=== PATIENT | female | born 2000 | race Caucasian/White ===

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

== ENCOUNTER → 2020-03-27 12:10 | Outpatient (CLI) | payer OTHER, SELFPAY ==
[2020-03-27 08:52] VITALS: BMI 23.3
[2020-03-29 03:06] LABS: Chlamydia By Nucleic Acid AMP Negative (Negative)
[2020-03-29 10:32] LABS: Gonococcus By Nucleic Acid AMP Negative (Negative)
== END ==
PROVIDERS: PCP Student in an Organized Health Care Education/Training Program; Visit Provider Nurse Practitioner Women's Health
DX: Z11.3 Encounter for screening for infections with a predominantly sexual mode of transmission (principal)
CPT/HCPCS: 87491; 87591

== ENCOUNTER → 2020-08-05 16:06 | Outpatient (CLI) | payer OTHER, SELFPAY ==
[2020-08-05 14:16] VITALS: BMI 22.1
[2020-08-08 20:08] LABS: Chlamydia By Nucleic Acid AMP Negative (Negative)
[2020-08-08 20:32] LABS: Gonococcus By Nucleic Acid AMP Negative (Negative)
== END ==
PROVIDERS: PCP Student in an Organized Health Care Education/Training Program; Referring Provider Nurse Practitioner Women's Health; Visit Provider Nurse Practitioner Women's Health
DX: Z11.3 Encounter for screening for infections with a predominantly sexual mode of transmission (principal); N94.9 Unspecified condition associated with female genital organs and menstrual cycle
CPT/HCPCS: 87070; 87205; 87491; 87591

== ENCOUNTER → 2020-11-07 08:15 | Outpatient (CLI) | payer OTHER, SELFPAY ==
[2020-08-05 14:16] VITALS: BMI 22.1
--- NOTE | 2020-11-07 08:20 | CT_ITS ---
STUDY: CT ABDOMEN AND PELVIS WITH AND WITHOUT CONTRAST REASON FOR EXAM: Female, 20 years old. Recurrent UTIs. RADIATION DOSAGE (If Supplied By Facility): CTDIvol = ( 15.94 ) mGy, DLP = ( 1537.60 ) mGycm TECHNIQUE: Transaxial images were obtained from the dome of the diaphragm to the symphysis pubis without oral contrast. IV 100mL Isovue-370 was administered. Sagittal and coronal images were reconstructed. Individualized dose optimization techniques were used for this CT. COMPARISON: None. FINDINGS: The visualized lung bases are unremarkable. The visualized portions of the heart are within normal limits. Normal liver. Normal gallbladder and extrahepatic biliary system. Normal spleen. Normal pancreas. Normal bilateral adrenal glands. Normal right kidney. Normal left kidney. Normal visualized stomach. Normal small intestine. Moderate amount of fecal material is seen in the colon. The appendix is visualized and appears normal. Normal abdominal aorta. Normal inferior vena cava. Normal retroperitoneum. Normal urinary bladder. Normal abdominal wall. Normal osseous structures. CT/CT Abd/Pelvis W/WO Contrast IMPRESSION: Normal unenhanced and enhanced CT of the abdomen and pelvis. Electronically Signed: Juanpablo Grissom MD at 9:41 EDT , Service support ,
== END ==
LOC: CT 08:18
PROVIDERS: PCP Student in an Organized Health Care Education/Training Program; Referring Provider Urology; Visit Provider Urology
DX: R31.0 Gross hematuria (principal); N39.0 Urinary tract infection, site not specified; R10.30 Lower abdominal pain, unspecified
CPT/HCPCS: 74178; Q9967

== ENCOUNTER → 2021-06-04 | Outpatient (CLI) | payer OTHER, MEDICAID, SELFPAY ==
[2021-06-08 18:08] LABS: Chlamydia By Nucleic Acid AMP Negative (Negative)
[2021-06-09 12:44] LABS: Gonococcus By Nucleic Acid AMP Negative (Negative)
[2021-06-10 17:23] LABS: HPV Reflexed? NOT INDICATED
== END | disposition home or self-care (01) ==
LOC: LABSPEC 08-04 14:00
PROVIDERS: PCP Student in an Organized Health Care Education/Training Program; Visit Provider Nurse Practitioner Women's Health
DX: N89.8 Other specified noninflammatory disorders of vagina (principal); Z12.4 Encounter for screening for malignant neoplasm of cervix; Z11.3 Encounter for screening for infections with a predominantly sexual mode of transmission
CPT/HCPCS: 87070; 87205; 87491; 87591; 88175; G0145

== ENCOUNTER → 2022-09-21 | Outpatient (CLI) | payer MEDICAID, SELFPAY ==
[2022-09-21 10:49] LABS: Absolute Lymphocyte Count 1.49 X10^3/uL (0.83-4.51); Absolute Neutrophil Count 3.9 X10^3/uL (2.0-7.7); Basophil# 0.03 X10^3/uL; Basophil% 0.5 % (0-1); Eosinophil# 0.25 X10^3/uL; Hematocrit 40.6 % (37-47); Hemoglobin 13.9 g/dL (12.0-15.0); Lymphocyte # 1.49 X10^3/ul (0.83-4.51); Lymphocyte % 24.1 % (19-41); Mean Corp Hgb Conc 34.2 g/dL (32-36); Mean Corpuscular Hgb 30.5 pg (27.0-32.0); Mean Platelet Vol. 8.6 fl (6.2-12.0); Monocyte# 0.48 X10^3/uL; Monocyte% 7.8 % (0-10); NRBC Flagged by Analyzer 0 % (0-5); Neutrophil # 3.91 X10^3/uL (2.7-7.7); Neutrophil % 63.3 % (47-70); Platelet Count 281 K/mm3 (150-450); RBC Distribution Width CV 12.1 % (11.6-14.6); RBC Distribution Width SD 39.4 fl (35.1-43.9); Red Blood Count 4.56 M/mm3 (4.2-5.4); White Blood Count 6.2 K/mm3 (4.4-11.0)
[2022-09-21 11:33] LABS: NATERA MAILED SPECIMEN
[2022-09-21 11:56] LABS: HIV - WCH Non-Reactive (Nonreactive); Hepatitis B Surface Antigen Non-Reactive (Nonreactive); Hepatitis C Antibody Non-Reactive (Nonreactive); Rubella IgG Reactive (Nonreactive); Syphilis Antibodies Non-reactive
[2022-09-21 17:34] LABS: Amphetamine Urine VISTA NEGATIVE (<1000 ng/mL); Barbiturate Urine VISTA NEGATIVE (< 200 ng/mL); Benzodiazepine Urine VISTA NEGATIVE (< 200 ng/mL); Cocaine Urine VISTA NEGATIVE (< 300 ng/mL); Ecstacy Urine VISTA NEGATIVE (< 500 ng/mL); Methadone Urine VISTA NEGATIVE (< 300 ng/mL); PCP Urine VISTA NEGATIVE (< 25 ng/mL); THC Urine VISTA NEGATIVE (< 50 ng/mL); Vista UDS pH Range 6
[2022-09-24 10:09] LABS: Chlamydia By Nucleic Acid AMP Negative (Negative); Gonococcus By Nucleic Acid AMP Negative (Negative)
[2022-09-28 21:39] LABS: HPV Reflexed? NOT INDICATED
== END | disposition home or self-care (01) ==
PROVIDERS: Obstetrics & Gynecology; PCP Student in an Organized Health Care Education/Training Program; Referring Provider Obstetrics & Gynecology; Visit Provider Obstetrics & Gynecology
DX: Z34.90 Encounter for supervision of normal pregnancy, unspecified, unspecified trimester (principal); F12.91 Cannabis use, unspecified, in remission
CPT/HCPCS: 36415; 80307; 85025; 86703; 86762; 86780; 86803; 86850; 86900; 86901; 87086; 87340; 87491; 87591; 88175; G0145

== ENCOUNTER → 2022-11-16 | Outpatient (CLI) | payer MEDICAID, SELFPAY | END | disposition home or self-care (01) | PROVIDERS: PCP Student in an Organized Health Care Education/Training Program; Referring Provider Registered Nurse; Visit Provider Registered Nurse | DX: N89.8 Other specified noninflammatory disorders of vagina (principal) | CPT/HCPCS: 36415; 87070; 87077; 87205 ==

== ENCOUNTER → 2023-01-11 | Outpatient (CLI) | payer MEDICAID, SELFPAY ==
[2023-01-11 15:13] LABS: Absolute Lymphocyte Count 1.34 X10^3/uL (0.83-4.51); Absolute Neutrophil Count 5.5 X10^3/uL (2.0-7.7); Basophil# 0.03 X10^3/uL; Basophil% 0.4 % (0-1); Eosinophil# 0.29 X10^3/uL; Eosinophils% 3.7 % (0-5); Hematocrit 35.1 % (37-47); Lymphocyte # 1.34 X10^3/ul (0.83-4.51); Mean Corp Hgb Conc 34.2 g/dL (32-36); Mean Corpuscular Hgb 30.8 pg (27.0-32.0); Mean Platelet Vol. 9.3 fl (6.2-12.0); Monocyte# 0.63 X10^3/uL; NRBC Flagged by Analyzer 0 % (0-5); Neutrophil # 5.53 X10^3/uL (2.7-7.7); Neutrophil % 70.4 % (47-70); Platelet Count 245 K/mm3 (150-450); RBC Distribution Width CV 12.1 % (11.6-14.6); RBC Distribution Width SD 39.5 fl (35.1-43.9); White Blood Count 7.9 K/mm3 (4.4-11.0)
[2023-01-11 15:32] LABS: Glucose Challenge Gest 1H 50g 108 mg/dL (70-140)
[2023-01-11 16:10] LABS: HIV - WCH Non-Reactive (Nonreactive); Syphilis Antibodies Non-reactive
== END | disposition home or self-care (01) ==
LOC: PAVLAB 13:00 → LAB 13:35
PROVIDERS: PCP Student in an Organized Health Care Education/Training Program; Referring Provider Nurse Practitioner Women's Health; Visit Provider Nurse Practitioner Women's Health
DX: Z34.90 Encounter for supervision of normal pregnancy, unspecified, unspecified trimester (principal)
CPT/HCPCS: 36415; 82950; 85025; 86703; 86780

== ENCOUNTER → 2023-03-15 | Outpatient (CLI) | payer MEDICAID, SELFPAY | END | disposition home or self-care (01) | LOC: LABSPEC 16:22 | PROVIDERS: PCP Student in an Organized Health Care Education/Training Program; Visit Provider Obstetrics & Gynecology | DX: Z34.90 Encounter for supervision of normal pregnancy, unspecified, unspecified trimester (principal) | CPT/HCPCS: 87081 ==

== ENCOUNTER 2023-04-19 07:00 | Inpatient (IN) | payer MEDICAID, SELFPAY ==
[2023-04-19] VITALS (39 sets, daily range): BP systolic 109–147; BP diastolic 57–99; PULSE 71–103; TEMP 36.4–37; O2SAT 98–100; BMI 32.2
--- NOTE | 2023-04-19 07:30 | HP.PCM.OB_ITS ---
HPI - General General Date of Admission: 04/19/23 Date of Service: 04/19/23 HPI Narrative JOE ARRIOLA, is a 23 F at 41.0 weeks who presents for IOL for postdates Maternal Data Information CHARLIE Calculator Estimated Delivery Date Method Current WG Current Estimate 04/12/23 Ultrasound #1 41w 0d Other Estimates 04/27/23 LMP (Certain) 38w 6d Final CHARLIE: 04/12/23 Final CHARLIE Source: US >20 weeks Gestational age: 41.0 PFSH PFSH Medical History (Updated 04/19/23 @ 08:53 by Deneen Addison) Anxiety Depression Hx of recurrent urinary tract infection Home Medications multivit-min no.71-iron fum 28 mg-folate no.1 1 mg-dha 300 mg capsule (PNV- [place]) cap PO DAILY 09/14/22 [History Last Taken Unknown] Allergy/AdvReac Type Severity Reaction Status Date / Time No Known Allergies Allergy Verified 04/19/23 07:44 Family History Grandmother Heart disease Social History adopted: No household members: significant other current occupational status: employed 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 current occupational exposures/hazards: No pets and animals: Yes pets and animals: dog(s) history of recent travel: No sexually active: Yes Smoking Status: Former smoker Electronic Cigarette Use: with nicotine counseling given: counseling >3 minutes alcohol intake: current alcohol intake frequency: holidays/special occasions only details: Not while substance use type: former substance user Date of last use: Daily for anxiety- Quit when found out and marijuana well-balanced diet: daily or most days caffeine: Yes Type: carbonated beverages Number of servings: 1 eating out: 1-3 times/week during the past year weight has: decreased > 10 lbs what type of physical activity do you participate in: additional details: Barn chores frequency: 5-6 times per week fernanda/adventism: Mormon seatbelt use: always do you feel safe at home: Yes additional social history: BF- Joaquim 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 Operator History 1 Elective abortions Hx Para 0 Spontaneous abortions Hx # Term Pregnancies Ectopic pregnancies Hx # Pregnancies Multiple births # of living children Visit Details Expected Delivery Route/Plan Labor Preferences- CB/BF classes: encouraged labor support person: Joaquim labor intervention preferences: [] pain management options preferred: epidural cut cord/dad catch: maybe : yes PP control planned: discussed discussed possible routes of delivery and associated risks: [] special requests: [] Plans Covid status: declines Flu vaccine: declines Tdap vaccine: declines Rhogam:NA LARC form signed: yes movement and labor precautions reviewed. Problem list reviewed and updated with the most current plan of care details and appropriate orders placed. Relevant counseling for the gestational age provided. Continue routine care and follow up unless otherwise noted in visit notes/problem list details OB Flowsheet Initial Weight: Not Recorded Date -?-?-?-?-?-?-?-?-?-?-?-?- EGA Weight BP Urine Prot -?-?-?-?-?-?-?-?-?-?-?-?- Glucose FHR FuHt Pres Dilation -?-?-?-?-?-?-?-?-?-?-?-?- Effaced St Visit Note 09/21/22 -?-?-?-?-?-?-?-?-?-?-?-?- 11w 0d 126 lb 2 oz 131/83 -?-?-?-?-?-?-?-?-?-?-?-?- 170 -?-?-?-?-?-?-?-?-?-?-?-?- JV- CRL consiste nt with 11 weeks 0 days, not consistent with LMP. Desires NIPT and [place] screening. 10/18/22 -?-?-?-?-?-?-?-?-?-?-?-?- 14w 6d 138 lb 2 oz 118/74 Nega tive -?-?-?-?-?-?-?-?-?-?-?-?- Negative 155 -?-?-?-?-?-?-?-?-?-?-?-?- LC- no vb/crampi ng. new ob labs normal. afp discussed and accepted. anatomy scan ordered. 11/16/22 -?-?-?-?-?-?-?-?-?-?-?-?- 19w 0d 151 lb 108/62 Negative -?-?-?-?-?-?-?-?-?-?-?-?- Negative 147 0 -?-?-?-?-?-?-?-?-?-?-?-?- MH-NO FM yet. US next week. Heavier discharge, brown, odor. See exam. Cultures pending. 12/14/22 -?-?-?-?-?-?-?-?-?-?-?-?- 23w 0d 165 lb 4 oz 118/78 Nega tive -?-?-?-?-?-?-?-?-?-?-?-?- Negative 151 -?-?-?-?-?-?-?-?-?-?-?-?- MH-Feeling movem ent. No VB, LOF. Denies concerns 01/11/23 -?-?-?-?-?-?-?-?-?-?-?-?- 27w 0d 173 lb 4 oz 134/82 Nega tive -?-?-?-?-?-?-?-?-?-?-?-?- Negative 138 27 -?-?-?-?-?-?-?-?-?-?-?-?- MH-No VB, LOF. G ood FM. 28 wk labs today. Declines flu vaccine. [facility] 01/25/23 -?-?-?-?-?-?-?-?-?-?-?-?- 29w 0d 181 lb 2 oz 128/74 Nega tive -?-?-?-?-?-?-?-?-?-?-?-?- Negative 154 29 -?-?-?-?-?-?-?-?-?-?-?-?- MH-No VB, LOF. G ood FM. 02/10/23 -?-?-?-?-?-?-?-?-?-?-?-?- 31w 2d 186 lb 6 oz 107/70 Nega tive -?-?-?-?-?-?-?-?-?-?-?-?- Negative 130 32 -?-?-?-?-?-?-?-?-?-?-?-?- KW- No vb/lof/ct x. good fm. no concerns today 02/22/23 -?-?-?-?-?-?-?-?-?-?-?-?- 33w 0d 190 lb 6 oz 116/64 Nega tive -?--?-?-?-?-?-?-?-?-?-?-?- Negative 135 33 -?-?-?-?-?-?-?-?-?-?-?-?- kw-no vb/lof/ctx . good fm. no concerns today 03/10/23 -?-?-?-?-?-?-?-?-?-?-?-?- 35w 2d 195 lb 6 oz 127/87 Nega tive -?-?-?-?-?-?-?-?-?-?-?-?- Negative 135 35 -?-?-?-?-?-?-?-?-?-?-?-?- SM- no vb lof go od fm n oreguar ctx 03/15/23 -?-?-?-?-?-?-?-?-?-?-?-?- 36w 0d 198 lb 4 oz 112/75 Nega tive -?-?-?-?-?-?-?-?-?-?-?-?- Negative 150 36 [place] 0 -?-?-?-?-?-?-?-?-?-?-?-?- JV- no lof, vagi nal bleeding, or dec fm. gbs collected JV- no lof, vaginal bleeding , or dec fm. gbs collected. vtx on ultrasound. 03/22/23 -?-?-?-?-?-?-?-?-?-?-?-?- 37w 0d 202 lb 2 oz 123/81 Nega tive -?-?-?-?-?-?-?-?-?-?-?-?- Negative 145 37 Cephalic 1 .5 -?-?-?-?-?-?-?-?-?-?-?-?- 50 -2 SM- no vb lof good fm no regular ctx 03/29/23 -?-?-?-?-?-?-?-?-?-?-?-?- 38w 0d 204 lb 4 oz 120/83 Nega tive -?-?-?-?-?-?-?-?-?-?-?-?- Negative 140 38 Cephalic 1 .5 -?-?-?-?-?-?-?-?-?-?-?-?- 70 -2 JV- no lof , vaginal bleeding, or dec fm. no complaints. labor precautions discussed. 04/05/23 -?-?-?-?-?-?-?-?-?-?-?-?- 39w 0d 205 lb 4 oz 129/84 -?-?-?-?-?-?-?-?-?-?-?-?- 150 39 Cephalic 1.5 -?-?-?-?-?-?-?-?-?-?-?-?- 70 SM- no v b lof good fm no reuglar ctx 04/14/23 -?-?-?-?-?-?-?-?-?-?-?-?- 40w 2d -?-?-?-?-?-?-?-?-?-?-?-?- 140 40 Cephalic 3 -?-?-?-?-?-?-?-?-?-?-?-?- 80 -2 KW-no vb/l of/ctx. good fm. IOL for 41 weeks. labor precautions NST FHR Rate Baby A Baseline: 135 Variability:: Moderate Accelerations:: 15 x 15 Decelerations:: None NST Reactive:: Yes FHR Category:: Category I Uterine Activity:: irregular ROS Constitutional Constitutional: Denies change in weight, fatigue, fever(s), headache(s), poor appetite or weakness Eyes Eyes: Denies blurry vision, change in vision, floaters, seeing flashes or spots in vision ENT HEENT: Denies dizziness, headache(s), loss taste/smell or sore throat Cardiovascular Cardiovascular: Denies chest pain, dizziness, dyspnea, irregular heart rhythm, lightheadedness, palpitations or rapid heart rate Respiratory/Chest Respiratory/Chest: Denies change in mental status, chest tightness, cough, dyspnea or breast pain Gastrointestinal Gastrointestinal: Denies anorexia, chewing difficulty, constipation, diarrhea or weight changes Genitourinary Genitourinary: Denies difficulty urinating, dysuria, flank pain, genital pain, urinary frequency or urinary urgency Musculoskeletal Musculoskeletal: Denies back pain, difficulty walking, extremity pain, joint pain, muscle cramps or muscle weakness Integumentary Integumentary: Denies lesions or unusual bruising Neurologic Neurologic: Denies abnormal movements, abnormal speech, dizziness, numbness, seizure-like activity, syncope or weakness Psychiatric Psychiatric: Denies behavioral changes, change in appetite, confusion, depression, homicidal ideation, suicidal ideation or suicidal thoughts Endocrine Endocrinology: Denies excessive sweating, polydipsia or polyuria Hematologic/Lymphatic Hematologic/Lymphatic: Denies anemia Allergic/Immunologic Allergic/Immunologic: Denies itchy eyes, lip swelling, throat swelling, tongue swelling or wheezing Vital Signs Vital Signs Vital Signs: 04/19/23 07:52 04/19/23 07:52 04/19/23 07:51 Temperature Temperature Source Temporal Pulse Rate 85 Blood Pressure 133/76 H BP Systolic 133 BP Diastolic 76 Pulse Ox 04/19/23 07:51 04/19/23 08:18 04/19/23 08:18 Temperature 98.6 F Temperature Source Pulse Rate 80 Blood Pressure BP Systolic BP Diastolic Pulse Ox 99 04/19/23 08:23 04/19/23 08:23 04/19/23 11:01 Temperature Temperature Source Temporal Pulse Rate 92 Blood Pressure BP Systolic BP Diastolic Pulse Ox 98 04/19/23 11:05 04/19/23 11:05 04/19/23 11:01 Temperature 98.3 F Temperature Source Pulse Rate 75 Blood Pressure 123/80 H BP Systolic 123 BP Diastolic 80 Pulse Ox Weight Weight: 212 lb Body Mass Index (BMI) 32.2 Physical Exam Const alert, oriented x3 and no apparent distress General Appearance: cooperative Orientation / Consciousness: awake HEENT normocephalic Neck full ROM Lymph Lymphatic: no lymphadenopathy noted Chest inspection of chest normal Resp normal respiratory effort and normal air movement Effort and Inspection: able to speak in complete sentences and symmetric chest movement GI soft to palpation and non-tender Inspection: gravid Palpation: soft; Negative for tender external exam normal Manual OB Exam: presentation cephalic, dilated, effaced 80 and station -2 Back/Spine normal to inspection Extremity normal to inspection and full ROM Skin no rashes or lesions noted Psych mental status grossly normal Appearance: grossly normal Speech: normal speech Labs Labs Labs: Blood Type B POSITIVE Antibody Screen NEGATIVE Hct 34.4 % (37-47) L Hgb 11.4 g/dL (12.0-15.0) L Syphilis Total Ab Non-reactive Rubella IgG Antibody Reactive (Nonreactive) Hep Bs Antigen Non-Reactive (Nonreactive) Hepatitis C Antibody Non-Reactive (Nonreactive) Chlamydia DNA ([place]) Negative (Negative) N.gonorrhoeae DNA ([place]) Negative (Negative) HIV 1&2 Antibody Non-Reactive (Nonreactive) Glucose 1 Hr 50 gm 108 mg/dL (70-140) Miscellaneous Test Charges/Coding Multi Select Codes Urinary/Genital Urinary/Genital CPT Codes: No Charge
[2023-04-19] MEDS: Lactated Ringers 1,000 ML 50 ML IV (08:00)
[2023-04-19 08:34] LABS: Absolute Lymphocyte Count 2.01 X10^3/uL (0.83-4.51); Absolute Neutrophil Count 6.4 X10^3/uL (2.0-7.7); Basophil# 0.04 X10^3/uL; Basophil% 0.4 % (0-1); Eosinophil# 0.28 X10^3/uL; Eosinophils% 2.9 % (0-5); Hematocrit 34.4 % (37-47); Hemoglobin 11.4 g/dL (12.0-15.0); Lymphocyte # 2.01 X10^3/ul (0.83-4.51); Lymphocyte % 20.9 % (19-41); Mean Corp Hgb Conc 33.1 g/dL (32-36); Mean Corpuscular Hgb 27.8 pg (27.0-32.0); Mean Corpuscular Volume 83.9 fL (81-99); Mean Platelet Vol. 10.3 fl (6.2-12.0); Monocyte% 8.3 % (0-10); NRBC Flagged by Analyzer 0 % (0-5); Neutrophil # 6.44 X10^3/uL (2.7-7.7); Neutrophil % 67.1 % (47-70); Platelet Count 250 K/mm3 (150-450); RBC Distribution Width CV 13.2 % (11.6-14.6); RBC Distribution Width SD 40.3 fl (35.1-43.9); White Blood Count 9.6 K/mm3 (4.4-11.0)
[2023-04-19 08:51] LABS: Amphetamine Urine VISTA NEGATIVE (<1000 ng/mL); Barbiturate Urine VISTA NEGATIVE (< 200 ng/mL); Benzodiazepine Urine VISTA NEGATIVE (< 200 ng/mL); Cocaine Urine VISTA NEGATIVE (< 300 ng/mL); Ecstacy Urine VISTA NEGATIVE (< 500 ng/mL); Methadone Urine VISTA NEGATIVE (< 300 ng/mL); PCP Urine VISTA NEGATIVE (< 25 ng/mL); THC Urine VISTA NEGATIVE (< 50 ng/mL); Vista UDS pH Range 6
[2023-04-19 09:01] LABS: Syphilis Antibodies Non-reactive
[2023-04-19] MEDS: Oxytocin 15 Units/NS 250ml 15 UNITS/250 ML IV.SOLN 2 UNITS IV (09:11)
--- NOTE | 2023-04-19 12:03 | PN_ITS ---
Progress Note Coping well with contractions current tracing: FHT: 135 Moderate variability reactive no decelerations category I tracing [place]: 3-4 minute-moderate Contractions Membranes:intact SVE:3/80/-2 on admission A/P: Continue with position changes Titrate pitocin per protocol Epidural per anesthesia when desired Anticipate Dr Mcnulty aware of above assessment and agrees with plan of care Assessment & Plan Assessment/Plan (1) Anxiety and depression: (2) Supervision of high risk , antepartum: (3) : QUALIFIERS: Weeks of gestation: 39 weeks Qualified Code(s): Z3A.39 - 39 weeks gestation of (4) History of marijuana use: (5) Seasonal allergies:
[2023-04-19] MEDS: LACTATED RINGERS 500 ML 999 ML IV (13:51)
[2023-04-19] MEDS: fentaNYL-bupivacaine (epidural) 100 ML BAG EPIDURAL ×2 (14:34→18:48)
[2023-04-19] MEDS: Lactated Ringers 1,000 ML 200 ML IV ×2 (15:44→21:12)
--- NOTE | 2023-04-19 16:29 | PCM.PN.BLA ---
Progress Note comfortable with epidural current tracing: FHT: 125 Moderate variability reactive no decelerations category I tracing [place]: 3-4 Contractions Membranes: SROM at 1430 SVE:4/80/-2 A/P: Continue with position changes Titrate pitocin per protocol Epidural per anesthesia Anticipate Dr Mcnulty aware of above assessment and agrees with plan of care Assessment & Plan Assessment/Plan (1) Encounter for induction of labor: (2) Anxiety and depression: (3) History of marijuana use: (4) Supervision of high risk , antepartum: (5) : QUALIFIERS: Weeks of gestation: 39 weeks Qualified Code(s): Z3A.39 - 39 weeks gestation of Multi Select Codes Urinary/Genital Urinary/Genital CPT Codes: No Charge
--- NOTE | 2023-04-19 17:11 | PCM.PN.BLA ---
Progress Note comfortable with epidural current tracing: FHT: 135 Moderate variability reactive no decelerations category I tracing [place]: 3-4 minute Contractions Membranes:SROM 1430 SVE: 6/90/-1 A/P: Continue with position changes Titrate pitocin per protocol Epidural per anesthesia Anticipate Dr Mcnulty aware of above assessment and agrees with plan of care Assessment & Plan Assessment/Plan (1) Encounter for induction of labor: (2) History of marijuana use: (3) Supervision of high risk , antepartum: (4) : QUALIFIERS: Weeks of gestation: 39 weeks Qualified Code(s): Z3A.39 - 39 weeks gestation of Multi Select Codes Urinary/Genital Urinary/Genital CPT Codes: No Charge
[2023-04-19] MEDS: Methylergonovine 0.2 MG/ML Ampul IM (22:02)
[2023-04-19] MEDS: Oxytocin 15 Units/NS 250ml 15 UNITS/250 ML IV.SOLN 83 UNITS IV (22:09)
--- NOTE | 2023-04-19 22:09 | EX.PCM.OBRPT ---
Assessment & Plan (1) Vaginal delivery: COMMENT: kw, IOL, 41.0 boy Lee (2) Anxiety and depression: (3) History of marijuana use: COMMENT: tox screen random(neg 09/2022), quit with +UPT, Used daily for anxiety/sleep, counseling provided (4) Supervision of high risk , antepartum: COMMENT: PRR , CHARLIE 04/12/23 zak March (5) : QUALIFIERS: Weeks of gestation: 39 weeks Qualified Code(s): Z3A.39 - 39 weeks gestation of COMMENT: Neg GBS NL anatomy, NIPT low risk, carrier testing neg. . afp negative Maternal Data Information CHARLIE Calculator Estimated Delivery Date Method Current WG Current Estimate 04/12/23 Ultrasound #1 41w 0d Other Estimates 04/27/23 LMP (Certain) 38w 6d Final CHARLIE: 04/19/23 Final CHARLIE Source: US >20 weeks Gestational age: 41.0 Vaginal Delivery Maternal Presentation Maternal Presentation: Medically Indicated Induction Maternal Presentation: Progressed well to 10cm dilated and made steady progress with effective maternal pushing. Delivered the head in ANNAMARIA presentation. The head was delivered atraumatically and no nuchal cord was identified. The anterior and posterior shoulders delivered without complication followed by the rest of the and the infant was placed on the maternal abdomen. Delayed cord clamping was employed for approximately 5 minutes. Cord was clamped and cut and gentle traction was applied to the cord and the placenta delivered spontaneously. Immediately following, it was noted to be intact with a 3 vessel cord. The perineum and vagina were inspected and noted to have a first degree vaginal laceration which was repaired with 3-0 Vicryl in the usual fashion. EBL was 200cc. Patient and infant tolerated delivery well. Apgars 8/9. Dr Mcnulty notified of vaginal delivery and orders reviewed. Physician agrees with current plan of care. Type of Induction: Pitocin Operative Information Date of Procedure: 04/19/23 Pre-Operative Diagnosis: See AP comments Post-Operative Diagnosis: Same Surgery / Procedure Performed: Spontaneous Vaginal Delivery bow maker machine tender #1: Preeti Crawford Type of Anesthesia: Epidural Estimated Blood Loss: 200 Time of Delivery: 21:35 Findings Presentation: ANNAMARIA Amniotic Membrane Rupture Type: Spontaneous Time of Membrane Rupture: 1430 Amniotic Fluid Description: Clear Placental Delivery Description: Spontaneous Placenta Disposition: [facility] Cord Vessel Description: 3 Vessels Cord Entanglement: None A Gender: Female (1 minute): 8 (5 minute): 9 Delayed Cord Clamping: Yes Post Vaginal Delivery Medications Given After Delivery: IV Pitocin Episiotomy Description: None Laceration: 1st degree Complication Complications: None Multi Select Codes Urinary/Genital Urinary/Genital CPT Codes: 78241 Vaginal Delivery [facility]
[2023-04-20] VITALS (12 sets, daily range): BP systolic 112–136; BP diastolic 65–78; PULSE 75–94; RESP 16; TEMP 36.2–37.1; O2SAT 97–99
[2023-04-20] MEDS: Benzocaine/Lanolin/Aloe Vera 1 SPRAY EACH TOPICAL (06:55)
--- NOTE | 2023-04-20 07:55 | PN.OBGYN_ITS ---
Subjective Subjective Patient doing well without complaints. Tolerating PO. Ambulating and voiding without difficulty. Feeding well. Denies chest pain, shortness of breath, calf pain/swelling, fevers, chills, lightheadedness. Objective Data Objective Data Vital Signs: Vital Signs Temp Pulse Resp BP Pulse Ox 98.4 F 86 16 132/78 H 100 04/20/23 04:17 04/20/23 04:17 04/20/23 04:17 04/20/23 04:17 04/19/23 16:47 Weight: 212 lb Body Mass Index (BMI) 32.2 Intake & Output: Intake and Output for Last 24 Hours 04/18/23 04/19/23 04/20/23 23:59 23:59 23:59 Intake Total 3063.33 / 3063.33 250 / 250 Output Total 950 / 950 900 / 900 Balance 2113.33 / 2113.33 -650 / -650 Lab / Micro Data 04/19/23 07:50 Labs: Laboratory Results - last 24 hr 04/19/23 07:50: WBC 9.6, RBC 4.10 L, Hgb 11.4 L, Hct 34.4 L, MCV 83.9, MCH 27.8, MCHC 33.1, RDW Std Deviation 40.3, RDW Coeff of Lyly 13.2, Plt Count 250, MPV 10.3, Immature Gran % (Auto) 0.400, Neut % (Auto) 67.1, Lymph % (Auto) 20.9, [place] % (Auto) 8.3, Eos % (Auto) 2.9, Baso % (Auto) 0.4, Absolute Neuts (auto) 6.4, Absolute Lymphs (auto) 2.01, Nucleated RBC % 0, Syphilis Total Ab Non- reactive, Blood Type B POSITIVE, Antibody Screen NEGATIVE 04/19/23 08:00: Urine Opiates Screen NEGATIVE, Urine Methadone Screen NEGATIVE, Ur Barbiturates Screen NEGATIVE, Ur Phencyclidine Scrn NEGATIVE, Ur Amphetamines Screen NEGATIVE, MDMA (Ecstasy) Screen NEGATIVE, U Benzodiazepines Scrn NEG ATIVE, Urine Cocaine Screen NEGATIVE, U Cannabinoids Screen NEGATIVE, Ur Drug Screen Comment Physical Exam Const alert and oriented x3 HEENT normocephalic Eyes PERRL Neck full ROM Resp normal respiratory effort GI soft to palpation GI Narrative: FF below U Assessment & Plan (1) Vaginal delivery: COMMENT: kw, IOL, 41.0 boy Lee (2) Seasonal allergies: (3) Anxiety and depression: (4) History of marijuana use: COMMENT: tox screen random(neg 09/2022), quit with +UPT, Used daily for anxiety/sleep, counseling provided PLAN: Plan s/p PPD # 1 1. routine post delivery care 2. breast feeding- support given 3. rh positive 4. rubella immune
[2023-04-20] MEDS: Ibuprofen 600 MG Tablet PO ×2 (08:10→19:30)
[2023-04-20] MEDS: Acetaminophen 500 MG Tablet 1000 MG PO ×2 (12:16→23:48)
[2023-04-21 05:06] VITALS: BP 122/70; PULSE 79; RESP 16; TEMP 36.7; O2SAT 99
[2023-04-21 05:07] VITALS: BP 122/70; PULSE 75
[2023-04-21] MEDS: Ibuprofen 600 MG Tablet PO (06:41)
--- NOTE | 2023-04-21 07:59 | PCM.PN.OB ---
Subjective Subjective Patient doing well without complaints. Tolerating PO. Ambulating and voiding without difficulty. Feeding well. Denies chest pain, shortness of breath, calf pain/swelling, fevers, chills, lightheadedness. Objective Data Objective Data Vital Signs: Vital Signs Temp Pulse Resp BP Pulse Ox O2 Del Method 98.1 F 75 16 122/70 H 99 Room Air 04/21/23 05:06 04/21/23 05:07 04/21/23 05:06 04/21/23 05:07 04/21/23 05:06 04/21/23 05:06 Oxygen Delivery Method Room Air Weight: 212 lb Body Mass Index (BMI) 32.2 Intake & Output: Intake and Output for Last 24 Hours 04/19/23 04/20/23 04/21/23 23:59 23:59 23:59 Intake Total 3063.33 / 3063.33 250 / 250 Output Total 950 / 950 900 / 900 Balance 2113.33 / 2113.33 -650 / -650 Lab / Micro Data 04/19/23 07:50 Physical Exam Const alert and oriented x3 HEENT normocephalic Eyes PERRL Neck full ROM Resp normal respiratory effort GI soft to palpation GI Narrative: FF below U Assessment & Plan (1) Vaginal delivery: COMMENT: kw, IOL, 41.0 boy Lee (2) Seasonal allergies: (3) Anxiety and depression: (4) History of marijuana use: COMMENT: tox screen random(neg 09/2022), quit with +UPT, Used daily for anxiety/sleep, counseling provided PLAN: Plan s/p PPD # 2 1. routine post delivery care 2. breast feeding- support given 3. rh positive 4. rubella immune 5. home today
[2023-04-21 10:18] VITALS: BP 126/63; PULSE 94; RESP 16; TEMP 37; O2SAT 98
[2023-04-21 10:19] VITALS: BP 126/63; PULSE 87
[2023-04-21 10:20] VITALS: PULSE 90; O2SAT 98
--- NOTE | 2023-04-21 11:52 | CASEMGMT ---
Social Work Assessment Labor and Delivery Unit Patient Address: [address] [place] [address] Phone number: [phone] Date of Referral: 04/20/23 Time of Referral:?34 Referred By: Preeti Crawford Date of Intervention: ??04/21/23 Time of Intervention:? 1044 Reason for Referral:? anxiety and depression Sw completed chart review and acknowledges social work consult due to maternal mental health history positive for anxiety and depression. Sw presented to bedside and introduced self to mother of baby (MOB- February) and father of baby (FOB- Joaquim) and explained sw role. Sw completed psychosocial assessment and asked FOB to step out of room momentarily so that MOB could complete an Fowler Depression Scale. FOB did so respectfully and without issue. History obtained from: medical records, MOB and FOB Household composition: Currently residing in the family home is MOB and FOJess, along with new baby now. Parents report that housing is safe, no concerns at this time. Patient's parent/guardian status:? ?Parents report they have been together for 3 years, they met while working together in a [employer]. While meeting with MOB privately she denies any issues with domestic violence or intimate partner violence. Medical History: ?REGULO is 23 year old female who is 1, para 0-now 1 following labor and delivery. REGULO received routine care during with [facility]. REGULO delivered baby at 41 weeks gestation via vaginal delivery after being induced. Baby boy, named Lee, was born weighing 8lb 13oz and his apgars were 8 nad 9 at one and five minutes of life respectfully. REGULO states that she is breast feeding and this is going well. MOB states that baby will be followed by Dr. Parra for pediatrics. Educational Status:? Both parents graduated from high school. REGULO reports that she obtained some college credits but did not graduate. Parents deny any issues or concerns with reading, learning or comprehension. Financial Status: Both parents are gainfully employed outside of the home. HOLLY works for a [employer] and is able to take some time off of work now that baby has been born. HOLLY states that his employer is really supportive. REGULO states that she works for the [employer] in [place] and is able to take off as much time as she needs for maternity leave. Infant Supplies:?? Parents state that they have obtained all necessary baby supplies, including: car seat, safe sleep space, clothes, diapers, wipes and a breast pump. Childcare/Caregiver(s):? Parents deny the need for a childcare provider, as they are able to arrange their work schedules so that one of them is always able to watch baby. Transportation:?? Both parents have their drivers license and reliable means of transportation. No transportation barriers at this time. Programs/Agencies Involved: ?REGULO states that she is connected to [employer] [facility] for insurance. REGULO denies linkage to any other community resources at this time. ?? Children Services/Legal Issues:??No history of children services involvement, no issues or concerns warranting a referral to be made at this time. ? Behavioral Health Issues: ??Mental Health History: HOLLY denies mental health history. REGULO states that she has been diagnosed with anxiety and depression. REGULO states that when she was 17 years old her mother left her and her family and chose not to be a part of her life. REGULO states that this is something that she needed to work through and she has now accepted this. REGULO states that she is thankful for HOLLY's family as they have taken her in and have accepted her as one of their own. REGULO states that she used to be prescribed psychiatric medications to help her manage her mental health symptoms, but she no longer needs them. REGULO completed an Fowler depression scale and her score was a 3. Sw educated MOB and provided support. ??? Substance Use History:?REGULO has history of marijuana use, none during . ? Family History:??REGULO denies any family history of addiction or significant mental health diagnoses. REGULO stated that her mom probably has some mental health issues, but she has not been diagnosed. ??? Drug Screens: ??Urine screens during and at delivery all negative for all substances. Family/Social Stressors: Parents deny at this time. ? Support Systems: [facility] Depression/Shaken Baby/Safe Sleeping:? Charity provided education on signs and symptoms of baby blues and depression. Sw provided parents with literature for them to review that provided information on resources that are available for REGULO during her journey. Sw educated parents on shaken baby prevention and ABCs of safe sleep. Parents expressed understanding. ASSESSMENT:? MOB and baby admitted following labor and delivery. MOB with strong supports found in FOB family. Parents have obtained all necessary baby supplies and are knowledgeable about signs and symptoms of baby blues and depression to be on the look out for. MOB feels that FOB would be able to recognize when she is struggling and would know how to best support her. Both parents made good eye contact during assessment and were receptive to sw involvement and support. Parents observed to provide caring and attentive hands on care to baby. PLAN:? MOB and baby to be discharged when medically ready. ?No other services requested or indicated. Becca Petty, UPHOLST[employer] COVERS INSPECTOR, KNEE BOLTER
== END 2023-04-21 13:00 | disposition home or self-care (01) | DRG 560 ==
PROVIDERS: Admitting Provider Advanced Practice Midwife; PCP Student in an Organized Health Care Education/Training Program; Referring Provider Registered Nurse; Visit Provider Advanced Practice Midwife
DX: O48.0 Post-term pregnancy (principal); Z37.0 Single live birth; O42.02 Full-term premature rupture of membranes, onset of labor within 24 hours of rupture; O70.0 First degree perineal laceration during delivery; Z3A.41 41 weeks gestation of pregnancy; Z87.891 Personal history of nicotine dependence
CPT/HCPCS: 59025; 59050; 80307; 85025; 86780; 86850; 86900; 86901; 99221; J7120; G0378

== ENCOUNTER → 2023-04-29 | Outpatient (CLI) | payer MEDICAID, SELFPAY | END | disposition home or self-care (01) | LOC: LABSPEC 16:01 | PROVIDERS: PCP Student in an Organized Health Care Education/Training Program; Referring Provider Advanced Practice Midwife; Visit Provider Advanced Practice Midwife | DX: N90.9 Noninflammatory disorder of vulva and perineum, unspecified (principal) | CPT/HCPCS: 87070; 87205 ==

== ENCOUNTER → 2023-08-26 | Outpatient (CLI) | payer MEDICAID, SELFPAY | END | disposition home or self-care (01) | LOC: LABSPEC 17:02 | PROVIDERS: PCP Student in an Organized Health Care Education/Training Program; Referring Provider Obstetrics & Gynecology; Visit Provider Obstetrics & Gynecology | DX: N89.8 Other specified noninflammatory disorders of vagina (principal) | CPT/HCPCS: 87070; 87205 ==

== ENCOUNTER → 2023-12-28 | Outpatient (CLI) | payer MEDICAID, SELFPAY ==
[2023-12-28 15:12] LABS: hCG Titer Quant., Serum 2311 mIU/mL (1-3)
== END | disposition home or self-care (01) ==
LOC: LAB 13:42
PROVIDERS: PCP Student in an Organized Health Care Education/Training Program; Referring Provider Obstetrics & Gynecology; Visit Provider Obstetrics & Gynecology
DX: Z34.90 Encounter for supervision of normal pregnancy, unspecified, unspecified trimester (principal)
CPT/HCPCS: 36415; 84702

== ENCOUNTER → 2023-12-30 | Outpatient (CLI) | payer MEDICAID, SELFPAY ==
[2023-12-30 13:41] LABS: hCG Titer Quant., Serum 1977 mIU/mL (1-3)
== END | disposition home or self-care (01) ==
LOC: LAB 11:48
PROVIDERS: PCP Student in an Organized Health Care Education/Training Program; Referring Provider Obstetrics & Gynecology; Visit Provider Obstetrics & Gynecology
DX: Z34.90 Encounter for supervision of normal pregnancy, unspecified, unspecified trimester (principal)
CPT/HCPCS: 36415; 84702

== ENCOUNTER → 2024-01-03 | Outpatient (CLI) | payer MEDICAID, SELFPAY ==
--- NOTE | 2024-01-03 16:28 | US_ITS ---
INDICATION: possible miscarriage EXAMINATION: Ultrasound US OB Less Than 14 Weeks TECHNIQUE: Endovaginal pelvic ultrasound was performed. Grayscale, spectral waveform, and color flow Doppler evaluation of the adnexa. COMPARISON: LMP: [Unknown Beta-hCG: Unknown FINDINGS: UTERUS: 8.3 x 5.4 x 4.5 cm. RIGHT OVARY: 3.9 x 1.9 x 2.1 cm. Normal. LEFT OVARY: 2.7 x 1.5 x 1.2 cm. Normal. FREE FLUID: None. INTRAUTERINE GESTATIONAL SAC(s) (size/shape): Single. 9 mm, 5 weeks 5 days YOLK SAC: 4 mm POLE: Identified CRL 3 mm. ESTIMATED GESTATION AGE: 6 weeks 1 day. HEART MOTION: 105 bpm. PLACENTA: Not visualized due to age. SUBCHORIONIC HEMORRHAGE: Mild, 0.9 x 0.5 x 0.3 cm AMNIOTIC FLUID: Qualitatively normal. US/Transvaginal w/Preg US IMPRESSION: Single live intrauterine . Estimated gestational age is 6 weeks 0 days.. Trace subchorionic blood. Electronically Signed: Sammy Rueda DO at 17:35 EDT Reading Location ID and State: [facility] / [place] Tel [phone], Service support ,
== END | disposition home or self-care (01) ==
PROVIDERS: PCP Student in an Organized Health Care Education/Training Program; Referring Provider Obstetrics & Gynecology; Visit Provider Obstetrics & Gynecology
DX: R10.2 Pelvic and perineal pain (principal)
CPT/HCPCS: 76817

== ENCOUNTER 2024-01-20 11:48 | Day surgery (SDC) | payer MEDICAID, SELFPAY ==
[2024-01-20] VITALS (8 sets, daily range): BP systolic 105–119; BP diastolic 61–79; PULSE 62–73; RESP 16–20; TEMP 36.3–36.9; O2SAT 100; BMI 25.0
[2024-01-20] MEDS: Lactated Ringers 1,000 ML 15 ML IV (12:39)
[2024-01-20] MEDS: Doxycycline 100 MG CAPSULE PO (12:47)
--- NOTE | 2024-01-20 13:03 | PRE.ANES_ITS ---
ASA Classification* ASA Classification ASA Classification: 2 Assessment & Plan Anesthesia* Anesthesia Assessment Anesthesia Assessment: Discussed sedation and/or anesthesia options, risks, benefits, and alternatives with patient/parents/legal guardian/POA. Questions invited. The patient/parents/legal guardian/POA seems to understand and agrees to proceed with anesthesia plan. Reviewed the physical assessment, medical history, allergy history and patient home medications list prior to surgery/procedure/anesthetic and documented any changes. Performed airway and anesthesia risk assessments. Anesthesia Type Anesthesia Type: MAC Anesthesia Focused Assessment* Temperature: 98.4 F Pulse Rate: 62 Blood Pressure: 105/61 Respiratory Rate: 16 Pulse Ox: 100 Airway Assessment Mouth opens: >3 cm Mallampati Score: II Focused Labs Anesthesia Preop lab: CBC WBC 9.6 K/mm3 (4.4-11.0) 04/19/23 07:50 RBC 4.10 M/mm3 (4.2-5.4) L 04/19/23 07:50 Hgb 11.4 g/dL (12.0-15.0) L 04/19/23 07:50 Hct 34.4 % (37-47) L 04/19/23 07:50 Plt Count 250 K/mm3 (150-450) 04/19/23 07:50 CHEMISTRY COAG HCG, Quant 1977 mIU/mL (1-3) H 12/30/23 11:56 Tst Clinic Negative 06/04/21 14:24 Pre-Assessment Diagnosis/Proposed Procedure Planned Operative Procedure(s): SUCTION D&C, ANORA TESTING Anesthesia History Anesthesia History - mechanism assembler: Anesthesia History - mechanism assembler Hx Hospitalization No 01/19/24 15:19 Any Problems With Anesthesia No 01/19/24 15:19 Cholinesterase deficiency No 01/19/24 15:19 You/Your Family Experience No 01/19/24 15:19 fever (hyperthermia) with Relationship Recent Exposure to Contagious No 01/20/24 12:31 Disease Does patient have nerve No 01/19/24 15:19 stimulator Patient instructed to have device shut off --Does patient have Pacemaker No 01/20/24 12:31 or ICD? When Was Last Pacemaker Check QUESTION #4 FULL TEXT: You/Your Family Experience fever (hyperthermia) with Anesthesia Last Oral Intake Last Oral intake: Last Oral Intake NPO since 08:00 01/20/24 12:31 Meds taken in AM with sips of No 01/20/24 12:31 water? Meds patient instructed to take am of surgery PONV PONV - mechanism assembler: PONV - mechanism assembler Female Yes 01/19/24 15:19 HX of Motion Sickness No 01/19/24 15:19 HX of N/V After Surgery No 01/19/24 15:19 Non-Smoker Yes 01/19/24 15:19 Duration of Surgery greater No 01/19/24 15:19 than 60 minutes Number of Risk Factors 2 01/19/24 15:19 PONV Score Moderate Risk 01/19/24 15:19 Height & Weight Height & Weight: Anesthesia: Height & Weight Height 5 ft 8 in 01/20/24 12:31 Weight: 74.8 kg 01/20/24 12:31 Body Mass Index (BMI) 25.0 01/20/24 12:31 Respiratory Assessment Respiratory Assessment - mechanism assembler: Respiratory Tract Infection Hx - mechanism assembler Hx Respiratory Tract Infection No 01/19/24 15:19 STOP Sleep Apnea STOP Sleep Apnea - mechanism assembler: STOP Sleep Apnea - mechanism assembler Hx Hypertension No 01/19/24 15:19 Hx Sleep Apnea No 01/19/24 15:19 CPAP BIPAP Do you snore loudly (louder No 01/19/24 15:19 than talking or can be heard Do you often feel tired/ No 01/19/24 15:19 fatigued/ sleepy during daytime? Has anyone observed you stop No 01/19/24 15:19 breathing during sleep? STOP Results Negative 01/19/24 15:19 QUESTION #5 FULL TEXT : Do you snore loudly (louder than talking or can be heard through closed doors)? Tobacco Use History Tobacco Use History - mechanism assembler: Tobacco Use History - mechanism assembler Tobacco Use Smoking Status Former smoker 01/19/24 15:19 Hx Tobacco Use No 01/19/24 15:19 Years Smoking Packs Smoked per Day Smoking Cessation Date was Yes - quit smoking within 15 01/19/24 15:19 within the last 15 years years Hx Smoking Cessation Date 05/09/22 01/19/24 15:19 Hx Smoking Cessation Counseling Hematologic Medial History Hematologic Hx - mechanism assembler: Hematologic Medical Hx - insole tape stitcher uco Hx of Blood Transfusion No 01/19/24 15:19 Hx of Transfusion in last 3 No 01/19/24 15:19 Months Date of Last Transfusion (if within last 3 months) Ever experience any problems No 01/19/24 15:19 with transfusion(s)? Specify any problems Hx of Preganancy in last 3 N/A 01/19/24 15:19 Months Nurse Filling Out Transfusion NBUCHER 01/19/24 15:19 & Questions: Date: 01/19/24 01/19/24 15:19 Time: 15:20 01/19/24 15:19 Patient unable to answer at this time (ie. confused, unrespo /Reproduction History /Reproductive History - mechanism assembler: /Reproductive Hx- mechanism assembler Hx Now Yes 01/19/24 15:19 Gestational Age (in weeks): EDC: Hx Hx Para Hx Section SAB No 01/19/24 15:19 Active Medications Active Medications: Current Medications Generic Name Dose Route Start Last Admin Trade Name Freq PRN Reason Stop Dose Admin Lactated Ringer's 1,000 mls @ 15 mls/hr 01/20/24 12:45 01/20/24 12:39 IV 15 mls/hr .Q48H SILVIANO Administration PFSH Medical History Former smoker Vaginal delivery Depression Anxiety Hx of recurrent urinary tract infection Home Medications ?Medication ?Instructions ?Recorded ?Last Taken ?Type multivit-min no.71-iron fum 28 1 cap PO DAILY 09/14/22 Unknown History mg-folate no.1 1 mg-dha 300 mg capsule (PNV-[place]) Allergy/AdvReac Type Severity Reaction Status Date / Time No Known Allergies Allergy Verified 01/20/24 12:14 Family History Grandmother Heart disease Social History adopted: No household members: significant other current occupational status: employed 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 current occupational exposures/hazards: No pets and animals: Yes pets and animals: dog(s) history of recent travel: No sexually active: Yes Smoking Status: Former smoker Electronic Cigarette Use: with nicotine alcohol intake: current alcohol intake frequency: holidays/special occasions only details: Not while substance use type: former substance user Date of last use: Daily for anxiety- Quit when found out and marijuana well-balanced diet: daily or most days caffeine: Yes Type: carbonated beverages Number of servings: 1 eating out: 1-3 times/week during the past year weight has: decreased > 10 lbs what type of physical activity do you participate in: additional details: Barn chores frequency: 5-6 times per week fernanda/taoism: Caodaism seatbelt use: always do you feel safe at home: Yes additional social history: YEMI- Joaquim Bhatt Review of Systems (Anesthesia) ROS Narrative System reviewed and no additional complaints, except as documented.
--- NOTE | 2024-01-20 13:30 | POC_PTH ---
PATIENT: JOE ARRIOLA LOC: [facility] U#:[id number] AGE/SX: 23/F ROOM: RE01/20/[address]: Dr. Carol Mcnulty MD : [id number] BED: DIS: 01/20/2024 SPEC #: [id number] RECD: 01/20/24 15:26 STATUS: KARELY ALVARO #: [id number] RAFFY: 01/20/24 13:[address]: Carol Mcnulty DEPT: SURGICAL PATHOLOGY RECD BY: Gustavo Goncalves ENTERED: 01/23/24 06:58 SP TYPE: PROD CONC OTHR DR: Dr. Kameron Craig DO Tissues: Product of conception, NOS Procedures: Surgery Specimen Level IV HEADER OPERATION: D&C, suction, Anora testing PRE-OP DIAGNOSIS: Incomplete TISSUE SUBMITTED: Products of conceptions- ANORA MICROSCOPIC DIAGNOSIS Endometrium, curettage: Chorionic villi, decidualized stroma and trophoblastic cells (products of conception). AM: 01/24/2024 MICROSCOPIC DESCRIPTION Slides are reviewed. GROSS DESCRIPTION Received fresh without fixative is one container labeled with the patient's name and designated Products of conception for Anora testing. The specimen consists of multiple pieces of pink soft tissue measuring in aggregate 3.5 x 3.0 x 0.5cm. A portion of tissue is submitted for Anora studies. The rest of the specimen is submitted in three cassettes. 01/23/2024 TC:5 CPT:64565 ADDENDUM ADDENDUM ADDENDUM ADDENDUM ADDENDUM ADDENDUM ADDENDUM ADDENDUM ADDENDUM ADDENDUM ADDENDUM ADDENDUM ADDENDUM ADDENDUM 02/06/2024 15:20 ADDENDUM 02/06/2024 15:20 ADDENDUM 02/06/2024 15:20 ADDENDUM 02/06/2024 15:20 ADDENDUM 02/06/2024 15:20 This addendum is added to incorporate an outside pathology consultation report. The case was examined at [facility] (#[id number]) and the following diagnosis was rendered. RESULT: Maternal cell contamination CLINICAL INTERPRETATION: Maternal cell contamination was detected. Insufficient DNA detected for analysis. LAB NOTE: Second run of sample. Repeat examination of submitted sample was unable to detect DNA for analysis. Please see complete above mentioned consultation report in EMR
--- NOTE | 2024-01-20 14:42 | HP.PCM_ITS ---
History and Physical Intake Vital Signs 01/12/2411:16 01/18/2413:36 01/18/2413:38 Height 5 ft 8 in 5 ft 8 in 5 ft 8 in Weight: 168 lb 8 oz BMI 25.6 BP 122/58 H Intake Visit Reasons: 1 week f/u Nuclear Equipment Design Engineer Required: No Is patient in pain?: No Allergies No Known Allergies Allergy (Verified 01/19/24 15:18) Medications ?Medication ?Instructions ?Recorded ?Confirmed ?Type multivit-min no.71-iron fum 28 1 cap PO DAILY 09/14/22 01/19/24 History mg-folate no.1 1 mg-dha 300 mg capsule (PNV-[place]) Is last menstrual period known: No Post menopausal: No Patient : Yes : No PFSH Medical History Vaginal delivery Depression Anxiety Hx of recurrent urinary tract infection Family History Grandmother Heart disease Social History adopted: No household members: significant other current occupational status: employed 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 current occupational exposures/hazards: No pets and animals: Yes pets and animals: dog(s) history of recent travel: No sexually active: Yes Smoking Status: Former smoker Electronic Cigarette Use: with nicotine alcohol intake: current alcohol intake frequency: holidays/special occasions only details: Not while substance use type: former substance user Date of last use: Daily for anxiety- Quit when found out and marijuana well-balanced diet: daily or most days caffeine: Yes Type: carbonated beverages Number of servings: 1 eating out: 1-3 times/week during the past year weight has: decreased > 10 lbs what type of physical activity do you participate in: additional details: Barn chores frequency: 5-6 times per week fernanda/scientologist: Adventism seatbelt use: always do you feel safe at home: Yes additional social history: BF- Joaquim 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 She has some mild cramping and low back pain. Last week a CRL measuring 6 weeks with heart tones of 120 was visualized but the gestational sac was only measuring 4 week size. History 2 Elective abortions Hx Para 1 Spontaneous abortions Hx # Term Pregnancies Ectopic pregnancies Hx # Pregnancies Multiple births 0 # of living children 1 Past Pregnancies Del. Date Name GA/Weeks Outcome Route Bth Weight Gen Labor Lgth Anesthesia Del Locatn Provider FOB 04/19/23 Lee 41 live - full term 8lbs 13oz Male epidural WC Preeti Crawford, MARCELO Joaquim ROS Const ROS Unobtainable: All systems reviewed & are unremarkable except as noted in H Resp Resp: Reports system reviewed and no additional complaints, except as documented; Denies cough GI GI: Reports as per HPI Psych Psych: Reports system reviewed and no additional complaints, except as documented Exam Const General: cooperative, healthy appearing, comfortable and no acute distress Resp Effort & Inspection: normal respiratory effort General: bimanual renal exam normal bilaterally External Female Exam: normal appearance of the urethra Urethra: normal appearance of the urethra Speculum Exam - Vagina: normal appearance of the vagina and vaginal bleeding Speculum Exam - Cervix: normal appearance of the cervix and cervical os open Bimanual Exam- Adnexa, other: normal adnexae and normal Pelvic Support: normal OB/External & Speculum: cervical os open and vaginal bleeding Speculum Exam: cervical os open and vaginal bleeding Other: ultrasound shows CRL7 weeks 3 days without heart tones. again noted was a small gestational sac. Skin General: no rashes or lesions noted Psych Appearance: grossly normal Speech and Movement: speech and movement normal Coding Level of Care Code Off vis,est,level 4 Diagnoses Incomplete O03.4 Assessment and Plan Assessment and Plan (1) Incomplete : Status: Acute Plan: patient was given option of observation, cytotec, and D&C and chooses D&C After discussing the patient's diagnosis and treatment plan options, patient wishes to proceed with surgical management. I have discussed with the patient the risks, benefits, and alternatives of the procedure which include but are not limited to risks of anesthesia, bleeding, infection, possible damage to bowel, bladder, or surrounding vasculature which could lead to additional surgery to evaluate any complications. Patient agrees to procedure and wishes to proceed. ACOG/uptodate references given for additional information regarding procedure. UPDATE- I have seen the patient and performed any clinically relevant updates to the history and physical exam. Carol Mcnulty MD
--- NOTE | 2024-01-20 14:43 | OP.PCM_ITS ---
Problems Associated Problem List Diagnoses (1) Incomplete : Report of Operation Date of Procedure: 01/20/24 Pre-Operative Diagnosis: see problem list Post-Operative Diagnosis: same Surgery/Procedure Performed:: Suction dilation and curettage Description of Surgical Findings:: no FHT present, Nonviable 6 weeks Surgeon: Carol Mcnulty poultry farm worker: None Type of Anesthesia: Local MAC Special Medications: none Specimen's removed: POC Drains: none Estimated Blood Loss (mL): 50 Fluids Replaced: crystalloid Description of Procedure: Patient was taken to the operating room and placed under MAC local anesthesia. She was prepped and draped in the normal sterile fashion the dorsal lithotomy position. Bladder was drained of clear urine and anterior lip of the cervix was grasped and the uterus sounded to 8 cm. Cervix was progressively dilated to allow passage of a 8 mm suction curette. Progressive passes were made removing the retained products of conception without complication. Sharp curettage confirmed complete removal of the retained products. All instruments were removed from the vagina and excellent hemostasis was noted and the patient was taken to recovery in stable condition. Grafts/Implants Used: none Procedure Start Time: 15:02 Procedure Stop Time: 15:09 Complications none Admit VTE Documentation VTE Present on Admission: No VTE Mechan Device Prophylaxis: SCD's Procedures Urinary/Genital 52xxx-59xxx: 47075 Trmt of incomplete Ab, any TM
--- NOTE | 2024-01-20 14:44 | DCINST_ITS ---
Discharge Instructions Diet Discharge Diet: No restrictions Activity Discharge Activity: Return to Normal Activity, May Shower and May Take a Tub Bath (after 1 week) May resume sexual activity in: 1-2 weeks Weight Bearing Status: Weight bearing as tolerated Lifting Restrictions: none Dressing / Incision Call your doctor if you observe: Fever of 101 or Higher, Using more than 1 pad per hour, Shortness of breath and Uncontrolled pain Follow Up Care Please Follow Up With: Carol Mcnulty MD When: Call [phone] to schedule appointment. Test Results: Test results from this visit will be discussed in further detail at your follow- up appointment, if applicable. Discharge Plan Admission Attending Provider: Carol Mcnulty Primary Care Provider: Kameron Craig Instructions Print Language: Citizen Of [place] Discharge Orders/Prescriptions Prescriptions: No Action PNV-[place] 28-1-300 mg capsule 1 cap PO DAILY Referrals / Follow Up: Kameron Craig DO [Primary Care Provider] - Disposition Disposition (needs filled in before D/C Order can be placed): Home, Self Care
[2024-01-20] MEDS: Lidocaine 1% (20 ml mdv) 20 ML Vial (15:01)
--- NOTE | 2024-01-20 15:23 | PCM.POST.ANE ---
Anesthesia: Postop Eval I Current Vital Signs Temperature: 98.5 F Pulse Rate: 73 Blood Pressure: 116/66 Respiratory Rate: 20 Pulse Ox: 100 Oxygen Delivery Method: Room Air Assessment Airway patent: Yes Spontaneous unlabored respirations: Yes Mental status: Awake nausea: No Vomiting: No Anesthesia Complication: No Fluid Hydration Crystalloid volume administer (ml): 800 Total IV fluid infused: 800 Progress Note Anesthesia document: Postop Eval 1 completed: Yes
--- NOTE | 2024-01-20 15:38 | POSTOPAN2_ITS ---
Anesthesia Postop Eval I Sum Postop Eval Completion status Anesthesia document: Postop Eval 1 completed: Yes Anesthesia Postop Eval I Summary Anesthesia Postop Eval I Summary: Anesthesia Postop Eval I: Assessment Summary Airway patent Yes 01/20/24 15:24 [email or web address] Spontaneous unlabored Yes 01/20/24 15:24 [email or web address] respirations Mental status Awake 01/20/24 15:24 [email or web address] nausea No 01/20/24 15:24 JUNIOR [email or web address] Vomiting No 01/20/24 15:24 [email or web address] Anesthesia Postop Eval I: Fluid Summary Crystalloid volume administer 800 01/20/24 15:24 JUNIOR [email or web address] (ml) Colloids volume administered ( ml) Blood Product volume administered (ml) Total IV fluid infused 800 01/20/24 15:24 [email or web address] Anesthesia Postop Eval I: Summary Notes Anesthesia Complication No 01/20/24 15:24 [email or web address] Anesthesia Complication Comment: Post-operative progress note Anesthesia: Postop Eval II Evaluation Mental status: Awake Pain Level: 0 nausea: No Vomiting: No
--- NOTE | 2024-01-20 15:38 | PCM.POSTANE2 ---
Anesthesia Postop Eval I Sum Postop Eval Completion status Anesthesia document: Postop Eval 1 completed: Yes Anesthesia Postop Eval I Summary Anesthesia Postop Eval I Summary: Anesthesia Postop Eval I: Assessment Summary Airway patent Yes 01/20/24 15:24 CHILDBIRTH AND INFANT CARE TEACHER.[email or web address] Spontaneous unlabored Yes 01/20/24 15:24 CHILDBIRTH AND INFANT CARE TEACHER.JDEF respirations Mental status Awake 01/20/24 15:24 CHILDBIRTH AND INFANT CARE TEACHER.JDEF nausea No 01/20/24 15:24 CHILDBIRTH AND INFANT CARE TEACHER.JDEF Vomiting No 01/20/24 15:24 CHILDBIRTH AND INFANT CARE TEACHER.JDEF Anesthesia Postop Eval I: Fluid Summary Crystalloid volume administer 800 01/20/24 15:24 CHILDBIRTH AND INFANT CARE TEACHER.JDEF (ml) Colloids volume administered ( ml) Blood Product volume administered (ml) Total IV fluid infused 800 01/20/24 15:24 CHILDBIRTH AND INFANT CARE TEACHER.JDEF Anesthesia Postop Eval I: Summary Notes Anesthesia Complication No 01/20/24 15:24 CHILDBIRTH AND INFANT CARE TEACHER.JDEF Anesthesia Complication Comment: Post-operative progress note Anesthesia: Postop Eval II Evaluation Mental status: Awake Pain Level: 0 nausea: No Vomiting: No
[2024-01-27 13:53] LABS: Pathology Specimen OB SEE PATHOLOGY REPORT
== END 2024-01-20 16:08 | disposition home or self-care (01) ==
LOC: SDC 11:50 → AC 11:51
PROVIDERS: PCP Student in an Organized Health Care Education/Training Program; Referring Provider Obstetrics & Gynecology; Visit Provider Obstetrics & Gynecology
PROC: (CPT 59812; principal; 2024-01-20 13:15)
DX: O03.4 Incomplete spontaneous abortion without complication (principal); Z87.891 Personal history of nicotine dependence
CPT/HCPCS: 59812; 88305; J7120

== ENCOUNTER → 2024-10-16 | Outpatient (CLI) | payer MEDICAID, SELFPAY ==
[2024-10-16 16:31] LABS: Amphetamine Urine NEGATIVE (<1000 ng/mL); Barbiturate Urine NEGATIVE (< 200 ng/mL); Benzodiazepine Urine NEGATIVE (< 200 ng/mL); Buprenorphine Urine NEGATIVE (< 200 ng/mL); Cocaine Urine NEGATIVE (< 300 ng/mL); Fentanyl, Urine NEGATIVE; Methadone Urine NEGATIVE (< 300 ng/mL); Opiates Urine NEGATIVE (< 300 ng/mL); Oxycodone, Urine NEGATIVE (< 100 ng/mL); PCP Urine NEGATIVE (< 25 ng/mL); THC Urine PRESUMPTIVE POSITIVE (< 50 ng/mL)
[2024-10-19 06:07] LABS: Chlamydia By Nucleic Acid AMP Negative (Negative); Gonococcus By Nucleic Acid AMP Negative (Negative)
== END | disposition home or self-care (01) ==
LOC: LABSPEC 15:50
PROVIDERS: PCP Student in an Organized Health Care Education/Training Program; Referring Provider Advanced Practice Midwife; Visit Provider Advanced Practice Midwife
DX: O99.320 Drug use complicating pregnancy, unspecified trimester (principal); O09.90 Supervision of high risk pregnancy, unspecified, unspecified trimester; F12.90 Cannabis use, unspecified, uncomplicated; Z3A.00 Weeks of gestation of pregnancy not specified
CPT/HCPCS: 80307; 87086; 87088; 87491; 87591

== ENCOUNTER → 2024-10-29 | Outpatient (CLI) | payer MEDICAID, SELFPAY ==
[2024-10-29 12:06] LABS: Absolute Lymphocyte Count 1.45 X10^3/uL (0.83-4.51); Absolute Neutrophil Count 4.5 X10^3/uL (2.0-7.7); Basophil# 0.04 X10^3/uL; Basophil% 0.6 % (0-1); Hematocrit 38.2 % (37-47); Hemoglobin 13.1 g/dL (12.0-15.0); Lymphocyte # 1.45 X10^3/ul (0.83-4.51); Mean Corp Hgb Conc 34.3 g/dL (32-36); Mean Corpuscular Hgb 30.3 pg (27.0-32.0); Mean Corpuscular Volume 88.2 fL (81-99); Mean Platelet Vol. 9.9 fl (6.2-12.0); Monocyte# 0.37 X10^3/uL; Monocyte% 5.6 % (0-10); NRBC Flagged by Analyzer 0 % (0-5); Neutrophil # 4.51 X10^3/uL (2.7-7.7); Neutrophil % 68.6 % (47-70); Platelet Count 282 K/mm3 (150-450); RBC Distribution Width CV 12.7 % (11.6-14.6); RBC Distribution Width SD 41.3 fl (35.1-43.9); Red Blood Count 4.33 M/mm3 (4.2-5.4); White Blood Count 6.6 K/mm3 (4.4-11.0)
[2024-10-29 13:18] LABS: HIV Nonreactive (Nonreactive); Hepatitis B Surface Antigen Nonreactive (Nonreactive); Hepatitis C Antibody Nonreactive (Nonreactive); Rubella IgG REAC (Nonreactive); Syphilis Antibodies Nonreactive (Nonreactive)
== END | disposition home or self-care (01) ==
PROVIDERS: PCP Student in an Organized Health Care Education/Training Program; Visit Provider Advanced Practice Midwife
DX: O09.90 Supervision of high risk pregnancy, unspecified, unspecified trimester (principal); Z3A.00 Weeks of gestation of pregnancy not specified
CPT/HCPCS: 36415; 85025; 86703; 86762; 86780; 86803; 86850; 86900; 86901; 87340

== ENCOUNTER → 2025-02-13 | Outpatient (CLI) | payer MEDICAID, SELFPAY ==
[2025-02-13 12:27] LABS: Hematocrit 37.2 % (37-47); Hemoglobin 12.8 g/dL (12.0-15.0); Immature Granulocytes Count 0.040 X10^3/uL (0.0-0.0); Mean Corp Hgb Conc 34.4 g/dL (32-36); Mean Corpuscular Volume 88.2 fL (81-99); Mean Platelet Vol. 9.7 fl (6.2-12.0); NRBC Flagged by Analyzer 0 % (0-5); Platelet Count 277 K/mm3 (150-450); RBC Distribution Width CV 12.2 % (11.6-14.6); RBC Distribution Width SD 39.3 fl (35.1-43.9); Red Blood Count 4.22 M/mm3 (4.2-5.4); White Blood Count 10.7 K/mm3 (4.4-11.0)
[2025-02-13 13:16] LABS: Glucose Challenge Gest 1H 50g 67 mg/dL (70-140); HIV Nonreactive (Nonreactive); Syphilis Antibodies Nonreactive (Nonreactive)
== END | disposition home or self-care (01) ==
PROVIDERS: PCP Student in an Organized Health Care Education/Training Program; Referring Provider Obstetrics & Gynecology; Visit Provider Obstetrics & Gynecology
DX: O09.92 Supervision of high risk pregnancy, unspecified, second trimester (principal); Z3A.00 Weeks of gestation of pregnancy not specified; Z13.1 Encounter for screening for diabetes mellitus
CPT/HCPCS: 36415; 82950; 85025; 86703; 86780

== ENCOUNTER 2025-03-15 11:28 | Outpatient (CLI) | payer MEDICAID, SELFPAY ==
[2025-03-15 11:34] VITALS: BMI 27.9
[2025-03-15 11:43] VITALS: PULSE 81; RESP 16; TEMP 36.8; O2SAT 97
[2025-03-15 11:45] VITALS: BP 123/64; PULSE 83
--- NOTE | 2025-03-15 16:48 | HP.PCM.OB_ITS ---
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 She denies loss of fluid, vaginal bleeding, or dec fm. Maternal Data Information CHARLIE Calculator Estimated Delivery Date Method Current WG Current Estimate 05/21/25 LMP (Certain) 30w 4d Other Estimates 05/19/25 Ultrasound #1 30w 6d PFSH PFSH Medical History Seasonal allergies Incomplete Former smoker Vaginal delivery Depression Anxiety Hx of recurrent urinary tract infection Home Medications ?Medication ?Instructions ?Recorded ?Last Taken ?Type multivit-min no.71-iron fum 28 1 cap PO DAILY pregnanc y 09/14/22 03/14/25 22:00 History mg-folate no.1 1 mg-dha 300 mg 1 cap capsule (PNV-[place]) Allergy/AdvReac Type Severity Reaction Status Date / Time No Known Allergies Allergy Verified 03/15/25 11:57 Family History Grandmother Heart disease Paternal Uncle Heart disease Paternal Surgical History S/P D&C (status post dilation and curettage) Social History adopted: No household members: significant other and children number of children: 1 current occupational status: employed 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 current occupational exposures/hazards: No pets and animals: Yes pets and animals: dog(s) history of recent travel: No sexually active: Yes Smoking Status: Former smoker Electronic Cigarette Use: with nicotine how long ago did patient quit smokin weeks ago alcohol intake: current alcohol intake frequency: holidays/special occasions only details: Not while substance use type: former substance user Date of last use: Daily for anxiety- Quit when found out and marijuana well-balanced diet: daily or most days caffeine: No eating out: rarely or never during the past year weight has: decreased > 10 lbs what type of physical activity do you participate in: additional details: Barn chores frequency: 5-6 times per week duration: > 90 minutes/day fernanda/oriental orthodox: Adventism seatbelt use: always do you feel safe at home: Yes additional social history: BF- Joaquim Senior Regulatory Affairs Specialist History 3 Elective abortions Hx Para 1 Spontaneous abortions 1 Hx # Term Pregnancies Ectopic pregnancies Hx # Pregnancies Multiple births 0 # of living children 1 Past Pregnancies Del. Date Name GA/Weeks Outcome Route Bth Weight Gen Labor Lgth Anesthesia Del Locatn Provider FOB 04/19/23 Rui 41 live - full term 8lbs 13oz Male ep idural [facility] MARCELO Batista Visit Details Expected Delivery Route/Plan Labor Preferences- CB/BF classes: no labor support person: Joaquim labor intervention preferences: [] pain management options preferred: epidural cut cord/dad catch: no : yes PP control planned: discussed discussed possible routes of delivery and associated risks: [] special requests: [] Plans Covid status: [] Flu vaccine: declines Tdap vaccine: [] Rhogam: na LARC form signed: yes Problem list reviewed and updated with the most current plan of care details and appropriate orders placed. Relevant counseling for the gestational age provided. Continue routine care and follow up unless otherwise noted in visit notes/problem list details OB Flowsheet Initial Weight: 146 lb Date -?-?-?-?-?-?-?-?-?-?-?-?- EGA Weight BP Urine Prot -?-?-?-?-?-?-?-?-?-?-?-?- Glucose FHR FuHt Pres Dilation -?-?-?-?-?-?-?-?-?-?-?-?- Effaced St Visit Note 10/16/24 -?-?-?-?-?-?-?-?-?-?-?-?- 9w 0d 146 lb 4 oz (+4 oz) 121/73 -?-?-?-?-?-?-?-?-?-?-?-?- 176 -?-?-?-?-?-?-?-?-?-?-?-?- KW- CRL 2.53cm c ons with dates. Accepts NIPT 11/20/24 -?-?-?-?-?-?-?-?-?-?-?-?- 14w 0d 150 lb 8 oz (+4 lb 8 oz) 124/85 Negative -?-?-?-?-?-?-?-?-?-?-?-?- Negative 150 -?-?-?-?-?-?-?-?-?-?-?-?- JV- no complaint s today. low risk NIPT girl! has boy rui at home 12/19/24 -?-?-?-?-?-?-?-?-?-?-?-?- 18w 1d 152 lb 4 oz (+6 lb 4 oz) 131/76 -?-?-?-?-?-?-?-?-?-?-?-?- 154 -?-?-?-?-?-?-?-?-?-?-?-?- MH-No VB. Luisa humphries. Denies concerns 01/18/25 -?-?-?-?-?-?-?-?-?-?-?-?- 22w 3d 167 lb 5 oz (+21 lb 5 oz) 113/68 -?-?-?-?-?-?-?-?-?-?-?-?- 145 -?-?-?-?-?-?-?-?-?-?-?-?- SM- no vb lof go od fm 02/13/25 -?-?-?-?-?-?-?-?-?-?-?-?- 26w 1d 176 lb 6 oz (+30 lb 6 oz) 112/75 Negative -?-?-?-?-?-?-?-?-?-?-?-?- Negative 140 26 -?-?-?-?-?-?-?-?-?-?-?-?- MH-No VB, LOF. G ood FM. Declines flu. 28 wk labs pending. Larc 03/14/25 -?-?-?-?-?-?-?-?-?-?-?-?- 30w 2d 185 lb (+39 lb) 117/77 Negative -?-?-?-?-?-?-?-?-?-?-?-?- Negative 135 31 -?-?-?-?-?-?-?-?-?-?-?-?- JV- no lof, vagi nal bleeding, or dec fm. no complaints. NST FHR Rate Baby A Baseline: 140 Variability:: Moderate Accelerations:: 15 x 15 Decelerations:: None NST Reactive:: Yes FHR Category:: Category I ROS Constitutional Constitutional: Reports systems reviewed and no addt'l complaints, except as documented Gastrointestinal Gastrointestinal: Denies bloating, constipation, cramping, diarrhea, nausea or v omiting Genitourinary Genitourinary: Reports other Details: Denies vaginal odor, vaginal bleeding, or vaginal discharge ; Denies difficulty urinating or flank pain Vital Signs Vital Signs Vital Signs: 03/15/25 11:43 03/15/25 11:43 03/15/25 11:43 Temperature Temperature Source Temporal Pulse Rate 81 Respiratory Rate Blood Pressure BP Systolic BP Diastolic Pulse Ox 97 03/15/25 11:43 03/15/25 11:43 03/15/25 11:45 Temperature 98.2 F Temperature Source Pulse Rate Respiratory Rate 16 Blood Pressure 123/64 H BP Systolic 123 BP Diastolic 64 Pulse Ox 03/15/25 11:45 Temperature Temperature Source Pulse Rate 83 Respiratory Rate Blood Pressure BP Systolic BP Diastolic Pulse Ox Weight Weight: 184 lb Body Mass Index (BMI) 27.9 Physical Exam HEENT normocephalic Resp normal respiratory effort and normal air movement no CVA tenderness Narrative: cx is thick and fingertip dilated. No vaginal bleeding present. Station is -4 Extremity normal to inspection General Extremity: edema bilateral (trace ) Labs Labs Labs: Blood Type B POSITIVE Antibody Screen NEGATIVE Hct, (37-47) 37.2 % Hgb, (12.0-15.0) 12.8 g/dL Obstetrics Ultrasound Syphilis Total Ab, (Nonreactive) Nonreactive Rubella IgG Antibody, (Nonreactive) REAC Hep Bs Antigen, (Nonreactive) Nonreactive Hepatitis C Antibody, (Nonreactive) Nonreactive Chlamydia DNA ([place]), (Negative) Negative N.gonorrhoeae DNA ([place]), (Negative) Negative HIV 1&2 Antibody, (Nonreactive) Nonreactive Glucose 1 Hr 50 gm, (70-140) 67 mg/dL L Miscellaneous Test Assessment & Plan (1) Back pain affecting : (2) Supervision of high-risk : QUALIFIERS: Trimester: second trimester Qualified Code(s): O09.92 - Supervision of high risk , unspecified, second trimester COMMENT: [id number], CHARLIE 05/21/25,girl PC Rui, BF Joaquim (3) : QUALIFIERS: Weeks of gestation: 30 weeks Qualified Code(s): Z3A.30 - 30 weeks gestation of COMMENT: NIPT low risk, female, declined carrier (4) History of miscarriage, currently : COMMENT: 01/20/24 (5) Anxiety: PLAN: Plan reactive nst without contractions. tried flexeril PO and she felt better cx fingertip dilated and thick. PTL precautiosn discussed- ok to dc o home. but recommend no further working in barn for remainder of Charges/Coding Multi Select Codes Visit Charges Office Visit/Consults: 28926 OV L3 Est 20min Urinary/Genital Urinary/Genital CPT Codes: 93077-77 non-stress test Interp
== END 2025-03-15 13:54 | disposition home or self-care (01) ==
LOC: WPOUT 11:32 → WP 11:33
PROVIDERS: PCP Student in an Organized Health Care Education/Training Program; Referring Provider Obstetrics & Gynecology; Visit Provider Obstetrics & Gynecology
DX: O99.891 Other specified diseases and conditions complicating pregnancy (principal); M54.9 Dorsalgia, unspecified; O99.343 Other mental disorders complicating pregnancy, third trimester; F41.9 Anxiety disorder, unspecified; Z3A.30 30 weeks gestation of pregnancy
CPT/HCPCS: 59025; 59050; 99221; G0378

== ENCOUNTER → 2025-04-23 | Outpatient (CLI) | payer MEDICAID, SELFPAY ==
--- OUTSIDE RECORDS SUMMARY | 2025-04-23 18:37 | XMS RPT_ITS | CCD ---
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 Kathya Salter Primary Care Provider [phone] Dr. Kathya Salter Referring Provider [phone] Dr. Marce Coon Attending Provider [phone] ) MARCELO Bishop Attending Provider [phone]) Vikash MEJIA NP-Alisha Guardado Attending Provider [phone] Dr. Kathya Salter Primary Care Provider [phone] Dr. Kathya Salter Referring Provider [phone] CLAUDY Suh NP Attending Provider [phone] MARCELO Crawford Attending Provider 1(330) Dr. Carol Mcnulty Attending Provider [phone] [phone] Dr. Marce Coon Attending Provider 1(3 ) Dr. Kathya Salter Primary Care Provider [phone] Dr. Kathya Salter Referring Provider [phone] Vikash DRAWBRIDGE OPERATORJACKIE-C Debby Attending Provider [phone] MARCELO Bishop Admit Provider [phone] MARCELO Bishop Referring Provider MARCELO Bishop Other Provider [phone] MARCELO Crawford Admit Provider [phone] MARCELO Crawford Other Provider [phone] Dr. Kathya Salter Primary Care Provider Dr. Kathya Salter Referring Provider [phone] MARCELO Crawford Attending Provider [phone] Dr. Marce Coon Attending Provider [phone] KATHYA SALTER DO Primary Care Physician [phone] [place] DO Attending Unavailable HALROSAS CHRISTIE, KATHYA Primary Care Unavailable Unavailable Primary Care Provider Unavailkalyn lima PROVIDER, UNKNOWN Admitting Unavailable MEIR CASTILLO Attending Unavailable Dr. Kathya Salter DO Primary Care Provider [phone] Dr. Kathya Salter DO Referring Provider [phone] Preeti Crawford CNM Attending Provider [phone] Preeti Crawford CNM Referring Provider [phone]) Dr. Marce Coon DO Attending Provider Vikash MEJIA-CDebby Attending Provider [phone] Dr. Carol Mcnulty MD Attending Provider RADHA CABAN Attending Unavailable MARCE EMANUEL Referring Unavailab le GAETANO, ESPINOZA Primary Care Unavailable HALROSAS, ESPINOZA Primary Care Unavailable RADHA CABAN Attending Unavailable MARCE EMANUEL Referring Unavailab le Dr. Kathya Salter DO Primary Care Physician [phone] Preeti Crawford CNM Attending Physician [phone] Dr. Marce Coon DO Attending Physician Vikash MEJIA-CDebby Attending Physician [phone] Dr. Carol Mcnulty MD Attending Physician Dr. Carol Mcnulty MD Referring Provider Halrosas, Kathya Primary Care Unavailable Vikash DRAWBRIDGE OPERATORDebby Attending Unavailable Halko, Kathya Referring Unavailable Halko, Kathya Primary Care Unavailable Carol Mcnulty Attending Unavailable Halko, Kathya Referring Unavailable Halko, Kathya Primary Care Unavailable Vikash DRAWBRIDGE OPERATORDebby Attending Unavailable Halko, Kathya Referring Unavailable Marce Coon Attending Unavailabl e Halko, Kathya Referring Unavailable Halko, Kathya Primary Care Unavailable Preeti Crawford Attending Unavailable Gaetano, Kathya Primary Care Unavailable Halko, Kathya Referring Unavailable Marce Coon Attending Unavailabl e Rege Marce Almanzar Referring Unavailabl e Halrosas, Kathya Primary Care Unavailable Preeti Crawford Attending Unavailable Preeti Crawford Referring Unavailable Gaetano, Kathya Primary Care Unavailable Preeti Crawford Attending Unavailable Gaetano, Kathya Primary Care Unavailable Carol Mcnulty Referring Unavailable Carol Mcnulty Attending Unavailable Gaetano, Kathya Primary Care Unavailable Gaetano, Kathya Primary Care Unavailable Marce Coon Attending Unavailabl e Halko, Kathya Referring Unavailable Marce Coon Consulting Unavailabl e Vande Marce Almanzar Attending Unavailkalyn e Rege Marce Almanzar Referring Unavailabl e Halko, Kathya Primary Care Unavailable Medications Current Medications Medication Drug Class(es) Dates Sig (Normalized) Sig (Original) Mv-Mins 44-Imhr-Jvmzj No.1-Dha (Pnv-Campton) 28-1-300 mg capsule (13 sources) Start: 09-14-2022 Start: 09-14-2022 Mv-Mins 71-Iro n-Folic No.1-Dha (Pnv-Campton) 28-1-300 mg capsule Active 1 NMA PO DAILY September 14, 2022 12:00am Start: 09-14-2022 Mv-Mins 71-Iro n-Folic No.1-Dha (Pnv-Campton) 28-1-300 mg capsule Active 1 NMA PO DAILY September 14, 2022 12:00am Start: 09-14-2022 take 1 capsule by [facility] once daily Mv-Mins 85-Lrhy-Glzjp No.1-Dha (Pnv-Campton) 28-1-300 mg capsule Active CAP PO DAILY September 14, 2022 12:00am Start: 09-14-2022 take 1 capsule by [facility] once daily Mv-Mins 48-Ehwo-Hfhay No.1-Dha (Pnv-Campton) 28-1-300 mg capsule Active CAP PO DAILY September 13, 2022 11:00pm Start: 09-14-2022 take 1 capsule by mouth once M v-Mins 25-Mkge-Fwswb No.1-Dha (Pnv-Campton) 28-1-300 mg capsule Active CAP PO September 13, 2022 11:00pm Start: 09-14-2022 take 1 capsule by mouth once M v-Mins 99-Vecx-Kigyl No.1-Dha (Pnv-Campton) 28-1-300 mg capsule Active CAP PO September 14, 2022 12:00am Completed/Discontinued Medications Medication Drug Class(es) Dates Sig (Normalized) Sig (Original) cephalexin 500 mg oral capsule (8 sources) Cephalosporin Antibacterial Start: 08-26-2023 End: 09-05-2023 take 1 capsule by mouth three times daily Cephalexin 500 mg capsule Discontinued 500 mg PO THREE TIMES A DAY 30 10 0 August 26, 2023 12:00am September 04, 2023 12:00am September 05, 2023 12:06am ciprofloxacin 500 mg oral tablet (14 sources) Quinolone Antimicrobial Start: 04-18-2018 End: 04-21-2018 take 1 tablet by mouth twice daily Ciprofloxacin Hcl 500 mg tablet Discontinued 500 mg PO TWICE A DAY 6 3 0 April 18, 2018 1:00am April 20, 2018 1:00am April 21, 2018 1:13am escitalopram 20 mg oral tablet (14 sources) Serotonin Reuptake Inhibitor Start: 08-05-2020 End: 06-04-2021 take 1 tablet by mouth once daily Escitalopram Oxalate (Lexapro) 20 mg tablet Discontinued 20 mg PO DAILY August 05, 2020 12:00am June 04, 2021 3:14pm Norgestimate-Ethiny l Estradiol (20 sources) Progestin, Estrogen Start: 03-27-2020 End: 06-04-2021 Norgestimate-Ethin yl Estradiol (Sprintec (28)) 0.25-35 mg-mcg tablet Discontinued 1 {tbl} PO daily 84 March 27, 2020 9:57am June 04, 2021 3:15pm Start: 03-27-2020 End: 06-04-2021 Norgestimate-Ethinyl Estradi ol (Sprintec (28)) 0.25-35 mg-mcg tablet Discontinued 1 {tbl} PO daily March 27, 2020 9:57am June 04, 2021 3:15pm Start: 03-27-2020 End: 06-04-2021 take 1 tablet by mouth once daily Norgestimate-Ethinyl Estradiol (Sprintec (28)) 0.25-35 mg-mcg tablet Discontinued 1 TABLET PO daily 84 March 27, 2020 8:57am June 04, 2021 2:15pm Start: 03-27-2020 End: 06-04-2021 take 1 tablet by mouth once daily Norgestimate-Ethinyl Estradiol (Sprintec (28)) 0.25-35 mg-mcg tablet Discontinued 1 TABLET PO daily 84 March 27, 2020 9:57am June 04, 2021 3:15pm Start: 01-22-2019 End: 03-27-2020 Norgestimate-Ethinyl Estradi ol (Sprintec (28)) 0.25-35 mg-mcg tablet Discontinued 1 {tbl} PO daily 84 January 22, 2019 2:11pm March 27, 2020 9:57am Start: 01-22-2019 End: 03-27-2020 Norgestimate-Ethinyl Estradi ol (Sprintec (28)) 0.25-35 mg-mcg tablet Discontinued 1 {tbl} PO daily 84 January 22, 2019 2:11pm March 27, 2020 9:57am Start: 01-22-2019 End: 03-27-2020 take 1 tablet by mouth once daily Norgestimate-Ethinyl Estradiol (Sprintec (28)) 0.25-35 mg-mcg tablet Discontinued 1 TABLET PO daily January 22, 2019 1:11pm March 27, 2020 8:57am Start: 01-22-2019 End: 03-27-2020 take 1 tablet by mouth once daily Norgestimate-Ethinyl Estradiol (Sprintec (28)) 0.25-35 mg-mcg tablet Discontinued 1 TABLET PO daily 84 January 22, 2019 2:11pm March 27, 2020 9:57am Start: 11-13-2018 End: 01-22-2019 Norgestimate-Ethinyl Estradi ol (Sprintec (28)) 0.25-35 mg-mcg tablet Discontinued 1 {tbl} PO daily 84 0 November 13, 2018 4:12pm January 22, 2019 2:12pm Start: 11-13-2018 End: 01-22-2019 Norgestimate-Ethinyl Estradi ol (Sprintec (28)) 0.25-35 mg-mcg tablet Discontinued 1 {tbl} PO daily 84 November 13, 2018 4:12pm January 22, 2019 2:12pm Start: 11-13-2018 End: 01-22-2019 take 1 tablet by mouth once daily Norgestimate-Ethinyl Estradiol (Sprintec (28)) 0.25-35 mg-mcg tablet Discontinued 1 TABLET PO daily November 13, 2018 3:12pm January 22, 2019 1:12pm Start: 11-13-2018 End: 01-22-2019 take 1 tablet by mouth once daily Norgestimate-Ethinyl Estradiol (Sprintec (28)) 0.25-35 mg-mcg tablet Discontinued 1 TABLET PO daily November 13, 2018 4:12pm January 22, 2019 2:12pm Start: 11-24-2017 End: 11-13-2018 Norgestimate-Ethinyl Estradi ol (Sprintec (28)) 0.25-35 mg-mcg tablet Discontinued 1 {tbl} PO daily 84 November 24, 2017 3:11pm November 13, 2018 4:12pm Start: 11-24-2017 End: 11-13-2018 Norgestimate-Ethinyl Estradi ol (Sprintec (28)) 0.25-35 mg-mcg tablet Discontinued 1 {tbl} PO daily November 24, 2017 3:11pm November 13, 2018 4:12pm Start: 11-24-2017 End: 11-13-2018 take 1 tablet by mouth once daily Norgestimate-Ethinyl Estradiol (Sprintec (28)) 0.25-35 mg-mcg tablet Discontinued 1 TABLET PO daily November 24, 2017 2:11pm November 13, 2018 3:12pm Start: 11-24-2017 End: 11-13-2018 take 1 tablet by mouth once daily Norgestimate-Ethinyl Estradiol (Sprintec (28)) 0.25-35 mg-mcg tablet Discontinued 1 TABLET PO daily November 24, 2017 3:11pm November 13, 2018 4:12pm Start: 11-21-2017 End: 11-24-2017 Norgestimate-Ethinyl Estradi ol (Sprintec (28)) 0.25-35 mg-mcg tablet Discontinued 1 {tbl} PO daily November 21, 2017 12:00am November 24, 2017 3:11pm Start: 11-21-2017 End: 11-24-2017 Norgestimate-Ethinyl Estradi ol (Sprintec (28)) 0.25-35 mg-mcg tablet Discontinued 1 {tbl} PO daily November 21, 2017 12:00am November 24, 2017 3:11pm Start: 11-21-2017 End: 11-24-2017 take 1 tablet by mouth once daily Norgestimate-Ethinyl Estradiol (Sprintec (28)) 0.25-35 mg-mcg tablet Discontinued 1 TABLET PO daily November 20, 2017 11:00pm November 24, 2017 2:11pm Start: 11-21-2017 End: 11-24-2017 take 1 tablet by mouth once daily Norgestimate-Ethinyl Estradiol (Sprintec (28)) 0.25-35 mg-mcg tablet Discontinued 1 TABLET PO daily November 21, 2017 12:00am November 24, 2017 3:11pm fluconazole 150 mg oral tablet (20 sources) Azole Antifungal Start: 04-29-2023 End: 01-13-2024 Fluconazole 150 mg tablet Discontinued 150 mg PO Every 3 Days 2 0 0 August 29, 2023 12:43pm January 13, 2024 11:14am may repeat second dose 72 hrs after first dose if symptoms persist Start: 08-08-2020 End: 09-14-2022 Fluconazole 150 mg tablet Di scontinued 150 mg PO .COMPLEX 2 0 June 04, 2021 1:00am September 14, 2022 11:40am 150 mg PO take one po now and repeat in 3 days Start: 03-27-2020 End: 08-05-2020 Fluconazole 150 mg tablet Di scontinued 150 mg PO .COMPLEX 2 0 March 27, 2020 1:00am August 05, 2020 2:17pm 150 mg PO take one po now and repeat in 3 days hydrOXYzine hydrochloride 25 mg oral tablet (14 sources) Antihistamine Start: 08-05-2020 End: 06-04-2021 take 1 tablet by mouth three times daily as needed Hydroxyzine Hcl 25 mg tablet Discontinued 25 mg PO THREE TIMES A DAY as needed August 05, 2020 12:00am June 04, 2021 3:14pm metroNIDAZOLE 500 mg oral tablet (20 sources) Nitroimidazole Antimicrobial Start: 05-03-2023 End: 01-13-2024 take 1 tablet by mouth twice daily Metronidazole 500 mg tablet Discontinued 500 mg PO TWICE A DAY 14 0 May 03, 2023 1:00am January 13, 2024 11:14am Bacterial vaginosis Acute vaginitis Other specified bacterial agents as the cause of diseases classified elsewhere Start: 11-16-2022 End: 11-23-2022 take 1 tablet by mouth twice daily Metronidazole 500 mg tablet Discontinued 500 mg PO TWICE A DAY 14 7 0 November 16, 2022 2:23pm November 22, 2022 12:00am November 23, 2022 12:03am Start: 08-05-2020 End: 06-04-2021 take 1 tablet by mouth twice daily Metronidazole (Flagyl) 500 mg tablet Discontinued 500 mg PO TWICE A DAY 14 0 August 05, 2020 12:00am June 04, 2021 3:15pm nitrofurantoin, macrocrystals 100 mg oral capsule (14 sources) Nitrofuran Antibacterial Start: 01-11-2019 End: 01-19-2019 take 1 capsule by mouth twice daily at mealtime Nitrofurantoin Macrocrystal 100 mg capsule Discontinued 100 mg PO TWICE A DAY 14 7 0 January 11, 2019 12:00am January 17, 2019 12:00am January 19, 2019 12:09am administer with food (meal or snack) Problems Active Problems Problem Classification Problem Date Documented Date Episodic/Chronic Abdominal pain (7 sources) Pain in pelvis; Translations: [Pelvic and perineal pain] 01-20-2024 Episodic Anxiety disorders (20 sources) Mixed anxiety and depressive disorder; Translations: [Anxiety disorder, unspecified] Onset: 03-18-2025 09-14-2022 Chronic Contraceptive and procreative management (2 sources) Counseling and instruction in natural family planning to avoid ; Translations: [Counseling and instruction in natural family planning to avoid ] Onset: 11-14-2023 Episodic Disorders of teeth and jaw (2 sources) Dental caries; Translations: [Dental caries, unspecified] Onset: 02-22-2024 02-23-2024 Episodic Hemorrhage during ; abruptio placenta; placenta previa (7 sources) Threatened miscarriage; Translations: [Threatened ] 01-20-2024 Episodic Inflammatory diseases of female pelvic organs (9 sources) Bacterial vaginosis; Translations: [Acute vaginitis] 05-03-2023 Episodic Joint disorders and dislocations; trauma-related (1 source) Other tear of medial meniscus, current injury, right knee, initial encounter; Translations: [Other tear of medial meniscus, current injury, right knee, initial encounter] Onset: 06-22-2018 06-22-2018 Episodic Menstrual disorders (1 source) Oligomenorrhea; Translations: [Oligomenorrhea, unspecified] Chronic Mood disorders (1 source) Major depressive disorder 02-15-2022 Chronic Mycoses (1 source) Mycosis 05-22-2019 Episodic Nonmalignant breast conditions (9 sources) Breast lump; Translations: [Unspecified lump in the right breast, overlapping quadrants] 08-26-2023 Episodic Open wounds of extremities (1 source) Cut of finger 06-11-2020 Episodic Other complications of (20 sources) High risk ; Translations: [Supervision of high risk , unspecified, unspecified trimester] 11-16-2022 Episodic Comment on above: , CHARLIE 05/21/25, P C Lee, BF Joaquim PRR , CHARLIE 3 boy Lee BF Joaquim [id number], CHARLIE 05/21/25 , PC Lee, BF Joaquim [id number], CHARLIE 05/21/25 ,girl PC Lee, BF Joaquim Other complications of (20 sources) H/O: miscarriage; Translations: [Supervision of with other poor reproductive or obstetric history, unspecified trimester] 10-05-2024 Episodic Comment on above: 01/20/24 Other complications of (2 sources) Supervision of high risk , unspecified, second trimester; Translations: [Supervision of high risk , unspecified, second trimester] Onset: 03-18-2025 Episodic Other complications of (2 sources) Supervision of with other poor reproductive or obstetric history, unspecified trimester; Translations: [Supervision of with other poor reproductive or obstetric history, unspecified trimester] Onset: 03-18-2025 Episodic Other female genital disorders (9 sources) Vaginal discharge; Translations: [Other specified noninflammatory disorders of vagina] 08-26-2023 Episodic Other female genital disorders (9 sources) Vulval irritation; Translations: [Noninflammatory disorder of vulva and perineum, unspecified] 04-29-2023 Episodic Other female genital disorders (1 source) Noninflammatory disorder of vulva and perineum, unspecified; Translations: [Unspecified noninflammatory disorder of vulva and perineum] 04-29-2023 Episodic Other female genital disorders (3 sources) Other specified noninflammatory disorders of vagina; Translations: [Leukorrhea, not specified as infective] Onset: 11-14-2023 08-26-2023 Episodic Other and delivery including normal (20 sources) ; Translations: [Encounter for supervision of normal , unspecified, unspecified trimester] 10-18-2022 Episodic Comment on above: kw, IOL, 41.0 boy Le o 41.0 postdates elects NIPT with gen suzy, declined carrier Neg GBS NL anatomy, NIPT low risk, carrier testing neg. . afp negative NIPT low risk, femal e, declined carrier Other upper respiratory disease (13 sources) Seasonal allergy; Translations: [Other seasonal allergic rhinitis] 09-14-2022 Chronic Other upper respiratory disease (20 sources) Other seasonal allergic rhinitis; Translations: [Allergic rhinitis, cause unspecified] 09-21-2022 Chronic Otitis media and related conditions (1 source) Otitis media of right ear 07-18-2023 Episodic Residual codes; unclassified (1 source) Immunization due 02-15-2022 Episodic Residual codes; unclassified (1 source) Insomnia 06-11-2020 Episodic Residual codes; unclassified (2 sources) 30 weeks gestation of ; Translations: [30 weeks gestation of ] Onset: 03-18-2025 Episodic Residual codes; unclassified (1 source) 26 weeks gestation of ; Translations: [26 weeks gestation of ] Onset: 02-13-2025 Episodic Screening and history of mental health and substance abuse codes (1 source) Tobacco use and exposure - finding 02-15-2022 Chronic Screening and history of mental health and substance abuse codes (20 sources) History of clinical finding in subject; Translations: [Personal history of nicotine dependence] Onset: 03-15-2025 09-14-2022 Episodic Comment on above: quit with +UPT, coun seling provided; states no vaping or smoking Quit with + test Spondylosis; intervertebral disc disorders; other back problems (2 sources) Dorsalgia, unspecified; Translations: [Dorsalgia, unspecified] Onset: 03-18-2025 Episodic Spontaneous (7 sources) with abortive outcome; Translations: [Incomplete spontaneous without complication] 02-07-2024 Episodic Substance-related disorders (20 sources) History of clinical finding in subject; Translations: [History of marijuana use] 11-16-2022 Chronic Comment on above: tox screen random(ne g 09/2022), quit with +UPT, Used daily for anxiety/sleep, counseling provided Substance-related disorders (20 sources) Marijuana user; Translations: [Cannabis use, unspecified, uncomplicated] Onset: 10-23-2024 10-05-2024 Episodic Comment on above: Quit with +preg test , Discussed tox screen initial & random, Pt in agreement Unclassified (1 source) Cancer cervix screening status 02-15-2022 Unclassified (1 source) Medication refused 02-15-2022 Unclassified (3 sources) Patient encounter status 02-15-2022 Unclassified (2 sources) Other specified diseases and conditions complicating ; Translations: [Other specified diseases and conditions complicating ] Onset: 03-18-2025 Urinary tract infections (1 source) Acute cystitis 05-22-2019 Episodic Past or Other Problems Problem Classification Problem Date Documented Da te Episodic/Chronic Other complications of (20 sources) Supervision of high risk , unspecified, unspecified trimester; Translations: [Supervision of unspecified high-risk ] Onset: 11-01-2024 09-21-2022 Episodic Residual codes; unclassified (1 source) 9 weeks gestation of ; Translations: [9 weeks gestation of ] Onset: 10-16-2024 Episodic Unclassified (1 source) Problem Results Test Name Value Interpretation Reference Range Facility H AND P Exam - OB/GYNon 11- H&P Exam - 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 She denies loss of fluid, vaginal bleeding, or dec fm. Maternal Data Information CHARLIE Calculator Estimated Delivery Date Method Current WG Current Estimate 05/21/25 LMP (Certain) 30w 4d Other Estimates 05/19/25 Ultrasound #1 30w 6d PFSH PFSH Medical History Seasonal allergies Incomplete Former smoker Vaginal delivery Depression Anxiety Hx of recurrent urinary tract infection Home Medications ???Medication ???Instructions ???Recorded ???Last Taken ???Type multivit-min no.71-iron fum 28 1 cap PO DAILY 09/14/22 03/14/25 22:00 History mg-folate no.1 1 mg-dha 300 mg 1 cap capsule (PNV-Campton) Allergy/AdvReac Type Severity Reaction Status Date / Time No Known Allergies Allergy Verified 03/15/25 11:57 Family History Grandmother Heart disease Paternal Uncle Heart disease Paternal Surgical History S/P D C (status post dilation and curettage) Social History adopted: No household members: significant other and children number of children: 1 current occupational status: employed 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 current occupational exposures/hazards: No pets and animals: Yes pets and animals: dog(s) history of recent travel: No sexually active: Yes Smoking Status: Former smoker Electronic Cigarette Use: with nicotine how long ago did patient quit smokin weeks ago alcohol intake: current alcohol intake frequency: holidays/special occasions only details: Not while substance use type: former substance user Date of last use: Daily for anxiety- Quit when found out and marijuana well-balanced diet: daily or most days caffeine: No eating out: rarely or never during the past year weight has: decreased > 10 lbs what type of physical activity do you participate in: additional details: Barn chores frequency: 5-6 times per week duration: > 90 minutes/day fernanda/caodaism: Islam seatbelt use: always do you feel safe at home: Yes additional social history: 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 Date Name GA/Weeks Outcome Route Bth Weight Gen Labor Lgth Anesthesia Del Locatn Provider FOB 04/19/23 Lee 41 live - full term 8lbs 13oz Male epidural [facility] Preeti Crawford, MARCELO March Visit Details Expected Delivery Route/Plan Labor Preferences- CB/BF classes: no labor support person: Joaquim labor intervention preferences: [] pain management options preferred: epidural cut cord/dad catch: no : yes PP control planned: discussed discussed possible routes of delivery and associated risks: [] special requests: [] Plans Covid status: [] Flu vaccine: declines Tdap vaccine: [] Rhogam: na LARC form signed: yes Problem list reviewed and updated with the most current plan of care details and appropriate orders placed. Relevant counseling for the gestational age provided. Continue routine care and follow up unless otherwise noted in visit notes/problem list details OB Flowsheet Initial Weight: 146 lb Date -???-???-???-???-???-??? -???-???-???-???-???-??? - EGA Weight BP Urine Prot -???-???-???-???-???-??? -???-???-???-???-???-??? - Glucose FHR FuHt Pres Dilation -???-???-???-???-???-??? -???-???-???-???-???-??? - Effaced St Visit Note 10/16/24 -???-???-???-???-???-??? -???-???-???-???-???-??? - 9w 0d 146 lb 4 oz (+4 oz) 121/73 -???-???-???-???-???-??? -???-???-???-???-???-??? - 176 -???-???-???-???-???-??? -???-???-???-???-???-??? - KW- CRL 2.53 cm cons with dates. Accepts NIPT 11/20/24 -???-???-???-???-???-??? -???-???-???-???-???-??? - 14w 0d 150 lb 8 oz (+4 lb 8 oz) 124/85 Negative -???-???-???-???-???-??? -???-???-???-???-???-??? - Negative 150 -???-???-???-???-???-??? -???-???-???-???-???-??? - JV- no compl aints today. low risk NIPT girl! has boy lee at home 12/19/24 -???-???-???-???-???-??? -???-???-???-???-???-??? (more content not included)... Normal [facility] Supervisor Pairing And Inspecting Office Visit Reporton 03-14-2025 Supervisor Pairing And Inspecting Office Visit Report [facility] [address] [place] [address], [address] [place] [address] OFFICE VISIT Date of Service: 03/14/25 MR#: [id number] Acct: [id number] Name: JOE ARRIOLA Rep #: [id number] : 2000 Provider: Dr. Marce Sorto DO Age/Sex: 24/F Location: [facility] [place] [facility] Status: Signed Intake Vital Signs 12/19/24 15:45 02/13/25 10:24 03/14/25 10:42 Height 5 ft 8 in 5 ft 8 in 5 ft 8 in Weight: 185 lb BMI 28.1 BP 117/77 Intake Visit Reasons: 30 WK 2D OB Chief Complaint: 30wk OB Sql Manager Required: No Is patient in pain?: No Allergies No Known Allergies Allergy (Verified 03/14/25 10:41) Medications ???Medication ???Instructions ???Recorded ???Confirmed ???Type multivit-min no.71-iron fum 28 1 cap PO DAILY 09/14/22 03/14/25 History mg-folate no.1 1 mg-dha 300 mg capsule (PNV-Campton) Last Menstrual Period: 08/14/24 Have you fallen in the past year?: No PFSH PFSH Medical History Seasonal allergies Incomplete Former smoker Vaginal delivery Depression Anxiety Hx of recurrent urinary tract infection Surgical History S/P D C (status post dilation and curettage) Family History Grandmother Heart disease Paternal Uncle Heart disease Paternal Social History adopted: No household members: significant other and children number of children: 1 current occupational status: employed 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 current occupational exposures/hazards: No pets and animals: Yes pets and animals: dog(s) history of recent travel: No sexually active: Yes Smoking Status: Former smoker Electronic Cigarette Use: with nicotine how long ago did patient quit smokin weeks ago alcohol intake: current alcohol intake frequency: holidays/special occasions only details: Not while substance use type: former substance user Date of last use: Daily for anxiety- Quit when found out and marijuana well-balanced diet: daily or most days caffeine: No eating out: rarely or never during the past year weight has: decreased > 10 lbs what type of physical activity do you participate in: additional details: Barn chores frequency: 5-6 times per week duration: > 90 minutes/day fernanda/caodaism: Islam seatbelt use: always do you feel safe at home: Yes 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 Date Name GA/Weeks Outcome Route Bth Weight Infant Gen Labor Lgth Anesthesia Del Locatn Provider FOB 04/19/23 Lee 41 live - full term 8lbs 13oz Male epidural [facility] MARCELO Batista HPI 30 WK 2D OB Details: JOE ARRIOLA is a 24 year old who presents for routine OB visit. OB Visit CHARLIE Calculator Estimated Delivery Date Method Current WG Current Estimate 05/21/25 LMP (Certain) 30w 2d Other Estimates 05/19/25 Ultrasound #1 30w 4d Expected Delivery Route/Plan Labor Preferences- CB/BF classes: no labor support person: Joaquim labor intervention preferences: [] pain management options preferred: epidural cut cord/dad catch: no : yes PP control planned: discussed discussed possible routes of delivery and associated risks: [] special requests: [] Specific Issue/Plans Covid status: [] Flu vaccine: declines Tdap vaccine: [] Rhogam: na LARC form signed: yes Problem list reviewed and updated with the most current plan of care details and appropriate orders placed. Relevant counseling for the gestational age provided. Continue routine care and follow up unless otherwise noted in visit notes/problem list details Initial Weight: 146 lb Date -???-???-???-???-???-??? -???-???-???-???-???-??? - EGA Weight BP Urine Prot -???-???-???-???-???-??? -???-???-???-???-???-??? - Glucose FHR FuHt Pres Dilation -???-???-???-???-???-??? -???-???-???-???-???-??? - Effaced St Visit Note 10/16/24 -???-???-???-???-???-??? -???-???-???-???-???-??? - 9w 0d 146 lb 4 oz (+4 oz) 121/73 -???-???-???-???-???-??? -???-???-???-???-???-??? - 176 -???-???-???-???-???-??? -???-???-???-???-???-??? - KW- CRL 2.53 cm cons with dates. Accepts NIPT 11/20/24 -???-???-???-???-???-??? -???-???-???-???-???-??? - 14w 0d 150 lb 8 oz (+4 lb 8 oz) 124/85 Negative -???-???-???-???-???-??? -???-???-???-???-???-??? - Negative 150 -???-???-???-???-???-??? -???-???-???-???-?? (more content not included)... Normal [facility] CBC W/Diff, Automatedon 10-0 -2024 Absolute Lymph 1.57 X10 3/uL Normal 0.83-4.51 [facility] Comment on above: Performed By: #### L 509.4707, L3890.6006, L100.0100, L501.0250 ####[facility] [address] [place], [place], [id number] Absolute Neut 8.2 X10 3/uL High 2.0-7.7 [facility] Comment on above: Performed By: #### L 509.8002, L3890.6006, L100.0100, L501.0250 ####[facility] [address] [place], [address] Basophils/100 WBC (Bld) 0.4 % Normal 0-1 [facility] Comment on above: Performed By: #### L 509.8002, L3890.6006, L100.0100, L501.0250 ####[facility] [address] [place], [address] Eosinophils/100 WBC (Bld) 2.1 % Normal 0-5 [facility] Comment on above: Performed By: #### L 509.8002, L3890.6006, L100.0100, L501.0250 ####[facility] [address] [place], [address] Erythrocyte distribution width (RBC) [Ratio] 12.2 % Normal 11.6-14.6 [facility] Comment on above: Performed By: #### L 509.8002, L3890.6006, L100.0100, L501.0250 ####[facility] [address] [place], [address] Hematocrit (Bld) [Volume fraction] 37.2 % Normal 37-47 [facility] Comment on above: Performed By: #### L 509.8002, L3890.6006, L100.0100, L501.0250 ####[facility] [address] [place], [address] Hemoglobin (Bld) [Mass/Vol] 12.8 g/dL Normal 12.0-15.0 [facility] Comment on above: Performed By: #### L 509.8002, L3890.6006, L100.0100, L501.0250 ####[facility] [address] [place], [address] IG% 0.400 Normal 0.0-0.9 [facility] Comment on above: Result Comment: IG% - Immature Granulocytes (promyelocytes, myelocytes and metamyelocytes) > 1% indicates that a LEFT SHIFT is Present. Performed By: #### L 509.8002, L3890.6006, L100.0100, L501.0250 ####[facility] [address] [place], [address] Lymphocytes/100 WBC (Bld) 14.6 % Low 19-41 [facility] Comment on above: Performed By: #### L 509.8002, L3890.6006, L100.0100, L501.0250 ####[facility] [address] [place], [address] MCH (RBC) [Entitic mass] 30.3 pg Normal 27.0-32.0 [facility] Comment on above: Performed By: #### L 509.8002, L3890.6006, L100.0100, L501.0250 ####[facility] [address] [place], [address] MCHC (RBC) [Mass/Vol] 34.4 g/dL Normal 32-36 [facility] Comment on above: Performed By: #### L 509.8002, L3890.6006, L100.0100, L501.0250 ####[facility] [address] [place], [address] MCV (RBC) [Entitic vol] 88.2 fL Normal 81-99 [facility] Comment on above: Performed By: #### L 509.8002, L3890.6006, L100.0100, L501.0250 ####[facility] [address] [place], [address] Monocytes/100 WBC (Bld) 5.8 % Normal 0-10 [facility] Comment on above: Performed By: #### L 509.8002, L3890.6006, L100.0100, L501.0250 ####[facility] [address] [place], [address] Neutrophils/100 WBC (Bld) 76.7 % High 47-70 [facility] Comment on above: Performed By: #### L 509.8002, L3890.6006, L100.0100, L501.0250 ####[facility] [address] [place], [address] Nucleated RBC (Bld) [#/Vol] 0 10*3/uL Normal 0-5 [facility] Comment on above: Performed By: #### L 509.8002, L3890.6006, L100.0100, L501.0250 ####[facility] [address] [place], [address] Platelet mean volume (Bld) [Entitic vol] 9.7 fL Normal 6.2-12.0 [facility] Comment on above: Performed By: #### L 509.8002, L3890.6006, L100.0100, L501.0250 ####[facility] [address] [place], [address] Platelets (Bld) [#/Vol] 277 10*3/uL Normal 150-450 [facility] Comment on above: Performed By: #### L 509.8002, L3890.6006, L100.0100, L501.0250 ####[facility] [address] [place], [address] RBC (Bld) [#/Vol] 4.22 10*6/uL Normal 4.2-5.4 [facility] Comment on above: Performed By: #### L 509.8002, L3890.6006, L100.0100, L501.0250 ####[facility] [address] [place], [address] RDW SD 39.3 fl Normal 35.1-43.9 [facility] Comment on above: Performed By: #### L 509.8002, L3890.6006, L100.0100, L501.0250 ####[facility] [address] [place], [place], [id number] WBC (Bld) [#/Vol] 10.7 10*3/uL Normal 4.4-11.0 [facility] Comment on above: Performed By: #### L 509.8002, L3890.6006, L100.0100, L501.0250 ####[facility] [address] [place], [address] Glucose Challenge Gest 1H 50 ethan 02-13-2025 GLU GEST 50g 1H 67 mg/dL Low 70-140 [facility] Comment on above: Performed By: #### L 509.8002, L3890.6006, L100.0100, L501.0250 ####[facility] [address] [place], [address] HIVon 02-13-2025 HIV Non-Reactive Normal Nonreactive [facility] Comment on above: Result Comment: Non- Reactive Reactive Repeatedly reactive samples must be confirmed according to CDC recommended confirmatory algorithms. The subresults for either HIVAG or AHIV can be used as an aid in the selection of the confirmation algorithm for reactive samples. Send out specimens with Reactive results to [facility] for confirmation. Order the HIV antibody detection and differentiation: [id number] Performed By: #### L 509.8002, L3890.6006, L100.0100, L501.0250 ####[facility] [address] [place], [address] Super[employer]ing And [employer]pecting Office Visit Reporton 02-13-2025 Supervisor Pairing And Inspecting Office Visit Report [facility]'[address], [address] [place] [address] OFFICE VISIT Date of Service: 02/13/25 MR#: [id number] Acct: [id number] Name: JOE ARRIOLA Rep #: [id number] : 2000 Provider: CLAUDY schofield Age/Sex: 24/F Location: [facility] [place] Status: Signed Intake Vital Signs 12/19/24 15:45 01/18/25 12:59 02/13/25 10:24 Height 5 ft 8 in 5 ft 8 in 5 ft 8 in Weight: 152 lb 4 oz 167 lb 5 oz 176 lb 6 oz BMI 23.1 25.4 26.8 BP 131/76 H 113/68 112/75 Intake Visit Reasons: 26WK 1D OB/GLUCOSE Sql Manager Required: No Is patient in pain?: No Allergies No Known Allergies Allergy (Verified 02/13/25 10:27) Medications ???Medication ???Instructions ???Recorded ???Confirmed ???Type multivit-min no.71-iron fum 28 1 cap PO DAILY 09/14/22 02/13/25 History mg-folate no.1 1 mg-dha 300 mg capsule (PNV-Campton) Last Menstrual Period: 08/14/24 Zika: Zika virus screening: Negative : Yes PFSH PFSH Medical History Seasonal allergies Incomplete Former smoker Vaginal delivery Depression Anxiety Hx of recurrent urinary tract infection Surgical History S/P D C (status post dilation and curettage) Family History Grandmother Heart disease Paternal Uncle Heart disease Paternal Social History adopted: No household members: significant other and children number of children: 1 current occupational status: employed 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 current occupational exposures/hazards: No pets and animals: Yes pets and animals: dog(s) history of recent travel: No sexually active: Yes Smoking Status: Former smoker Electronic Cigarette Use: with nicotine how long ago did patient quit smokin weeks ago alcohol intake: current alcohol intake frequency: holidays/special occasions only details: Not while substance use type: former substance user Date of last use: Daily for anxiety- Quit when found out and marijuana well-balanced diet: daily or most days caffeine: No eating out: rarely or never during the past year weight has: decreased > 10 lbs what type of physical activity do you participate in: additional details: Barn chores frequency: 5-6 times per week duration: > 90 minutes/day fernanda/caodaism: Islam seatbelt use: always do you feel safe at home: Yes 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 Date Name GA/Weeks Outcome Route Bth Weight Infant Gen Labor Lgth Anesthesia Del Locatn Provider FOB 04/19/23 Lee 41 live - full term 8lbs 13oz Male epidural [facility] Preeti Crawford, MARCELO March HPI 26WK 1D OB/GLUCOSE Details: JOE ARRIOLA is a 24 year old who presents for routine OB visit. OB Visit CHARLIE Calculator Estimated Delivery Date Method Current WG Current Estimate 05/21/25 LMP (Certain) 26w 1d Other Estimates 05/19/25 Ultrasound #1 26w 3d Expected Delivery Route/Plan Labor Preferences- CB/BF classes: no labor support person: Joaquim labor intervention preferences: [] pain management options preferred: epidural cut cord/dad catch: no : yes PP control planned: discussed discussed possible routes of delivery and associated risks: [] special requests: [] Specific Issue/Plans Covid status: [] Flu vaccine: declines Tdap vaccine: [] Rhogam: na LARC form signed: yes Problem list reviewed and updated with the most current plan of care details and appropriate orders placed. Relevant counseling for the gestational age provided. Continue routine care and follow up unless otherwise noted in visit notes/problem list details Initial Weight: 146 lb Date -???-???-???-???-???-??? -???-???-???-???-???-??? - EGA Weight BP Urine Prot -???-???-???-???-???-??? -???-???-???-???-???-??? - Glucose FHR FuHt Pres Dilation -???-???-???-???-???-??? -???-???-???-???-???-??? - Effaced St Visit Note 10/16/24 -???-???-???-???-???-??? -???-???-???-???-???-??? - 9w 0d 146 lb 4 oz (+4 oz) 121/73 -???-???-???-???-???-??? -???-???-???-???-???-??? - 176 -???-???-???-???-???-??? -???-???-???-???-???-??? - KW- CRL 2.53 cm cons with dates. Accepts NIPT 11/20/24 -???-???-???-???-???-??? -???-???-???-???-???-??? - 14w 0d 150 lb 8 oz (+4 lb 8 oz) 124/85 Negative -???-???-???-???-???-??? -???-???- (more content not included)... Normal [facility] Syphilis Antibodieson 2024 Syphilis Abs Non-Reactive Normal Nonreactive [facility] Comment on above: Performed By: #### L 509.8002, L3890.6006, L100.0100, L501.0250 ####[facility] [address] [place], [address] Supervisor Pairing And Inspecting Office Visit Reporton 01-18-2025 Supervisor Pairing And Inspecting Office Visit Report [facility]'s [address], [address] [place] [address] OFFICE VISIT Date of Service: 01/18/25 MR#: [id number] Acct: [id number] Name: JOE ARRIOLA Rep #: [id number] : 2000 Provider: Dr. Carol lora MD Age/Sex: 24/F Location: [facility] [place] Status: Signed Intake Vital Signs 10/16/24 14:51 11/20/24 15:16 12/19/24 15:45 01/18/25 12:59 Height 5 ft 8 in 5 ft 8 in 5 ft 8 in 5 ft 8 in Weight: 150 lb 8 oz 152 lb 4 oz 167 lb 5 oz BMI 22.8 23.1 25.4 BP 124/85 H 131/76 H 113/68 Intake Visit Reasons: 22wk ob Sql Manager Required: No Is patient in pain?: No Allergies No Known Allergies Allergy (Verified 01/18/25 12:56) Medications ???Medication ???Instructions ???Recorded ???Confirmed ???Type multivit-min no.71-iron fum 28 1 cap PO DAILY 09/14/22 01/18/25 History mg-folate no.1 1 mg-dha 300 mg capsule (PNV-Campton) Last Menstrual Period: 08/14/24 Zika: Zika virus screening: Negative : No PFSH PFSH Medical History Seasonal allergies Incomplete Former smoker Vaginal delivery Depression Anxiety Hx of recurrent urinary tract infection Surgical History S/P D C (status post dilation and curettage) Family History Grandmother Heart disease Paternal Uncle Heart disease Paternal Social History adopted: No household members: significant other and children number of children: 1 current occupational status: employed 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 current occupational exposures/hazards: No pets and animals: Yes pets and animals: dog(s) history of recent travel: No sexually active: Yes Smoking Status: Former smoker Electronic Cigarette Use: with nicotine how long ago did patient quit smokin weeks ago alcohol intake: current alcohol intake frequency: holidays/special occasions only details: Not while substance use type: former substance user Date of last use: Daily for anxiety- Quit when found out and marijuana well-balanced diet: daily or most days caffeine: No eating out: rarely or never during the past year weight has: decreased > 10 lbs what type of physical activity do you participate in: additional details: Barn chores frequency: 5-6 times per week duration: > 90 minutes/day fernanda/caodaism: Islam seatbelt use: always do you feel safe at home: Yes additional social history: YEMI- Joaquim Bhatt History 3 Elective abortions Hx Para 1 Spontaneous abortions 1 Hx # Term Pregnancies Ectopic pregnancies Hx # Pregnancies Multiple births 0 # of living children 1 Past Pregnancies Del. Date Name GA/Weeks Outcome Route Bth Weight Infant Gen Labor Lgth Anesthesia Del Locatn Provider FOB 04/19/23 Lee 41 live - full term 8lbs 13oz Male epidural [facility] MARCELO Batista HPI 22wk ob Details: JOE ARRIOLA is a 24 year old who presents for routine OB visit. OB Visit CHARLIE Calculator Estimated Delivery Date Method Current WG Current Estimate 05/21/25 LMP (Certain) 22w 3d Other Estimates 05/19/25 Ultrasound #1 22w 5d Expected Delivery Route/Plan Labor Preferences- CB/BF classes: [] labor support person: [] labor intervention preferences: [] pain management options preferred: [] cut cord/dad catch: [] : [] PP control planned: [] discussed possible routes of delivery and associated risks: [] special requests: [] Specific Issue/Plans Covid status: [] Flu vaccine: [] Tdap vaccine: [] Rhogam: [] LARC form signed: [] Problem list reviewed and updated with the most current plan of care details and appropriate orders placed. Relevant counseling for the gestational age provided. Continue routine care and follow up unless otherwise noted in visit notes/problem list details Initial Weight: 146 lb Date -???-???-???-???-???-??? -???-???-???-???-???-??? - EGA Weight BP Urine Prot -???-???-???-???-???-??? -???-???-???-???-???-??? - Glucose FHR FuHt Pres Dilation -???-???-???-???-???-??? -???-???-???-???-???-??? - Effaced St Visit Note 10/16/24 -???-???-???-???-???-??? -???-???-???-???-???-??? - 9w 0d 146 lb 4 oz (+4 oz) 121/73 -???-???-???-???-???-??? -???-???-???-???-???-??? - 176 -???-???-???-???-???-??? -???-???-???-???-???-??? - KW- CRL 2.53 cm cons with dates. Accepts NIPT 11/20/24 -???-???-???-???-???-??? -???-???-???-???-???-??? - 14w 0d 150 lb 8 oz (+4 lb 8 oz) 124/85 Negative -???-???-???-???-???-??? -???-???-???-???-???-??? - Gaurav (more content not included)... Normal [facility] Supervisor Pairing And Inspecting Office Visit Reporton 12-19-2024 Supervisor Pairing And Inspecting Office Visit Report [facility]'s [address], [address] [place] [address] OFFICE VISIT Date of Service: 12/19/24 MR#: [id number] Acct: [id number] Name: JOE ARRIOLA Rep #: [id number] : 2000 Provider: CLAUDY schofield Age/Sex: 24/F Location: [facility] [place] Status: Signed Intake Vital Signs 10/16/24 14:51 11/20/24 15:16 12/19/24 15:45 Height 5 ft 8 in 5 ft 8 in 5 ft 8 in Weight: 152 lb 4 oz BMI 23.1 BP 131/76 H Intake Visit Reasons: 18wk ob Sql Manager Required: No Is patient in pain?: No Allergies No Known Allergies Allergy (Verified 12/19/24 15:48) Medications ???Medication ???Instructions ???Recorded ???Confirmed ???Type multivit-min no.71-iron fum 28 1 cap PO DAILY 09/14/22 12/19/24 History mg-folate no.1 1 mg-dha 300 mg capsule (PNV-Campton) Last Menstrual Period: 08/14/24 Zika: Zika virus screening: Negative : Yes Have you fallen in the past year?: No PFSH PFSH Medical History Seasonal allergies Incomplete Former smoker Vaginal delivery Depression Anxiety Hx of recurrent urinary tract infection Surgical History S/P D C (status post dilation and curettage) Family History Grandmother Heart disease Paternal Uncle Heart disease Paternal Social History adopted: No household members: significant other and children number of children: 1 current occupational status: employed 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 current occupational exposures/hazards: No pets and animals: Yes pets and animals: dog(s) history of recent travel: No sexually active: Yes Smoking Status: Former smoker Electronic Cigarette Use: with nicotine how long ago did patient quit smokin weeks ago alcohol intake: current alcohol intake frequency: holidays/special occasions only details: Not while substance use type: former substance user Date of last use: Daily for anxiety- Quit when found out and marijuana well-balanced diet: daily or most days caffeine: No eating out: rarely or never during the past year weight has: decreased > 10 lbs what type of physical activity do you participate in: additional details: Barn chores frequency: 5-6 times per week duration: > 90 minutes/day fernanda/caodaism: Islam seatbelt use: always do you feel safe at home: Yes 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 Date Name GA/Weeks Outcome Route Bth Weight Gen Labor Lgth Anesthesia Del Locatn Provider FOB 04/19/23 Lee 41 live - full term 8lbs 13oz Male epidural [facility] Preeti Crawford, MARCELO March HPI 18wk ob Details: JOE ARRIOLA is a 24 year old who presents for routine OB visit. OB Visit CHARLIE Calculator Estimated Delivery Date Method Current WG Current Estimate 05/21/25 LMP (Certain) 18w 1d Other Estimates 05/19/25 Ultrasound #1 18w 3d Expected Delivery Route/Plan Labor Preferences- CB/BF classes: [] labor support person: [] labor intervention preferences: [] pain management options preferred: [] cut cord/dad catch: [] : [] PP control planned: [] discussed possible routes of delivery and associated risks: [] special requests: [] Specific Issue/Plans Covid status: [] Flu vaccine: [] Tdap vaccine: [] Rhogam: [] LARC form signed: [] Problem list reviewed and updated with the most current plan of care details and appropriate orders placed. Relevant counseling for the gestational age provided. Continue routine care and follow up unless otherwise noted in visit notes/problem list details Initial Weight: 146 lb Date -???-???-???-???-???-??? -???-???-???-???-???-??? - EGA Weight BP Urine Prot -???-???-???-???-???-??? -???-???-???-???-???-??? - Glucose FHR FuHt Pres Dilation -???-???-???-???-???-??? -???-???-???-???-???-??? - Effaced St Visit Note 10/16/24 -???-???-???-???-???-??? -???-???-???-???-???-??? - 9w 0d 146 lb 4 oz (+4 oz) 121/73 -???-???-???-???-???-??? -???-???-???-???-???-??? - 176 -???-???-???-???-???-??? -???-???-???-???-???-??? - KW- CRL 2.53 cm cons with dates. Accepts NIPT 11/20/24 -???-???-???-???-???-??? -???-???-???-???-???-??? - 14w 0d 150 lb 8 oz (+4 lb 8 oz) 124/85 Negative -???-???-???-???-???-??? -???-???-???-???-???-??? - Negative 150 -???-???-???-???-???-??? -???-???-???-???-???-? (more content not included)... Normal [facility] - Chemistry and C hemistry - challengeOrdered By: Marce Almanzar on 11-20-2024 Glucose Ql (U) Negative [facility] - UrinalysisOrder ed By: Marce Almanzar on 11-20-2024 Protein Ql (U) Negative [facility] Super[facility] [employer]ing [employer]pecting Office Visit Reporton 11-20-2024 Supervisor Pairing And Inspecting Office Visit Report [facility] [address], [address] [place] [address] OFFICE VISIT Date of Service: 11/20/24 MR#: [id number] Acct: [id number] Name: JOE ARRIOLA Rep #: [id number] : 2000 Provider: Dr. Marce Sorto DO Age/Sex: 24/F Location: [facility] [place] Status: Signed Intake Vital Signs 02/03/24 13:36 10/16/24 14:51 11/20/24 15:16 Height 5 ft 8 in 5 ft 8 in 5 ft 8 in Weight: 150 lb 8 oz BMI 22.8 BP 124/85 H Intake Visit Reasons: 14wk ob Chief Complaint: 14wk ob Sql Manager Required: No Is patient in pain?: No Allergies No Known Allergies Allergy (Verified 11/20/24 15:15) Medications ???Medication ???Instructions ???Recorded ???Confirmed ???Type multivit-min no.71-iron fum 28 1 cap PO DAILY 09/14/22 11/20/24 History mg-folate no.1 1 mg-dha 300 mg capsule (PNV-Campton) Last Menstrual Period: 08/14/24 PFSH PFSH Medical History Seasonal allergies Incomplete Former smoker Vaginal delivery Depression Anxiety Hx of recurrent urinary tract infection Surgical History S/P D C (status post dilation and curettage) Family History Grandmother Heart disease Paternal Uncle Heart disease Paternal Social History adopted: No household members: significant other and children number of children: 1 current occupational status: employed 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 current occupational exposures/hazards: No pets and animals: Yes pets and animals: dog(s) history of recent travel: No sexually active: Yes Smoking Status: Former smoker Electronic Cigarette Use: with nicotine how long ago did patient quit smokin weeks ago alcohol intake: current alcohol intake frequency: holidays/special occasions only details: Not while substance use type: former substance user Date of last use: Daily for anxiety- Quit when found out and marijuana well-balanced diet: daily or most days caffeine: No eating out: rarely or never during the past year weight has: decreased > 10 lbs what type of physical activity do you participate in: additional details: Barn chores frequency: 5-6 times per week duration: > 90 minutes/day fernanda/caodaism: Islam seatbelt use: always do you feel safe at home: Yes 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 Date Name GA/Weeks Outcome Route Bth Weight Infant Gen Labor Lgth Anesthesia Del Locatn Provider FOB 04/19/23 Lee 41 live - full term 8lbs 13oz Male epidural WC MARCELO Batista HPI 14wk ob Details: JOE ARRIOLA is a 24 year old who presents for routine OB visit. OB Visit CHARLIE Calculator Estimated Delivery Date Method Current WG Current Estimate 05/21/25 LMP (Certain) 14w 0d Other Estimates 05/19/25 Ultrasound #1 14w 2d Expected Delivery Route/Plan Labor Preferences- CB/BF classes: [] labor support person: [] labor intervention preferences: [] pain management options preferred: [] cut cord/dad catch: [] : [] PP control planned: [] discussed possible routes of delivery and associated risks: [] special requests: [] Specific Issue/Plans Covid status: [] Flu vaccine: [] Tdap vaccine: [] Rhogam: [] LARC form signed: [] Problem list reviewed and updated with the most current plan of care details and appropriate orders placed. Relevant counseling for the gestational age provided. Continue routine care and follow up unless otherwise noted in visit notes/problem list details Initial Weight: 146 lb Date -???-???-???-???-???-??? -???-???-???-???-???-??? - EGA Weight BP Urine Prot -???-???-???-???-???-??? -???-???-???-???-???-??? - Glucose FHR FuHt Pres Dilation -???-???-???-???-???-??? -???-???-???-???-???-??? - Effaced St Visit Note 10/16/24 -???-???-???-???-???-??? -???-???-???-???-???-??? - 9w 0d 146 lb 4 oz (+4 oz) 121/73 -???-???-???-???-???-??? -???-???-???-???-???-??? - 176 -???-???-???-???-???-??? -???-???-???-???-???-??? - KW- CRL 2.53 cm cons with dates. Accepts NIPT 11/20/24 -???-???-???-???-???-??? -???-???-???-???-???-??? - 14w 0d 150 lb 8 oz (+4 lb 8 oz) 124/85 Negative -???-???-???-???-???-??? -???-???-???-???-???-??? - Negative 150 -???-???-???-???-???-??? -???-???-???-???-???-??? - JV- no compl aints today. low risk NIPT girl! has boy lee at (more content not included)... Normal [facility] Absolute lymphocyte countOrd ered By: Preeti Crawford on 10-29-2024 Lymphocytes Auto (Unsp spec) [#/Vol] 1.45 10*3/uL 0.83-4.51 [facility] Absolute neutrophil countOrd ered By: Preeti Crawford on 10-29-2024 Neutrophils (Bld) [#/Vol] 4.5 10*3/uL 2.0-7.7 [facility] Automated lymphocyte count a s percentage of total leukocytesOrdered By: Preeti Crawford on 10-29-2024 Lymphocytes/100 WBC Auto (Unsp spec) 22.0 % 19-41 [facility] Basophil percentageOrdered B y: Preeti Crawford on 10-29-2024 Basophils/100 WBC (Bld) 0.6 % 0-1 [facility] CBC W/Diff, Automatedon 10-08 Absolute Lymph 1.45 X10 3/uL Normal 0.83-4.51 [facility] Comment on above: Performed By: #### L 100.0100, L509.4006, L3890.6301, L509.8002, L900.0098, L3890.6102, L3890.6006, BTS #### [facility] [address] [place], [address] Absolute Neut 4.5 X10 3/uL Normal 2.0-7.7 [facility] Comment on above: Performed By: #### L 100.0100, L509.4006, L3890.6301, L509.8002, L900.0098, L3890.6102, L3890.6006, BTS #### [facility] [address] [place], [address] Basophils/100 WBC (Bld) 0.6 % Normal 0-1 [facility] Comment on above: Performed By: #### L 100.0100, L509.4006, L3890.6301, L509.8002, L900.0098, L3890.6102, L3890.6006, BTS #### [facility] [address] [place], [address] Eosinophils/100 WBC (Bld) 3.0 % Normal 0-5 [facility] Comment on above: Performed By: #### L 100.0100, L509.4006, L3890.6301, L509.8002, L900.0098, L3890.6102, L3890.6006, BTS #### [facility] [address] [place], [address] Erythrocyte distribution width (RBC) [Ratio] 12.7 % Normal 11.6-14.6 [facility] Comment on above: Performed By: #### L 100.0100, L509.4006, L3890.6301, L509.8002, L900.0098, L3890.6102, L3890.6006, BTS #### [facility] [address] [place], [address] Hematocrit (Bld) [Volume fraction] 38.2 % Normal 37-47 [facility] Comment on above: Performed By: #### L 100.0100, L509.4006, L3890.6301, L509.8002, L900.0098, L3890.6102, L3890.6006, BTS #### [facility] [address] [place], [address] Hemoglobin (Bld) [Mass/Vol] 13.1 g/dL Normal 12.0-15.0 [facility] Comment on above: Performed By: #### L 100.0100, L509.4006, L3890.6301, L509.8002, L900.0098, L3890.6102, L3890.6006, BTS #### [facility] [address] [place], [address] IG% 0.200 Normal 0.0-0.9 [facility] Comment on above: Result Comment: IG% - Immature Granulocytes (promyelocytes, myelocytes and metamyelocytes) > 1% indicates that a LEFT SHIFT is Present. Performed By: #### L 100.0100, L509.4006, L3890.6301, L509.8002, L900.0098, L3890.6102, L3890.6006, BTS #### [facility] [address] [place], [address] Lymphocytes/100 WBC (Bld) 22.0 % Normal 19-41 [facility] Comment on above: Performed By: #### L 100.0100, L509.4006, L3890.6301, L509.8002, L900.0098, L3890.6102, L3890.6006, BTS #### [facility] [address] [place], [address] MCH (RBC) [Entitic mass] 30.3 pg Normal 27.0-32.0 [facility] Comment on above: Performed By: #### L 100.0100, L509.4006, L3890.6301, L509.8002, L900.0098, L3890.6102, L3890.6006, BTS #### [facility] [address] [place], [address] MCHC (RBC) [Mass/Vol] 34.3 g/dL Normal 32-36 [facility] Comment on above: Performed By: #### L 100.0100, L509.4006, L3890.6301, L509.8002, L900.0098, L3890.6102, L3890.6006, BTS #### [facility] [address] [place], [address] MCV (RBC) [Entitic vol] 88.2 fL Normal 81-99 [facility] Comment on above: Performed By: #### L 100.0100, L509.4006, L3890.6301, L509.8002, L900.0098, L3890.6102, L3890.6006, BTS #### [facility] [address] [place], [address] Monocytes/100 WBC (Bld) 5.6 % Normal 0-10 [facility] Comment on above: Performed By: #### L 100.0100, L509.4006, L3890.6301, L509.8002, L900.0098, L3890.6102, L3890.6006, BTS #### [facility] [address] [place], [address] Neutrophils/100 WBC (Bld) 68.6 % Normal 47-70 [facility] Comment on above: Performed By: #### L 100.0100, L509.4006, L3890.6301, L509.8002, L900.0098, L3890.6102, L3890.6006, BTS #### [facility] [address] [place], [address] Nucleated RBC (Bld) [#/Vol] 0 10*3/uL Normal 0-5 [facility] Comment on above: Performed By: #### L 100.0100, L509.4006, L3890.6301, L509.8002, L900.0098, L3890.6102, L3890.6006, BTS #### [facility] [address] [place], [address] Platelet mean volume (Bld) [Entitic vol] 9.9 fL Normal 6.2-12.0 [facility] Comment on above: Performed By: #### L 100.0100, L509.4006, L3890.6301, L509.8002, L900.0098, L3890.6102, L3890.6006, BTS #### [facility] [address] [place], [address] Platelets (Bld) [#/Vol] 282 10*3/uL Normal 150-450 [facility] Comment on above: Performed By: #### L 100.0100, L509.4006, L3890.6301, L509.8002, L900.0098, L3890.6102, L3890.6006, BTS #### [facility] [address] [place], [address] RBC (Bld) [#/Vol] 4.33 10*6/uL Normal 4.2-5.4 [facility] Comment on above: Performed By: #### L 100.0100, L509.4006, L3890.6301, L509.8002, L900.0098, L3890.6102, L3890.6006, BTS #### [facility] [address] [place], [address] RDW SD 41.3 fl Normal 35.1-43.9 [facility] Comment on above: Performed By: #### L 100.0100, L509.4006, L3890.6301, L509.8002, L900.0098, L3890.6102, L3890.6006, BTS #### [facility] [address] [place], [address] WBC (Bld) [#/Vol] 6.6 10*3/uL Normal 4.4-11.0 [facility] Comment on above: Performed By: #### L 100.0100, L509.4006, L3890.6301, L509.8002, L900.0098, L3890.6102, L3890.6006, BTS #### [facility] [address] [place], [address] Eosinophil percentageOrdered By: Preeti Crawford on 10-29-2024 Eosinophils/100 WBC (Bld) 3.0 % 0-5 [facility] Erythrocyte distribution wid th ratioOrdered By: Preeti Crawford on 10-29-2024 Erythrocyte distribution width (RBC) [Ratio] 12.7 % 11.6-14.6 [facility] Erythrocyte distribution wid th standard deviationOrdered By: Preeti Crawford on 10-29-2024 Erythrocyte distribution width (RBC) [Ratio] 41.3 fl 35.1-43.9 [facility] HIVon 10-29-2024 HIV Non-Reactive Normal Nonreactive [facility] Comment on above: Result Comment: Non- Reactive Reactive Repeatedly reactive samples must be confirmed according to CDC recommended confirmatory algorithms. The subresults for either HIVAG or AHIV can be used as an aid in the selection of the confirmation algorithm for reactive samples. Send out specimens with Reactive results to [facility] for confirmation. Order the HIV antibody detection and differentiation: lc#[id number] Performed By: #### L 100.0100, L509.4006, L3890.6301, L509.8002, L900.0098, L3890.6102, L3890.6006, BTS #### [facility] [address] [place], [address] Hematocrit Auto (Bld) [Volum e fraction]Ordered By: Preeti Crawford on 10-29-2024 Hematocrit (Bld) [Volume fraction] 38.2 % 37-47 [facility] Hemoglobin measurementOrdere d By: Preeti Crawford on 10-29-2024 Hemoglobin (Bld) [Mass/Vol] 13.1 g/dL 12.0-15.0 [facility] Hepatitis C Antibodyon 10-29 Hepatitis C Ab Non-Reactive Normal Nonreactive [facility] Comment on above: Result Comment: Reac tive: Presumptive evidence of antibodies to HCV. Follow CDC recommendations for supplemental testing. Non-Reactive: Antibodies to HCV were not detected; does not exclude the possibility of exposure to HCV Reactive Results are presumptive evidence of antibodies to HCV. Follow CDC recommendations for supplemental testing. Order confirmation testing: HCV Quant by PCR testing - HCVPCR #[id number] Non Reactive: < 0.8 Equivocal: >/= 0.8 to < 1.0 Reactive: >/= 1.0 The CDC requires that a reactive/equivocal HCV antibody result be sent out for confirmation. HCV Quant by PCR testing. Performed By: #### L 100.0100, L509.4006, L3890.6301, L509.8002, L900.0098, L3890.6102, L3890.6006, BTS ####[facility] [address] [place], [place], [id number] Immature granulocytes/100 WB C Auto (Bld)Ordered By: Preeti Crawford on 10-29-2024 Immature granulocytes/100 WBC (Bld) 0.200 % 0.0-0.9 [facility] Comment on above: IG% - Immature Granu locytes (promyelocytes, myelocytes and metamyelocytes) > 1% indicates that a LEFT SHIFT is Present. L3890.6102on 10-29-2024 HEP B Surf Ag Non-Reactive Normal Nonreactive [facility] Comment on above: Result Comment: Reac tive: Presumptive evidence of HBV. Repeatedly reactive samples must be confirmed using a neutralization test ([employer] HBsAg Confirmatory Test) Non-Reactive: HBsAg not detected; does not exclude the possibility of exposure to HBV Performed By: #### L 100.0100, L509.4006, L3890.6301, L509.8002, L900.0098, L3890.6102, L3890.6006, BTS #### [facility] [address] [place], [place], [id number] L509.4006on 10-29-2024 Rubella IgG REAC Normal Nonreactive [facility] Comment on above: Result Comment: Anti body Result: Interpretation Non-Reactive: Non-Immune Reactive: Immune The following results were obtained with the [employer] Rubella IgG assay. Results from assays of other manufacturers cannot be used interchangeably. Performed By: #### L 100.0100, L509.4006, L3890.6301, L509.8002, L900.0098, L3890.6102, L3890.6006, BTS #### [facility] [address] [place], [place], [id number] Laboratory - Microbiology an d Antimicrobial susceptibilityOrdered By: Preeti Crawford on 10-29-2024 HBV surface Ag Ql (S) Non-Reactive Nonreactive [facility] Comment on above: Reactive: Presumptiv e evidence of HBV. Repeatedly reactive samples must be confirmed using a neutralization test ([employer] HBsAg Confirmatory Test)Non-Reactive: HBsAg not detected; does not exclude the possibility of exposure to HBV MCV (mean corpuscular volume ) determinationOrdered By: Preeti Crawford on 10-29-2024 MCV (RBC) [Entitic vol] 88.2 fL 81-99 [facility] Mean corpuscular hemoglobin (MCH) determinationOrdered By: Preeti Crawford on 10-29-2024 MCH (RBC) [Entitic mass] 30.3 pg 27.0-32.0 [facility] Mean corpuscular hemoglobin concentration (MCHC) determinationOrdered By: Preeti Crawford on 10-29-2024 MCHC (RBC) [Mass/Vol] 34.3 g/dL 32-36 [facility] Mean platelet volume determi nationOrdered By: Preeti Crawford on 10-29-2024 Platelet mean volume (Bld) [Entitic vol] 9.9 fL 6.2-12.0 [facility] Monocyte percentageOrdered B y: Preeti Crawford on 10-29-2024 Monocytes/100 WBC (Bld) 5.6 % 0-10 [facility] NATERAon 10-29-2024 NATURA SEE SCANNED REPORT Normal [facility] Comment on above: Order Comment: Comme nts: NIPT with Gender Performed By: #### L 100.0100, L509.4006, L3890.6301, L509.8002, L900.0098, L3890.6102, L3890.6006, BTS #### [facility] [address] [place], [address] Neutrophil percentageOrdered By: Preeti Crawford on 10-29-2024 Neutrophils/100 WBC (Bld) 68.6 % 47-70 [facility] No Panel InformationOrdered By: Preeti Crawford on 10-29-2024 HIV (1&2) Antibody Non-Reactive Nonreactive [facility] Comment on above: Non-ReactiveReactive Repeatedly reactive samples must be confirmed according to CDC recommended confirmatory algorithms. The subresults for either HIVAG or AHIV can be used as an aid in the selection of the confirmation algorithm for reactive samples.Send out specimens with Reactive results to [facility] for confirmation.Order the HIV antibody detection and differentiation: #[id number] Nucleated red blood cell per centageOrdered By: Preeti Crawford on 10-29-2024 Nucleated RBC/100 WBC (Bld) [Ratio] 0 % 0-5 [facility] Platelet countOrdered By: Lonny ruizfroy Ty on 10-29-2024 Platelets (Bld) [#/Vol] 282 10*3/uL 150-450 [facility] RBC Auto (Bld) [#/Vol]Ordere d By: Preeti Crawford on 10-29-2024 RBC (Bld) [#/Vol] 4.33 10*6/uL 4.2-5.4 [facility] Syphilis Antibodieson 2024 Syphilis Abs Non-Reactive Normal Nonreactive [facility] Comment on above: Performed By: #### L 100.0100, L509.4006, L3890.6301, L509.8002, L900.0098, L3890.6102, L3890.6006, BTS #### [facility] [address] [place], [place], [id number] (140) Type AND Screenon 10-29-2024 Ab SCREEN GEL Negative Normal [facility] Comment on above: Order Comment: PN Performed By: #### L 100.0100, L509.4006, L3890.6301, L509.8002, L900.0098, L3890.6102, L3890.6006, BTS #### [facility] [address] [place], [address] White blood cell (WBC) count Ordered By: Preeti Crawford on 10-29-2024 WBC (Bld) [#/Vol] 6.6 10*3/uL 4.4-11.0 [facility] Chlamydia/GC BURTON aptimaon CHLAMY,NUC ACID Negative Normal Negative [facility] Comment on above: Performed By: #### L 505.5000, M100.2200, L7000.1800 ####[facility] [address] [place], [place], [address] GC BY NUC ACID Negative Normal Negative [facility] Comment on above: Result Comment: Perf ormed at: =G - [facility] [address] [place], [place] [id number] Car Park Attendant: Shelley Funk MD, Phone: [phone] Performed By: #### L 505.5000, M100.2200, L7000.1800 ####[facility] [address] [place], [address] Urine Cultureon 10-19-2024 URC Mixed Gram Positive Organisms [place] Count 50,000-80,000 MIXC Mixed contaminants. Submit a new specimen if indicated. Normal [facility] Comment on above: Performed By: #### L 505.5000, M100.2200, L7000.1800 ####[facility] [address] [place], [place], [address] Amphetamine detection with 1 000 ng/mL as cutoffOrdered By: Preeti Crawford on 10-16-2024 Amphetamines Screen method >1000 ng/mL Ql (U) Negative < 200 ng/mL [facility] Chlamydia trachomatis rRNA d etection by probe and target amplification methodOrdered By: Preeti Crawford on 10-16-2024 C. trachomatis rRNA BURTON+probe Ql (Unsp spec) Negative Negative [facility] Neisseria gonorrhoeae nuclei c acid detection by amplified probe techniqueOrdered By: Preeti Crawford on 10-16-2024 N. gonorrhoeae DNA BURTON+probe Ql (Unsp spec) Negative Negative [facility] Comment on above: Performed at: =G - [facility] [address] [place], [place] [id number] Director: Shelley Funk MD, Phone: [phone] No Panel InformationOrdered By: Preeti Crawford on 10-16-2024 Urine Buprenorphine Qualitative Negative < 200 ng/mL [facility] Urine Oxycodone Screen Negative < 100 ng/mL [facility] Supervisor Pairing And Inspecting Office Visit Reporton 10-16-2024 Supervisor Pairing And Inspecting Office Visit Report [address], [address] [place] [address] OFFICE VISIT Date of Service: 10/16/24 MR#: [id number] Acct: [id number] Name: JOE ARRIOLA Rep #: [id number] : 2000 Provider: MARCELO Jones ams Age/Sex: 24/F Location: [facility] [place] Status: Signed Intake Vital Signs 02/03/24 13:36 10/16/24 14:51 Height 5 ft 8 in 5 ft 8 in Weight: 146 lb 4 oz BMI 22.2 BP 121/73 H Intake Visit Reasons: *EST* NOB LMP 08/14, CHARLIE 05/21/25 Sql Manager Required: No Is patient in pain?: No Allergies No Known Allergies Allergy (Verified 10/16/24 14:52) Medications ???Medication ???Instructions ???Recorded ???Confirmed ???Type multivit-min no.71-iron fum 28 1 cap PO DAILY 09/14/22 02/03/24 History mg-folate no.1 1 mg-dha 300 mg capsule (PNV-Campton) Last Menstrual Period: 08/14/24 Zika: Zika virus screening: Negative : Yes PFSH PFSH Medical History Seasonal allergies Incomplete Former smoker Vaginal delivery Depression Anxiety Hx of recurrent urinary tract infection Surgical History S/P D C (status post dilation and curettage) Family History Grandmother Heart disease Paternal Uncle Heart disease Paternal Social History adopted: No household members: significant other and children number of children: 1 service: No current occupational status: employed 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 current occupational exposures/hazards: No pets and animals: Yes pets and animals: dog(s) history of recent travel: No sexually active: Yes Smoking Status: Former smoker Electronic Cigarette Use: with nicotine smoking status stop date: 09/19/24 how long ago did patient quit smokin weeks ago alcohol intake: current alcohol intake frequency: holidays/special occasions only details: Not while substance use type: former substance user Date of last use: Daily for anxiety- Quit when found out and marijuana well-balanced diet: daily or most days caffeine: No eating out: rarely or never during the past year weight has: decreased > 10 lbs what type of physical activity do you participate in: additional details: Barn chores frequency: 5-6 times per week duration: > 90 minutes/day fernanda/caodaism: Islam seatbelt use: always do you feel safe at home: Yes 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 Date Name GA/Weeks Outcome Route Bth Weight Gen Labor Lgth Anesthesia Del Locatn Provider FOB 04/19/23 Lee 41 live - full term 8lbs 13oz Male epidural WC MARCELO Batista HPI *EST* NOB LMP 08/14, CHARLIE 05/21/25 Details: JOE ARRIOLA is a 24 year old who presents for New OB visit. OB Visit CHARLIE Calculator Estimated Delivery Date Method Current WG Current Estimate 05/21/25 LMP (Certain) 9w 0d Other Estimates 05/19/25 Ultrasound #1 9w 2d Comments: HIV: Urine Culture: Sequential Screen: NIPT Screen: Estimated Due Date: 05/21/25 Expected Delivery Route/Plan Labor Preferences- CB/BF classes: [] labor support person: [] labor intervention preferences: [] pain management options preferred: [] cut cord/dad catch: [] : [] PP control planned: [] discussed possible routes of delivery and associated risks: [] special requests: [] Specific Issue/Plans Covid status: [] Flu vaccine: [] Tdap vaccine: [] Rhogam: [] LARC form signed: [] Problem list reviewed and updated with the most current plan of care details and appropriate orders placed. Relevant counseling for the gestational age provided. Continue routine care and follow up unless otherwise noted in visit notes/problem list details Initial Weight: 146 lb Date -???-???-???-???-???-??? -???-???-???-???-???-??? - EGA Weight BP Urine Prot -???-???-???-???-???-??? -???-???-???-???-???-??? - Glucose FHR FuHt Pres Dilation -???-???-???-???-???-??? -???-???-???-???-???-??? - Effaced St Visit Note 10/16/24 -???-???-???-???-???-??? -???-???-???-???-???-??? - 9w 0d 146 lb 4 oz (+4 oz) 121/73 -???-???-???-???-???-??? -???-???-???-???-???-??? - 176 -???-???-???-???-???-??? -???-???-???-???-???-??? - KW- CRL 2.53 cm cons with dates. Accepts NIPT Menstrual History Last Menstrual Period: 08/14/24 Reported LMP: definite No (more content not included)... Normal [facility] Quantitative urine opiates m easurementOrdered By: Preeti Crawford on 10-16-2024 Opiates Ql (U) Negative < 300 ng/mL [facility] Screening urine fentanyl sarah surementOrdered By: Preeti Crawford on 10-16-2024 fentaNYL Screen Ql (U) Negative [facility] Urine Drug Screen (VISTA)on 10-16-2024 AMPHETAMINES Negative Normal <1000 ng/mL [facility] Comment on above: Order Comment: UNK Performed By: #### L 505.5000, M100.2200, L7000.1800 ####[facility] [address] [place], [place], [id number] BARBITIURATES Negative Normal < 200 ng/mL [facility] Comment on above: Order Comment: UNK Performed By: #### L 505.5000, M100.2200, L7000.1800 ####[facility] [address] [place], [address] BENZODIAZIPINE Negative Normal < 200 ng/mL [facility] Comment on above: Order Comment: UNK Performed By: #### L 505.5000, M100.2200, L7000.1800 ####[facility] [address] [place], [address] BUP Ur Drug Scr Negative Normal < 200 ng/mL [facility] Comment on above: Order Comment: UNK Performed By: #### L 505.5000, M100.2200, L7000.1800 ####[facility] [address] [place], [place], [phone] COCAINE Negative Normal < 300 ng/mL [facility] Comment on above: Order Comment: UNK Performed By: #### L 505.5000, M100.2200, L7000.1800 ####[facility] [address] [place], [place], [phone] Fentanyl Negative Normal [facility] Comment on above: Order Comment: UNK Performed By: #### L 505.5000, M100.2200, L7000.1800 ####[facility] [address] [place], [place], [phone] METHADONE Negative Normal < 300 ng/mL [facility] Comment on above: Order Comment: UNK Performed By: #### L 505.5000, M100.2200, L7000.1800 ####[facility] [address] [place], [place], [phone] OPIATES Negative Normal < 300 ng/mL [facility] Comment on above: Order Comment: UNK Performed By: #### L 505.5000, M100.2200, L7000.1800 ####[facility] [address] [place], [address] OXYCODONE Negative Normal < 100 ng/mL [facility] Comment on above: Order Comment: UNK Performed By: #### L 505.5000, M100.2200, L7000.1800 ####[facility] [address] [place], [address] PCP Negative Normal < 25 ng/mL [facility] Comment on above: Order Comment: UNK Performed By: #### L 505.5000, M100.2200, L7000.1800 ####[facility] [address] [place], [address] THC Positive Normal < 50 ng/mL [facility] Comment on above: Order Comment: UNK Result Comment: If c onfirmation testing is needed, a separate order will be required to send out testing to the reference laboratory. Performed By: #### L 505.5000, M100.2200, L7000.1800 ####[facility] [address] [place], [address] Urine benzodiazepine levelOr dered By: Preeti Crawford on 10-16-2024 Benzodiazepines Ql (U) Negative < 200 ng/mL [facility] Urine cocaine levelOrdered B y: Preeti Crawford on 10-16-2024 Cocaine Ql (U) Negative < 300 ng/mL [facility] Urine cultureOrdered By: Francis Crawford on 10-16-2024 Bacteria identified Cx Nom (U) Positive Abnormal [facility] Urine opzzc-6-dsoowrsiwsepkr abinol (THC) measurementOrdered By: Preeti Crawford on 10-16-2024 Cannabinoids Screen Ql (U) Positive < 50 ng/mL [facility] Comment on above: If confirmation test ing is needed, a separate order will be required to send out testing to the reference laboratory. Urine phencyclidine (PCP) de tectionOrdered By: Preeti Crawford on 10-16-2024 Phencyclidine Ql (U) Negative < 25 ng/mL [facility] Progress Noteson 03-05-2024 [employer] Authentication Interface Message Text ----- Tuesday, March 05, 2024 at 6:55:21 PM ----- ----- Provider: Resident Shad -- Clinic: [place] ----- Attempted to send referral but email [email or web address] (per patient request) is incorrect. Also attempted to call patient but no answer. Will attempt to call patient again Normal [facility] Progress Noteson 02-22-2024 [employer] Authentication Interface Message Text ----- Thursday, February 22, 2024 at 4:54:58 PM ----- ----- Provider: [id number] Fartun -- Clinic: [place] [address] ----- INITIAL/COMPREHENSIVE EXAM Patient presents for an Initial Examination. Reviewed patient's medical history. Patient has a history of: No significant medical history. . No contraindications, patient is ready for treatment. Patient's chief complaint: Comp Exam Pain Scale: 0/10 Radiographs taken today were: Panorex and 4 BWs Clinical and radiographic exam reveal the following findings, diagnoses and treatment plans: 1. dental decay on teeth # 3, 18, 30 and31 to be restored with composite 2. Non restorable teeth #2 and 15 to be extracted 3. Lower teeth # 17 and 31 partially erupted for extraction 4. Teeth #1 and 16 causing food accumalation and traumatic ulcer adjacent to tooth #17 Soft tissue evaluation: TMJ evaluation: Normal TMJ Completed current status of dentition on the charting. Went over needs and treatment plan options with the patient. OHI were discussed with the patient. Written Instructions/AVS were also handed to the patient. Pt Concern: Full Exam was successfully done. Patient consented to the treatment plan. PRIOR: Not needed NOTE: Patient referred to oral surgery. teeth #2 and 15 are close to the floor of the sinus and lower wisdom are partially impacted Next Visit: Restorations ----- Signed on February at 5:46:22 PM ----- ----- Provider: [id number] Viki Gutiérrez DDS -- Clinic: [place] [address] ----- Normal [facility] No Panel InformationOrdered By: Edith Sterling on 07-08-2024 Affirm Pathogens DNA Direct Probe Rahel species DNA Probe Positive Gardnerella vaginalis DNA Probe Negative Trichomonas vaginalis DNA Probe Negative [facility] Gram stain for investigation of transfusion reactionOrdered By: Marce Almanzar on 08-26-2023 Microscopic observation Gram stain Nom (Unsp spec) [facility] No Panel InformationOrdered By: Marce Almanzar on 08-26-2023 Genital Culture Presumptive C albicans [facility] Gram stain for investigation of transfusion reactionOrdered By: Preeti Crawford on 04-29-2023 Microscopic observation Gram stain Nom (Unsp spec) [facility] Thin prep Papanicolaou smear with manual screeningOrdered By: Preeti Crawford on 04-29-2023 Genital Culture G. vaginalis (Presumptive) [facility] Absolute lymphocyte countOrd ered By: Preeti Crawford on 04-19-2023 Lymphocytes Auto (Unsp spec) [#/Vol] 2.01 10*3/uL 0.83-4.51 [facility] Basophil percentageOrdered B y: Preeti Crawford on 04-19-2023 Basophils/100 WBC (Bld) 0.4 % 0-1 [facility] Eosinophils/100 WBC (Bld) 2.9 % 0-5 [facility] Neutrophils (Bld) [#/Vol] 6.4 10*3/uL 2.0-7.7 [facility] Neutrophils/100 WBC (Bld) 67.1 % 47-70 [facility] WBC (Bld) [#/Vol] 9.6 10*3/uL 4.4-11.0 [facility] Blood erythrocytes count (nu mber/volume)Ordered By: Preeti Crawford on 04-19-2023 RBC (Bld) [#/Vol] 4.10 10*6/uL 4.2-5.4 [facility] Blood hemoglobin measurement (mass/volume)Ordered By: Preeti Crawford on 04-19-2023 Hemoglobin (Bld) [Mass/Vol] 11.4 g/dL 12.0-15.0 [facility] Blood lymphocytes/100 leukoc ytesOrdered By: Preeti Crawford on 04-19-2023 Lymphocytes/100 WBC (Bld) 20.9 % 19-41 [facility] Blood monocytes/100 leukocyt esOrdered By: Preeti Carwford on 04-19-2023 Monocytes/100 WBC (Bld) 8.3 % 0-10 [facility] Blood platelet mean volumeOr dered By: Preeti Crawford on 04-19-2023 Platelet mean volume (Bld) [Entitic vol] 10.3 fL 6.2-12.0 [facility] Determination of erythrocyte mean corpuscular volume (MCV)Ordered By: Preeti Crawford on 04-19-2023 MCV (RBC) [Entitic vol] 83.9 fL 81-99 [facility] Hematocrit Auto (Bld) [Volum e fraction]Ordered By: Preeti Crawford on 04-19-2023 Hematocrit (Bld) [Volume fraction] 34.4 % 37-47 [facility] Laboratory - Drug toxicology Ordered By: Preeti Crawford on 04-19-2023 Benzodiazepines Ql (U) Negative < 200 ng/mL [facility] Cannabinoids Screen Ql (U) Negative < 50 ng/mL [facility] Cocaine Ql (U) Negative < 300 ng/mL [facility] Opiates Ql (U) Negative < 300 ng/mL [facility] Laboratory - Hematology and Cell countsOrdered By: Preeti Crawford on 04-19-2023 Erythrocyte distribution width (RBC) [Entitic vol] 40.3 fL 35.1-43.9 [facility] Erythrocyte distribution width (RBC) [Ratio] 13.2 % 11.6-14.6 [facility] Immature granulocytes/100 WBC (Bld) 0.400 % 0.0-0.9 [facility] Comment on above: IG% - Immature Granu locytes (promyelocytes, myelocytes and metamyelocytes) > 1% indicates that a LEFT SHIFT is Present. MCH (RBC) [Entitic mass] 27.8 pg 27.0-32.0 [facility] Nucleated RBC/100 WBC (Bld) [Ratio] 0 % 0-5 [facility] MCHC Auto (RBC) [Mass/Vol]Or dered By: Preeti Crawford on 04-19-2023 MCHC (RBC) [Mass/Vol] 33.1 g/dL 32-36 [facility] No Panel InformationOrdered By: Preeti Crawford on 04-19-2023 MDMA (Ecstasy) Screen Negative < 500 ng/mL [facility] Urine Barbiturates Screen Negative < 200 ng/mL [facility] Urine Drug Screen Comment [facility] Comment on above: CONFIRMATORY TESTING FOR ALL POSITIVE URINE DRUG SCREENRESULTS WILL ONLY BE SENT OUT UPON PHYSICIAN ORDER. [facility]ISTA Urine Drug Screen methods provide only preliminaryanalytical test results. A more specific alternate chemicalmethod must be used in order to obtain a confirmedanalytical result. Gas chromatography/mass spectrometery(GC/MS) is the preferred confirmatory method. Clinicalconsideration and professional judgement should be appliedto any drug of abuse test result, particularly whenpreliminary positive results are used. URINE TCA TESTING MUST BE ORDERED SEPARATELY. USE TESTMNEMONIC: [facility] Urine Methadone Screen Negative < 300 ng/mL [facility] Platelets bldOrdered By: Francis Crawford on 04-19-2023 Platelets (Bld) [#/Vol] 250 10*3/uL 150-450 [facility] Serum Treponema species anti body detectionOrdered By: Preeti Crawford on 04-19-2023 Treponema sp Ab Ql (S) Non-Reactive [facility] Urine amphetamine measuremen t (moles/volume)Ordered By: Preeti Crawford on 04-19-2023 Amphetamine (U) [Moles/Vol] Negative <1000 ng/mL [facility] Urine phencyclidine (PCP) de tectionOrdered By: Preeti Crawford on 04-19-2023 Phencyclidine Ql (U) Negative < 25 ng/mL [facility] Laboratory - Chemistry and C hemistry - challengeon 03-29-2023 Glucose Ql (U) Negative [facility] Laboratory - Urinalysison Protein Ql (U) Negative [facility] Laboratory - Chemistry and C hemistry - challengeon 03-22-2023 Glucose Ql (U) Negative [facility] Laboratory - Urinalysison Protein Ql (U) Negative [facility] Laboratory - Chemistry and C hemistry - challengeon 03-15-2023 Glucose Ql (U) Negative [facility] Laboratory - Urinalysison Protein Ql (U) Negative [facility] No Panel InformationOrdered By: Marce Almanzar on 03-15-2023 Group B Streptococcus Culture Group B Beta Streptococcus is not isolated. [facility] Laboratory - Chemistry and C hemistry - challengeon 03-10-2023 Glucose Ql (U) Negative [facility] Laboratory - Urinalysison Protein Ql (U) Negative [facility] Laboratory - Chemistry and C hemistry - challengeon 02-22-2023 Glucose Ql (U) Negative [facility] Laboratory - Urinalysison Protein Ql (U) Negative [facility] Laboratory - Chemistry and C hemistry - challengeon 02-10-2023 Glucose Ql (U) Negative [facility] Laboratory - Urinalysison Protein Ql (U) Negative [facility] Laboratory - Chemistry and C hemistry - challengeon 01-25-2023 Glucose Ql (U) Negative [facility] Laboratory - Urinalysison Protein Ql (U) Negative [facility] Absolute lymphocyte countOrd ered By: Debby Suh on 01-11-2023 Lymphocytes Auto (Unsp spec) [#/Vol] 1.34 10*3/uL 0.83-4.51 [facility] Basophil percentageOrdered B y: Debby Suh on 01-11-2023 Basophils/100 WBC (Bld) 0.4 % 0-1 [facility] Eosinophils/100 WBC (Bld) 3.7 % 0-5 [facility] Neutrophils (Bld) [#/Vol] 5.5 10*3/uL 2.0-7.7 [facility] Neutrophils/100 WBC (Bld) 70.4 % 47-70 [facility] WBC (Bld) [#/Vol] 7.9 10*3/uL 4.4-11.0 [facility] Blood erythrocytes count (nu mber/volume)Ordered By: Debby Suh on 01-11-2023 RBC (Bld) [#/Vol] 3.90 10*6/uL 4.2-5.4 [facility] Blood hemoglobin measurement (mass/volume)Ordered By: Debby Suh on 01-11-2023 Hemoglobin (Bld) [Mass/Vol] 12.0 g/dL 12.0-15.0 [facility] Blood lymphocytes/100 leukoc ytesOrdered By: Debby Suh on 01-11-2023 Lymphocytes/100 WBC (Bld) 17.0 % 19-41 [facility] Blood monocytes/100 leukocyt esOrdered By: Debby Suh on 01-11-2023 Monocytes/100 WBC (Bld) 8.0 % 0-10 [facility] Blood platelet mean volumeOr dered By: Debby Suh on 01-11-2023 Platelet mean volume (Bld) [Entitic vol] 9.3 fL 6.2-12.0 [facility] Determination of erythrocyte mean corpuscular volume (MCV)Ordered By: Debby Suh on 01-11-2023 MCV (RBC) [Entitic vol] 90.0 fL 81-99 [facility] Gestational diabetes screen 1-hour screen with 50g oral glucose loadOrdered By: Debby Suh on 01-11-2023 Glucose 1 Hr post 50 g glucose PO [Mass/Vol] 108 mg/dL 70-140 [facility] HIV 1 and HIV-2 antibody ass ay with HIV-1 p24 antigen detectionOrdered By: Debby Suh on 01-11-2023 HIV 1+2 Ab+HIV1 p24 Ag IA Ql Non-Reactive Nonreactive [facility] Hematocrit Auto (Bld) [Volum e fraction]Ordered By: Debby Suh on 01-11-2023 Hematocrit (Bld) [Volume fraction] 35.1 % 37-47 [facility] Laboratory - Chemistry and C hemistry - challengeon 01-11-2023 Glucose Ql (U) Negative [facility] Laboratory - Hematology and Cell countsOrdered By: Debby Suh on 01-11-2023 Erythrocyte distribution width (RBC) [Entitic vol] 39.5 fL 35.1-43.9 [facility] Erythrocyte distribution width (RBC) [Ratio] 12.1 % 11.6-14.6 [facility] Immature granulocytes/100 WBC (Bld) 0.500 % 0.0-0.9 [facility] Comment on above: IG% - Immature Granu locytes (promyelocytes, myelocytes and metamyelocytes) > 1% indicates that a LEFT SHIFT is Present. MCH (RBC) [Entitic mass] 30.8 pg 27.0-32.0 [facility] Nucleated RBC/100 WBC (Bld) [Ratio] 0 % 0-5 [facility] Laboratory - Urinalysison Protein Ql (U) Negative [facility] MCHC Auto (RBC) [Mass/Vol]Or dered By: Debby Suh on 01-11-2023 MCHC (RBC) [Mass/Vol] 34.2 g/dL 32-36 [facility] Platelets bldOrdered By: Boaz miranda Vikash on 01-11-2023 Platelets (Bld) [#/Vol] 245 10*3/uL 150-450 [facility] Serum Treponema species anti body detectionOrdered By: Debby Suh on 01-11-2023 Treponema sp Ab Ql (S) Non-Reactive [facility] Laboratory - Chemistry and C hemistry - challengeon 12-14-2022 Glucose Ql (U) Negative [facility] Laboratory - Urinalysison Protein Ql (U) Negative [facility] Gram stain for investigation of transfusion reactionOrdered By: Debby Suh on 11-16-2022 Microscopic observation Gram stain Nom (Unsp spec) [facility] Laboratory - Chemistry and C hemistry - challengeon 11-16-2022 Glucose Ql (U) Negative [facility] Laboratory - Urinalysison Protein Ql (U) Negative [facility] No Panel InformationOrdered By: Carol Bishop on 11-16-2022 Miscellaneous Test See comment [facility] Comment on above: TEST RESULT LIMITSAF P, Serum, Open Spina Bifida Results Report Test Results: *Screen Negative* Gest. Age on Collection Date 19.0 weeks Gestat. Age Based On LMP Recalculations are not recommended when gestational dating by LMP and ultrasound are within 10 days. [age] CHARLIE [age] Race Weight 138 lbs Insulin Dep Diabetes Not provided. Multiple Gestation No AFP Value 46.0 ng/mL AFP MoM 0.85 OSBR Risk 1 [place] [address] Interpretation Interpretation: Screen NegativeThis result is screen negative for OSB. The AFP MoM calculated is based on the gestational age provided. MS-AFP can identify up to 80% of open neural tube defects. Closed neural tube defects and some open defects may not be detected by this test. This test does not screen for Down Syndrome or Trisomy 18. If screening for Down Syndrome or Trisomy 18 is desired, contact [employer] [facility] to discuss available options. The [employer] recommends amniocentesis be offered to women age 35 and older.Comment: Patrica Hoskins, Ph.D., DABCCDirectorReferences: Available Upon Request.Multiples Of Median Cutoff For AFP ElevationsSingleton 2.5 Black 2.8IDD 2.0 Twins 4.5 Abbreviation DefinitionsIDD - Insulin Dep DiabetesOSBR - Open Spina Bifida RiskFor further inquiries contact [employer] at [phone].This test was developed and its performance characteristicsdetermined by [employer]. It has not been cleared or approvedby the Food and Drug Administration. TESTING PERFORMED AT [employer]. ORIGINAL REPORT ON FILE IN LAB CONTAINS ADDITIONAL TEST SITE INFORMATION. No Panel Informationon 11-16 POC Bacterial Vaginitis (Rapid) Positive [facility] POC Trichomonas (Rapid) Negative [facility] Thin prep Papanicolaou smear with manual screeningOrdered By: Debby Suh on 11-16-2022 Genital Culture Gardnerella vaginalis [facility] Laboratory - Chemistry and C hemistry - challengeon 10-18-2022 Glucose Ql (U) Negative [facility] Laboratory - Urinalysison Protein Ql (U) Negative [facility] Absolute lymphocyte countOrd ered By: Carol Mcnulty on 09-21-2022 Lymphocytes Auto (Unsp spec) [#/Vol] 1.49 10*3/uL 0.83-4.51 [facility] Basophil percentageOrdered B y: Carol Mcnulty on 09-21-2022 Basophils/100 WBC (Bld) 0.5 % 0-1 [facility] Eosinophils/100 WBC (Bld) 4.0 % 0-5 [facility] Neutrophils (Bld) [#/Vol] 3.9 10*3/uL 2.0-7.7 [facility] Neutrophils/100 WBC (Bld) 63.3 % 47-70 [facility] WBC (Bld) [#/Vol] 6.2 10*3/uL 4.4-11.0 [facility] Blood erythrocytes count (nu mber/volume)Ordered By: Carol Mcnulty on 09-21-2022 RBC (Bld) [#/Vol] 4.56 10*6/uL 4.2-5.4 [facility] Blood hemoglobin measurement (mass/volume)Ordered By: Carol Mcnulty on 09-21-2022 Hemoglobin (Bld) [Mass/Vol] 13.9 g/dL 12.0-15.0 [facility] Blood lymphocytes/100 leukoc ytesOrdered By: Carol Mcnulty on 09-21-2022 Lymphocytes/100 WBC (Bld) 24.1 % 19-41 [facility] Blood monocytes/100 leukocyt esOrdered By: Carol Mcnulty on 09-21-2022 Monocytes/100 WBC (Bld) 7.8 % 0-10 [facility] Blood platelet mean volumeOr dered By: Carol Mcnulty on 09-21-2022 Platelet mean volume (Bld) [Entitic vol] 8.6 fL 6.2-12.0 [facility] Cervical or vagninal specime n microscopic examination by cytology stain (reported asOrdered By: Marce Almanzar on 09-21-2022 Cytology report Cyto stain Doc (Cvx/Vag) Comment . [facility] Comment on above: The Pap smear is a s creening test designed to aid in thedetection of premalignant and malignant conditions of theuterine cervix. It is not a diagnostic procedure andshould not be used as the sole means of detecting cervicalcancer. Both false-positive and false-negative reports dooccur. Chlamydia trachomatis rRNA d etection by probe and target amplification methodOrdered By: Carol Mcnulty on 09-21-2022 C. trachomatis rRNA BURTON+probe Ql (Unsp spec) Negative Negative [facility] Culture, urineOrdered By: Sandy Mcnulty on 09-21-2022 Bacteria identified Cx Nom (U) Culture exhibits no growth. [facility] Determination of erythrocyte mean corpuscular volume (MCV)Ordered By: Carol Mcnulty on 09-21-2022 MCV (RBC) [Entitic vol] 89.0 fL 81-99 [facility] HIV 1 and HIV-2 antibody ass ay with HIV-1 p24 antigen detectionOrdered By: Carol Mcnulty on 09-21-2022 HIV 1+2 Ab+HIV1 p24 Ag IA Ql Non-Reactive Nonreactive [facility] Hematocrit Auto (Bld) [Volum e fraction]Ordered By: Carol Mcnulty on 09-21-2022 Hematocrit (Bld) [Volume fraction] 40.6 % 37-47 [facility] Laboratory - CytologyOrdered By: Marce Almanzar on 09-21-2022 Patient Financial Representative Cyto stain Nom (Cvx/Vag) [ID] Comment . [facility] Comment on above: Belen Dillon, Cytot echnologist ([facility]) Laboratory - Drug toxicology Ordered By: Carol Mcnulty on 09-21-2022 Amphetamines Ql (U) Negative <1000 ng/mL [facility] Benzodiazepines Ql (U) Negative < 200 ng/mL [facility] Cannabinoids Screen Ql (U) Negative < 50 ng/mL [facility] Cocaine Ql (U) Negative < 300 ng/mL [facility] Opiates Ql (U) Negative < 300 ng/mL [facility] Laboratory - Hematology and Cell countsOrdered By: Carol Mcnulty on 09-21-2022 Erythrocyte distribution width (RBC) [Entitic vol] 39.4 fL 35.1-43.9 [facility] Erythrocyte distribution width (RBC) [Ratio] 12.1 % 11.6-14.6 [facility] Immature granulocytes/100 WBC (Bld) 0.300 % 0.0-0.9 [facility] Comment on above: IG% - Immature Granu locytes (promyelocytes, myelocytes and metamyelocytes) > 1% indicates that a LEFT SHIFT is Present. MCH (RBC) [Entitic mass] 30.5 pg 27.0-32.0 [facility] Nucleated RBC/100 WBC (Bld) [Ratio] 0 % 0-5 [facility] Laboratory - Microbiology an d Antimicrobial susceptibilityOrdered By: Carol Mcnulty on 09-21-2022 N. gonorrhoeae DNA BURTON+probe Ql (Unsp spec) Negative Negative [facility] Comment on above: Performed at: =G - L [facility] [address] [id number] Director: Shelley Funk MD, Phone: [phone] Laboratory - Miscellaneous t estsOrdered By: Marce Almanzar on 09-21-2022 Service comment (Unsp spec) [Interp] Comment . [facility] Comment on above: This liquid based Th inPrep(R) pap test was screened withthe use of an image guided system. Service comment (Unsp spec) [Interp] . . [facility] Auto (RBC) [Mass/Vol]Or dered By: Carol Mcnulty on 09-21-2022 MCHC (RBC) [Mass/Vol] 34.2 g/dL 32-36 [facility] No Panel InformationOrdered By: Marce Almanzar on 09-21-2022 Human Papillomavirus Screen Comment . [facility] Comment on above: The HPV DNA reflex c brianeria were not met with this specimenresult therefore, no HPV testing was performed.Performed at: - [facility] [address] [id number] Director: Shelley Funk MD, Phone: [phone] Pathology report final diagnosis Narrative Comment . [facility] Comment on above: NEGATIVE FOR INTRAEP ITHELIAL LESION OR MALIGNANCY. Miscellaneous Test Comment MAILED SPECIMEN [facility] No Panel InformationOrdered By: Carol Mcnulty on 09-21-2022 MDMA (Ecstasy) Screen Negative < 500 ng/mL [facility] Urine Barbiturates Screen Negative < 200 ng/mL [facility] Urine Drug Screen Comment [facility] Comment on above: CONFIRMATORY TESTING FOR ALL POSITIVE URINE DRUG SCREENRESULTS WILL ONLY BE SENT OUT UPON PHYSICIAN ORDER. VISTA Urine Drug Screen methods provide only preliminaryanalytical test results. A more specific alternate chemicalmethod must be used in order to obtain a confirmedanalytical result. Gas chromatography/mass spectrometery(GC/MS) is the preferred confirmatory method. Clinicalconsideration and professional judgement should be appliedto any drug of abuse test result, particularly whenpreliminary positive results are used. URINE TCA TESTING MUST BE ORDERED SEPARATELY. USE TESTMNEMONIC: [facility] Urine Methadone Screen Negative < 300 ng/mL [facility] Hepatitis B Surface Antigen Non-Reactive Nonreactive [facility] Hepatitis C Antibody Non-Reactive Nonreactive [facility] Comment on above: Non Reactive: < 0.8 Equivocal: >/= 0.8 to < 1.0 Reactive: >/= 1.0The [facility] recommends that a reactive/equivocal HCV antibody result be followed up by the HCV Nucleic Acid Amplificationtest (404339) Rubella IgG Antibody Reactive Nonreactive [facility] Comment on above: Antibody Results Int erpretation of Immune Status Non Reactive Presumed Non-Immune Equivocal Equivocal Reactive Presumed Immune Platelets bldOrdered By: Mauro Mcnulty on 09-21-2022 Platelets (Bld) [#/Vol] 281 10*3/uL 150-450 [facility] Serum Treponema species anti body detectionOrdered By: Carol Mcnulty on 09-21-2022 Treponema sp Ab Ql (S) Non-Reactive [facility] Urine phencyclidine (PCP) de tectionOrdered By: Carol Mcnulty on 09-21-2022 Phencyclidine Ql (U) Negative < 25 ng/mL [facility] Clinical Summary: HMSPatient IDon 06-22-2018 [facility] Work Phone: Clinical Summary: Scanned Marcos simon Summaryon 06-22-2018 Data entered by patient exercise frequency 3 days per week [facility] Work Phone: Data entered by patient exercise type walking [facility] Work Phone: data entered by patient, alcohol (ethanol or ETOH) use No [facility] Work Phone: data entered by patient, drug (of abuse) use No [facility] Work Phone: data entered by patient, Employer Name Employed [facility] Work Phone: data entered by patient, exercise history Yes [facility] Work Phone: data entered by patient, social history, current smoker never smoker [facility] Work Phone: data entered by patient, social history, marital status Single [facility] Work Phone: Denies Surgical History Patient Denies Past Surgical History [facility] Work Phone: father of patient is alive or Alive [facility] Work Phone: housing unit size (asthma environmental history, housing) (from single family to don't know) 3 Floors [facility] Work Phone: mother of patient is alive or Alive [facility] Work Phone: Number of dependent children No [facility] Work Phone: Protein mass conc Patient Denies Medic al Problems or Conditions [facility] Work Phone: Clinical Summary: Scanned RO S Summaryon 06-22-2018 endocrine ROS Denies [facility] Work Phone: genitourinary review of systems, E&M Denies [facility] Work Phone: Lymphocytes #/vol (Bld) Denies [facility] Work Phone: ROS cardiovascular E&M Denies Cr [facility] Work Phone: ROS ENT E&M Denies [facility] Work Phone: ROS gastrointestinal E&M Denies [facility] Work Phone: ROS general E&M Denies [facility] Work Phone: ROS musculoskeletal E&M Denies [facility] Work Phone: ROS neurological E&M Denies Karissa carmel [facility] Work Phone: ROS psychiatric E&M Denies Cryst al [facility] Work Phone: ROS pulmonary E&M Denies [facility] Work Phone: ROS skin E&M Denies [facility] Work Phone: endocrine ROS Denies [facility] Work Phone: genitourinary review of systems, E&M Denies [facility] Work Phone: Lymphocytes #/vol (Bld) Denies [facility] Work Phone: ROS cardiovascular E&M Denies Cr ystal [facility] Work Phone: ROS ENT E&M Denies [facility] Work Phone: ROS gastrointestinal E&M Denies [facility] Work Phone: ROS general E&M Denies [facility] Work Phone: ROS musculoskeletal E&M Denies [facility] Work Phone: ROS neurological E&M Denies Karissa carmel [facility] Work Phone: ROS psychiatric E&M Denies Cryst al [facility] Work Phone: ROS pulmonary E&M Denies [facility] Work Phone: ROS skin E&M Denies [facility] Work Phone: Office Visit: New - 1st visi t with practice, Rm: 1on 06-22-2018 NEGATED: Highlighted rowProtein mass conc T [facility] Work Phone: NEGATED: Highlighted rowProtein mass conc Done [facility] Work Phone: NEGATED: Highlighted rowTobacco smoking status NHIS Tobacco smoking status NHIS [facility] Work Phone: Vital Signs Date Time Vital Sign Value Performing Clinician Facility 02-13-2025 10:24-0400 Body height 172.[address] Kathya Salter DO Work Phone: [facility] 02-13-2025 10:24-0400 Body mass index (BMI) [Ratio] 26.8 kg/m2 Dr. Kathya Salter DO Work Phone: [facility] 02-13-2025 10:24-0400 Body weight [address] Kathya Salter DO Work Phone: [facility] 02-13-2025 10:24-0400 Diastolic blood pressure 75 mm[Hg] Dr. Kathya Salter DO Work Phone: [facility] 02-13-2025 10:24-0400 Systolic blood pressure 112 mm[Hg] Dr. Kathya Salter DO Work Phone: [facility] 01-18-2025 12:59-0400 Body height 172.[address] Kathya Salter DO Work Phone: [facility] 01-18-2025 12:59-0400 Body mass index (BMI) [Ratio] 25.4 kg/m2 Dr. Kathya Salter DO Work Phone: [facility] 01-18-2025 12:59-0400 Body weight 75.[address] Kathya Salter DO Work Phone: [facility] 01-18-2025 12:59-0400 Diastolic blood pressure 68 mm[Hg] Dr. Kathya Salter DO Work Phone: [facility] 01-18-2025 12:59-0400 Systolic blood pressure 113 mm[Hg] Dr. Kathya Salter DO Work Phone: [facility] 12-19-2024 15:45-0400 Body height 172.[address] Kathya Salter DO Work Phone: [facility] 12-19-2024 15:45-0400 Body mass index (BMI) [Ratio] 23.1 kg/m2 Dr. Kathya Salter DO Work Phone: [phone] [place] [address] 12-19-2024 15:45-0400 Body weight 69.[address] Kathya Salter DO Work Phone: [phone])[phone] [place] [address] 12-19-2024 15:45-0400 Diastolic blood pressure 76 mm[Hg] Dr. Kathya Salter DO Work Phone: 8(224)[phone] [place] [address] 12-19-2024 15:45-0400 Systolic blood pressure 131 mm[Hg] Dr. Kathya Salter DO Work Phone: [facility] 11-20-2024 15:16-0400 Body height 172.[address] Kathya Salter DO Work Phone: [facility] 11-20-2024 15:16-0400 Body mass index (BMI) [Ratio] 22.8 kg/m2 Dr. Kathya Salter DO Work Phone: [facility] 11-20-2024 15:16-0400 Body weight 68.[address] Kathya Salter DO Work Phone: [facility] 11-20-2024 15:16-0400 Diastolic blood pressure 85 mm[Hg] Dr. Kathya Salter DO Work Phone: [facility] 11-20-2024 15:16-0400 Systolic blood pressure 124 mm[Hg] Dr. Kathya Salter DO Work Phone: [facility] 10-16-2024 14:51-0400 Body height 172.[address] Kathya Salter DO Work Phone: [facility] 10-16-2024 14:51-0400 Body mass index (BMI) [Ratio] 22.2 kg/m2 Dr. Kathya Salter DO Work Phone: [facility] 10-16-2024 14:51-0400 Body weight 66.[address] Kathya Salter DO Work Phone: [facility] 10-16-2024 14:51-0400 Diastolic blood pressure 73 mm[Hg] Dr. Kathya Salter DO Work Phone: [facility] 10-16-2024 14:51-0400 Systolic blood pressure 121 mm[Hg] Dr. Kathya Salter DO Work Phone: [facility] 08-26-2023 15:37-0400 Body height 172.[address] Kathya Salter Work Phone: [facility] 08-26-2023 15:36-0400 Body mass index (BMI) [Ratio] 25.5 kg/m2 Dr. Kathya Salter Work Phone: 7(129)[phone] [place] [address] 08-26-2023 15:36-0400 Body weight 76.[address] Kathya Salter Work Phone: [facility] 08-26-2023 15:36-0400 Diastolic blood pressure 78 mm[Hg] Dr. Kathya Salter Work Phone: [facility] 08-26-2023 15:36-0400 Systolic blood pressure 118 mm[Hg] Dr. Kathya Salter Work Phone: [facility] 05-31-2023 11:11-0500 Body mass index (BMI) [Ratio] 28.1 kg/m2 Dr. Kathya Salter Work Phone: [facility] 05-31-2023 11:11-0500 Body weight 84.[address] Kathya Salter Work Phone: [facility] 05-31-2023 11:11-0500 Diastolic blood pressure 86 mm[Hg] Dr. Kathya Salter Work Phone: [facility] 05-31-2023 11:11-0500 Systolic blood pressure 132 mm[Hg] Dr. Kathya Salter Work Phone: [facility] 04-29-2023 13:50-0500 Body height 172.[address] Kathya Salter Work Phone: [facility] 04-29-2023 13:49-0500 Body mass index (BMI) [Ratio] 28.5 kg/m2 Dr. Kathya Salter Work Phone: [facility] 04-29-2023 13:49-0500 Body weight 85.[address] Kathya Salter Work Phone: [facility] 04-29-2023 13:49-0500 Diastolic blood pressure 71 mm[Hg] Dr. Kathya Salter Work Phone: [facility] 04-29-2023 13:49-0500 Systolic blood pressure 114 mm[Hg] Dr. Kathya Salter Work Phone: [facility] 04-21-2023 10:20-0500 Heart rate 90 /min Dr. Kathya Salter Work Phone: [facility] 04-21-2023 10:20-0500 SaO2% (BldA) [Mass fraction] 98 % Dr. Kathya Salter Work Phone: [facility] 04-21-2023 10:19-0500 Diastolic blood pressure 63 mm[Hg] Dr. Kathya Salter Work Phone: [facility] 04-21-2023 10:19-0500 Systolic blood pressure 126 mm[Hg] Dr. Kathya Salter Work Phone: [facility] 04-21-2023 10:18-0500 Body temperature 98.6 [degF] Dr. Kathya Salter Work Phone: [facility] 04-21-2023 10:18-0500 Respiratory rate 16 /min Dr. Kathya Salter Work Phone: [facility] 04-19-2023 07:44-0500 Body height 172.[address] Kathya Salter Work Phone: [facility] 04-19-2023 07:44-0500 Body mass index (BMI) [Ratio] 32.2 kg/m2 Dr. Kathya Salter Work Phone: [facility] 04-19-2023 07:44-0500 Body weight 96.[address] Kathya Salter Work Phone: [facility] 04-05-2023 13:06-0500 Body mass index (BMI) [Ratio] 31.1 kg/m2 Dr. Kathya Salter Work Phone: [facility] 04-05-2023 13:06-0500 Body weight 95.[address] Kathya Salter Work Phone: [facility] 04-05-2023 13:06-0500 Diastolic blood pressure 83 mm[Hg] Dr. Kathya Salter Work Phone: [facility] 04-05-2023 13:06-0500 Systolic blood pressure 128 mm[Hg] Dr. Kathya Salter Work Phone: [facility] 04-05-2023 13:03-0500 Body mass index (BMI) [Ratio] 30.3 kg/m2 Dr. Kathya Salter Work Phone: [facility] 04-05-2023 13:03-0500 Body weight 93.[address] Kathya Salter Work Phone: [facility] 04-05-2023 13:03-0500 Diastolic blood pressure 84 mm[Hg] Dr. Kathya Salter Work Phone: [facility] 04-05-2023 13:03-0500 Systolic blood pressure 129 mm[Hg] Dr. Kathya Salter Work Phone: [facility] 03-29-2023 13:06-0500 Body mass index (BMI) [Ratio] 30.2 kg/m2 Dr. Kathya Salter Work Phone: [facility] 03-29-2023 13:06-0500 Body weight 92.[address] Kathya Salter Work Phone: [facility] 03-29-2023 13:06-0500 Diastolic blood pressure 83 mm[Hg] Dr. Kathya Salter Work Phone: [facility] 03-29-2023 13:06-0500 Systolic blood pressure 120 mm[Hg] Dr. Kathya Salter Work Phone: [facility] 03-22-2023 13:04-0500 Body mass index (BMI) [Ratio] 29.8 kg/m2 Dr. Kathya Salter Work Phone: [facility] 03-22-2023 13:04-0500 Body weight 91.[address] Kathya Salter Work Phone: [facility] 03-22-2023 13:04-0500 Diastolic blood pressure 81 mm[Hg] Dr. Kathya Salter Work Phone: [facility] 03-22-2023 13:04-0500 Systolic blood pressure 123 mm[Hg] Dr. Kathya Salter Work Phone: [facility] 03-15-2023 13:03-0500 Body height 175.[address] Kathya Salter Work Phone: [facility] 03-15-2023 13:02-0500 Body mass index (BMI) [Ratio] 29.2 kg/m2 Dr. Kathya Salter Work Phone: [facility] 03-15-2023 13:02-0500 Body weight 89.[address] Kathya Salter Work Phone: [facility] 03-15-2023 13:02-0500 Diastolic blood pressure 75 mm[Hg] Dr. Kathya Salter Work Phone: [facility] 03-15-2023 13:02-0500 Systolic blood pressure 112 mm[Hg] Dr. Kathya Salter Work Phone: [facility] 03-10-2023 13:48-0400 Body mass index (BMI) [Ratio] 28.8 kg/m2 Dr. Kathya Salter Work Phone: [facility] 03-10-2023 13:48-0400 Body weight 88.[address] Kathya Salter Work Phone: [facility] 03-10-2023 13:48-0400 Diastolic blood pressure 87 mm[Hg] Dr. Kathya Salter Work Phone: [facility] 03-10-2023 13:48-0400 Systolic blood pressure 127 mm[Hg] Dr. Kathya Salter Work Phone: [facility] 02-22-2023 13:17-0400 Body mass index (BMI) [Ratio] 28 kg/m2 Dr. Kathya Salter Work Phone: [facility] 02-22-2023 13:17-0400 Body weight 86.[address] Kathya Salter Work Phone: [facility] 02-22-2023 13:17-0400 Diastolic blood pressure 64 mm[Hg] Dr. Kathya Salter Work Phone: [facility] 02-22-2023 13:17-0400 Systolic blood pressure 116 mm[Hg] Dr. Kathya Salter Work Phone: [facility] 02-10-2023 08:45-0400 Body mass index (BMI) [Ratio] 27.5 kg/m2 Dr. Kathya Salter Work Phone: [facility] 02-10-2023 08:45-0400 Body weight 84.[address] Kathya Salter Work Phone: [facility] 02-10-2023 08:45-0400 Diastolic blood pressure 70 mm[Hg] Dr. Kathya Salter Work Phone: [facility] 02-10-2023 08:45-0400 Systolic blood pressure 107 mm[Hg] Dr. Kathya Salter Work Phone: [facility] 01-25-2023 13:03-0400 Body mass index (BMI) [Ratio] 26.7 kg/m2 Dr. Kathya Salter Work Phone: [facility] 01-25-2023 13:03-0400 Body weight 82.[address] Kathya Salter Work Phone: [facility] 01-25-2023 13:03-0400 Diastolic blood pressure 74 mm[Hg] Dr. Kathya Salter Work Phone: [facility] 01-25-2023 13:03-0400 Systolic blood pressure 128 mm[Hg] Dr. Kathya Salter Work Phone: [facility] 01-11-2023 13:10-0400 Body mass index (BMI) [Ratio] 25.5 kg/m2 Dr. Kathya Salter Work Phone: [facility] 01-11-2023 13:10-0400 Body weight 78.[address] Kathya Salter Work Phone: [facility] 01-11-2023 13:10-0400 Diastolic blood pressure 82 mm[Hg] Dr. Kathya Salter Work Phone: [facility] 01-11-2023 13:10-0400 Systolic blood pressure 134 mm[Hg] Dr. Kathya Salter Work Phone: [facility] 12-14-2022 09:21-0400 Body mass index (BMI) [Ratio] 24.4 kg/m2 Dr. Kathya Salter Work Phone: [facility] 12-14-2022 09:21-0400 Body weight 74.[address] Kathya Salter Work Phone: [facility] 12-14-2022 09:21-0400 Diastolic blood pressure 78 mm[Hg] Dr. Kathya Salter Work Phone: [facility] 12-14-2022 09:21-0400 Systolic blood pressure 118 mm[Hg] Dr. Kathya Salter Work Phone: [facility] 11-16-2022 10:17-0400 Body height 175.[address] Kathya Salter Work Phone: [facility] 11-16-2022 10:17-0400 Body mass index (BMI) [Ratio] 22.3 kg/m2 Dr. Kathya Salter Work Phone: [facility] 11-16-2022 10:17-0400 Body weight 68.[address] Kathya Salter Work Phone: [facility] 11-16-2022 10:17-0400 Diastolic blood pressure 62 mm[Hg] Dr. Kathya Salter Work Phone: [facility] 11-16-2022 10:17-0400 Systolic blood pressure 108 mm[Hg] Dr. Kathya Salter Work Phone: [facility] 10-18-2022 14:26-0400 Body mass index (BMI) [Ratio] 20.4 kg/m2 Dr. Kathya Salter Work Phone: [facility] 10-18-2022 14:26-0400 Body weight 62.[address] Kathya Salter Work Phone: [facility] 10-18-2022 14:26-0400 Diastolic blood pressure 74 mm[Hg] Dr. Kathya Salter Work Phone: [facility] 10-18-2022 14:26-0400 Systolic blood pressure 118 mm[Hg] Dr. Kathya Salter Work Phone: [facility] 09-21-2022 10:17-0400 Diastolic blood pressure 83 mm[Hg] Dr. Kathya Salter Work Phone: [facility] 09-21-2022 10:17-0400 Systolic blood pressure 131 mm[Hg] Dr. Kathya Salter Work Phone: [facility] 09-21-2022 09:48-0400 Body mass index (BMI) [Ratio] 19.1 kg/m2 Dr. Kathya Salter Work Phone: [facility] 09-21-2022 09:48-0400 Body weight 57.[address] Kathya Salter Work Phone: [facility] NEGATED: Highlighted [id number] 14:26-0500 BMI (Body Mass Index) 23.58 kg/m2 Nanci Gómez LPN [facility] Work Phone: NEGATED: Highlighted [id number] 14:26-0500 BP Diastolic 75 mm[Hg] Nanci Gómez LPN [facility] Work Phone: NEGATED: Highlighted [id number] 14:26-0500 BP Systolic 116 mm[Hg] Nanci Gómez APPLICATION COORDINATOR [facility] Work Phone: NEGATED: Highlighted [id number] 14:26-0500 Height 170.18 cm Nanci Gómez LPN [facility] Work Phone: NEGATED: Highlighted [id number] 14:26-0500 Height 170 cm Nanci Gómez APPLICATION COORDINATOR [facility] Work Phone: NEGATED: Highlighted [id number] 14:26-0500 Pulse (Heart Rate) 74 /min Nanci Gómez LPN [facility] Work Phone: NEGATED: Highlighted [id number] 14:26-0500 Weight 68.04 kg Nanci Gómez APPLICATION COORDINATOR [facility] Work Phone: NEGATED: Highlighted [id number] 14:26-0500 Weight 68 kg Nanci Gómez APPLICATION COORDINATOR [facility] Work Phone: Encounters Encounter Date Encounter Type Care Provider Facility Start: 03-15-2025 ambulatory Marce Coon Fa cility:[facility] Start: 03-15-2025 End: 03-15-2025 ambulatory Marce Coon Facility:[facility] Start: 03-14-2025 End: 03-14-2025 ambulatory Marce Coon Facility:[facility] Start: 02-13-2025 End: 02-13-2025 Patient encounter procedure Debby [place] DRAWBRIDGE OPERATOR-C -[facility] Work Phone: Start: 02-13-2025 End: 02-13-[address] Kathya Salter DO Work Phone: -[facility] Start: 02-13-2025 End: 02-13-2025 ambulatory Carol Mcnulty Facility:[facility] Start: 01-29-2025 End: 01-29-2025 ambulatory KATHYA SALTER [facility] Start: 01-18-2025 End: 01-18-[address] Carol Mcnulty MD -[facility] Work Phone: Start: 01-18-2025 End: 01-18-[address] Kathya Salter DO Work Phone: [facility] Start: 01-01-2025 End: 01-01-2025 ambulatory HANSCOM AFBCECILIO [facility] Start: 12-19-2024 End: 12-19-2024 Patient encounter procedure Debby LOCO -[facility] Work Phone: Start: 12-19-2024 End: 12-19-[address] Kathya Salter DO Work Phone: [facility] Start: 11-20-2024 End: 11-20-[address] Marce Coon DO -[facility] Work Phone: Start: 11-20-2024 End: 11-20-[address] Kathya Salter DO Work Phone: [facility] Start: 10-29-2024 End: 10-29-[address] Kathya Salter DO Work Phone: [facility] Work Phone: Start: 10-29-2024 End: 10-29-2024 Patient encounter procedure Preeti Crawford CNM -[facility] Start: 10-29-2024 End: 10-29-2024 ambulatory Preeti Crawford Facility:[facility] Start: 10-16-2024 End: 10-16-[address] Kathya Salter DO Work Phone: [facility] Work Phone: Start: 10-16-2024 End: 10-16-2024 Patient encounter procedure Preeti Crawford CNM -[facility] Work Phone: Start: 10-16-2024 End: 10-16-2024 Patient encounter procedure Preeti Crawford CNM -[facility] Work Phone: Start: 10-16-2024 End: 10-16-[address] Kathya Salter DO Work Phone: [facility] Work Phone: Start: 10-16-2024 End: 10-16-2024 ambulatory Preeti Ty Facility:[facility] Start: 02-29-2024 End: 03-08-2024 Refill Meir Catjennifer DDS Work Phone: [facility] Comment on above: Referral to Speciali st (Patient requested referral ) Start: 02-28-2024 End: 02-28-2024 Telephone encounter Meir Castillo DDS Work Phone: [facility] Comment on above: Send Referral Start: 02-22-2024 End: 02-23-2024 Patient encounter procedure Meir Catjennifer DDS Work Phone: [facility] Comment on above: Dental decay (Primar y Dx) Start: 02-22-2024 End: 02-23-2024 ambulatory UNKNOWN PROVIDER Facility:[facility] Start: 11-14-2023 End: 11-18-2023 ambulatory LOS MORALES DO Facility:[facility] Start: 11-14-2023 End: 11-18-2023 Outreach Lab LOS MORALES DO [facility] Start: 08-26-2023 End: 08-26-[address] Kathya Salter Work Phone: [facility] Work Phone: Start: 08-26-2023 End: 08-26-[address] [facility] Work Phone: Start: 08-26-2023 End: 08-26-[address] Kathya Salter Work Phone: [facility] Work Phone: Start: 05-31-2023 End: 05-31-[address] Kathya Salter Work Phone: [facility] Work Phone: Start: 04-29-2023 End: 04-29-[address] Kathya Salter Work Phone: [facility] Work Phone: Start: 04-29-2023 End: 04-29-[address] Kathya Salter [facility] Work Phone: Start: 04-29-2023 End: 04-29-[address] Kathya Salter Work Phone: [facility] Work Phone: Start: 04-21-2023 Non-patient / Non-visit Dr. Kathya Salter Work Phone: [facility] Start: 04-20-2023 Non-patient / Non-visit Dr. Kathya Salter Work Phone: [facility] Start: 04-19-2023 Non-patient / Non-visit Dr. Kathya Salter Work Phone: [facility] Start: 04-19-2023 End: 04-21-2023 Evaluation and management of inpatient Dr. Kathya Salter [facility] Work Phone: Start: 04-14-2023 End: 04-14-[address] Kathya Salter Work Phone: [facility] Work Phone: Start: 04-05-2023 End: 04-05-[address] Kathya Salter Work Phone: [facility] Work Phone: Start: 03-29-2023 End: 03-29-[address] Kathya Salter Work Phone: [facility] Work Phone: Start: 03-22-2023 End: 03-22-[address] Kathya Salter Work Phone: [facility] Work Phone: Start: 03-15-2023 End: 03-15-[address] Kathya Salter Work Phone: [facility] Work Phone: Start: 03-15-2023 End: 03-15-[address] Kathya Salter Work Phone: [facility], Spec[facility] Work Phone: Start: 03-15-2023 End: 03-15-[address] Kathya Salter Work Phone: [facility] Work Phone: Start: 03-10-2023 End: 03-10-[address] Kathya Saltre Work Phone: [facility] Work Phone: Start: 02-22-2023 End: 02-22-[address] Kathya Salter Work Phone: [facility] Work Phone: Start: 02-10-2023 End: 02-10-[address] Kathya Salter Work Phone: [facility] Work Phone: Start: 01-25-2023 End: 01-25-[address] Kathya Salter Work Phone: [facility] Work Phone: Start: 01-11-2023 End: 01-11-[address] Kathya Salter Work Phone: [facility] Work Phone: Start: 01-11-2023 End: 01-11-[address] Kathya Salter Work Phone: [facility] Work Phone: Start: 12-14-2022 End: 12-14-[address] Kathya Salter Work Phone: [facility] Work Phone: Start: 11-16-2022 End: 11-16-[address] Kathya Salter Work Phone: [facility] Work Phone: Start: 11-16-2022 End: 11-16-[address] Kathya Salter Work Phone: [facility] Work Phone: Start: 10-18-2022 End: 10-18-[address] Kathya Salter Work Phone: [facility] Work Phone: Start: 09-21-2022 End: 09-21-[address] Kathya Salter Work Phone: [facility] Work Phone: Start: 06-22-2018 End: 06-22-2018 Patient encounter procedure Raul Holden MD Work Phone: [facility] Work Phone: Start: 06-22-2018 End: 06-22-2018 Pt evaluation Raul Holden MD Work Phone: [facility] Work Phone: Procedures Date Procedure Procedure Detail Performing Clinician Start: 10-29-2024 Hepatitis C antibody measurement Dr. Kathya Salter DO Work Phone: Comment on above: Reactive: Presumptiv e evidence of antibodies to HCV. Follow CDC recommendations for supplemental testing.Non-Reactive: Antibodies to HCV were not detected; does not exclude the possibility of exposure to HCVReactive Results are presumptive evidence of antibodies to HCV. Follow CDC recommendations for supplemental testing.Order confirmation testing: HCV Quant by PCR testing - HCVPCR [id number] Non Reactive: < 0.8 Equivocal: >/= 0.8 to < 1.0 Reactive: >/= 1.0The CDC requires that a reactive/equivocal HCV antibody result be sent out for confirmation. HCV Quant by PCR testing. Start: 10-29-[address] Janes Salter DO Work Phone: Start: 10-29-[address] Kathya Salter DO Work Phone: Comment on above: Antibody Result: Int erpretationNon-Reactive: Non- ImmuneReactive: ImmuneThe following results were obtained with the [employer] Rubella IgG assay. Results from assays of other manufacturers cannot be used interchangeably. Start: 10-29-2024 Serologic test for syphilis Dr. Kathya Salter DO Work Phone: Start: 10-16-2024 Methadone measurement, urine Dr. Kathya Salter DO Work Phone: Start: 10-16-[address] Asif Salter DO Work Phone: Start: 08-26-[address] Ministerio Salter Work Phone: Start: 08-26-2023 Investigation of tra nsfusion reaction Dr. Katyha Salter Work Phone: Start: 04-29-2023 Cytopathology proced ure, preparation of smear, genital source Dr. Kathya Salter Work Phone: Start: 04-29-2023 Investigation of tra nsfusion reaction Dr. Kathya Salter Work Phone: Start: 03-15-2023 Group B Streptococcu s Culture Dr. Kathya Salter Work Phone: Start: 11-16-2022 Cytopathology proced ure, preparation of smear, genital source Dr. Kathya Salter Work Phone: Start: 11-16-2022 Investigation of tra nsfusion reaction Dr. Kathya Salter Work Phone: Start: 09-21-[address] Asif Salter Work Phone: Start: 06-22-2018 End: 06-22-2018 Adolescent tobacco screening was negative - non user Raul Holden MD Work Phone: Start: 06-22-2018 End: 06-22-2018 Blood pressure within normal parameters - no follow-up required Raul Holden MD Work Phone: Start: 06-22-2018 End: 06-22-2018 BMI documented within normal parameters - no follow-up plan is required Raul Holden MD Work Phone: Start: 06-22-2018 End: 06-22-2018 Documentation of current medications Raul Holden MD Work Phone: Start: 06-22-2018 End: 06-22-2018 Pain assessment documented as positive - follow-up documented Raul Holden MD Work Phone: Start: 06-22-2018 End: 06-22-2018 Radiologic examination knee 3 views Raul Holden MD Work Phone: Start: 06-22-2018 End: 06-22-2018 Tobacco non-user Raul Holden MD Work Phone: None (qualifier value) LOS OMRALES Plan of Treatment Date Care Activity Detail Author Start: 2050 Shingles (RZV) Vaccine (1 of 2) Shingles (RZV) Vaccine (1 of 2) [facility] Start: 02-13-2025 CBC W Auto Differential panel - Blood [facility] Start: 02-13-2025 Measurement of glucose 2 hours after glucose challenge for glucose tolerance test [facility] Start: 02-13-2025 Serologic test for syphilis [facility] Start: 02-13-2025 [facility] Start: 01-18-2025 [facility] Start: 12-19-2024 [facility] Start: 04-23-2024 End: 04-23-2024 Patient encounter procedure [facility] Start: 04-16-2024 End: 04-16-2024 Patient encounter procedure 04/16/2024 3:00 PM EST Procedure Visit [facility] [address] [place] [address] Janice Pereira DDS [address] [place] [address] [facility] Start: 01-08-2024 COVID-19 Vaccine ( season) COVID-19 Vaccine ( [facility] Start: 01-08-2024 COVID-19 Vaccine ( season) [facility] Start: 01-08-2024 Influenza vaccination Influenza Vaccine (#1) [facility] Start: 04-21-2023 Patient discharge [facility] Start: 04-20-2023 Consultation [facility] Start: 04-19-2023 Administration of medication [facility] Start: 04-19-2023 Application of ice collar, cap or bag [facility] Start: 04-19-2023 Catheterization of vein [facility] Start: 04-19-2023 Introduction of urinary catheter [facility] Start: 04-19-2023 Measuring intake and output [facility] Start: 04-19-2023 Notification of physician [facility] Start: 04-19-2023 Procedure discontinued [facility] Start: 04-19-2023 Provision of activity privileges [facility] Start: 04-19-2023 Vital signs measurements [facility] Start: 04-19-2023 [facility] Start: 04-19-2023 Admission procedure [facility] Start: 2021 Screening for malignant neoplasm of cervix Pap Smear [facility] Start: 2019 Hepatitis A (HAV) Vaccine (optional start 19+ years) Hepatitis A (HAV) Vaccine (optional start 19+ years) [facility] Start: 2019 Hepatitis B vaccination Hepatitis B (HBV) Vaccine (1 of 3 - 19+ 3-dose series) [facility] Start: 06-22-2018 End: 06-22-2018 Appointment Appointment [facility] Work Phone: Start: 2018 Hepatitis C screening Hepatitis C Antibody [facility] Start: 2018 Screening for Chlamydia trachomatis STI Screening (Age 18-24) [facility] Start: 2018 Tdap Booster Tdap Booster [facility] Start: 2016 Meningococcal B (Bexsero,OMV) Vaccine (Optional,16-23 years) Meningococcal B (Bexsero,OMV) Vaccine (Optional,16-23 years) [facility] Start: 2015 HIV screening HIV Test [facility] Start: 2015 Vaccination for human papillomavirus HPV Vaccine (1 - 3-dose series) [facility] CBC W Auto Different ial panel - Blood [facility] CBC W Auto Different ial panel - Blood [facility] Chlamydia deoxyribon ucleic acid detection [facility] Drugs identified in Urine by Screen method [facility] Erythrocyte mean corpuscular volume determination [facility] Hematocrit [Volume Fraction] of Blood [facility] Hemoglobin [Mass/vol ume] in Blood [facility] Hepatitis C antibody measurement [facility] Leukocytes [#/volume ] in Blood [facility] Mean corpuscular hemoglobin concentration determination [facility] Mean corpuscular hemoglobin determination [facility] Measurement of gluco se 2 hours after glucose challenge for glucose tolerance test [facility] Neutrophil count [facility] Neutrophil percent differential count [facility] Patient referral [facility] Work Phone: Platelets [#/volume] in Blood [facility] Procedure [facility] Red blood cell count [facility] Red cell distributio n width determination [facility] Rubella IgG measurement [facility] Serologic test for syphilis [facility] Serologic test for syphilis [facility] US Breast limited [facility] Immunizations Immunization Date Immunization Notes Care Provider Fa cili 06-11-2020 tetanus toxoid, reduced diphtheria toxoid, and acellular pertussis vaccine, adsorbed; Translations: [Boostrix (Tdap)] LOS MORALES DO [facility] 01-23-2013 tetanus toxoid, reduced diphtheria toxoid, and acellular pertussis vaccine, adsorbed LOS MORALES DO [facility] 01-23-2013 varicella virus vaccine LOS MORALES DO [facility] 07-30-2005 measles/mumps/rubell a virus vaccine LOS MORALES DO [facility] 07-30-2005 poliovirus vaccine, inactivated LOS MORALES DO [facility] 07-30-2005 varicella virus vaccine LOS MORALES DO [facility] 04-16-2002 haemophilus influenz ae type b vaccine, PRP-OMP conjugate LOS MORALES DO [facility] 04-16-2002 hepatitis B pediatri c vaccine LOS MORALES DO [facility] No information available. Nanci Gómez LPN [facility] Work Phone: Payers Date Payer Category Payer Self-pay [id number] 2022 Medicaid DENTAL-MEDICAID [facility] D[facility]AL [facility] MED[facility] [id number] 2022-Present [address] [place] [address] [id number] 2022 Unknown [id number] 2000 Unknown [id number] 2000 Unknown [id number] 2000 Unknown [id number] 2000 Unknown [id number] Unknown [id number] Unknown [facility] [id number] Unknown [facility] [id number] Unknown [id number] Unknown [id number] Unknown [id number] Unknown [id number] Unknown [id number] Unknown [id number] [id number] Unknown [id number] Unknown [id number] Unknown [id number] Unknown [id number] Unknown [id number] Social History Date Type Detail Facility Start: 2000 Sex Assigned At Female [facility] Start: 11-16-2022 End: 04-19-2023 Tobacco smoking status NHIS Unknown if ever smoked [facility] Start: 11-14-2023 End: 10-05-2024 Tobacco smoking status Ex-smoker (finding) [facility] Sex Assigned At Sex [facility] Start: 2000 Sex assigned at Not on file [facility] Gender identity Not on file [facility] NEGATED: Highlighted rowStart: 06-22-2018 End: 06-22-2018 Alcohol use Unknown if ever smoked [facility] Work Phone: NEGATED: Highlighted rowStart: 06-22-2018 End: 06-22-2018 Details of drug misuse behavior DRUG USE No [facility] Work Phone: NEGATED: Highlighted rowStart: 06-22-2018 End: 06-22-2018 How many days of moderate to strenuous exercise, like a brisk walk, did you do in the last 7 days? EXERCISEFREQ 3 days per week [facility] Work Phone: NEGATED: Highlighted rowStart: 06-22-2018 End: 06-22-2018 Assertion Never smoker [facility] Work Phone: Goals Date Patient Goal Desired Activity /State Clinical Notes 09-21-2022 to 02-13-2025 Note Date & Type Note Facility 02-13-2025 Progress note [facility] 02-06-2025 Progress note Note Date/Time February 13, 2025 10:42am [facility] [address], [address] [place] [address] OFFICE VISIT Date of Service: 02/13/25 MR#: [id number] Acct: [id number] Name: JOE ARRIOLA Rep #: [id number] : 2000 Provider: CLAUDY Suh Age/Sex: 24/F Location: [facility] Status: Signed Intake Vital Signs 12/19/24 15:45 01/18/25 12:59 02/13/25 10:24 Height 5 ft 8 in 5 ft 8 in 5 ft 8 in Weight: 152 lb 4 oz 167 lb 5 oz 176 lb 6 oz BMI 23.1 25.4 26.8 BP 131/76 H 113/68 112/75 Intake Visit Reasons: 26WK 1D OB/GLUCOSE Sql Manager Required: No Is patient in pain?: No Allergies No Known Allergies Allergy (Verified 02/13/25 10:27) Medications ?Medication ?Instructions ?Recorded ?Confirmed ?Type multivit-min no.71-iron fum 28 1 cap PO DAILY pregnanc y 09/14/22 02/13/25 History mg-folate no.1 1 mg-dha 300 mg capsule (PNV-[place]) Last Menstrual Period: 08/14/24 Zika: Zika virus screening: Negative : Yes PFSH PFSH Medical History Seasonal allergies Incomplete Former smoker Vaginal delivery Depression Anxiety Hx of recurrent urinary tract infection Surgical History S/P D&C (status post dilation and curettage) Family History Grandmother Heart disease Paternal Uncle Heart disease Paternal Social History adopted: No household members: significant other and children number of children: 1 current occupational status: employed 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 current occupational exposures/hazards: No pets and animals: Yes pets and animals: dog(s) history of recent travel: No sexually active: Yes Smoking Status: Former smoker Electronic Cigarette Use: with nicotine how long ago did patient quit smokin weeks ago alcohol intake: current alcohol intake frequency: holidays/special occasions only details: Not while substance use type: former substance user Date of last use: Daily for anxiety- Quit when found out and marijuana well-balanced diet: daily or most days caffeine: No eating out: rarely or never during the past year weight has: decreased > 10 lbs what type of physical activity do you participate in: additional details: Barn chores frequency: 5-6 times per week duration: > 90 minutes/day fernanda/caodaism: Islam seatbelt use: always do you feel safe at home: Yes additional social history: YEMI- Joaquim Bhatt History 3 Elective abortions Hx Para 1 Spontaneous abortions 1 Hx # Term Pregnancies Ectopic pregnancies Hx # Pregnancies Multiple births 0 # of living children 1 Past Pregnancies Del. Date Name GA/Weeks Outcome Route Bth Weight Infant Gen Labor Lgth Anesthesia Del Locatn Provider FOB 04/19/23 Lee 41 live - full term 8lbs 13oz Male ep idural [facility] MARCELO Batista HPI 26WK 1D OB/GLUCOSE Details: JOE ARRIOLA is a 24 year old who presents for routine OB visit. OB Visit CHARLIE Calculator Estimated Delivery Date Method Current WG Current Estimate 05/21/25 LMP (Certain) 26w 1d Other Estimates 05/19/25 Ultrasound #1 26w 3d Expected Delivery Route/Plan Labor Preferences- CB/BF classes: no labor support person: Joaquim labor intervention preferences: [] pain management options preferred: epidural cut cord/dad catch: no : yes PP control planned: discussed discussed possible routes of delivery and associated risks: [] special requests: [] Specific Issue/Plans Covid status: [] Flu vaccine: declines Tdap vaccine: [] Rhogam: na LARC form signed: yes Problem list reviewed and updated with the most current plan of care details and appropriate orders placed. Relevant counseling for the gestational age provided. Continue routine care and follow up unless otherwise noted in visit notes/problem list details Initial Weight: 146 lb Date -?-?-?-?-?-?-?-?-?-?-?-?- EGA Weight BP Urine Prot -?-?-?-?-?-?-?-?-?-?-?-?- Glucose FHR FuHt Pres Dilation -?-?-?-?-?-?-?-?-?-?-?-?- Effaced St Visit Note 10/16/24 -?-?-?-?-?-?-?-?-?-?-?-?- 9w 0d 146 lb 4 oz (+4 oz) 121/73 -?-?-?-?-?-?-?-?-?-?-?-?- 176 -?-?-?-?-?-?-?-?-?-?-?-?- KW- CRL 2.53cm c ons with dates. Accepts NIPT 11/20/24 -?-?-?-?-?-?-?-?-?-?-?-?- 14w 0d 150 lb 8 oz (+4 lb 8 oz) 124/85 Negative -?--?-?-?-?-?-?-?-?-?-?-?- Negative 150 -?-?-?-?-?-?-?-?-?-?-?-?- JV- no complaint s today. low risk NIPT girl! has boy lee at home 12/19/24 -?-?-?-?-?-?-?-?-?--?-?-?- 18w 1d 152 lb 4 oz (+6 lb 4 oz) 131/76 -?-?-?-?-?-?-?-?-?-?-?-?- 154 -?-?-?-?-?-?-?-?-?-?-?-?- MH-No VB. Luisa humphries. Denies concerns 01/18/25 -?-?-?-?-?-?-?-?-?-?-?-?- 22w 3d 167 lb 5 oz (+21 lb 5 oz) 113/68 -?-?-?-?-?-?-?-?-?-?-?-?- 145 -?-?-?-?-?-?-?-?-?-?-?-?- SM- no vb lof go od fm 02/13/25 -?-?-?-?-?-?-?-?-?-?-?-?- 26w 1d 176 lb 6 oz (+30 lb 6 oz) 112/75 Negative -?-?-?-?-?-?-?-?-?-?-?-?- Negative 140 26 -?-?-?-?-?-?-?-?-?-?-?-?- MH-No VB, LOF. G ood FM. Declines flu. 28 wk labs pending. Larc ACOG First Trimester First Trimester: Desire for , Alcohol, Tobacco Cessation, Illicit/Recreational Drug/Substance Use, Intimate Partner Violence, Barriers to care, Unstable Housing, Communication Barriers, Environmental/Work Hazards, Anticipated Course of Care, Toxoplasmosis Precations, Use of Any medications, Sexual activity, Exercise, Dental Care, Sauna/Hot tub use, Seat Belt use, Childbirth classes/Hospital facilities, , Travel, Indications for Ultrasound and Screening for Aneuploidy Second Trimester Second Trimester: Signs and Symptoms of Labor, Selecting a care provider, Reproductive Life Planning & Contreception, Care Planning, Depression/Anxiety and Intimate Partner Violence; Discussed Tobacco Cessation Third Trimester Third Trimester: Pain Management Plans, Labor support person(s), Immediate Larc, Signs and Symptoms of Preeclampsia, Infant Feeding Yes , Education and Family Medical Leave or Disability Forms ROS Const Reports system reviewed and no additional complaints, except as documented GI Denies abdominal pain, Denies nausea and Denies vomiting Exam Const General: cooperative Nutritional Appearance: well nourished GI Palpation: soft, nontender and other (gravid) Results POC Urinalysis 2 Dip (Clinic) Office Urine Glucose Negative Last Edit by Paola Ballard on 02/13/25 10 :41 Office Urine Protein Negative Last Edit by Paola Ballard on 02/13/25 10 :41 Coding Level of Care Code Off vis,est,level 3 Diagnoses Supervision of high risk in second trimester O09.92 Trimester: second trimester 26 weeks gestation of Z3A.26 Weeks of gestation: 26 weeks Marijuana use F12.90 Former smoker Z87.891 History of miscarriage, currently O09.299 Anxiety F41.9 Assessment and Plan Assessment and Plan (1) Supervision of high-risk : Status: Acute Qualifiers: Trimester: second trimester Qualified Code(s): O09.92 - Supervision of high risk , unspecified, second trimester Comment: [id number], CHARLIE 05/21/25,girl PC Lee, BF Joaquim (2) : Status: Acute Qualifiers: Weeks of gestation: 26 weeks Qualified Code(s): Z3A.26 - 26 weeks gestation of Comment: NIPT low risk, female, declined carrier (3) Marijuana use: Status: Acute Comment: Quit with +preg test, Discussed tox screen initial & random, Pt in agreement (4) Former smoker: Status: Acute Comment: Quit with + test (5) History of miscarriage, currently : Status: Acute Comment: 01/20/24 (6) Anxiety: Status: Acute Orders: Orders POC Urinalysis 2 Dip (Clinic) Today Plan problem list reviewed and updated for most current plan of care and appropriate orders placed. Relevant counseling for the gestational age appropriate provided and ACOG education checklist updated. Continue routine care and follow up. 02/13/25 1042 <Electronically signed by Debby latham DRAWBRIDGE OPERATOR DRAWBRIDGE OPERATOR-C> Date _ Debby Suh NP DRAWBRIDGE OPERATOR-C Cosigner Signature: Date (if applicable) CC: ~ [facility] [employer] Work Phone: 1(581) 158-241306-10-2025 Evaluation note* Diagnosis Onset Date Resolution Status Admit Date Anxiety acute October 16 2:47pm Former smoker acute October 16, 2024 2:47pm History of miscarriage, curr ently acute October 16, 2024 2:47pm Marijuana use acute October 16, 2024 2:47pm acute October 16 2:47pm Supervision of high-risk acute October 16, 2024 2:47pm [facility] Work Phone: 1(496) 724-821506-10-2025 Evaluation note* Diagnosis Onset Date Resolution Status Admit Date Anxiety acute October 16 2:47pm Former smoker acute October 16, 2024 2:47pm History of miscarriage, curr ently acute October 16, 2024 2:47pm Marijuana use acute October 16, 2024 2:47pm acute October 16 2:47pm Supervision of high-risk acute October 16, 2024 2:47pm Anxiety acute November 20 3:13pm Former smoker acute November 20, 2024 3:13pm History of miscarriage, curr ently acute November 20, 2024 3:13pm Marijuana use acute November 20, 2024 3:13pm acute November 20 3:13pm Supervision of high-risk acute November 20, 2024 3:13pm [facility] Work Phone: 1(745) 903-400006-10-2025 Evaluation note* Diagnosis Onset Date Resolution Status Admit Date Anxiety acute October 16 2:47pm Former smoker acute October 16, 2024 2:47pm History of miscarriage, currently acute October 16 2:47pm Marijuana use acute October 16, 2024 2:47pm acute October 16 2:47pm Supervision of high-risk acute October 16, 2024 2:47pm Anxiety acute November 20 3:13pm Former smoker acute November 20, 2024 3:13pm History of miscarriage, currently acute November 20 3:13pm Marijuana use acute November 20, 2024 3:13pm acute November 20 3:13pm Supervision of high-risk acute November 20, 2024 3:13pm Anxiety acute December 19, 025 3:42pm Former smoker acute December 3:42pm History of miscarriage, currently acute December 19, 2024 3:42pm Marijuana use acute December 3:42pm acute December 19, 2 025 3:42pm Supervision of high-risk acute December 19 3:42pm [facility] Work Phone: 1([phone] 365-216006-10-2025 Evaluation note* Diagnosis Onset Date Resolution Status Admit Date Anxiety acute October 16 2:47pm Former smoker acute October 16, 2024 2:47pm History of miscarriage, currently acute October 16 2:47pm Marijuana use acute October 16, 2024 2:47pm acute October 16 2:47pm Supervision of high-risk acute October 16, 2024 2:47pm Anxiety acute November 20 3:13pm Former smoker acute November 20, 2024 3:13pm History of miscarriage, currently acute November 20 3:13pm Marijuana use acute November 20, 2024 3:13pm acute November 20 3:13pm Supervision of high-risk acute November 20, 2024 3:13pm Anxiety acute December 19, 2 025 3:42pm Former smoker acute December 3:42pm History of miscarriage, currently acute December 19, 2024 3:42pm Marijuana use acute December 3:42pm acute December 19, 2 025 3:42pm Supervision of high-risk acute December 19 3:42pm Anxiety acute January 12:52pm Former smoker acute January 072024 12:52pm History of miscarriage, currently acute January 12:52pm Marijuana use acute January 072024 12:52pm acute January 12:52pm Supervision of high-risk acute January 18, 2025 12:52pm [facility] Work Phone: 1(961) 211-732606-10-2025 Evaluation note* Diagnosis Onset Date Resolution Status Admit Date Anxiety acute October 16 2:47pm Former smoker acute October 16, 2024 2:47pm History of miscarriage, currently acute October 16 2:47pm Marijuana use acute October 16, 2024 2:47pm acute October 16 2:47pm Supervision of high-risk acute October 16, 2024 2:47pm Anxiety acute November 20 3:13pm Former smoker acute November 20, 2024 3:13pm History of miscarriage, currently acute November 20 3:13pm Marijuana use acute November 20, 2024 3:13pm acute November 20 3:13pm Supervision of high-risk acute November 20, 2024 3:13pm Anxiety acute December 19, 2 025 3:42pm Former smoker acute December 3:42pm History of miscarriage, currently acute December 19, 2024 3:42pm Marijuana use acute December 3:42pm acute December 19, 2 025 3:42pm Supervision of high-risk acute December 19 3:42pm Anxiety acute January 12:52pm Former smoker acute January 072024 12:52pm History of miscarriage, currently acute January 12:52pm Marijuana use acute January 072024 12:52pm acute January 12:52pm Supervision of high-risk acute January 18, 2025 12:52pm Anxiety acute February 13, 025 10:23am Former smoker acute February 10:23am History of miscarriage, currently acute February 13, 2025 10:23am Marijuana use acute February 10:23am acute February 13, 025 10:23am Supervision of high-risk acute February 13 10:23am [facility] Work Phone: 1(667) 368-891606-10-2025 [facility] [address] [place] [address], [address] [place] [address] OFFICE VISIT Date of Service: 10/16/24 MR#: [id number] Acct: [id number] Name: JOE ARRIOLA Rep #: [id number] : 2000 Provider: MARCELO Crawford Age/Sex: 24/F Location: [facility] [place] Status: Signed Intake Vital Signs 02/03/24 13:36 10/16/24 14:51 Height 5 ft 8 in 5 ft 8 in Weight: 146 lb 4 oz BMI 22.2 BP 121/73 H Intake Visit Reasons: *EST* NOB LMP 08/14, CHARLIE 05/21/25 Sql Manager Required: No Is patient in pain?: No Allergies No Known Allergies Allergy (Verified 10/16/24 14:52) Medications ?Medication ?Instructions ?Recorded ?Confirmed ?Type multivit-min no.71-iron fum 28 1 cap PO DAILY pregnanc y 09/14/22 02/03/24 History mg-folate no.1 1 mg-dha 300 mg capsule (PNV-Campton) Last Menstrual Period: 08/14/24 Zika: Zika virus screening: Negative : Yes PFSH PFSH Medical History Seasonal allergies Incomplete Former smoker Vaginal delivery Depression Anxiety Hx of recurrent urinary tract infection Surgical History S/P D&C (status post dilation and curettage) Family History Grandmother Heart disease Paternal Uncle Heart disease Paternal Social History adopted: No household members: significant other and children number of children: 1 service: No current occupational status: employed 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 current occupational exposures/hazards: No pets and animals: Yes pets and animals: dog(s) history of recent travel: No sexually active: Yes Smoking Status: Former smoker Electronic Cigarette Use: with nicotine smoking status stop date: 09/19/24 how long ago did patient quit smokin weeks ago alcohol intake: current alcohol intake frequency: holidays/special occasions only details: Not while substance use type: former substance user Date of last use: Daily for anxiety- Quit when found out and marijuana well-balanced diet: daily or most days caffeine: No eating out: rarely or never during the past year weight has: decreased > 10 lbs what type of physical activity do you participate in: additional details: Barn chores frequency: 5-6 times per week duration: > 90 minutes/day fernanda/caodaism: Islam seatbelt use: always do you feel safe at home: Yes 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 Date Name GA/Weeks Outcome Route Bth Weight Gen Labor Lgth Anesthesia Del Locatn Provider FOB 04/19/23 Lee 41 live - full term 8lbs 13oz Male ep idural [facility] Preeti Crawford, CNChuck March HPI *EST* NOB LMP 08/14, CHARLIE 05/21/25 Details: JOE ARRIOLA is a 24 year old who presents for New OB visit. OB Visit CHARLIE Calculator Estimated Delivery Date Method Current WG Current Estimate 05/21/25 LMP (Certain) 9w 0d Other Estimates 05/19/25 Ultrasound #1 9w 2d Comments: HIV: Urine Culture: Sequential Screen: NIPT Screen: Estimated Due Date: 05/21/25 Expected Delivery Route/Plan Labor Preferences- CB/BF classes: [] labor support person: [] labor intervention preferences: [] pain management options preferred: [] cut cord/dad catch: [] : [] PP control planned: [] discussed possible routes of delivery and associated risks: [] special requests: [] Specific Issue/Plans Covid status: [] Flu vaccine: [] Tdap vaccine: [] Rhogam: [] LARC form signed: [] Problem list reviewed and updated with the most current plan of care details and appropriate ordersplaced. Relevant counseling for the gestational age provided. Continue routine care and follow up unless otherwise noted in visit notes/problem list details Initial Weight: 146 lb Date -?-?-?-?-?-?-?-?-?-?-?-?- EGA Weight BP Urine Prot -?-?-?-?-?-?-?-?-?-?-?-?- Glucose FHR FuHt Pres Dilation -?-?-?-?-?-?-?-?-?-?-?-?- Effaced St Visit Note 10/16/24 -?-?-?-?-?-?-?-?-?-?-?-?- 9w 0d 146 lb 4 oz (+4 oz) 121/73 -?-?-?-?-?-?-?-?-?-?-?-?- 176 -?-?-?-?-?-?-?-?-?-?-?-?- KW- CRL 2.53cm c ons with dates. Accepts NIPT Menstrual History Last Menstrual Period: 08/14/24 Reported LMP: definite Normal amount/duration: No (bundle helper flow and shorter) Frequency in days: 28 On hormonal BC at conception: No hCG+: 09/19/24 Antepartum Record Genetic Screening: Congenital Heart Defect: Other, Neural Tube Defect: Other, Hemoglobinopathy Or Carrier: Other, Cystic Fibrosis: Other, Chromosome Abnormality: Other, Artis-Sachs: Other, Hemophilia: Other, Intellectual Disability/Autism: Other, Recurrent Loss/Stillbirth: Other, Other Structural Defect: Other, Other Genetic Disease: Other and Maternal Metabolic Disorder: Other Infection History: Live with someone with TB or Exposed to TB: No, Patient or Partner has history of Genital Herpes: No, Rash or Viral illness since last mentrual period: No, Prior GBS-Infected child: No, History of STD: No, HIV Infection: No, History of Hepatitis: No, Recent travel outside of [place]: No, Concern for hepatitis exposure: No, Varicella immune: Yes (immune) and Covid Vaccinated: No Medical History Medical History: Positive: Psychiatric (anxiety), Seasonal allergies and 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 (D&C 01/30)and Negative: Diabetes, Hypertension, Heart disease, Auto- immune disorder, Kidney disease/UTI, Neurologic/epilepsy, Depression/ depression, Hepatitis/liver disease, Varicosities/phlebitis, Thyroid dysfunction, Trauma/domestic violence, History of blood transfusions, D (Rh) Sensitized, Pulmonary (e.g.,TB,Asthma), Drug/latex allergies/reactions, Breast, Operations/hospitalizations, Anesthetic complications, History of abnormal pap, Uterine anomaly/valencia, Infertility, Anti-retroviral treatment, Relevant family history and Other ACOG First Trimester First Trimester: Desire for , Alcohol, Tobacco Cessation, Illicit/Recreational Drug/Substance Use, Intimate Partner Violence, Barriers to care, Unstable Housing, Communication Barriers, Environmental/Work Hazards, Anticipated Course of Care, Nurtrition and weight gain, Toxoplasmosis Precations, Use of Any medications, Sexual activity, Exercise, Dental Care, Sauna/Hot tub use, Seat Belt use, Childbirth classes/Hospital facilities, , Travel, Indications for Ultrasound and Screening for Aneuploidy Second Trimester Second Trimester: Signs and Symptoms of Labor, Selecting a care provider, Reproductive Life Planning & Contreception, Care Planning, Depression/Anxiety and Intimate Partner Violence; Discussed Tobacco Cessation Third Trimester Third Trimester: Pain Management Plans, Labor support person(s), Immediate Larc, Signs and Symptoms of Preeclampsia, Infant Feeding Yes , Education and Family Medical Leave or Disability Forms ROS Const Reports system reviewed and no additional complaints, except as documented, Denies fatigue, Denies headache(s) and Denies lethargy ENT Denies headache(s) Card Reports system reviewed and no additional complaints, except as documented Resp Reports system reviewed and no additional complaints, except as documented GI Reports system reviewed and no additional complaints, except as documented, Denies abdominal pain, Denies constipation, Denies cramping, Denies diarrhea and Denies dyspepsia Reports system reviewed and no additional complaints, except as documented, Denies abnormal vaginalbleeding, Denies difficulty voiding, Denies dyspareunia and Denies dysuria Musc Reports system reviewed and no additional complaints, except as documented Skin/Breast Reports system reviewed and no additional complaints, except as documented Neuro Yes system reviewed and no additional complaints, except as documented and No headache(s) Psych Reports system reviewed and no additional complaints, except as documented, Denies anhedonia and Denies anxiety Endo Reports system reviewed and no additional complaints, except as documented and Denies fatigue Exam Const General: cooperative, healthy appearing and comfortable Neck Neck: normal visual inspection and full ROM Chest Chest palpation & inspection: normal inspection of the chest Breast inspection: normal inspection of the breasts and normal inspection of the axillae Breast palpation: normal palpation of the breasts and normal palpation of the axillae Resp Effort & Inspection: normal respiratory effort and able to speak in complete sentences GI Inspection: normal to inspection Palpation: soft External Female Exam: normal external appearance and normal appearance of the urethra Urethra: normal appearance of the urethra Skin General: no rashes or lesions noted Neuro General: patient alert, patient awake and patient oriented x3 Extrem General: normal to inspection and full ROM Psych Appearance: grossly normal and well kempt Mental Status: mental status grossly normal Mood: congruent mood Affect: normal affect Speech and Movement: speech and movement normal Thought Process: normal Thought Content: normal Coding Level of Care Code Off vis,est,level 4 Diagnoses Former smoker Z87.891 Marijuana use F12.90 Supervision of high-risk O09.90 9 weeks gestation of Z3A.09 Weeks of gestation: 9 weeks History of miscarriage, currently O09.299 Anxiety F41.9 Assessment and Plan Assessment and Plan (1) Former smoker: Status: Acute Comment: Quit with + test (2) Marijuana use: Status: Acute Comment: Quit with +preg test, Discussed tox screen initial & random, Pt in agreement (3) Supervision of high-risk : Status: Acute Comment: , CHARLIE 05/21/25, PC Lee, YEMI March (4) : Status: Acute Qualifiers: Weeks of gestation: 9 weeks Qualified Code(s): Z3A.09 - 9 weeks gestation of Comment: elects NIPT with gender, declined carrier (5) History of miscarriage, currently : Status: Acute Comment: 01/20/24 (6) Anxiety: Status: Acute Orders: Orders CBC W/Diff, Automated 10/05/24 O09.90 - Supervision of high risk , unspecified, unspecified trimester Type & Screen 10/05/24 O09.90 - Supervision of high risk , unspecified, unspecified trimester Rubella IgG 10/05/24 O09.90 - Supervision of high risk , unspecified, unspecified trimester Hepatitis C Antibody 10/05/24 O09.90 - Supervision of high risk , unspecified, unspecifiedtrimester Hepatitis B Surface Antigen 10/05/24 O09.90 - Supervision of high risk , unspecified, unspecified trimester Culture, Urine 10/05/24 O09.90 - Supervision of high risk , unspecified, unspecified trimester Syphilis Antibodies 10/05/24 O09.90 - Supervision of high risk , unspecified, unspecified trimester Chlamydia/GC BURTON aptima 10/05/24 O09.90 - Supervision of high risk , unspecified, unspecified trimester HIV 10/05/24 O09.90 - Supervision of high risk , unspecified, unspecified trimester Urine Drug Screen 10/05/24 F12.90 - Cannabis use, unspecified, uncomplicated, O09.90 - Supervision of high risk , unspecified, unspecified trimester MONICO 10/05/24 O09.90 - Supervision of high risk , unspecified, unspecified trimester Comments Comments: Patient oriented to practice and discussed care expectations and screenings. ACOG book offered to patient. Discussed routine and specially indicated labs if needed- patient consents to testing. See problem list details for plan information. Optional screening including maternal carrier screenings, neural tube defect screening, genetic screening options including quad screen, nuchal translucency, sequential screening, and NIPT screening offered to patient and patient chose: NIPT 10/16/24 1515 s CNM> Date _ Preeti Ty MARCELO Cosigner Signature: Date (if applicable) CC: ~ [facility]06-10-2025 Progress note Author Preeti Crawford [facility] Services Note Date/Time October 16, 2024 3:15 pm [facility] [address] [place] [address], [address] [place] [address] OFFICE VISIT Date of Service: 10/16/24 MR#: [id number] Acct: [id number] Name: JOE ARRIOLA Rep #: [id number] : 2000 Provider: MARCELO Crawford Age/Sex: 24/F Location: [facility] [place] Status: Signed Intake Vital Signs 02/03/24 13:36 10/16/24 14:51 Height 5 ft 8 in 5 ft 8 in Weight: 146 lb 4 oz BMI 22.2 BP 121/73 H Intake Visit Reasons: *EST* NOB LMP 08/14, CHARLIE 05/21/25 Sql Manager Required: No Is patient in pain?: No Allergies No Known Allergies Allergy (Verified 10/16/24 14:52) Medications ?Medication ?Instructions ?Recorded ?Confirmed ?Type multivit-min no.71-iron fum 28 1 cap PO DAILY pregnanc y 09/14/22 02/03/24 History mg-folate no.1 1 mg-dha 300 mg capsule (PNV-Campton) Last Menstrual Period: 08/14/24 Zika: Zika virus screening: Negative : Yes PFSH PFSH Medical History Seasonal allergies Incomplete Former smoker Vaginal delivery Depression Anxiety Hx of recurrent urinary tract infection Surgical History S/P D&C (status post dilation and curettage) Family History Grandmother Heart disease Paternal Uncle Heart disease Paternal Social History adopted: No household members: significant other and children number of children: 1 service: No current occupational status: employed 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 [employer] current occupational exposures/hazards: No pets and animals: Yes pets and animals: dog(s) history of recent travel: No sexually active: Yes Smoking Status: Former smoker Electronic Cigarette Use: with nicotine smoking status stop date: 09/19/24 how long ago did patient quit smokin weeks ago alcohol intake: current alcohol intake frequency: holidays/special occasions only details: Not while substance use type: former substance user Date of last use: Daily for anxiety- Quit when found out and marijuana well-balanced diet: daily or most days caffeine: No eating out: rarely or never during the past year weight has: decreased > 10 lbs what type of physical activity do you participate in: additional details: Barn chores frequency: 5-6 times per week duration: > 90 minutes/day fernanda/caodaism: Islam seatbelt use: always do you feel safe at home: Yes 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 Date Name GA/Weeks Outcome Route Bth Weight Infant Gen Labor Lgth Anesthesia Del Locatn Provider FOB 04/19/23 Lee 41 live - full term 8lbs 13oz Male ep idural [facility] MARCELO Batista HPI *EST* NOB LMP 08/14, CHARLIE 05/21/25 Details: JOE ARRIOLA is a 24 year old who presents for New OB visit. OB Visit CHARLIE Calculator Estimated Delivery Date Method Current WG Current Estimate 05/21/25 LMP (Certain) 9w 0d Other Estimates 05/19/25 Ultrasound #1 9w 2d Comments: HIV: Urine Culture: Sequential Screen: NIPT Screen: Estimated Due Date: 05/21/25 Expected Delivery Route/Plan Labor Preferences- CB/BF classes: [] labor support person: [] labor intervention preferences: [] pain management options preferred: [] cut cord/dad catch: [] : [] PP control planned: [] discussed possible routes of delivery and associated risks: [] special requests: [] Specific Issue/Plans Covid status: [] Flu vaccine: [] Tdap vaccine: [] Rhogam: [] LARC form signed: [] Problem list reviewed and updated with the most current plan of care details and appropriate orders placed. Relevant counseling for the gestational age provided. Continue routine care and follow up unless otherwise noted in visit notes/problem list details Initial Weight: 146 lb Date -?-?-?-?-?-?-?-?-?-?-?-?- EGA Weight BP Urine Prot -?-?-?-?-?-?-?-?-?-?-?-?- Glucose FHR FuHt Pres Dilation -?-?-?-?-?-?-?-?-?-?-?-?- Effaced St Visit Note 10/16/24 -?-?-?-?-?-?-?-?-?-?-?-?- 9w 0d 146 lb 4 oz (+4 oz) 121/73 -?-?-?-?-?-?-?-?-?-?-?-?- 176 -?-?-?-?-?-?-?-?-?-?-?-?- KW- CRL 2.53cm c ons with dates. Accepts NIPT Menstrual History Last Menstrual Period: 08/14/24 Reported LMP: definite Normal amount/duration: No (bundle helper flow and shorter) Frequency in days: 28 On hormonal BC at conception: No hCG+: 09/19/24 Antepartum Record Genetic Screening: Congenital Heart Defect: Other, Neural Tube Defect: Other, Hemoglobinopathy Or Carrier: Other, Cystic Fibrosis: Other, Chromosome Abnormality: Other, Artis-Sachs: Other, Hemophilia: Other, Intellectual Disability/Autism: Other, Recurrent Loss/Stillbirth: Other, Other Structural Defect: Other, Other Genetic Disease: Other and Maternal Metabolic Disorder: Other Infection History: Live with someone with TB or Exposed to TB: No, Patient or Partner has history of Genital Herpes: No, Rash or Viral illness since last mentrual period: No, Prior GBS-Infected child: No, History of STD: No, HIV Infection: No, History of Hepatitis: No, Recent travel outside of [place]: No, Concern for hepatitis exposure: No, Varicella immune: Yes (immune) and Covid Vaccinated: No Medical History Medical History: Positive: Psychiatric (anxiety), Seasonal allergies and 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 (D&C 01/30) and Negative: Diabetes, Hypertension, Heart disease, Auto-immune disorder, Kidney disease/UTI, Neurologic/epilepsy, Depression/ depression, Hepatitis/liver disease, Varicosities/phlebitis, Thyroid dysfunction, Trauma/domestic violence, History of blood transfusions, D (Rh) Sensitized, Pulmonary (e.g.,TB,Asthma), Drug/latex allergies/reactions, Breast, Operations/hospitalizations, Anesthetic complications, History of abnormal pap, Uterine anomaly/valencia, Infertility, Anti-retroviral treatment, Relevant family history and Other ACOG First Trimester First Trimester: Desire for , Alcohol, Tobacco Cessation, Illicit/Recreational Drug/Substance Use, Intimate Partner Violence, Barriers to care, Unstable Housing, Communication Barriers, Environmental/Work Hazards, Anticipated Course of Care, Nurtrition and weight gain, Toxoplasmosis Precations, Use of Any medications, Sexual activity, Exercise, Dental Care, Sauna/Hot tub use, Seat Belt use, Childbirth classes/Hospital facilities, , Travel, Indications for Ultrasound and Screening for Aneuploidy Second Trimester Second Trimester: Signs and Symptoms of Labor, Selecting a care provider, Reproductive Life Planning & Contreception, Care Planning, Depression/Anxiety and Intimate Partner Violence; Discussed Tobacco Cessation Third Trimester Third Trimester: Pain Management Plans, Labor support person(s), Immediate Larc, Signs and Symptoms of Preeclampsia, Feeding Yes , Education and Family Medical Leave or Disability Forms ROS Const Reports system reviewed and no additional complaints, except as documented, Denies fatigue, Denies headache(s) and Denies lethargy ENT Denies headache(s) Card Reports system reviewed and no additional complaints, except as documented Resp Reports system reviewed and no additional complaints, except as documented GI Reports system reviewed and no additional complaints, except as documented, Denies abdominal pain, Denies constipation, Denies cramping, Denies diarrhea and Denies dyspepsia Reports system reviewed and no additional complaints, except as documented, Denies abnormal vaginal bleeding, Denies difficulty voiding, Denies dyspareunia and Denies dysuria Musc Reports system reviewed and no additional complaints, except as documented Skin/Breast Reports system reviewed and no additional complaints, except as documented Neuro Yes system reviewed and no additional complaints, except as documented and No headache(s) Psych Reports system reviewed and no additional complaints, except as documented, Denies anhedonia and Denies anxiety Endo Reports system reviewed and no additional complaints, except as documented and Denies fatigue Exam Const General: cooperative, healthy appearing and comfortable Neck Neck: normal visual inspection and full ROM Chest Chest palpation & inspection: normal inspection of the chest Breast inspection: normal inspection of the breasts and normal inspection of the axillae Breast palpation: normal palpation of the breasts and normal palpation of the axillae Resp Effort & Inspection: normal respiratory effort and able to speak in complete sentences GI Inspection: normal to inspection Palpation: soft External Female Exam: normal external appearance and normal appearance of the urethra Urethra: normal appearance of the urethra Skin General: no rashes or lesions noted Neuro General: patient alert, patient awake and patient oriented x3 Extrem General: normal to inspection and full ROM Psych Appearance: grossly normal and well kempt Mental Status: mental status grossly normal Mood: congruent mood Affect: normal affect Speech and Movement: speech and movement normal Thought Process: normal Thought Content: normal Coding Level of Care Code Off vis,est,level 4 Diagnoses Former smoker Z87.891 Marijuana use F12.90 Supervision of high-risk O09.90 9 weeks gestation of Z3A.09 Weeks of gestation: 9 weeks History of miscarriage, currently O09.299 Anxiety F41.9 Assessment and Plan Assessment and Plan (1) Former smoker: Status: Acute Comment: Quit with + test (2) Marijuana use: Status: Acute Comment: Quit with +preg test, Discussed tox screen initial & random, Pt in agreement (3) Supervision of high-risk : Status: Acute Comment: , CHARLIE 05/21/25, PC YEMI Howard (4) : Status: Acute Qualifiers: Weeks of gestation: 9 weeks Qualified Code(s): Z3A.09 - 9 weeks gestation of Comment: elects NIPT with gender, declined carrier (5) History of miscarriage, currently : Status: Acute Comment: 01/20/24 (6) Anxiety: Status: Acute Orders: Orders CBC W/Diff, Automated 10/05/24 O09.90 - Supervision of high risk , unspecified, unspecified trimester Type & Screen 10/05/24 O09.90 - Supervision of high risk , unspecified, unspecified trimester Rubella IgG 10/05/24 O09.90 - Supervision of high risk , unspecified, unspecified trimester Hepatitis C Antibody 10/05/24 O09.90 - Supervision of high risk , unspecified, unspecified trimester Hepatitis B Surface Antigen 10/05/24 O09.90 - Supervision of high risk , unspecified, unspecified trimester Culture, Urine 10/05/24 O09.90 - Supervision of high risk , unspecified, unspecified trimester Syphilis Antibodies 10/05/24 O09.90 - Supervision of high risk , unspecified, unspecified trimester Chlamydia/GC BURTON aptima 10/05/24 O09.90 - Supervision of high risk , unspecified, unspecified trimester HIV 10/05/24 O09.90 - Supervision of high risk , unspecified, unspecified trimester Urine Drug Screen 10/05/24 F12.90 - Cannabis use, unspecified, uncomplicated, O09.90 - Supervision of high risk , unspecified, unspecified trimester MONICO 10/05/24 O09.90 - Supervision of high risk , unspecified, unspecified trimester Comments Comments: Patient oriented to practice and discussed care expectations and screenings. ACOG book offered to patient. Discussed routine and specially indicated labs if needed- patient consents to testing. See problem list details for plan information. 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 Recommendation: Please email referral to [email or web address]. If there are any questions, call Pt at Telephone Information: Thanks! 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 Recommendation: Please email referral to [email or web address]. If there are any questions, call Pt at Telephone Information: Thanks! 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 Recommendation: Please email referral to [email or web address]. If there are any questions, call Pt at Telephone Information: Thanks! Scott Colorado Sent in [facility] on 02/29/24 documented in this [id number] History of Present illness Narrative* Meir Castillo DDS - 02/22/2024 3:30 PM EDT ----- Thursday, February 22, 2024 at 4:54:58 PM ----- ----- Provider: [id number] Resident Neal -- Clinic: [place] [address] ----- INITIAL/COMPREHENSIVE EXAM Patient presents for an Initial Examination. Reviewed patient's medical history. Patient has a history of: No significant medical history. . No contraindications, patient is ready for treatment. Patient's chief complaint: Comp Exam Pain Scale: 0/10 Radiographs taken today were: Panorex and 4 BWs Clinical and radiographic exam reveal the following findings, diagnoses and treatment plans: 1. dental decay on teeth # 3, 18, 30 and31 to be restored with composite 2. Non restorable teeth #2and 15 to be extracted 3. Lower teeth # 17 and 31 partially erupted for extraction 4. Teeth #1 and 16 causing food accumalation and traumatic ulcer adjacent to tooth #17 Soft tissue evaluation: TMJ evaluation: Normal TMJ Completed current status of dentition on the charting. Went over needs and treatment plan options with the patient. OHI were discussed with the patient. Written Instructions/AVS were also handed to the patient. Pt Concern: Full Exam was successfully done. Patient consented to the treatment plan. PRIOR: Not needed NOTE: Patient referred to oral surgery. teeth #2 and 15 are close to the floor of the sinus and lower wisdom are partially impacted Next Visit: Restorations ----- Signed on February at 5:46:22 PM ----- ----- Provider: [id number] Viki Gutiérrez DDS -- Clinic: [place] [address] ----- documented in this [id number] Note. MICRO - Microbiology PROCEDURE: Affirm Pathogens DNA Direct Probe [*1] SOURCE: Vaginal Fluid BODY SITE: Vagina COLLECTED DATE/TIME: 11/14/2023 18:20 EDT RECEIVED DATE/TIME: 11/15/2023 14:35 EDT START DATE/TIME: 11/15/2023 14:35 EDT FREE TEXT SOURCE: FINAL REPORTS Final Report [] Verified Date/Time/Personnel: 11/16/2023 12:45 EDT Rahel species DNA Probe Positive Gardnerella vaginalis DNA Probe Negative Trichomonas vaginalis DNA Probe Negative Performing Locations *1: This test was performed at: [facility], [address] [place] [address], [facility] , [facility])09-01-2023 Evaluation note* Diagnosis Onset Date Resolution Status Routine Follow-Up noneactive Breast lump on right side at 12 o'clock position acute Vaginal discharge acute [facility] Work Phone: 1(957) 351-749512-14-2023 Progress note Author Debby Suh [facility] April 21, 2023 8:01am Note Date/Time April 21, 2023 8:01am [facility] Medical Records Department [address] [place] [address] Progress Note - OBGYN 04/21/23 0759 MR#: [id number] Acct: [id number] Name: JOE ARRIOLA Rep #:[id number] : 2000 23 From: Debby Suh NP DRAWBRIDGE OPERATOR-C PCP: Dr. Kathya Salter, DO Status:ADM IN Location: [id number] Subjective Subjective Patient doing well without complaints. Tolerating PO. Ambulating and voiding without difficulty. Feeding well. Denies chest pain, shortness of breath, calf pain/swelling, fevers, chills, lightheadedness. Objective Data Objective Data Vital Signs: Vital Signs Temp Pulse Resp BP Pulse Ox O2 Del Method 98.1 F 75 16 122/70 H 99 Room Air 04/21/23 05:06 04/21/23 05:07 04/21/23 05:06 04/21/23 05:07 04/21/23 05:06 04/21/23 05:06 Oxygen Delivery Method Room Air Weight: 212 lb Body Mass Index (BMI) 32.2 Intake & Output: Intake and Output for Last 24 Hours 04/19/23 04/20/23 04/21/23 23:59 23:59 23:59 Intake Total 3063.33 / 3063.33 250 / 250 Output Total 950 / 950 900 / 900 Balance 2113.33 / 2113.33 -650 / -650 Lab / Micro Data 04/19/23 07:50 Physical Exam Const alert and oriented x3 HEENT normocephalic Eyes PERRL Neck full ROM Resp normal respiratory effort GI soft to palpation GI Narrative: FF below U Assessment & Plan (1) Vaginal delivery: COMMENT: kw, IOL, 41.0 boy Lee (2) Seasonal allergies: (3) Anxiety and depression: (4) History of marijuana use: COMMENT: tox screen random(neg 09/2022), quit with +UPT, Used daily for anxiety/sleep, counseling provided PLAN: Plan s/p PPD # 2 1. routine post delivery care 2. breast feeding- support given 3. rh positive 4. rubella immune 5. home today 04/21/23 0801 <Electronically signed by Dbeby Suh NP DRAWBRIDGE OPERATOR-C> Cosigner Signature (if applicable): CC: ~ Signed [facility] Work Phone: 1(820) 353-838812-13-2023 Progress note Author Debby Suh [facility] April 20, 2023 7:56am Note Date/Time April 20, 2023 7:56am [facility] Medical Records Department [address] [place] [id number] Progress Note - OBGYN 04/20/23 0755 MR#: [id number] Acct: [id number] Name: JOE ARRIOLA Rep #:[id number] : 2000 23 From: Debby Suh NP DRAWBRIDGE OPERATOR-C PCP: Dr. Kathya Salter, DO Status:ADM IN Location: [id number] Subjective Subjective Patient doing well without complaints. Tolerating PO. Ambulating and voiding without difficulty. Feeding well. Denies chest pain, shortness of breath, calf pain/swelling, fevers, chills, lightheadedness. Objective Data Objective Data Vital Signs: Vital Signs Temp Pulse Resp BP Pulse Ox 98.4 F 86 16 132/78 H 100 04/20/23 04:17 04/20/23 04:17 04/20/23 04:17 04/20/23 04:17 04/19/23 16:47 Weight: 212 lb Body Mass Index (BMI) 32.2 Intake & Output: Intake and Output for Last 24 Hours 04/18/23 04/19/23 04/20/23 23:59 23:59 23:59 Intake Total 3063.33 / 3063.33 250 / 250 Output Total 950 / 950 900 / 900 Balance 2113.33 / 2113.33 -650 / -650 Lab / Micro Data 04/19/23 07:50 Labs: Laboratory Results - last 24 hr 04/19/23 07:50: WBC 9.6, RBC 4.10 L, Hgb 11.4 L, Hct 34.4 L, MCV 83.9, MCH 27.8,MCHC 33.1, RDW Std Deviation 40.3, RDW Coeff of Lyly 13.2, Plt Count 250, MPV 10.3, Immature Gran % (Auto) 0.400, Neut % (Auto) 67.1, Lymph % (Auto) 20.9, Trigg % (Auto) 8.3, Eos % (Auto) 2.9, Baso % (Auto) 0.4, Absolute Neuts (auto) 6.4, Absolute Lymphs (auto) 2.01, Nucleated RBC % 0, Syphilis Total Ab Non-reactive, Blood Type B POSITIVE, Antibody Screen NEGATIVE 04/19/23 08:00: Urine Opiates Screen NEGATIVE, Urine Methadone Screen NEGATIVE, Ur Barbiturates Screen NEGATIVE, Ur Phencyclidine Scrn NEGATIVE, Ur AmphetaminesScreen NEGATIVE, MDMA (Ecstasy) Screen NEGATIVE, U Benzodiazepines Scrn NEGATIVE, Urine Cocaine Screen NEGATIVE, U Cannabinoids Screen NEGATIVE, Ur DrugScreen Comment Physical Exam Const alert and oriented x3 HEENT normocephalic Eyes PERRL Neck full ROM Resp normal respiratory effort GI soft to palpation GI Narrative: FF below U Assessment & Plan (1) Vaginal delivery: COMMENT: kw, IOL, 41.0 boy Lee (2) Seasonal allergies: (3) Anxiety and depression: (4) History of marijuana use: COMMENT: tox screen random(neg 09/2022), quit with +UPT, Used daily for anxiety/sleep, counseling provided PLAN: Plan s/p PPD # 1 1. routine post delivery care 2. breast feeding- support given 3. rh positive 4. rubella immune 04/20/23 0756 <Electronically signed by Debby Suh NP DRAWBRIDGE OPERATOR-C> Cosigner Signature (if applicable): CC: ~ Signed [facility] Work Phone: 1(790) 789-893912-12-2023 Procedure [facility] 04-19-2023 Progress note Author Preeti Crawford [facility] April 19, 2023 5:13pm Note Date/Time April 19, 2023 5:13pm [facility] Medical Records Department [address] [place] [address] Progress Note 04/19/231710 MR#: [id number] Acct: [id number] Name: JOE ARRIOLA Rep #:[id number] : 2000 23 From: Preeti Crawford CNM PCP: Dr. Kathya Salter, DO Status:ADM IN Location: VC925-1 Progress Note comfortable with epidural current tracing: FHT: 135 Moderate variability reactive no decelerations category I tracing [place]: 3-4 minute Contractions Membranes:SROM 1430 SVE: 6/90/-1 A/P: Continue with position changes Titrate pitocin per protocol Epidural per anesthesia Anticipate Dr Mcnulty aware of above assessment and agrees with plan of care Assessment & Plan Assessment/Plan (1) Encounter for induction of labor: (2) History of marijuana use: (3) Supervision of high risk , antepartum: (4) : QUALIFIERS: Weeks of gestation: 39 weeks Qualified Code(s): Z3A.39 - 39 weeks gestation of Multi Select Codes Urinary/Genital Urinary/Genital CPT Codes: No Charge 04/19/231712 <Electronically signed by Preeti Crawford CNM> Preeti Crawford CNM Cosigner Signature (if applicable): CC: ~ Signed [facility] Work Phone: 1(574) 870-511012-12-2023 Progress note Author Preeti Crawford [facility] April 19, 2023 4:31pm Note Date/Time April 19, 2023 4:31pm [facility] Medical Records Department [address] [place] [address] Progress Note 04/19/23 1629 MR#: [id number] Acct: [id number] Name: JOE ARRIOLA Rep #:[id number] : 2000 23 From: Preeti Crawford CNM PCP: Dr. Kathya Salter, DO Status:ADM IN Location: [place] [id number] Progress Note comfortable with epidural current tracing: FHT: 125 Moderate variability reactive no decelerations category I tracing [place]: 3-4 Contractions Membranes: SROM at 1430 SVE:4/80/-2 A/P: Continue with position changes Titrate pitocin per protocol Epidural per anesthesia Anticipate Dr Mcnulty aware of above assessment and agrees with plan of care Assessment & Plan Assessment/Plan (1) Encounter for induction of labor: (2) Anxiety and depression: (3) History of marijuana use: (4) Supervision of high risk , antepartum: (5) : QUALIFIERS: Weeks of gestation: 39 weeks Qualified Code(s): Z3A.39 - 39 weeks gestation of Multi Select Codes Urinary/Genital Urinary/Genital CPT Codes: No Charge 04/19/23 1631 <Electronically signed by Preeti Crawford CNM> Preeti Crawford CNM Cosigner Signature (if applicable): CC: ~ Signed [facility] Work Phone: 1(642) 448-272512-12-2023 History and physical note Author Preeti [facility] April 19, 2023 12:10pm Note Date/Time April 19, 2023 12:05pm [facility] Medical Records Department [address] [place] [address] H&P Exam - BENZENE STILL UTILITY OPERATOR 04/19/23 0730 MR#: [id number] Acct: [id number] Name: JOE ARRIOLA Rep #:[id number] : 2000 From: Preeti Crawford CNM PCP: Dr. Kathya Salter, DO Status:ADM IN Location: TZ199-4 HPI - General General Date of Admission: 04/19/23 Date of Service: 04/19/23 HPI Narrative JOE ARRIOLA is a 23 F at 41.0 weeks who presents for IOL for postdates Maternal Data Information CHARLIE Calculator Estimated Delivery Date Method Current WG Current Estimate 04/12/23 Ultrasound #1 41w 0d Other Estimates 04/27/23 LMP (Certain) 38w 6d Final CHARLIE: 04/12/23 Final CHARLIE Source: [place] >20 weeks Gestational age: 41.0 [facility] Medical History (Updated 04/19/23 @ 08:53 by Deneen Addison) Anxiety Depression Hx of recurrent urinary tract infection Home Medications multivit-min no.71-iron fum 28 mg-folate no.1 1 mg-dha 300 mg capsule (PNV- [place]) cap PO DAILY 09/14/22 [History Last Taken Unknown] Allergy/AdvReac Type Severity Reaction Status Date / Time No Known Allergies Allergy Verified 04/19/23 07:44 Family History Grandmother Heart disease Social History adopted: No household members: significant other current occupational status: employed 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 current occupational exposures/hazards: No pets and animals: Yes pets and animals: dog(s) history of recent travel: No sexually active: Yes Smoking Status: Former smoker Electronic Cigarette Use: with nicotine counseling given: counseling >3 minutes alcohol intake: current alcohol intake frequency: holidays/special occasions only details: Not while substance use type: former substance user Date of last use: Daily for anxiety- Quit when found out and marijuana well-balanced diet: daily or most days caffeine: Yes Type: carbonated beverages Number of servings: 1 eating out: 1-3 times/week during the past year weight has: decreased > 10 lbs what type of physical activity do you participate in: additional details: Barn chores frequency: 5-6 times per week fernanda/caodaism: Islam seatbelt use: always do you feel safe at home: Yes additional social history: YEMI- Joaquim Bhatt History 1 Elective abortions Hx Para 0 Spontaneous abortions Hx # Term Pregnancies Ectopic pregnancies Hx # Pregnancies Multiple births # of living children Visit Details Expected Delivery Route/Plan Labor Preferences- CB/BF classes: encouraged labor support person: Joaquim labor intervention preferences: [] pain management options preferred: epidural cut cord/dad catch: maybe : yes PP control planned: discussed discussed possible routes of delivery and associated risks: [] special requests: [] Plans Covid status: declines Flu vaccine: declines Tdap vaccine: declines Rhogam:NA LARC form signed: yes movement and labor precautions reviewed. Problem list reviewed and updated with the most current plan of care details and appropriate orders placed. Relevant counseling for the gestational age provided. Continue routine care and follow up unless otherwise noted in visit notes/problem list details OB Flowsheet Initial Weight: Not Recorded Date -?-?-?-?-?-?-?-?-?-?-?-?- EGA Weight BP Urine Prot -?-?-?-?-?-?-?-?-?-?-?-?- Glucose FHR FuHt Pres Dilation -?-?-?-?-?-?-?-?-?-?-?-?- Effaced St Visit Note 09/21/22 -?-?-?-?-?-?-?-?-?-?-?-?- 11w 0d 126 lb 2 oz 131/83 -?-?-?-?-?-?-?-?-?-?-?-?- 170 -?-?-?-?-?-?-?-?-?-?-?-?- JV- CRL consiste nt with 11 weeks 0 days, not consistent with LMP. Desires NIPT and Carrier screening. 10/18/22 -?-?-?-?-?-?-?-?-?-?-?-?- 14w 6d 138 lb 2 oz 118/74 Nega tive -?-?-?-?-?-?-?-?-?-?-?-?- Negative 155 -?-?-?-?-?-?-?-?-?-?-?-?- LC- no vb/crampi ng. new ob labs normal. afp discussed and accepted. anatomy scan ordered. 11/16/22 -?-?-?-?-?-?-?-?-?-?-?-?- 19w 0d 151 lb 108/62 Negative -?-?-?-?-?-?-?-?-?-?-?-?- Negative 147 0 -?-?-?-?-?-?-?-?-?-?-?-?- MH-NO FM yet. US next week. Heavier discharge, brown, odor. See exam. Cultures pending. 12/14/22 -?-?-?-?-?-?-?-?-?-?-?-?- 23w 0d 165 lb 4 oz 118/78 Nega tive -?-?-?-?-?-?-?-?-?-?-?-?- Negative 151 -?-?-?-?-?-?-?-?-?-?-?-?- MH-Feeling movem ent. No VB, LOF. Denies concerns 01/11/23 -?-?-?-?-?-?-?-?-?-?-?-?- 27w 0d 173 lb 4 oz 134/82 Nega tive -?-?-?-?-?-?-?-?-?-?-?-?- Negative 138 27 -?-?-?-?-?-?-?-?-?-?-?-?- MH-No VB, LOF. G ood FM. 28 wk labs today. Declines flu vaccine. [facility] 01/25/23 -?-?-?-?-?-?-?-?-?-?-?-?- 29w 0d 181 lb 2 oz 128/74 Nega tive -?-?-?-?-?-?-?-?-?-?-?-?- Negative 154 29 -?-?-?-?-?-?-?-?-?-?-?-?- MH-No VB, LOF. G ood FM. 02/10/23 -?-?-?-?-?-?-?-?-?-?-?-?- 31w 2d 186 lb 6 oz 107/70 Nega tive -?-?-?-?-?-?-?-?-?-?-?-?- Negative 130 32 -?-?-?-?-?-?-?-?-?-?-?-?- KW- No vb/lof/ct x. good fm. no concerns today 02/22/23 -?-?-?-?-?-?-?-?-?-?-?-?- 33w 0d 190 lb 6 oz 116/64 Nega tive -?-?-?-?--?-?-?-?-?-?-?-?- Negative 135 33 -?-?-?-?-?-?-?-?-?-?-?-?- kw-no vb/lof/ctx . good fm. no concerns today 03/10/23 -?-?-?-?-?-?-?-?-?-?-?-?- 35w 2d 195 lb 6 oz 127/87 Nega tive -?-?-?-?-?-?-?-?-?-?-?-?- Negative 135 35 -?-?-?-?-?-?-?-?-?-?-?-?- SM- no vb lof go od fm n oreguar ctx 03/15/23 -?-?-?-?-?-?-?-?-?-?-?-?- 36w 0d 198 lb 4 oz 112/75 Nega tive -?-?-?-?-?-?-?-?-?-?-?-?- Negative 150 36 Cephalic 0 -?-?-?-?-?-?-?-?-?-?-?-?- JV- no lof, vagi nal bleeding, or dec fm. gbs collected JV- no lof, vaginal bleeding , or dec fm. gbs collected. vtx on ultrasound. 03/22/23 -?-?-?-?-?-?-?-?-?-?-?-?- 37w 0d 202 lb 2 oz 123/81 Nega tive -?-?-?-?-?-?-?-?-?-?-?-?- Negative 145 37 Cephalic 1 .5 -?-?-?-?-?-?-?-?-?-?-?-?- 50 -2 SM- no vb lof good fm no regular ctx 03/29/23 -?-?-?-?-?-?-?-?-?-?-?-?- 38w 0d 204 lb 4 oz 120/83 Nega tive -?-?-?-?-?-?-?-?-?-?-?-?- Negative 140 38 Cephalic 1 .5 -?-?-?-?-?-?-?-?-?-?-?-?- 70 -2 JV- no lof , vaginal bleeding, or dec fm. no complaints. labor precautions discussed. 04/05/23 -?-?-?-?-?-?-?-?-?-?-?-?- 39w 0d 205 lb 4 oz 129/84 -?-?-?-?-?-?-?-?-?-?-?-?- 150 39 Cephalic 1.5 -?-?-?-?-?-?-?-?-?-?-?-?- 70 SM- no v b lof good fm no reuglar ctx 04/14/23 -?-?-?-?-?-?-?-?-?-?-?-?- 40w 2d -?-?-?-?-?-?-?-?-?-?-?-?- 140 40 Cephalic 3 -?-?-?-?-?-?-?-?-?-?-?-?- 80 -2 KW-no vb/l of/ctx. good fm. IOL for 41 weeks. labor precautions NST FHR Rate Baby A Baseline: 135 Variability:: Moderate Accelerations:: 15 x 15 Decelerations:: None NST Reactive:: Yes FHR Category:: Category I Uterine Activity:: irregular ROS Constitutional Constitutional: Denies change in weight, fatigue, fever(s), headache(s), poor appetite or weakness Eyes Eyes: Denies blurry vision, change in vision, floaters, seeing flashes or spots in vision ENT HEENT: Denies dizziness, headache(s), loss taste/smell or sore throat Cardiovascular Cardiovascular: Denies chest pain, dizziness, dyspnea, irregular heart rhythm, lightheadedness, palpitations or rapid heart rate Respiratory/Chest Respiratory/Chest: Denies change in mental status, chest tightness, cough, dyspnea or breast pain Gastrointestinal Gastrointestinal: Denies anorexia, chewing difficulty, constipation, diarrhea or weight changes Genitourinary Genitourinary: Denies difficulty urinating, dysuria, flank pain, genital pain, urinary frequency or urinary urgency Musculoskeletal Musculoskeletal: Denies back pain, difficulty walking, extremity pain, joint pain, muscle cramps or muscle weakness Integumentary Integumentary: Denies lesions or unusual bruising Neurologic Neurologic: Denies abnormal movements, abnormal speech, dizziness, numbness, seizure-like activity, syncope or weakness Psychiatric Psychiatric: Denies behavioral changes, change in appetite, confusion, depression, homicidal ideation, suicidal ideation or suicidal thoughts Endocrine Endocrinology: Denies excessive sweating, polydipsia or polyuria Hematologic/Lymphatic Hematologic/Lymphatic: Denies anemia Allergic/Immunologic Allergic/Immunologic: Denies itchy eyes, lip swelling, throat swelling, tongue swelling or wheezing Vital Signs Vital Signs Vital Signs: 04/19/23 07:52 04/19/23 07:52 04/19/23 07:51 Temperature Temperature Source Temporal Pulse Rate 85 Blood Pressure 133/76 H BP Systolic 133 BP Diastolic 76 Pulse Ox 04/19/23 07:51 04/19/23 08:18 04/19/23 08:18 Temperature 98.6 F Temperature Source Pulse Rate 80 Blood Pressure BP Systolic BP Diastolic Pulse Ox 99 04/19/23 08:23 04/19/23 08:23 04/19/23 11:01 Temperature Temperature Source Temporal Pulse Rate 92 Blood Pressure BP Systolic BP Diastolic Pulse Ox 98 04/19/23 11:05 04/19/23 11:05 04/19/23 11:01 Temperature 98.3 F Temperature Source Pulse Rate 75 Blood Pressure 123/80 H BP Systolic 123 BP Diastolic 80 Pulse Ox Weight Weight: 212 lb Body Mass Index (BMI) 32.2 Physical Exam Const alert, oriented x3 and no apparent distress General Appearance: cooperative Orientation / Consciousness: awake HEENT normocephalic Neck full ROM Lymph Lymphatic: no lymphadenopathy noted Chest inspection of chest normal Resp normal respiratory effort and normal air movement Effort and Inspection: able to speak in complete sentences and symmetric chest movement GI soft to palpation and non-tender Inspection: gravid Palpation: soft; Negative for tender external exam normal Manual OB Exam: presentation cephalic, dilated, effaced 80 and station -2 Back/Spine normal to inspection Extremity normal to inspection and full ROM Skin no rashes or lesions noted Psych mental status grossly normal Appearance: grossly normal Speech: normal speech Labs Labs Labs: Blood Type B POSITIVE Antibody Screen NEGATIVE Hct 34.4 % (37-47) L Hgb 11.4 g/dL (12.0-15.0) L Syphilis Total Ab Non-reactive Rubella IgG Antibody Reactive (Nonreactive) Hep Bs Antigen Non-Reactive (Nonreactive) Hepatitis C Antibody Non-Reactive (Nonreactive) Chlamydia DNA ([place]) Negative (Negative) N.gonorrhoeae DNA ([place]) Negative (Negative) HIV 1&2 Antibody Non-Reactive (Nonreactive) Glucose 1 Hr 50 gm 108 mg/dL (70-140) Miscellaneous Test Charges/Coding Multi Select Codes Urinary/Genital Urinary/Genital CPT Codes: No Charge 04/19/23 1207 <Electronically signed by Preeti Crawford CNM> Cosigner Signature (if applicable): CC: MARCELO Crawford; Dr. Kathya Salter, ~ Signed ADDENDUM by MARCELO Crawford on 04/19/23 at 1210 Assessment & Plan (1) : QUALIFIERS: Weeks of gestation: 39 weeks Qualified Code(s): Z3A.39 - 39 weeks gestation of COMMENT: Neg GBS NL anatomy, NIPT low risk, carrier testing neg. 1414. afp negative (2) Supervision of high risk , antepartum: COMMENT: PRR , CHARLIE 04/12/23 boy Lee March (3) History of marijuana use: COMMENT: tox screen random(neg 09/2022), quit with +UPT, Used daily for anxiety/sleep, counseling provided (4) Anxiety and depression: (5) Seasonal allergies: (6) Encounter for induction of labor: COMMENT: 41.0 postdates PLAN: Patient presents IOL, plan management for with pitocin/AROM. Pain management: plans epidural. GBS negative. Management of any complications: none I have reviewed the [facility] and made any clinically relevant updates. Dr Mcnulty aware of admission and above assessment. agrees with plan of care 04/19/23 1210<Electronically signed by Preeti Crawford CNM> Cosigner Signature (if applicable): cc: MARCELO Crawford; Dr. Kathya Salter DO ~* Signed [facility] Work Phone: [phone] Progress note Author Preeti Crawford [facility] April 19, 2023 12:05pm Note Date/Time April 19, 2023 12:05pm [facility] Medical Records Department [address] [place] [address] Progress Note 04/19/23 1203 MR#: [id number] Acct: [id number] Name: JOE ARRIOLA Rep #:[id number] : 2000 23 From: Preeti Crawford CNM PCP: Dr. Kathya Salter DO Status:ADM IN Location: [id number] Progress Note Coping well with contractions current tracing: FHT: 135 Moderate variability reactive no decelerations category I tracing [place]: 3-4 minute-moderate Contractions Membranes:intact SVE:3/80/-2 on admission A/P: Continue with position changes Titrate pitocin per protocol Epidural per anesthesia when desired Anticipate Dr Mcnulty aware of above assessment and agrees with plan of care Assessment & Plan Assessment/Plan (1) Anxiety and depression: (2) Supervision of high risk , antepartum: (3) : QUALIFIERS: Weeks of gestation: 39 weeks Qualified Code(s): Z3A.39 - 39 weeks gestation of (4) History of marijuana use: (5) Seasonal allergies: 04/19/23 1205 <Electronically signed by Preeti Crawford CNM> Preeti Crawford CNM Cosigner Signature (if applicable): CC: ~ Signed [facility] Work Phone: [phone] NotePap Smear Specimen AdequacyMay 2022 4:16pmComment.Satisfactory for evaluation. Endocervical and/or squamous metaplasticcells (endocervical component)are present.[facility] A#[id number] Valley HospitalComment on above:Satisfactory for evaluation. Endocervical and/or squamous metaplasticcells (endocervical component)are present.09-21-2022 NotePap Smear Specimen AdequacyMay 2022 4:16pmComment.Satisfactory for evaluation. Endocervical and/or squamous metaplasticcells (endocervical component)are present.[facility] A#[id number] Valley HospitalComment on above:Satisfactory for evaluation. Endocervical and/or squamous metaplasticcells (endocervical component)are present.Evaluation + Plan note No data available for this section [facility] Evaluation noteNo assessment information available [facility] Work Phone: Evaluation note* Diagnosis Onset Date Resolution Status Anxiety and depression acute History of marijuana use acu te History of nicotine vaping a cute acute Seasonal allergies acute Supervision of high risk , antepartum acute Anxiety and depression acute History of marijuana use acu te History of nicotine vaping a cute acute Seasonal allergies acute Supervision of high risk , antepartum acute Anxiety and depression acute History of marijuana use acu te History of nicotine vaping a cute acute Supervision of high risk , antepartum acute [facility] Work Phone: Evaluation note* Diagnosis Onset Date Resolution Status Anxiety and depression acute History of marijuana use acu te History of nicotine vaping a cute acute Seasonal allergies acute Supervision of high risk , antepartum acute Anxiety and depression acute History of marijuana use acu te History of nicotine vaping a cute acute Seasonal allergies acute Supervision of high risk , antepartum acute Anxiety and depression acute History of marijuana use acu te History of nicotine vaping a cute acute Supervision of high risk , antepartum acute Anxiety and depression acute History of marijuana use acu te History of nicotine vaping a cute acute Supervision of high risk , antepartum acute Anxiety and depression acute History of marijuana use acu te History of nicotine vaping a cute acute Supervision of high risk , antepartum acute [facility] Work Phone: Evaluation note* Diagnosis Onset Date Resolution Status Anxiety and depression acute History of marijuana use acu te History of nicotine vaping a cute acute Supervision of high risk , antepartum acute Anxiety and depression acute History of marijuana use acu te History of nicotine vaping a cute acute Supervision of high risk , antepartum acute Anxiety and depression acute History of marijuana use acu te History of nicotine vaping a cute acute Supervision of high risk , antepartum acute Anxiety and depression acute History of marijuana use acu te History of nicotine vaping a cute acute Seasonal allergies acute Supervision of high risk , antepartum acute Anxiety and depression acute History of marijuana use acu te History of nicotine vaping a cute acute Seasonal allergies acute Supervision of high risk , antepartum acute Anxiety and depression acute History of marijuana use acu te History of nicotine vaping a cute acute Seasonal allergies acute Supervision of high risk , antepartum acute Anxiety and depression acute History of marijuana use acu te History of nicotine vaping a cute acute Seasonal allergies acute Supervision of high risk , antepartum acute [facility] Work Phone: Evaluation note* Diagnosis Onset Date Resolution Status Anxiety and depression acute History of marijuana use acu te History of nicotine vaping r esolved resolved Supervision of high risk , antepartum resolved Anxiety and depression acute History of marijuana use acu te History of nicotine vaping r esolved resolved Supervision of high risk , antepartum resolved Anxiety and depression acute History of marijuana use acu te Seasonal allergies acute History of nicotine vaping r esolved resolved Supervision of high risk , antepartum resolved Anxiety and depression acute History of marijuana use acu te Seasonal allergies acute History of nicotine vaping r esolved resolved Supervision of high risk , antepartum resolved Anxiety and depression acute History of marijuana use acu te Seasonal allergies acute History of nicotine vaping r esolved resolved Supervision of high risk , antepartum resolved Anxiety and depression acute History of marijuana use acu te Seasonal allergies acute History of nicotine vaping r esolved resolved Supervision of high risk , antepartum resolved Anxiety and depression acute History of marijuana use acu te Seasonal allergies acute resolved Supervision of high risk , antepartum resolved Anxiety and depression acute History of marijuana use acu te Seasonal allergies acute resolved Supervision of high risk , antepartum resolved Anxiety and depression acute History of marijuana use acu te Seasonal allergies acute resolved Supervision of high risk , antepartum resolved Anxiety and depression acute History of marijuana use acu te Seasonal allergies acute resolved Supervision of high risk , antepartum resolved Anxiety and depression acute History of marijuana use acu te Seasonal allergies acute Vaginal delivery acute Encounter for induction of labor resolved resolved Supervision of high risk , antepartum resolved Anxiety and depression acute Irritation of external female genitalia acute Vaginal delivery acute [facility] Work Phone: Evaluation note* Diagnosis Dental decay- Primary Unspecified dental caries [facility] Diagnosis Onset Date Resolution Status Anxiety and depression acute History of marijuana use acu te History of nicotine vaping r esolved resolved Supervision of high risk , antepartum resolved Anxiety and depression acute History of marijuana use acu te History of nicotine vaping r esolved resolved Supervision of high risk , antepartum resolved Anxiety and depression acute History of marijuana use acu te Seasonal allergies acute History of nicotine vaping r esolved resolved Supervision of high risk , antepartum resolved Anxiety and depression acute History of marijuana use acu te Seasonal allergies acute History of nicotine vaping r esolved resolved Supervision of high risk , antepartum resolved Anxiety and depression acute History of marijuana use acu te Seasonal allergies acute History of nicotine vaping r esolved resolved Supervision of high risk , antepartum resolved Anxiety and depression acute History of marijuana use acu te Seasonal allergies acute History of nicotine vaping r esolved resolved Supervision of high risk , antepartum resolved Anxiety and depression acute History of marijuana use acu te Seasonal allergies acute resolved Supervision of high risk , antepartum resolved Anxiety and depression acute History of marijuana use acu te Seasonal allergies acute resolved Supervision of high risk , antepartum resolved Anxiety and depression acute History of marijuana use acu te Seasonal allergies acute resolved Supervision of high risk , antepartum resolved Anxiety and depression acute History of marijuana use acu te Seasonal allergies acute resolved Supervision of high risk , antepartum resolved Anxiety and depression acute History of marijuana use acu te Seasonal allergies acute Vaginal delivery acute Encounter for induction of labor resolved resolved Supervision of high risk , antepartum resolved [facility] Work Phone: Evaluation note* Diagnosis Onset Date Resolution Status Admit Date Anxiety acute October 16 2:47pm Former smoker acute October 16, 2024 2:47pm History of miscarriage, curr ently acute October 16, 2024 2:47pm Marijuana use acute October 16, 2024 2:47pm acute October 16 2:47pm Supervision of high-risk acute October 16, 2024 2:47pm [facility] Work Phone: Hospital Discharge instructions No data available for this section [facility] Progress note No data available for this section [facility] Reason for referral (narrative)No reason for referral [facility] Work Phone: Chief Complaint Chief Complaint Description Start Date right knee pain Preliminary chief co mplaint data, not yet signed by the author as of Instructions Instruction Description Start Date Completed Advance Directives No Advanced Directives Records Found Advance Directive Response Recorded Date/ Time Living Will No April 19, 2 023 8:43am Power of Trekking Guide No April 19, 2023 8:43am Advance Directive Response Recorded Date/ Time Living Will No April 19, 2 023 9:43am Power of Trekking Guide No April 19, 2023 9:43am Assessments There may be information available, but it has not been provided by the sender. Review of System There may be information available, but it has not been provided by the sender. Family History No Family History Records Found Relationship Condition Age at Onset Recorded Date/T rigoberto grandmother Cardiac disease Unknown Relationship Condition Age at Onset Recorded Date/T rigoberto grandmother Cardiac disease Unknown uncle Cardiac disease Unknown History of Present Illness There may be information available, but it has not been provided by the sender. Chief Complaint and Reason for Visit Chief Complaint NOB LMP: 3 15 WK OB 19 WK OB Other specified noninflammatory disorders of vagin Reason for Visit Anxiety and depressi on History of marijuana use History of nicotine vaping Seasonal allergies Supervision of high risk , antepartum Anxiety and depression History of marijuana use History of nicotine vaping Seasonal allergies Supervision of high risk , antepartum Anxiety and depression History of marijuana use History of nicotine vaping Supervision of high risk , antepartum Chief Complaint NOB LMP: 3 15 WK OB 19 WK OB Other specified noninflammatory disorders of vagin 23 WK OB DRAW AT 1:36 26 WK OB / GLUCOSE , pt req time/date Reason for Visit Anxiety and depressi on History of marijuana use History of nicotine vaping Seasonal allergies Supervision of high risk , antepartum Anxiety and depression History of marijuana use History of nicotine vaping Seasonal allergies Supervision of high risk , antepartum Anxiety and depression History of marijuana use History of nicotine vaping Supervision of high risk , antepartum Anxiety and depression History of marijuana use History of nicotine vaping Supervision of high risk , antepartum Anxiety and depression History of marijuana use History of nicotine vaping Supervision of high risk , antepartum Chief Complaint 23 WK OB DRAW AT 1:36 26 WK OB / GLUCOSE , pt req time/date 29 WK OB 31 WK OB 33 WK OB 35 WK OB 36 WK OB Reason for Visit Anxiety and depressi on History of marijuana use History of nicotine vaping Supervision of high risk , antepartum Anxiety and depression History of marijuana use History of nicotine vaping Supervision of high risk , antepartum Anxiety and depression History of marijuana use History of nicotine vaping Supervision of high risk , antepartum Anxiety and depression History of marijuana use History of nicotine vaping Seasonal allergies Supervision of high risk , antepartum Anxiety and depression History of marijuana use History of nicotine vaping Seasonal allergies Supervision of high risk , antepartum Anxiety and depression History of marijuana use History of nicotine vaping Seasonal allergies Supervision of high risk , antepartum Anxiety and depression History of marijuana use History of nicotine vaping Seasonal allergies Supervision of high risk , antepartum Chief Complaint DRAW AT 1:36 26 WK OB / GLUCOSE , pt req time/date 29 WK OB 31 WK OB 33 WK OB 35 WK OB 36 WK OB 37 WK OB 38 WK OB 39 WK OB 40 WK OB INDUCTION INDUCTION INDUCTION INDUCTION vaginal/urinary pressure Reason for Visit Anxiety and depressi on History of marijuana use History of nicotine vaping Supervision of high risk , antepartum Anxiety and depression History of marijuana use History of nicotine vaping Supervision of high risk , antepartum Anxiety and depression History of marijuana use Seasonal allergies History of nicotine vaping Supervision of high risk , antepartum Anxiety and depression History of marijuana use Seasonal allergies History of nicotine vaping Supervision of high risk , antepartum Anxiety and depression History of marijuana use Seasonal allergies History of nicotine vaping Supervision of high risk , antepartum Anxiety and depression History of marijuana use Seasonal allergies History of nicotine vaping Supervision of high risk , antepartum Anxiety and depression History of marijuana use Seasonal allergies Supervision of high risk , antepartum Anxiety and depression History of marijuana use Seasonal allergies Supervision of high risk , antepartum Anxiety and depression History of marijuana use Seasonal allergies Supervision of high risk , antepartum Anxiety and depression History of marijuana use Seasonal allergies Supervision of high risk , antepartum Anxiety and depression History of marijuana use Seasonal allergies Vaginal delivery Encounter for induction of labor Supervision of high risk , antepartum Anxiety and depression Irritation of external female genitalia Vaginal delivery Chief Complaint visit (ob stetrics) Right breast lump Reason for Visit Routine F ollow-Up Breast lump on right side at 12 o'clock position Vaginal discharge Chief Complaint DRAW AT 1:36 26 WK OB / GLUCOSE , pt req time/date 29 WK OB 31 WK OB 33 WK OB 35 WK OB 36 WK OB 37 WK OB 38 WK OB 39 WK OB 40 WK OB INDUCTION INDUCTION INDUCTION INDUCTION Reason for Visit Anxiety and depressi on History of marijuana use History of nicotine vaping Supervision of high risk , antepartum Anxiety and depression History of marijuana use History of nicotine vaping Supervision of high risk , antepartum Anxiety and depression History of marijuana use Seasonal allergies History of nicotine vaping Supervision of high risk , antepartum Anxiety and depression History of marijuana use Seasonal allergies History of nicotine vaping Supervision of high risk , antepartum Anxiety and depression History of marijuana use Seasonal allergies History of nicotine vaping Supervision of high risk , antepartum Anxiety and depression History of marijuana use Seasonal allergies History of nicotine vaping Supervision of high risk , antepartum Anxiety and depression History of marijuana use Seasonal allergies Supervision of high risk , antepartum Anxiety and depression History of marijuana use Seasonal allergies Supervision of high risk , antepartum Anxiety and depression History of marijuana use Seasonal allergies Supervision of high risk , antepartum Anxiety and depression History of marijuana use Seasonal allergies Supervision of high risk , antepartum Anxiety and depression History of marijuana use Seasonal allergies Vaginal delivery Encounter for induction of labor Supervision of high risk , antepartum Chief Complaint Admit Date *EST* NOB LMP 08/14, CHARLIE 05/21/25October 2:47pm Reason for Visit Admit Date Anxiety October 16, 2024 2:47 pm Former smoker October 16, 2024 2:47 pm History of miscarriage, currently pregna nt October 16, 2024 2:47pm Marijuana use October 16, 2024 2:47 pm October 16, 2024 2:47 pm Supervision of high-risk October 16, 2024 2:47pm Chief Complaint Admit Date *EST* NOB LMP 4/8, CHARLIE 05/21/25October 2:47pm 14wk ob November 20, 2024 3:13 pm Reason for Visit Admit Date Anxiety October 16, 2024 2:47 pm Former smoker October 16, 2024 2:47 pm History of miscarriage, currently pregna nt October 16, 2024 2:47pm Marijuana use October 16, 2024 2:47 pm October 16, 2024 2:47 pm Supervision of high-risk October 16, 2024 2:47pm Anxiety November 20, 2024 3:13 pm Former smoker November 20, 2024 3:13 pm History of miscarriage, currently pregna nt November 20, 2024 3:13pm Marijuana use November 20, 2024 3:13 pm November 20, 2024 3:13 pm Supervision of high-risk November 20, 2024 3:13pm Chief Complaint Admit Date *EST* NOB LMP 4/8, CHARLIE 05/21/25October 2:47pm 14wk ob November 20, 2024 3:13 pm 18wk ob December 19, 2024 3: 42pm Reason for Visit Admit Date Anxiety October 16, 2024 2:47 pm Former smoker October 16, 2024 2:47 pm History of miscarriage, currently pregna nt October 16, 2024 2:47pm Marijuana use October 16, 2024 2:47 pm October 16, 2024 2:47 pm Supervision of high-risk October 16, 2024 2:47pm Anxiety November 20, 2024 3:13 pm Former smoker November 20, 2024 3:13 pm History of miscarriage, currently pregna nt November 20, 2024 3:13pm Marijuana use November 20, 2024 3:13 pm November 20, 2024 3:13 pm Supervision of high-risk November 20, 2024 3:13pm Anxiety December 19, 2024 3: 42pm Former smoker December 19, 2024 3: 42pm History of miscarriage, currently pregna nt December 19, 2024 3:42pm Marijuana use December 19, 2024 3: 42pm December 19, 2024 3: 42pm Supervision of high-risk Augus t 2024 3:42pm Chief Complaint Admit Date *EST* NOB LMP 4/8, CHARLIE 05/21/25October 2:47pm 14wk ob November 20, 2024 3:13 pm 18wk ob December 19, 2024 3: 42pm 22wk ob January 18, 2025 12:52pm Reason for Visit Admit Date Anxiety October 16, 2024 2:47 pm Former smoker October 16, 2024 2:47 pm History of miscarriage, currently pregna nt October 16, 2024 2:47pm Marijuana use October 16, 2024 2:47 pm October 16, 2024 2:47 pm Supervision of high-risk October 16, 2024 2:47pm Anxiety November 20, 2024 3:13 pm Former smoker November 20, 2024 3:13 pm History of miscarriage, currently pregna nt November 20, 2024 3:13pm Marijuana use November 20, 2024 3:13 pm November 20, 2024 3:13 pm Supervision of high-risk November 20, 2024 3:13pm Anxiety December 19, 2024 3: 42pm Former smoker December 19, 2024 3: 42pm History of miscarriage, currently pregna nt December 19, 2024 3:42pm Marijuana use December 19, 2024 3: 42pm December 19, 2024 3: 42pm Supervision of high-risk Augus t 2024 3:42pm Anxiety January 18, 2025 12:52pm Former smoker January 18, 2025 12:52pm History of miscarriage, currently pregna nt January 18, 2025 12:52pm Marijuana use January 18, 2025 12:52pm January 18, 2025 12:52pm Supervision of high-risk Septe mber 2024 12:52pm Chief Complaint Admit Date *EST* NOB LMP 4/8, CHARLIE 05/21/25October 2:47pm 14wk ob November 20, 2024 3:13 pm 18wk ob December 19, 2024 3: 42pm 22WK 3D OB January 18, 2025 12:52pm 26WK 1D OB/GLUCOSE February 13, 2025 10 :23am Reason for Visit Admit Date Anxiety October 16, 2024 2:47 pm Former smoker October 16, 2024 2:47 pm History of miscarriage, currently pregna nt October 16, 2024 2:47pm Marijuana use October 16, 2024 2:47 pm October 16, 2024 2:47 pm Supervision of high-risk October 16, 2024 2:47pm Anxiety November 20, 2024 3:13 pm Former smoker November 20, 2024 3:13 pm History of miscarriage, currently pregna nt November 20, 2024 3:13pm Marijuana use November 20, 2024 3:13 pm November 20, 2024 3:13 pm Supervision of high-risk November 20, 2024 3:13pm Anxiety December 19, 2024 3: 42pm Former smoker December 19, 2024 3: 42pm History of miscarriage, currently pregna nt December 19, 2024 3:42pm Marijuana use December 19, 2024 3: 42pm December 19, 2024 3: 42pm Supervision of high-risk Augus t 2024 3:42pm Anxiety January 18, 2025 12:52pm Former smoker January 18, 2025 12:52pm History of miscarriage, currently pregna nt January 18, 2025 12:52pm Marijuana use January 18, 2025 12:52pm January 18, 2025 12:52pm Supervision of high-risk Septe mber 2024 12:52pm Anxiety February 13, 2025 10 :23am Former smoker February 13, 2025 10 :23am History of miscarriage, currently pregna nt February 13, 2025 10:23am Marijuana use February 13, 2025 10 :23am February 13, 2025 10 :23am Supervision of high-risk Octob 2024 10:23am Summary Purpose Reason for Referral Specialty Diagnoses / Procedures Referred By Leticia evans Referred To Contact Oral Surgery Diagnoses Dental decay Diamond Gutiérrez, DDS [address] [place] [address] [facility] ORAL SURGERY [address] [place] [id number] Referral ID Status Reason Start Date Expiration Date V isits Requested Visits Authorized [id number] Pending Review 02/23/2024 02/22/2025 3 3 Scheduling Instructions Please call the [facility] at to schedule an appointment if one was not made for you today. Question Answer Patient to be evaluated for: Extractions Tooth Number for Extraction teeth #2, 15, 17 and 31 Additional Source Comments Reason for Visit (unrecogniz ed section and content) Reason For Visit Description New - 1st visit with practice Preliminary reason f or visit data, not yet signed by the author as of right knee pain Reason Onset Date Comments Send Referral 02/28/2024 Reason Onset Date Comments Referral to Specialist 02/29/2024 Patient r equested referral Goals (unrecognized section and content) Type Care Experience svdLabor Preferences -CB/BF classes: encouragedlabor support person: Blakelabor intervention preferences: []pain management options preferred: epiduralcut cord/dad catch: maybebreastfeeding: yesPP control planned: discusseddiscussed possible routes of delivery and associated risks: []special requests: [] Care Experience svdLabor Preferences -CB/BF classes: nolabor support person: Blakelabor intervention preferences: []pain management options preferred: epiduralcut cord/dad catch: nobreastfeeding: yesPP control planned: discusseddiscussed possible routes of delivery and associated risks: []special requests: [] Care Teams (unrecognized sec tion and content) Team Status: Active Member Role Status Dates Dr. Andrew Acuna , DO Family Provider Active Dr. Kathya Salter , DO Primary Care Provider Active Team Status: Inactive Member Role Status Dates Dr. Kathya Salter , DO Primary Care Provider, Referrin g Provider Active Dr. Marce Coon , DO Attending Provider Activ e Team Status: Inactive Member Role Status Dates Dr. Kathya Salter , DO Primary Care Provider, Referrin g Provider Active Carol Bishop CNM Attending Provider Active Team Status: Inactive Member Role Status Dates Dr. Kathya Salter , DO Primary Care Provider, Referrin g Provider Active Debby Suh DRAWBRIDGE OPERATOR, DRAWBRIDGE OPERATOR-C Attending Provider Active Team Status: Inactive Member Role Status Dates Dr. Kathya Salter , DO Primary Care Provider Active Dr. Marce Coon , DO Attending Provider, Refe rring Provider Active Team Status: Inactive Member Role Status Dates Dr. Kathya Salter DO Primary Care Provider Active DEBBIE ArevaloM Attending Provider, Referring Pr ovider Active Team Status: Inactive Member Role Status Dates Dr. Kathya Salter DO Primary Care Provider Active Debby Suh DRAWBRIDGE OPERATOR, DRAWBRIDGE OPERATOR-C Attending Provider, Referring Provider Active Team Status: Inactive Member Role Status Dates Dr. Kathya Salter DO Primary Care Provider, Referrin g Provider Active Preeti Crawford CNM Attending Provider Active Team Status: Inactive Member Role Status Dates Dr. Kathya Salter DO Primary Care Provider, Referrin g Provider Active Dr. Carol Mcnulty MD Attending Provider Active Team Status: Inactive Member Role Status Dates Dr. Kathya Salter DO Primary Care Provider Active Dr. Marce Coon DO Attending Provider Activ e Team Status: Active Member Role Status Dates Dr. Kathya Salter DO Primary Care Provider Active DEBBIE ArevaloM Admit Provider, Re ferring Provider, Other Provider Active Preeti Crawford CNM Attending Provider Active Team Status: Active Member Role Status Dates Dr. Kathya Salter DO Primary Care Provider Active Carol Bishop CNM Referring Provider Active Preeti Crawford CNM Admit Provider, Other Provider Ac tive Debby Suh DRAWBRIDGE OPERATOR, DRAWBRIDGE OPERATOR-C Attending Provider Active Team Status: Inactive Member Role Status Dates Dr. Kathya Salter DO Primary Care Provider Active Carol Bishop CNM Referring Provider Active Preeti Crawford CNM Admit Provider, Attending Provide r Active Team Status: Inactive Member Role Status Dates Dr. Kathya Salter DO Primary Care Provider Active Preeti Crawford CNM Attending Provider, Referring Pro vider Active Team Status: Inactive Member Role Status Dates Dr. Kathya Salter DO Primary Care Provider Active Start: October 16, 2024 End: October 16, 2024 Dr. Kathya Salter DO Referring Provider Active Start: October 16, 2024 End: October 16, 2024 Preeti Crawford CNM Attending Provider Active S tart: October 16, 2024 End: October 16, 2024 Team Status: Inactive Member Role Status Dates Dr. Kathya Salter DO Primary Care Provider Active Start: October 16, 2024 End: October 16, 2024 Preeti Crawford CNM Attending Provider Active S tart: October 16, 2024 End: October 16, 2024 Preeti Crawford CNM Referring Provider Active S tart: October 16, 2024 End: October 16, 2024 Team Status: Inactive Member Role Status Dates Dr. Kathya Salter DO Primary Care Provider Active Start: October 29, 2024 End: October 29, 2024 Preeti Crawford CNM Attending Provider Active S tart: October 29, 2024 End: October 29, 2024 Team Status: Active Member Role/Relationship Status Dates Dr. Andrew Acuna DO Family Provider Active Dr. Kathya Salter DO Primary Care Provider Active Team Status: Inactive Member Role/Relationship Status Dates Dr. Kahtya Salter DO Primary Care Provider Active Start: October 16, 2024 End: October 16, 2024 Dr. Kathya Salter DO Referring Provider Active Start: October 16, 2024 End: October 16, 2024 Preeti Crawford CNM Attending Provider Active S tart: October 16, 2024 End: October 16, 2024 Team Status: Inactive Member Role/Relationship Status Dates Dr. Kathya Salter DO Primary Care Provider Active Start: October 16, 2024 End: October 16, 2024 Preeti Crawford CNM Attending Provider Active S tart: October 16, 2024 End: October 16, 2024 Preeti Crawford CNM Referring Provider Active S tart: October 16, 2024 End: October 16, 2024 Team Status: Inactive Member Role/Relationship Status Dates Dr. Kathya Salter DO Primary Care Provider Active Start: October 29, 2024 End: October 29, 2024 Preeti Crawford CNM Attending Provider Active S tart: October 29, 2024 End: October 29, 2024 Team Status: Inactive Member Role/Relationship Status Dates Dr. Kathya Salter DO Primary Care Provider Active Start: November 20, 2024 End: November 20, 2024 Dr. Kathya Salter DO Referring Provider Active Start: November 20, 2024 End: November 20, 2024 Dr. Marce Coon DO Attending Provider Activ e Start: November 20, 2024 End: November 20, 2024 Team Status: Inactive Member Role/Relationship Status Dates Dr. Kathya Salter DO Primary Care Provider Active Start: December 19, 2024 End: December 19, 2024 Dr. Kathya Salter DO Referring Provider Active Start: December 19, 2024 End: December 19, 2024 Debby Suh NP, DRAWBRIDGE OPERATOR-C Attending Provider Active Start: December 19, 2024 End: December 19, 2024 Team Status: Inactive Member Role/Relationship Status Dates Dr. Kathya Salter DO Primary Care Provider Active Start: January 18, 2025 End: January 18, 2025 Dr. Kathya Salter DO Referring Provider Active Start: January 18, 2025 End: January 18, 2025 Dr. Carol Mcnulty MD Attending Provider Active Start: January 18, 2025 End: January 18, 2025 Team Status: Active Member Role/Relationship Status Dates Dr. Andrew Acuna , Primary care physician Activ e Dr. Kathya Salter DO Primary care physician Active Team Status: Inactive Member Role/Relationship Status Dates Dr. Kathya Salter DO Primary care physician Active Start: October 16, 2024 End: October 16, 2024 Dr. Kathya Salter DO Referring Provider Active Start: October 16, 2024 End: October 16, 2024 Preeti Crawford CNM Attending physician Active Start: October 16, 2024 End: October 16, 2024 Team Status: Inactive Member Role/Relationship Status Dates Dr. Kathya Salter DO Primary care physician Active Start: October 16, 2024 End: October 16, 2024 Preeti Crawford CNM Attending physician Active Start: October 16, 2024 End: October 16, 2024 Preeti Crawford CNM Referring Provider Active S tart: October 16, 2024 End: October 16, 2024 Team Status: Inactive Member Role/Relationship Status Dates Dr. Kathya Salter DO Primary care physician Active Start: October 29, 2024 End: October 29, 2024 Preeti Crawford CNM Attending physician Active Start: October 29, 2024 End: October 29, 2024 Team Status: Inactive Member Role/Relationship Status Dates Dr. Kathya Salter DO Primary care physician Active Start: November 20, 2024 End: November 20, 2024 Dr. Kathya Salter DO Referring Provider Active Start: November 20, 2024 End: November 20, 2024 Dr. Marce Coon DO Attending physician Acti ve Start: November 20, 2024 End: November 20, 2024 Team Status: Inactive Member Role/Relationship Status Dates Dr. Kathya Salter DO Primary care physician Active Start: December 19, 2024 End: December 19, 2024 Dr. Kathya Salter DO Referring Provider Active Start: December 19, 2024 End: December 19, 2024 Debby Suh NP, DRAWBRIDGE OPERATOR-C Attending physician Active Start: December 19, 2024 End: December 19, 2024 Team Status: Inactive Member Role/Relationship Status Dates Dr. Kathya Salter DO Primary care physician Active Start: January 18, 2025 End: January 18, 2025 Dr. Kathya Salter DO Referring Provider Active Start: January 18, 2025 End: January 18, 2025 Dr. Carol Mcnulty MD Attending physician Active Start: January 18, 2025 End: January 18, 2025 Team Status: Inactive Member Role/Relationship Status Dates Dr. Kathya Salter DO Primary care physician Active Start: February 13, 2025 End: February 13, 2025 Dr. Kathya Salter DO Referring Provider Active Start: February 13, 2025 End: February 13, 2025 Debby Suh NP, NP-C Attending physician Active Start: February 13, 2025 End: February 13, 2025 Team Status: Active Member Role/Relationship Status Dates Dr. Kathya Salter DO Primary care physician Active Start: February 13, 2025 Dr. Carol Mcnulty MD Attending physician Active Start: February 13, 2025 Dr. Carol Mcnulty MD Referring Provider Active Start: February 13, 2025 INFORMATION SOURCE (unrecogn ized section and content) DATE CREATED AUTHOR 11/30/2023 Counts include 234 beds at the [facility] ([place]) DATE CREATED AUTHOR AUTHOR'S ORGANIZ ATION 03/07/2024 [facility] DATE CREATED AUTHOR AUTHOR'S ORGANIZ ATION 01/30/2025 [facility] DATE CREATED AUTHOR AUTHOR'S ORGANIZ ATION 03/19/2025 [facility] FOR RECORDS PERTAINING TO PATIENTS WHO ARE OR HAVE BEEN ENROLLED IN A CHEMICAL DEPENDENCY/SUBSTANCEABUSE PROGRAM, SOME INFORMATION MAY BE OMITTED. This clinical summary was aggregated from multiple sources. Caution should be exercised in using it in the provision of clinical care. This summary normalizes information from multiple sources, and as a consequence, information in this document may materially change the coding, format and clinical context of patient data. In addition, data may be omitted in some cases. CLINICAL DECISIONS SHOULD BE BASED ON THE PRIMARY CLINICAL RECORDS. [facility]. provides no warranty or guarantee of the accuracy or completeness of information in this document.
== END | disposition home or self-care (01) ==
LOC: LABSPEC 12:29
PROVIDERS: PCP Student in an Organized Health Care Education/Training Program; Referring Provider Nurse Practitioner Women's Health; Visit Provider Nurse Practitioner Women's Health
DX: O09.93 Supervision of high risk pregnancy, unspecified, third trimester (principal); Z3A.00 Weeks of gestation of pregnancy not specified
CPT/HCPCS: 87081

== ENCOUNTER → 2025-05-01 | Outpatient (CLI) | payer MEDICAID, SELFPAY ==
--- OUTSIDE RECORDS SUMMARY | 2025-05-01 11:30 | XMS RPT_ITS | CCD ---
Author Organization [facility] Care Team Providers Care Treatment Specialist Name Role Phone Adina KAUFMAN, Raul M [...] Dr. Kathya Salter Referring Provider [phone] Vikash IT INFRASTRUCTURE MANAGERJACKIE-C Debby Attending Provider [phone] MARCELO Bishop Admit Provider [phone] MARCELO [employer] Referring Provider MARCELO Bishop Other Provider [phone] MARCELO Crawford Admit Provider [phone] MARCELO Crawford Other Provider [phone] Dr. Carol Mcnulty MD Attending Provider [phone] RADHA CABAN Attending Unavailable MARCE EMANUEL Referring [...] Provider Halrosas, Kathya Primary Care Unavailable Vikash IT INFRASTRUCTURE MANAGERDebby Attending Unavailable Halko, Kathya Referring Unavailable Halko, Kathya Primary Care Unavailable Carol Mcnulty Attending Unavailable Halko, Kathya Referring Unavailable Halko, Kathya Primary Care Unavailable Vikash IT INFRASTRUCTURE MANAGERDebby Attending Unavailable Halko, Kathya Referring Unavailable Marce Coon Attending Unavailabl e Halko, Kathya Referring Unavailable Halko, Kathya Primary Care Unavailable Preeti Crawford Attending Unavailable Gaetano, Kathya Primary Care Unavailable Halko, Kahtya Referring Unavailable Marce Coon Attending Unavailabl e [...] Class(es) Dates Sig (Normalized) Sig (Original) Mv-Mins 38-Exbw-Suwrs No.1-Dha ([facility]-[place]) 28-1-300 mg capsule (13 sources) Start: 09-14-2022 Start: 09-14-2022 Mv-Mins 71-Iro n-Folic No.1-Dha ([facility]) 28-1-300 mg capsule Active 1 NMA PO DAILY September 14, 2022 12:00am Start: 09-14-2022 Mv-Mins 71-Iro n-Folic No.1-Dha ([facility]-[place]) 28-1-300 mg capsule Active 1 NMA PO DAILY September 14, 2022 12:00am Start: 09-14-2022 take 1 capsule by [facility] once daily Mv-Mins 08-Pswb-Xwuek No.1-Dha ([facility]) 28-1-300 mg capsule Active CAP PO DAILY September 14, 2022 12:00am Start: 09-14-2022 take 1 capsule by [facility] once daily Mv-Mins 25-Szsw-Yflfa No.1-Dha ([facility]) 28-1-300 mg capsule Active CAP PO DAILY September 13, 2022 11:00pm Start: 09-14-2022 take 1 capsule by mouth once M v-Mins 90-Swgc-Llcfw No.1-Dha ([facility]) 28-1-300 mg capsule Active CAP PO September 13, 2022 11:00pm Start: 09-14-2022 take 1 capsule by mouth once M v-Mins 24-Zjiq-Wplul No.1-Dha ([facility]) 28-1-300 mg capsule Active CAP PO September [...] , CHARLIE 3 boy Lee BF Joaquim [id number], CHARLIE 05/21/25 , PC Lee, BF Joaquim [id number], CHARLIE 05/21/25 ,girl PC Lee, BF Joaquim [...] Exam - OB/GYNon 11- H&P Exam - COUNSELOR MANAGER [facility] Medical Records Department [address] [place] [address] H P Exam - COUNSELOR MANAGER 03/15/25 1648 MR#: [id number] Acct: [id number] Name: JOE ARRIOLA Rep #: [id number] : 2000 24 From: Marce Coon DO PCP: Dr. 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 [...] 1 mg-dha 300 mg 1 cap capsule ([facility]-[place]) Allergy/AdvReac Type Severity Reaction Status Date / [...] times per week duration: > 90 minutes/day fernanda/latter day: Caodaism seatbelt use: always do you feel safe at home: Yes additional social history: YEMI- [place] [employer] History 3 Elective abortions Hx Para 1 [...] -???-???-???-???-???-??? -???-???-???-???-???-??? (more content not included)... Normal [facility] [employer] Manager Office Visit Reporton 03-14-2025 [employer] Manager Office Visit Report [facility] [address] [place] [address], [address] [place] [address] OFFICE VISIT Date of Service: 03/14/25 MR#: [id number] Acct: [id number] Name: JOE ARRIOLA Rep #: [id number] : 2000 Provider: Dr. Marce Sorto DO Age/Sex: 24/F Location: [facility] Status: Signed Intake Vital Signs 12/19/24 15:45 02/13/25 10:24 03/14/25 10:42 Height 5 ft 8 in 5 ft 8 in 5 ft 8 in Weight: 185 lb BMI 28.1 BP 117/77 Intake Visit Reasons: 30 WK 2D OB Chief Complaint: 30wk OB Md Pediatric Allergist Required: No Is patient in pain?: No Allergies No Known Allergies Allergy (Verified 03/14/25 10:41) Medications ???Medication ???Instructions ???Recorded ???Confirmed ???Type multivit-min no.71-iron fum 28 1 cap PO DAILY 09/14/22 03/14/25 History mg-folate no.1 1 mg-dha 300 mg capsule ([facility]-[place]) Last Menstrual Period: 08/14/24 Have you fallen [...] times per week duration: > 90 minutes/day fernanda/latter day: Caodaism seatbelt use: always do you feel safe at home: Yes additional social history: BF- [place] [employer] History 3 Elective abortions Hx Para 1 [...] -???-???-???-???-???-??? -???-???-???-???-?? (more content not included)... Normal [facility] CBC W/Diff, Automatedon 10-0 -2024 Absolute Lymph 1.57 X10 3/uL Normal 0.83-4.51 [facility] Comment on above: Performed By: #### L 509.9487, L3890.6006, L100.0100, L501.0250 ####[facility] [address] [place], [place], [id number] Absolute Neut 8.2 X10 3/uL High 2.0-7.7 [facility] Comment on above: Performed By: #### L 509.8002, L3890.6006, L100.0100, L501.0250 ####[facility] [address] [place], [address] Basophils/100 WBC (Bld) 0.4 % Normal 0-1 [facility] Comment on above: Performed By: #### L 509.8002, L3890.6006, L100.0100, L501.0250 ####[facility] [address] [place], [address] Eosinophils/100 WBC (Bld) 2.1 % Normal 0-5 [facility] Comment on above: Performed By: #### L 509.8002, L3890.6006, L100.0100, L501.0250 ####[facility] [address] [place], [address] Erythrocyte distribution width (RBC) [Ratio] 12.2 % Normal 11.6-14.6 [facility] Comment on above: Performed By: #### L 509.8002, L3890.6006, L100.0100, L501.0250 ####[facility] [address] [place], [address] Hematocrit (Bld) [Volume fraction] 37.2 % Normal 37-47 [facility] Comment on above: Performed By: #### L 509.8002, L3890.6006, L100.0100, L501.0250 ####[facility] [address] [place], [address] Hemoglobin (Bld) [Mass/Vol] 12.8 g/dL Normal 12.0-15.0 [facility] Comment on above: Performed By: #### L 509.8002, L3890.6006, L100.0100, L501.0250 ####[facility] [address] [place], [address] IG% 0.400 Normal 0.0-0.9 [facility] Comment on above: Result Comment: IG% - Immature Granulocytes (promyelocytes, myelocytes and metamyelocytes) > 1% indicates that a LEFT SHIFT is Present. Performed By: #### L 509.8002, L3890.6006, L100.0100, L501.0250 ####[facility] [address] [place], [address] Lymphocytes/100 WBC (Bld) 14.6 % Low 19-41 [facility] Comment on above: Performed By: #### L 509.8002, L3890.6006, L100.0100, L501.0250 ####[facility] [address] [place], [address] MCH (RBC) [Entitic mass] 30.3 pg Normal 27.0-32.0 [facility] Comment on above: Performed By: #### L 509.8002, L3890.6006, L100.0100, L501.0250 ####[facility] [address] [place], [address] MCHC (RBC) [Mass/Vol] 34.4 g/dL Normal 32-36 [facility] Comment on above: Performed By: #### L 509.8002, L3890.6006, L100.0100, L501.0250 ####[facility] [address] [place], [address] MCV (RBC) [Entitic vol] 88.2 fL Normal 81-99 [facility] Comment on above: Performed By: #### L 509.8002, L3890.6006, L100.0100, L501.0250 ####[facility] [address] [place], [address] Monocytes/100 WBC (Bld) 5.8 % Normal 0-10 [facility] Comment on above: Performed By: #### L 509.8002, L3890.6006, L100.0100, L501.0250 ####[facility] [address] [place], [address] Neutrophils/100 WBC (Bld) 76.7 % High 47-70 [facility] Comment on above: Performed By: #### L 509.8002, L3890.6006, L100.0100, L501.0250 ####[facility] [address] [place], [address] Nucleated RBC (Bld) [#/Vol] 0 10*3/uL Normal 0-5 [facility] Comment on above: Performed By: #### L 509.8002, L3890.6006, L100.0100, L501.0250 ####[facility] [address] [place], [address] Platelet mean volume (Bld) [Entitic vol] 9.7 fL Normal 6.2-12.0 [facility] Comment on above: Performed By: #### L 509.8002, L3890.6006, L100.0100, L501.0250 ####[facility] [address] [place], [address] Platelets (Bld) [#/Vol] 277 10*3/uL Normal 150-450 [facility] Comment on above: Performed By: #### L 509.8002, L3890.6006, L100.0100, L501.0250 ####[facility] [address] [place], [address] RBC (Bld) [#/Vol] 4.22 10*6/uL Normal 4.2-5.4 [facility] Comment on above: Performed By: #### L 509.8002, L3890.6006, L100.0100, L501.0250 ####[facility] [address] [place], [address] RDW SD 39.3 fl Normal 35.1-43.9 [facility] Comment on above: Performed By: #### L 509.8002, L3890.6006, L100.0100, L501.0250 ####[facility] [address] [place], [place], [address] WBC (Bld) [#/Vol] 10.7 10*3/uL Normal 4.4-11.0 [facility] Comment on above: Performed By: #### L 509.8002, L3890.6006, L100.0100, L501.0250 ####[facility] [address] [place], [address] Glucose Challenge Gest 1H 50 ethan 02-13-2025 GLU GEST 50g 1H 67 mg/dL Low 70-140 [facility] Comment on above: Performed By: #### L 509.8002, L3890.6006, L100.0100, L501.0250 ####[facility] [address] [place], [address] HIVon 02-13-2025 HIV Non-Reactive Normal Nonreactive [facility] Comment on above: Result Comment: Non- Reactive Reactive Repeatedly reactive samples must be confirmed according to CDC recommended confirmatory algorithms. The subresults for either HIVAG or AHIV can be used as an aid in the selection of the confirmation algorithm for reactive samples. Send out specimens with Reactive results to [facility] for confirmation. Order the HIV antibody detection and differentiation: [id number] Performed By: #### L 509.8002, L3890.6006, L100.0100, L501.0250 ####[facility] [address] [place], [address] [employer] Manager Office Visit Reporton 02-13-2025 [employer] Manager Office Visit Report [facility], [address] [place] [address] OFFICE VISIT Date of Service: 02/13/25 MR#: [id number] Acct: [id number] Name: JOE ARRIOLA Rep #: [id number] : 2000 Provider: CLAUDY schofield Age/Sex: 24/F Location: [facility] Status: Signed Intake Vital Signs 12/19/24 15:45 01/18/25 12:59 02/13/25 10:24 Height 5 ft 8 in 5 ft 8 in 5 ft 8 in Weight: 152 lb 4 oz 167 lb 5 oz 176 lb 6 oz BMI 23.1 25.4 26.8 BP 131/76 H 113/68 112/75 Intake Visit Reasons: 26WK 1D OB/GLUCOSE Md Pediatric Allergist Required: No Is patient in pain?: No Allergies No Known Allergies Allergy (Verified 02/13/25 10:27) Medications ???Medication ???Instructions ???Recorded ???Confirmed ???Type multivit-min no.71-iron fum 28 1 cap PO DAILY 09/14/22 02/13/25 History mg-folate no.1 1 mg-dha 300 mg capsule ([facility]-[place]) Last Menstrual Period: 08/14/24 Zika: Zika virus [...] times per week duration: > 90 minutes/day fernanda/latter day: Caodaism seatbelt use: always do you feel safe at home: Yes additional social history: BF- [place] [employer] History 3 Elective abortions Hx Para 1 [...] -???-???-???-???-???-??? -???-???- (more content not included)... Normal [facility] Syphilis Antibodieson 2024 Syphilis Abs Non-Reactive Normal Nonreactive [facility] Comment on above: Performed By: #### L 509.8002, L3890.6006, L100.0100, L501.0250 ####[facility] [address] [place], [address] [employer] Manager Office Visit Reporton 01-18-2025 [employer] Manager Office Visit Report [facility] [address], [address] [place] [address] OFFICE VISIT Date of Service: 01/18/25 MR#: [id number] Acct: [id number] Name: JOE ARRIOLA Rep #: [id number] : 2000 Provider: Dr. Carol olra MD Age/Sex: 24/F Location: [facility] Status: Signed Intake Vital Signs 10/16/24 14:51 11/20/24 15:16 12/19/24 15:45 01/18/25 12:59 Height 5 ft 8 in 5 ft 8 in 5 ft 8 in 5 ft 8 in Weight: 150 lb 8 oz 152 lb 4 oz 167 lb 5 oz BMI 22.8 23.1 25.4 BP 124/85 H 131/76 H 113/68 Intake Visit Reasons: 22wk ob Md Pediatric Allergist Required: No Is patient in pain?: No Allergies No Known Allergies Allergy (Verified 01/18/25 12:56) Medications ???Medication ???Instructions ???Recorded ???Confirmed ???Type multivit-min no.71-iron fum 28 1 cap PO DAILY 09/14/22 01/18/25 History mg-folate no.1 1 mg-dha 300 mg capsule ([facility]-[place]) Last Menstrual Period: 08/14/24 Zika: Zika virus [...] times per week duration: > 90 minutes/day fernanda/latter day: Caodaism seatbelt use: always do you feel safe [...] - Gaurav (more content not included)... Normal [facility] [employer] Manager Office Visit Reporton 12-19-2024 [employer] Manager Office Visit Report [facility] [address], [address] [place] [address] OFFICE VISIT Date of Service: 12/19/24 MR#: [id number] Acct: [id number] Name: JOE ARRIOLA Rep #: [id number] : 2000 Provider: CLAUDY schofield Age/Sex: 24/F Location: [facility] Status: Signed Intake Vital Signs 10/16/24 14:51 11/20/24 15:16 12/19/24 15:45 Height 5 ft 8 in 5 ft 8 in 5 ft 8 in Weight: 152 lb 4 oz BMI 23.1 BP 131/76 H Intake Visit Reasons: 18wk ob Md Pediatric Allergist Required: No Is patient in pain?: No Allergies No Known Allergies Allergy (Verified 12/19/24 15:48) Medications ???Medication ???Instructions ???Recorded ???Confirmed ???Type multivit-min no.71-iron fum 28 1 cap PO DAILY 09/14/22 12/19/24 History mg-folate no.1 1 mg-dha 300 mg capsule ([facility]) Last Menstrual Period: 08/14/24 Zika: Zika virus [...] times per week duration: > 90 minutes/day fernanda/latter day: Caodaism seatbelt use: always do you feel safe at home: Yes additional social history: BF- [place] [employer] History 3 Elective abortions Hx Para 1 [...] -???-???-???-???-???-??? -???-???-???-???-???-? (more content not included)... Normal [facility] Laboratory - Chemistry and C hemistry - challengeOrdered By: Marce Almanzar on 11-20-2024 Glucose Ql (U) Negative [facility] Laboratory - UrinalysisOrder ed By: Marce Almanzar on 11-20-2024 Protein Ql (U) Negative [facility] [employer] Manager Office Visit Reporton 11-20-2024 [employer] Manager Office Visit Report [facility] [address], [address] [place] [address] OFFICE VISIT Date of Service: 11/20/24 MR#: [id number] Acct: [id number] Name: JOE ARRIOLA Rep #: [id number] : 2000 Provider: Dr. Marce Sorto DO Age/Sex: 24/F Location: [facility] Status: Signed Intake Vital Signs 02/03/24 13:36 10/16/24 14:51 11/20/24 15:16 Height 5 ft 8 in 5 ft 8 in 5 ft 8 in Weight: 150 lb 8 oz BMI 22.8 BP 124/85 H Intake Visit Reasons: 14wk ob Chief Complaint: 14wk ob Md Pediatric Allergist Required: No Is patient in pain?: No Allergies No Known Allergies Allergy (Verified 11/20/24 15:15) Medications ???Medication ???Instructions ???Recorded ???Confirmed ???Type multivit-min no.71-iron fum 28 1 cap PO DAILY 09/14/22 11/20/24 History mg-folate no.1 1 mg-dha 300 mg capsule ([facility]) Last Menstrual Period: 08/14/24 PFSH PFSH Medical [...] times per week duration: > 90 minutes/day fernanda/latter day: Caodaism seatbelt use: always do you feel safe at home: Yes additional social history: BF- [place] [employer] History 3 Elective abortions Hx Para 1 [...] lee at (more content not included)... Normal [facility] Absolute lymphocyte countOrd ered By: Preeti Crawford on 10-29-2024 Lymphocytes Auto (Unsp spec) [#/Vol] 1.45 10*3/uL 0.83-4.51 [facility] Absolute neutrophil countOrd ered By: Preeti Crawford on 10-29-2024 Neutrophils (Bld) [#/Vol] 4.5 10*3/uL 2.0-7.7 [facility] Automated lymphocyte count a s percentage of total leukocytesOrdered By: Preeti Crawford on 10-29-2024 Lymphocytes/100 WBC Auto (Unsp spec) 22.0 % 19-41 [facility] Basophil percentageOrdered B y: Preeti Crawford on 10-29-2024 Basophils/100 WBC (Bld) 0.6 % 0-1 [facility] CBC W/Diff, Automatedon 10-08 Absolute Lymph 1.45 X10 3/uL Normal 0.83-4.51 [facility] Comment on above: Performed By: #### L 100.0100, L509.4006, L3890.6301, L509.8002, L900.0098, L3890.6102, L3890.6006, BTS #### [facility] Laboratory [address] [place], [address] Absolute Neut 4.5 X10 3/uL Normal 2.0-7.7 [facility] Comment on above: Performed By: #### L 100.0100, L509.4006, L3890.6301, L509.8002, L900.0098, L3890.6102, L3890.6006, BTS #### [facility] [address] [place], [address] Basophils/100 WBC (Bld) 0.6 % Normal 0-1 [facility] Comment on above: Performed By: #### L 100.0100, L509.4006, L3890.6301, L509.8002, L900.0098, L3890.6102, L3890.6006, BTS #### [facility] [address] [place], [address] Eosinophils/100 WBC (Bld) 3.0 % Normal 0-5 [facility] Comment on above: Performed By: #### L 100.0100, L509.4006, L3890.6301, L509.8002, L900.0098, L3890.6102, L3890.6006, BTS #### [facility] [address] [place], [address] Erythrocyte distribution width (RBC) [Ratio] 12.7 % Normal 11.6-14.6 [facility] Comment on above: Performed By: #### L 100.0100, L509.4006, L3890.6301, L509.8002, L900.0098, L3890.6102, L3890.6006, BTS #### [facility] [address] [place], [address] Hematocrit (Bld) [Volume fraction] 38.2 % Normal 37-47 [facility] Comment on above: Performed By: #### L 100.0100, L509.4006, L3890.6301, L509.8002, L900.0098, L3890.6102, L3890.6006, BTS #### [facility] [address] [place], [address] Hemoglobin (Bld) [Mass/Vol] 13.1 g/dL Normal 12.0-15.0 [facility] Comment on above: Performed By: #### L 100.0100, L509.4006, L3890.6301, L509.8002, L900.0098, L3890.6102, L3890.6006, BTS #### [facility] [address] [place], [address] IG% 0.200 Normal 0.0-0.9 [facility] Comment on above: Result Comment: IG% - Immature Granulocytes (promyelocytes, myelocytes and metamyelocytes) > 1% indicates that a LEFT SHIFT is Present. Performed By: #### L 100.0100, L509.4006, L3890.6301, L509.8002, L900.0098, L3890.6102, L3890.6006, BTS #### [facility] [address] [place], [address] Lymphocytes/100 WBC (Bld) 22.0 % Normal 19-41 [facility] Comment on above: Performed By: #### L 100.0100, L509.4006, L3890.6301, L509.8002, L900.0098, L3890.6102, L3890.6006, BTS #### [facility] [address] [place], [address] MCH (RBC) [Entitic mass] 30.3 pg Normal 27.0-32.0 [facility] Comment on above: Performed By: #### L 100.0100, L509.4006, L3890.6301, L509.8002, L900.0098, L3890.6102, L3890.6006, BTS #### [facility] [address] [place], [address] MCHC (RBC) [Mass/Vol] 34.3 g/dL Normal 32-36 [facility] Comment on above: Performed By: #### L 100.0100, L509.4006, L3890.6301, L509.8002, L900.0098, L3890.6102, L3890.6006, BTS #### [facility] [address] [place], [address] MCV (RBC) [Entitic vol] 88.2 fL Normal 81-99 [facility] Comment on above: Performed By: #### L 100.0100, L509.4006, L3890.6301, L509.8002, L900.0098, L3890.6102, L3890.6006, BTS #### [facility] [address] [place], [address] Monocytes/100 WBC (Bld) 5.6 % Normal 0-10 [facility] Comment on above: Performed By: #### L 100.0100, L509.4006, L3890.6301, L509.8002, L900.0098, L3890.6102, L3890.6006, BTS #### [facility] [address] [place], [address] Neutrophils/100 WBC (Bld) 68.6 % Normal 47-70 [facility] Comment on above: Performed By: #### L 100.0100, L509.4006, L3890.6301, L509.8002, L900.0098, L3890.6102, L3890.6006, BTS #### [facility] [address] [place], [address] Nucleated RBC (Bld) [#/Vol] 0 10*3/uL Normal 0-5 [facility] Comment on above: Performed By: #### L 100.0100, L509.4006, L3890.6301, L509.8002, L900.0098, L3890.6102, L3890.6006, BTS #### [facility] [address] [place], [address] Platelet mean volume (Bld) [Entitic vol] 9.9 fL Normal 6.2-12.0 [facility] Comment on above: Performed By: #### L 100.0100, L509.4006, L3890.6301, L509.8002, L900.0098, L3890.6102, L3890.6006, BTS #### [facility] [address] [place], [address] Platelets (Bld) [#/Vol] 282 10*3/uL Normal 150-450 [facility] Comment on above: Performed By: #### L 100.0100, L509.4006, L3890.6301, L509.8002, L900.0098, L3890.6102, L3890.6006, BTS #### [facility] [address] [place], [address] RBC (Bld) [#/Vol] 4.33 10*6/uL Normal 4.2-5.4 [facility] Comment on above: Performed By: #### L 100.0100, L509.4006, L3890.6301, L509.8002, L900.0098, L3890.6102, L3890.6006, BTS #### [facility] [address] [place], [address] RDW SD 41.3 fl Normal 35.1-43.9 [facility] Comment on above: Performed By: #### L 100.0100, L509.4006, L3890.6301, L509.8002, L900.0098, L3890.6102, L3890.6006, BTS #### [facility] [address] [place], [address] WBC (Bld) [#/Vol] 6.6 10*3/uL Normal 4.4-11.0 [facility] Comment on above: Performed By: #### L 100.0100, L509.4006, L3890.6301, L509.8002, L900.0098, L3890.6102, L3890.6006, BTS #### [facility] [address] [place], [address] Eosinophil percentageOrdered By: Preeti Crawford on 10-29-2024 Eosinophils/100 WBC (Bld) 3.0 % 0-5 [facility] Erythrocyte distribution wid th ratioOrdered By: Preeti Crawford on 10-29-2024 Erythrocyte distribution width (RBC) [Ratio] 12.7 % 11.6-14.6 [facility] Erythrocyte distribution wid th standard deviationOrdered By: Preeti Crawford on 10-29-2024 Erythrocyte distribution width (RBC) [Ratio] 41.3 fl 35.1-43.9 [facility] HIVon 10-29-2024 HIV Non-Reactive Normal Nonreactive [facility] Comment on above: Result Comment: Non- Reactive Reactive Repeatedly reactive samples must be confirmed according to CDC recommended confirmatory algorithms. The subresults for either HIVAG or AHIV can be used as an aid in the selection of the confirmation algorithm for reactive samples. Send out specimens with Reactive results to [facility] for confirmation. Order the HIV antibody detection and differentiation: lc#[id number] Performed By: #### L 100.0100, L509.4006, L3890.6301, L509.8002, L900.0098, L3890.6102, L3890.6006, BTS #### [facility] [address] [place], [address] Hematocrit Auto (Bld) [Volum e fraction]Ordered By: Preeti Crawford on 10-29-2024 Hematocrit (Bld) [Volume fraction] 38.2 % 37-47 [facility] Hemoglobin measurementOrdere d By: Preeti Crawford on 10-29-2024 Hemoglobin (Bld) [Mass/Vol] 13.1 g/dL 12.0-15.0 [facility] Hepatitis C Antibodyon 10-29 Hepatitis C Ab Non-Reactive Normal Nonreactive [facility] Comment on above: Result Comment: Reac tive: Presumptive evidence of antibodies to HCV. Follow CDC recommendations for supplemental testing. Non-Reactive: Antibodies to HCV were not detected; does not exclude the possibility of exposure to HCV Reactive Results are presumptive evidence of antibodies to HCV. Follow CDC recommendations for supplemental testing. Order confirmation testing: HCV Quant by PCR testing - HCVPCR #[id number] Non Reactive: < 0.8 Equivocal: >/= 0.8 to < 1.0 Reactive: >/= 1.0 The CDC requires that a reactive/equivocal HCV antibody result be sent out for confirmation. HCV Quant by PCR testing. Performed By: #### L 100.0100, L509.4006, L3890.6301, L509.8002, L900.0098, L3890.6102, L3890.6006, BTS ####[facility] [address] [facility]. [place], [place], [id number] Immature granulocytes/100 WB C Auto (Bld)Ordered By: Preeti Crawford on 10-29-2024 Immature granulocytes/100 WBC (Bld) 0.200 % 0.0-0.9 [facility] Comment on above: IG% - Immature Granu locytes (promyelocytes, myelocytes and metamyelocytes) > 1% indicates that a LEFT SHIFT is Present. L3890.6102on 10-29-2024 HEP B Surf Ag Non-Reactive Normal Nonreactive [facility] Comment on above: Result Comment: Reac tive: Presumptive evidence of HBV. Repeatedly reactive samples must be confirmed using a neutralization test ([employer] HBsAg Confirmatory Test) Non-Reactive: HBsAg not detected; does not exclude the possibility of exposure to HBV Performed By: #### L 100.0100, L509.4006, L3890.6301, L509.8002, L900.0098, L3890.6102, L3890.6006, BTS #### [facility] [address] [facility] [place], [place], [id number] L509.4006on 10-29-2024 Rubella IgG REAC Normal Nonreactive [facility] Comment on above: Result Comment: Anti body Result: Interpretation Non-Reactive: Non-Immune Reactive: Immune The following results were obtained with the [employer] Rubella IgG assay. Results from assays of other manufacturers cannot be used interchangeably. Performed By: #### L 100.0100, L509.4006, L3890.6301, L509.8002, L900.0098, L3890.6102, L3890.6006, BTS #### [facility] [address] [place], [place], [id number] Laboratory - Microbiology an d Antimicrobial susceptibilityOrdered By: Preeti Crawford on 10-29-2024 HBV surface Ag Ql (S) Non-Reactive Nonreactive [facility] Comment on above: Reactive: Presumptiv e evidence of HBV. Repeatedly reactive samples must be confirmed using a neutralization test ([employer] HBsAg Confirmatory Test)Non-Reactive: HBsAg not detected; does not exclude the possibility of exposure to HBV MCV (mean corpuscular volume ) determinationOrdered By: Preeti Crawford on 10-29-2024 MCV (RBC) [Entitic vol] 88.2 fL 81-99 [facility] Mean corpuscular hemoglobin (MCH) determinationOrdered By: Preeti Crawford on 10-29-2024 MCH (RBC) [Entitic mass] 30.3 pg 27.0-32.0 [facility] Mean corpuscular hemoglobin concentration (MCHC) determinationOrdered By: Preeti Crawford on 10-29-2024 MCHC (RBC) [Mass/Vol] 34.3 g/dL 32-36 [facility] Mean platelet volume determi nationOrdered By: Preeti Crawford on 10-29-2024 Platelet mean volume (Bld) [Entitic vol] 9.9 fL 6.2-12.0 [facility] Monocyte percentageOrdered B y: Preeti Crawford on 10-29-2024 Monocytes/100 WBC (Bld) 5.6 % 0-10 [facility] NATERAon 10-29-2024 NATURA SEE SCANNED REPORT Normal [facility] Comment on above: Order Comment: Comme nts: NIPT with Gender Performed By: #### L 100.0100, L509.4006, L3890.6301, L509.8002, L900.0098, L3890.6102, L3890.6006, BTS #### [facility] [address] [place], [address] Neutrophil percentageOrdered By: Preeti Crawford on 10-29-2024 Neutrophils/100 WBC (Bld) 68.6 % 47-70 [facility] No Panel InformationOrdered By: Preeti Crawford on 10-29-2024 HIV (1&2) Antibody Non-Reactive Nonreactive [facility] Comment on above: Non-ReactiveReactive Repeatedly reactive samples must be confirmed according to CDC recommended confirmatory algorithms. The subresults for either HIVAG or AHIV can be used as an aid in the selection of the confirmation algorithm for reactive samples.Send out specimens with Reactive results to [facility] for confirmation.Order the HIV antibody detection and differentiation: #[id number] Nucleated red blood cell per centageOrdered By: Preeti Crawford on 10-29-2024 Nucleated RBC/100 WBC (Bld) [Ratio] 0 % 0-5 [facility] Platelet countOrdered By: Lonny ruizfroy Ty on 10-29-2024 Platelets (Bld) [#/Vol] 282 10*3/uL 150-450 [facility] RBC Auto (Bld) [#/Vol]Ordere d By: Preeti Crawford on 10-29-2024 RBC (Bld) [#/Vol] 4.33 10*6/uL 4.2-5.4 [facility] Syphilis Antibodieson 2024 Syphilis Abs Non-Reactive Normal Nonreactive [facility] Comment on above: Performed By: #### L 100.0100, L509.4006, L3890.6301, L509.8002, L900.0098, L3890.6102, L3890.6006, BTS #### [facility] [address] [place], [place], [phone] ([phone] Type AND Screenon 10-29-2024 Ab SCREEN GEL Negative Normal [facility] Comment on above: Order Comment: PN Performed By: #### L 100.0100, L509.4006, L3890.6301, L509.8002, L900.0098, L3890.6102, L3890.6006, BTS #### [facility] [address] [place], [address] White blood cell (WBC) count Ordered By: Preeti Crawford on 10-29-2024 WBC (Bld) [#/Vol] 6.6 10*3/uL 4.4-11.0 [facility] Chlamydia/GC BURTON aptimaon CHLAMY,NUC ACID Negative Normal Negative [facility] Comment on above: Performed By: #### L 505.5000, M100.2200, L7000.1800 ####[facility] [address] [place], [place], [address] GC BY NUC ACID Negative Normal Negative [facility] Comment on above: Result Comment: Perf ormed at: =G - [facility] [place] [address] [place], [place] [id number] Medical Surgical Tech: Shelley Funk MD, Phone: [phone] Performed By: #### L 505.5000, M100.2200, L7000.1800 ####[facility] [address] [place], [address] Urine Cultureon 10-19-2024 URC Mixed Gram Positive Organisms Newberry Count 50,000-80,000 MIXC Mixed contaminants. Submit a new specimen if indicated. Normal [facility] Comment on above: Performed By: #### L 505.5000, M100.2200, L7000.1800 ####[facility] [address] [place], [place], [address] Amphetamine detection with 1 000 ng/mL as cutoffOrdered By: Preeti Crawford on 10-16-2024 Amphetamines Screen method >1000 ng/mL Ql (U) Negative < 200 ng/mL [facility] Chlamydia trachomatis rRNA d etection by probe and target amplification methodOrdered By: Preeti Crawford on 10-16-2024 C. trachomatis rRNA BURTON+probe Ql (Unsp spec) Negative Negative [facility] Neisseria gonorrhoeae nuclei c acid detection by amplified probe techniqueOrdered By: Preeti Crawford on 10-16-2024 N. gonorrhoeae DNA BURTON+probe Ql (Unsp spec) Negative Negative [facility] Comment on above: Performed at: =G - [facility] [address] [place], [place] [id number] Director: Shelley Funk MD, Phone: [phone] No Panel InformationOrdered By: Preeti Crawford on 10-16-2024 Urine Buprenorphine Qualitative Negative < 200 ng/mL [facility] Urine Oxycodone Screen Negative < 100 ng/mL [facility] [employer] Office Visit Reporton 10-16-2024 [employer] Office Visit Report [address], [address] [place] [address] OFFICE VISIT Date of Service: 10/16/24 MR#: [id number] Acct: [id number] Name: JOE ARRIOLA Rep #: [id number] : 2000 Provider: MARCELO Jones ams Age/Sex: 24/F Location: [facility] Status: Signed Intake Vital Signs 02/03/24 13:36 10/16/24 14:51 Height 5 ft 8 in 5 ft 8 in Weight: 146 lb 4 oz BMI 22.2 BP 121/73 H Intake Visit Reasons: *EST* NOB LMP 08/14, CHARLIE 05/21/25 Md Pediatric Allergist Required: No Is patient in pain?: No Allergies No Known Allergies Allergy (Verified 10/16/24 14:52) Medications ???Medication ???Instructions ???Recorded ???Confirmed ???Type multivit-min no.71-iron fum 28 1 cap PO DAILY 09/14/22 02/03/24 History mg-folate no.1 1 mg-dha 300 mg capsule (PNV-[place]) Last Menstrual Period: 08/14/24 Zika: Zika virus [...] times per week duration: > 90 minutes/day fernanda/latter day: Caodaism seatbelt use: always do you feel safe at home: Yes additional social history: BF- [place] [employer] History 3 Elective abortions Hx Para 1 [...] definite No (more content not included)... Normal [facility] Quantitative urine opiates m easurementOrdered By: Preeti Crawford on 10-16-2024 Opiates Ql (U) Negative < 300 ng/mL [facility] Screening urine fentanyl sarah surementOrdered By: Preeti Crawford on 10-16-2024 fentaNYL Screen Ql (U) Negative [place] Urine Drug Screen (VISTA)on 10-16-2024 AMPHETAMINES Negative Normal <1000 ng/mL [facility] Comment on above: Order Comment: UNK Performed By: #### L 505.5000, M100.2200, L7000.1800 ####[facility] [address] [place], [place], [id number] BARBITIURATES Negative Normal < 200 ng/mL [facility] Comment on above: Order Comment: UNK Performed By: #### L 505.5000, M100.2200, L7000.1800 ####[facility] [address] [place], [address] BENZODIAZIPINE Negative Normal < 200 ng/mL [facility] Comment on above: Order Comment: UNK Performed By: #### L 505.5000, M100.2200, L7000.1800 ####[facility] [address] [place], [address] BUP Ur Drug Scr Negative Normal < 200 ng/mL [facility] Comment on above: Order Comment: UNK Performed By: #### L 505.5000, M100.2200, L7000.1800 ####[facility] [address] [place], [place], [phone] COCAINE Negative Normal < 300 ng/mL [facility] Comment on above: Order Comment: UNK Performed By: #### L 505.5000, M100.2200, L7000.1800 ####[facility] [address] [place], [place], [phone] Fentanyl Negative Normal [facility] Comment on above: Order Comment: UNK Performed By: #### L 505.5000, M100.2200, L7000.1800 ####[facility] [address] [place], [place], [phone] METHADONE Negative Normal < 300 ng/mL [facility] Comment on above: Order Comment: UNK Performed By: #### L 505.5000, M100.2200, L7000.1800 ####[facility] [address] [place], [place], [phone] OPIATES Negative Normal < 300 ng/mL [facility] Comment on above: Order Comment: UNK Performed By: #### L 505.5000, M100.2200, L7000.1800 ####[facility] [address] [place], [address] OXYCODONE Negative Normal < 100 ng/mL [facility] Comment on above: Order Comment: UNK Performed By: #### L 505.5000, M100.2200, L7000.1800 ####[facility] [address] [place], [address] PCP Negative Normal < 25 ng/mL [facility] Comment on above: Order Comment: UNK Performed By: #### L 505.5000, M100.2200, L7000.1800 ####[facility] [address] [place], [address] THC Positive Normal < 50 ng/mL [facility] Comment on above: Order Comment: UNK Result Comment: If c onfirmation testing is needed, a separate order will be required to send out testing to the reference laboratory. Performed By: #### L 505.5000, M100.2200, L7000.1800 ####[facility] [address] [place], [address] Urine benzodiazepine levelOr dered By: Preeti Crawford on 10-16-2024 Benzodiazepines Ql (U) Negative < 200 ng/mL [facility] Urine cocaine levelOrdered B y: Preeti Crawford on 10-16-2024 Cocaine Ql (U) Negative < 300 ng/mL [facility] Urine cultureOrdered By: Francis Crawford on 10-16-2024 Bacteria identified Cx Nom (U) Positive Abnormal [facility] Urine oeymj-5-ktkjhcfxfvxlmk abinol (THC) measurementOrdered By: Preeti Crawford on 10-16-2024 Cannabinoids Screen Ql (U) Positive < 50 ng/mL [facility] Comment on above: If confirmation test ing is needed, a separate order will be required to send out testing to the reference laboratory. Urine phencyclidine (PCP) de tectionOrdered By: Preeti Crawford on 10-16-2024 Phencyclidine Ql (U) Negative < 25 ng/mL [facility] Progress Noteson 03-05-2024 [employer] Authentication Interface Message Text ----- Tuesday, March 05, 2024 at 6:55:21 PM ----- ----- Provider: Resident Shad -- Clinic: [place] ----- Attempted to send referral but email [email or web address] (per patient request) is incorrect. Also attempted to call patient but no answer. Will attempt to call patient again Normal [facility] Progress Noteson 02-22-2024 [employer] Authentication Interface Message Text ----- Thursday, February 22, 2024 at 4:54:58 PM ----- ----- Provider: [id number] Fartun -- Clinic: [place] [address] ----- INITIAL/COMPREHENSIVE EXAM Patient presents for an [...] February at 5:46:22 PM ----- ----- Provider: [id number] Viki Gutiérrez DDS -- Clinic: [place] [address] ----- Normal [facility] No Panel InformationOrdered By: Edith Sterling on 07-08-2024 Affirm Pathogens DNA Direct Probe Rahel species DNA Probe Positive Gardnerella vaginalis DNA Probe Negative Trichomonas vaginalis DNA Probe Negative [facility] Gram stain for investigation of transfusion reactionOrdered By: Marce Almanzar on 08-26-2023 Microscopic observation Gram stain Nom (Unsp spec) [facility] No Panel InformationOrdered By: Marce Almanzar on 08-26-2023 Genital Culture Presumptive C albicans [facility] Gram stain for investigation of transfusion reactionOrdered By: Preeti Crawford on 04-29-2023 Microscopic observation Gram stain Nom (Unsp spec) [facility] Thin prep Papanicolaou smear with manual screeningOrdered By: Preeti Crawford on 04-29-2023 Genital Culture G. vaginalis (Presumptive) [facility] Absolute lymphocyte countOrd ered By: Preeti Crawford on 04-19-2023 Lymphocytes Auto (Unsp spec) [#/Vol] 2.01 10*3/uL 0.83-4.51 [facility] Basophil percentageOrdered B y: Preeti Crawford on 04-19-2023 Basophils/100 WBC (Bld) 0.4 % 0-1 [facility] Eosinophils/100 WBC (Bld) 2.9 % 0-5 [facility] Neutrophils (Bld) [#/Vol] 6.4 10*3/uL 2.0-7.7 [facility] Neutrophils/100 WBC (Bld) 67.1 % 47-70 [facility] WBC (Bld) [#/Vol] 9.6 10*3/uL 4.4-11.0 [facility] Blood erythrocytes count (nu mber/volume)Ordered By: Preeti Crawford on 04-19-2023 RBC (Bld) [#/Vol] 4.10 10*6/uL 4.2-5.4 [facility] Blood hemoglobin measurement (mass/volume)Ordered By: Preeti Crawford on 04-19-2023 Hemoglobin (Bld) [Mass/Vol] 11.4 g/dL 12.0-15.0 [facility] Blood lymphocytes/100 leukoc ytesOrdered By: Preeti Crawford on 04-19-2023 Lymphocytes/100 WBC (Bld) 20.9 % 19-41 [facility] Blood monocytes/100 leukocyt esOrdered By: Preeti Crawford on 04-19-2023 Monocytes/100 WBC (Bld) 8.3 % 0-10 [facility] Blood platelet mean volumeOr dered By: Preeti Crawford on 04-19-2023 Platelet mean volume (Bld) [Entitic vol] 10.3 fL 6.2-12.0 [facility] Determination of erythrocyte mean corpuscular volume (MCV)Ordered By: Preeti Crawford on 04-19-2023 MCV (RBC) [Entitic vol] 83.9 fL 81-99 [facility] Hematocrit Auto (Bld) [Volum e fraction]Ordered By: Preeti Crawford on 04-19-2023 Hematocrit (Bld) [Volume fraction] 34.4 % 37-47 [facility] Laboratory - Drug toxicology Ordered By: Preeti Crawford on 04-19-2023 Benzodiazepines Ql (U) Negative < 200 ng/mL [facility] Cannabinoids Screen Ql (U) Negative < 50 ng/mL [facility] Cocaine Ql (U) Negative < 300 ng/mL [facility] Opiates Ql (U) Negative < 300 ng/mL [facility] Laboratory - Hematology and Cell countsOrdered By: Preeti Crawford on 04-19-2023 Erythrocyte distribution width (RBC) [Entitic vol] 40.3 fL 35.1-43.9 [facility] Erythrocyte distribution width (RBC) [Ratio] 13.2 % 11.6-14.6 [facility] Immature granulocytes/100 WBC (Bld) 0.400 % 0.0-0.9 [facility] Comment on above: IG% - Immature Granu locytes (promyelocytes, myelocytes and metamyelocytes) > 1% indicates that a LEFT SHIFT is Present. MCH (RBC) [Entitic mass] 27.8 pg 27.0-32.0 [facility] Nucleated RBC/100 WBC (Bld) [Ratio] 0 % 0-5 [facility] MCHC Auto (RBC) [Mass/Vol]Or dered By: Preeti Crawford on 04-19-2023 MCHC (RBC) [Mass/Vol] 33.1 g/dL 32-36 [facility] No Panel InformationOrdered By: Preeti Crawford on 04-19-2023 MDMA (Ecstasy) Screen Negative < 500 ng/mL [place] Urine Barbiturates Screen Negative < 200 ng/mL [facility] Urine Drug Screen Comment [facility] Comment on above: CONFIRMATORY TESTING FOR ALL [...] Methadone Screen Negative < 300 ng/mL [facility] Platelets bldOrdered By: Francis Crawford on 04-19-2023 Platelets (Bld) [#/Vol] 250 10*3/uL 150-450 [facility] Serum Treponema species anti body detectionOrdered By: Preeti Crawford on 04-19-2023 Treponema sp Ab Ql (S) Non-Reactive [facility] Urine amphetamine measuremen t (moles/volume)Ordered By: Preeti Crawford on 04-19-2023 Amphetamine (U) [Moles/Vol] Negative <1000 ng/mL [facility] Urine phencyclidine (PCP) de tectionOrdered By: Preeti Crawford on 04-19-2023 Phencyclidine Ql (U) Negative < 25 ng/mL [facility] Laboratory - Chemistry and C hemistry - challengeon 03-29-2023 Glucose Ql (U) Negative [facility] Laboratory - Urinalysison Protein Ql (U) Negative [facility] Laboratory - Chemistry and C hemistry - challengeon 03-22-2023 Glucose Ql (U) Negative [facility] Laboratory - Urinalysison Protein Ql (U) Negative [facility] Laboratory - Chemistry and C hemistry - challengeon 03-15-2023 Glucose Ql (U) Negative [facility] Laboratory - Urinalysison Protein Ql (U) Negative [facility] No Panel InformationOrdered By: Marce Almanzar on 03-15-2023 Group B Streptococcus Culture Group B Beta Streptococcus is not isolated. [facility] Laboratory - Chemistry and C hemistry - challengeon 03-10-2023 Glucose Ql (U) Negative [facility] Laboratory - Urinalysison Protein Ql (U) Negative [facility] Laboratory - Chemistry and C hemistry - challengeon 02-22-2023 Glucose Ql (U) Negative [facility] Laboratory - Urinalysison Protein Ql (U) Negative [facility] Laboratory - Chemistry and C hemistry - challengeon 02-10-2023 Glucose Ql (U) Negative [facility] Laboratory - Urinalysison Protein Ql (U) Negative [facility] Laboratory - Chemistry and C hemistry - challengeon 01-25-2023 Glucose Ql (U) Negative [facility] Laboratory - Urinalysison Protein Ql (U) Negative [facility] Absolute lymphocyte countOrd ered By: Debby Suh on 01-11-2023 Lymphocytes Auto (Unsp spec) [#/Vol] 1.34 10*3/uL 0.83-4.51 [facility] Basophil percentageOrdered B y: Debby Suh on 01-11-2023 Basophils/100 WBC (Bld) 0.4 % 0-1 [facility] Eosinophils/100 WBC (Bld) 3.7 % 0-5 [facility] Neutrophils (Bld) [#/Vol] 5.5 10*3/uL 2.0-7.7 [facility] Neutrophils/100 WBC (Bld) 70.4 % 47-70 [facility] WBC (Bld) [#/Vol] 7.9 10*3/uL 4.4-11.0 [facility] Blood erythrocytes count (nu mber/volume)Ordered By: Debby Suh on 01-11-2023 RBC (Bld) [#/Vol] 3.90 10*6/uL 4.2-5.4 [facility] Blood hemoglobin measurement (mass/volume)Ordered By: Debby Suh on 01-11-2023 Hemoglobin (Bld) [Mass/Vol] 12.0 g/dL 12.0-15.0 [facility] Blood lymphocytes/100 leukoc ytesOrdered By: Debby Suh on 01-11-2023 Lymphocytes/100 WBC (Bld) 17.0 % 19-41 [facility] Blood monocytes/100 leukocyt esOrdered By: Debby Suh on 01-11-2023 Monocytes/100 WBC (Bld) 8.0 % 0-10 [facility] Blood platelet mean volumeOr dered By: Debby Suh on 01-11-2023 Platelet mean volume (Bld) [Entitic vol] 9.3 fL 6.2-12.0 [facility] Determination of erythrocyte mean corpuscular volume (MCV)Ordered By: Debby Suh on 01-11-2023 MCV (RBC) [Entitic vol] 90.0 fL 81-99 [facility] Gestational diabetes screen 1-hour screen with 50g oral glucose loadOrdered By: Debby Suh on 01-11-2023 Glucose 1 Hr post 50 g glucose PO [Mass/Vol] 108 mg/dL 70-140 [facility] HIV 1 and HIV-2 antibody ass ay with HIV-1 p24 antigen detectionOrdered By: Debby Suh on 01-11-2023 HIV 1+2 Ab+HIV1 p24 Ag IA Ql Non-Reactive Nonreactive [facility] Hematocrit Auto (Bld) [Volum e fraction]Ordered By: Debby Suh on 01-11-2023 Hematocrit (Bld) [Volume fraction] 35.1 % 37-47 [facility] Laboratory - Chemistry and C hemistry - challengeon 01-11-2023 Glucose Ql (U) Negative [facility] Laboratory - Hematology and Cell countsOrdered By: Debby Suh on 01-11-2023 Erythrocyte distribution width (RBC) [Entitic vol] 39.5 fL 35.1-43.9 [facility] Erythrocyte distribution width (RBC) [Ratio] 12.1 % 11.6-14.6 [facility] Immature granulocytes/100 WBC (Bld) 0.500 % 0.0-0.9 [facility] Comment on above: IG% - Immature Granu locytes (promyelocytes, myelocytes and metamyelocytes) > 1% indicates that a LEFT SHIFT is Present. MCH (RBC) [Entitic mass] 30.8 pg 27.0-32.0 [facility] Nucleated RBC/100 WBC (Bld) [Ratio] 0 % 0-5 [facility] Laboratory - Urinalysison Protein Ql (U) Negative [facility] MCHC Auto (RBC) [Mass/Vol]Or dered By: Debby Suh on 01-11-2023 MCHC (RBC) [Mass/Vol] 34.2 g/dL 32-36 [facility] Platelets bldOrdered By: Boaz miranda Vikash on 01-11-2023 Platelets (Bld) [#/Vol] 245 10*3/uL 150-450 [facility] Serum Treponema species anti body detectionOrdered By: Debby Suh on 01-11-2023 Treponema sp Ab Ql (S) Non-Reactive [facility] Laboratory - Chemistry and C hemistry - challengeon 12-14-2022 Glucose Ql (U) Negative [facility] Laboratory - Urinalysison Protein Ql (U) Negative [facility] Gram stain for investigation of transfusion reactionOrdered By: Debby Suh on 11-16-2022 Microscopic observation Gram stain Nom (Unsp spec) [facility] Laboratory - Chemistry and C hemistry - challengeon 11-16-2022 Glucose Ql (U) Negative [facility] Laboratory - Urinalysison Protein Ql (U) Negative [facility] No Panel InformationOrdered By: Carol Bishop on 11-16-2022 Miscellaneous Test See comment [facility] Comment on above: TEST RESULT LIMITSAF P, [...] AFP MoM 0.85 OSBR Risk 1 [place] [id number] Interpretation Interpretation: Screen NegativeThis result is screen [...] Customer Services to discuss available options. The [employer] recommends amniocentesis be offered to women age 35 and older.Comment: Patrica Hoskins, Ph.D., DABCCDirectorReferences: Available Upon Request.Multiples Of Median Cutoff For AFP ElevationsSingleton 2.5 Black 2.8IDD 2.0 Twins 4.5 Abbreviation DefinitionsIDD - Insulin Dep DiabetesOSBR - Open Spina Bifida RiskFor further inquiries contact [employer] at [phone].This test was developed and its performance characteristicsdetermined by [facility]. It has not been cleared or approvedby the Food and Drug Administration. TESTING PERFORMED AT [facility]. ORIGINAL REPORT ON FILE IN LAB CONTAINS ADDITIONAL TEST SITE INFORMATION. No Panel Informationon 11-16 POC Bacterial Vaginitis (Rapid) Positive [facility] POC Trichomonas (Rapid) Negative [facility] Thin prep Papanicolaou smear with manual screeningOrdered By: Debby Suh on 11-16-2022 Genital Culture Gardnerella vaginalis [facility] Laboratory - Chemistry and C hemistry - challengeon 10-18-2022 Glucose Ql (U) Negative [facility] Laboratory - Urinalysison Protein Ql (U) Negative [facility] Absolute lymphocyte countOrd ered By: Carol Mcnulty on 09-21-2022 Lymphocytes Auto (Unsp spec) [#/Vol] 1.49 10*3/uL 0.83-4.51 [facility] Basophil percentageOrdered B y: Carol Mcnulty on 09-21-2022 Basophils/100 WBC (Bld) 0.5 % 0-1 [facility] Eosinophils/100 WBC (Bld) 4.0 % 0-5 [facility] Neutrophils (Bld) [#/Vol] 3.9 10*3/uL 2.0-7.7 [facility] Neutrophils/100 WBC (Bld) 63.3 % 47-70 [facility] WBC (Bld) [#/Vol] 6.2 10*3/uL 4.4-11.0 [facility] Blood erythrocytes count (nu mber/volume)Ordered By: Carol Mcnulty on 09-21-2022 RBC (Bld) [#/Vol] 4.56 10*6/uL 4.2-5.4 [facility] Blood hemoglobin measurement (mass/volume)Ordered By: Carol Mcnulty on 09-21-2022 Hemoglobin (Bld) [Mass/Vol] 13.9 g/dL 12.0-15.0 [facility] Blood lymphocytes/100 leukoc ytesOrdered By: Carol Mcnulty on 09-21-2022 Lymphocytes/100 WBC (Bld) 24.1 % 19-41 [facility] Blood monocytes/100 leukocyt esOrdered By: Carol Mcnulty on 09-21-2022 Monocytes/100 WBC (Bld) 7.8 % 0-10 [facility] Blood platelet mean volumeOr dered By: Carol Mcnulty on 09-21-2022 Platelet mean volume (Bld) [Entitic vol] 8.6 fL 6.2-12.0 [facility] Cervical or vagninal specime n microscopic examination by cytology stain (reported asOrdered By: Marce Almanzar on 09-21-2022 Cytology report Cyto stain Doc (Cvx/Vag) Comment . [facility] Comment on above: The Pap smear is [...] rRNA BURTON+probe Ql (Unsp spec) Negative Negative [facility] Culture, urineOrdered By: Sandy Mcnulty on 09-21-2022 Bacteria identified Cx Nom (U) Culture exhibits no growth. [facility] Determination of erythrocyte mean corpuscular volume (MCV)Ordered By: Carol Mcnulty on 09-21-2022 MCV (RBC) [Entitic vol] 89.0 fL 81-99 [facility] HIV 1 and HIV-2 antibody ass ay with HIV-1 p24 antigen detectionOrdered By: Carol Mcnulty on 09-21-2022 HIV 1+2 Ab+HIV1 p24 Ag IA Ql Non-Reactive Nonreactive [facility] Hematocrit Auto (Bld) [Volum e fraction]Ordered By: Carol Mcnulty on 09-21-2022 Hematocrit (Bld) [Volume fraction] 40.6 % 37-47 [facility] Laboratory - CytologyOrdered By: Marce Almanzar on 09-21-2022 Patient Transport Orderly Cyto stain Nom (Cvx/Vag) [ID] Comment . [facility] Comment on above: Belen Dillon, Cytot echnologist ([facility]) Laboratory - Drug toxicology Ordered By: Carol Mcnulty on 09-21-2022 Amphetamines Ql (U) Negative <1000 ng/mL [facility] Benzodiazepines Ql (U) Negative < 200 ng/mL [facility] Cannabinoids Screen Ql (U) Negative < 50 ng/mL [facility] Cocaine Ql (U) Negative < 300 ng/mL [facility] Opiates Ql (U) Negative < 300 ng/mL [facility] Laboratory - Hematology and Cell countsOrdered By: Carol Mcnulty on 09-21-2022 Erythrocyte distribution width (RBC) [Entitic vol] 39.4 fL 35.1-43.9 [facility] Erythrocyte distribution width (RBC) [Ratio] 12.1 % 11.6-14.6 [facility] Immature granulocytes/100 WBC (Bld) 0.300 % 0.0-0.9 [facility] Comment on above: IG% - Immature Granu locytes (promyelocytes, myelocytes and metamyelocytes) > 1% indicates that a LEFT SHIFT is Present. MCH (RBC) [Entitic mass] 30.5 pg 27.0-32.0 [facility] Nucleated RBC/100 WBC (Bld) [Ratio] 0 % 0-5 [facility] Laboratory - Microbiology an d Antimicrobial susceptibilityOrdered By: Carol Mcnulty on 09-21-2022 N. gonorrhoeae DNA BURTON+probe Ql (Unsp spec) Negative Negative [facility] Comment on above: Performed at: =G - [facility] [address] [id number] Director: Shelley Funk MD, Phone: [phone] Laboratory - Miscellaneous t estsOrdered By: Marce Almanzar on 09-21-2022 Service comment (Unsp spec) [Interp] Comment . [facility] Comment on above: This liquid based Th inPrep(R) pap test was screened withthe use of an image guided system. Service comment (Unsp spec) [Interp] . . [facility] Auto (RBC) [Mass/Vol]Or dered By: Carol Mcnulty on 09-21-2022 MCHC (RBC) [Mass/Vol] 34.2 g/dL 32-36 [facility] No Panel InformationOrdered By: Marce Almanzar on 09-21-2022 Human Papillomavirus Screen Comment . [facility] Comment on above: The HPV DNA reflex c brianeria were not met with this specimenresult therefore, no HPV testing was performed.Performed at: - [facility] [address] [id number] Director: Shelley Funk MD, Phone: [phone] Pathology report final diagnosis Narrative Comment . [facility] Comment on above: NEGATIVE FOR INTRAEP ITHELIAL LESION OR MALIGNANCY. Miscellaneous Test Comment MAILED SPECIMEN [facility] No Panel InformationOrdered By: Carol Mcnulty on 09-21-2022 MDMA (Ecstasy) Screen Negative < 500 ng/mL [place] Urine Barbiturates Screen Negative < 200 ng/mL [facility] Urine Drug Screen Comment [facility] Comment on above: CONFIRMATORY TESTING FOR ALL [...] Urine Methadone Screen Negative < 300 ng/mL [facility] Hepatitis B Surface Antigen Non-Reactive Nonreactive [facility] Hepatitis C Antibody Non-Reactive Nonreactive [facility] Comment on above: Non Reactive: < 0.8 Equivocal: >/= 0.8 to < 1.0 Reactive: >/= 1.0The [facility] recommends that a reactive/equivocal HCV antibody result be followed up by the HCV Nucleic Acid Amplificationtest ([id number]) Rubella IgG Antibody Reactive Nonreactive [facility] Comment on above: Antibody Results Int erpretation of Immune Status Non Reactive Presumed Non-Immune Equivocal Equivocal Reactive Presumed Immune Platelets bldOrdered By: Mauro Mcnulty on 09-21-2022 Platelets (Bld) [#/Vol] 281 10*3/uL 150-450 [facility] Serum Treponema species anti body detectionOrdered By: Carol Mcnulty on 09-21-2022 Treponema sp Ab Ql (S) Non-Reactive [facility] Urine phencyclidine (PCP) de tectionOrdered By: Carol Mcnulty on 09-21-2022 Phencyclidine Ql (U) Negative < 25 ng/mL [facility] Clinical Summary: HMSPatient IDon 06-22-2018 [facility] Work Phone: Clinical Summary: Scanned Marcos simon Summaryon 06-22-2018 Data entered by patient exercise frequency 3 days per week [facility] Work Phone: Data entered by patient exercise type walking [facility] Work Phone: data entered by patient, alcohol (ethanol or ETOH) use No [facility] Work Phone: data entered by patient, drug (of abuse) use No [facility] Work Phone: data entered by patient, Employer Name Employed [facility] Work Phone: data entered by patient, exercise history Yes [facility] Work Phone: data entered by patient, social history, current smoker never smoker [facility] Work Phone: data entered by patient, social history, marital status Single [facility] Work Phone: Denies Surgical History Patient Denies Past Surgical History [facility] Work Phone: father of patient is alive or Alive [facility] Work Phone: housing unit size (asthma environmental history, housing) (from single family to don't know) 3 Floors [facility] Work Phone: mother of patient is alive or Alive [facility] Work Phone: Number of dependent children No [facility] Work Phone: Protein mass conc Patient Denies Medic al Problems or Conditions [facility] Work Phone: Clinical Summary: Scanned RO S Summaryon 06-22-2018 endocrine ROS Denies [facility] Work Phone: genitourinary review of systems, E&M Denies [facility] Work Phone: Lymphocytes #/vol (Bld) Denies [facility] Work Phone: ROS cardiovascular E&M Denies Cr [facility] Work Phone: ROS ENT E&M Denies [facility] Work Phone: ROS gastrointestinal E&M Denies [facility] Work Phone: ROS general E&M Denies [facility] Work Phone: ROS musculoskeletal E&M Denies [facility] Work Phone: ROS neurological E&M Denies Karissa carmel [facility] Work Phone: ROS psychiatric E&M Denies Cryst al [facility] Work Phone: ROS pulmonary E&M Denies [facility] Work Phone: ROS skin E&M Denies [facility] Work Phone: endocrine ROS Denies [facility] Work Phone: genitourinary review of systems, E&M Denies [facility] Work Phone: Lymphocytes #/vol (Bld) Denies [facility] Work Phone: ROS cardiovascular E&M Denies Cr ystal [facility] Work Phone: ROS ENT E&M Denies [facility] Work Phone: ROS gastrointestinal E&M Denies [facility] Work Phone: ROS general E&M Denies [facility] Work Phone: ROS musculoskeletal E&M Denies [facility] Work Phone: ROS neurological E&M Denies Karissa carmel [facility] Work Phone: ROS psychiatric E&M Denies Cryst al [facility] Work Phone: ROS pulmonary E&M Denies [facility] Work Phone: ROS skin E&M Denies [facility] Work Phone: Office Visit: New - 1st visi t with practice, Rm: 1on 06-22-2018 NEGATED: Highlighted rowProtein mass conc T [facility] Work Phone: NEGATED: Highlighted rowProtein mass conc Done [facility] Work Phone: NEGATED: Highlighted rowTobacco smoking status NHIS Tobacco smoking status NHIS [facility] Work Phone: Vital Signs Date Time Vital Sign Value Performing Clinician Facility 02-13-2025 10:24-0400 Body height 172.[address] Kathya Salter DO Work Phone: [facility] 02-13-2025 10:24-0400 Body mass index (BMI) [Ratio] 26.8 kg/m2 Dr. Kathya Saltre DO Work Phone: [facility] 02-13-2025 10:24-0400 Body weight [address] Kathya Salter DO Work Phone: [facility] 02-13-2025 10:24-0400 Diastolic blood pressure 75 mm[Hg] Dr. Kathya Salter DO Work Phone: [facility] 02-13-2025 10:24-0400 Systolic blood pressure 112 mm[Hg] Dr. Kathya Salter DO Work Phone: [facility] 01-18-2025 12:59-0400 Body height 172.[address] Kathya Salter DO Work Phone: [facility] 01-18-2025 12:59-0400 Body mass index (BMI) [Ratio] 25.4 kg/m2 Dr. Kathya Salter DO Work Phone: [facility] 01-18-2025 12:59-0400 Body weight 75.[address] Kathya Salter DO Work Phone: [facility] 01-18-2025 12:59-0400 Diastolic blood pressure 68 mm[Hg] Dr. Kathya Salter DO Work Phone: [facility] 01-18-2025 12:59-0400 Systolic blood pressure 113 mm[Hg] Dr. Kathya Salter DO Work Phone: [facility] 12-19-2024 15:45-0400 Body height 172.[address] Kathya Salter DO Work Phone: [facility] 12-19-2024 15:45-0400 Body mass index (BMI) [Ratio] 23.1 kg/m2 Dr. Kathya Salter DO Work Phone: [phone] [place] [address] 12-19-2024 15:45-0400 Body weight 69.[address] Kathya Salter DO Work Phone: [phone])[phone] [place] [address] 12-19-2024 15:45-0400 Diastolic blood pressure 76 mm[Hg] Dr. Kathya Salter DO Work Phone: [phone])[phone] [place] [address] 12-19-2024 15:45-0400 Systolic blood pressure 131 mm[Hg] Dr. Kathya Salter DO Work Phone: [facility] 11-20-2024 15:16-0400 Body height 172.[address] Kathya Salter DO Work Phone: [facility] 11-20-2024 15:16-0400 Body mass index (BMI) [Ratio] 22.8 kg/m2 Dr. Kathya Salter DO Work Phone: [facility] 11-20-2024 15:16-0400 Body weight 68.[address] Kathya Salter DO Work Phone: [facility] 11-20-2024 15:16-0400 Diastolic blood pressure 85 mm[Hg] Dr. Kathya Salter DO Work Phone: [facility] 11-20-2024 15:16-0400 Systolic blood pressure 124 mm[Hg] Dr. Kathya Salter DO Work Phone: [facility] 10-16-2024 14:51-0400 Body height 172.[address] Kathya Salter DO Work Phone: [facility] 10-16-2024 14:51-0400 Body mass index (BMI) [Ratio] 22.2 kg/m2 Dr. Kathya Salter DO Work Phone: [facility] 10-16-2024 14:51-0400 Body weight 66.[address] Kathya Salter DO Work Phone: [facility] 10-16-2024 14:51-0400 Diastolic blood pressure 73 mm[Hg] Dr. Kathya Salter DO Work Phone: [facility] 10-16-2024 14:51-0400 Systolic blood pressure 121 mm[Hg] Dr. Kathya Salter DO Work Phone: [facility] 08-26-2023 15:37-0400 Body height 172.[address] Kathya Salter Work Phone: [facility] 08-26-2023 15:36-0400 Body mass index (BMI) [Ratio] 25.5 kg/m2 Dr. Kathya Salter Work Phone: [phone](830)[phone] [place] [address] 08-26-2023 15:36-0400 Body weight 76.[address] Kathya Salter Work Phone: [facility] 08-26-2023 15:36-0400 Diastolic blood pressure 78 mm[Hg] Dr. Kathya Salter Work Phone: [facility] 08-26-2023 15:36-0400 Systolic blood pressure 118 mm[Hg] Dr. Kathya Salter Work Phone: [facility] 05-31-2023 11:11-0500 Body mass index (BMI) [Ratio] 28.1 kg/m2 Dr. Kathya Salter Work Phone: [facility] 05-31-2023 11:11-0500 Body weight 84.[address] Kathya Salter Work Phone: [facility] 05-31-2023 11:11-0500 Diastolic blood pressure 86 mm[Hg] Dr. Kathya Salter Work Phone: [facility] 05-31-2023 11:11-0500 Systolic blood pressure 132 mm[Hg] Dr. Kathya Salter Work Phone: [facility] 04-29-2023 13:50-0500 Body height 172.[address] Kathya Salter Work Phone: [facility] 04-29-2023 13:49-0500 Body mass index (BMI) [Ratio] 28.5 kg/m2 Dr. Kathya Salter Work Phone: [facility] 04-29-2023 13:49-0500 Body weight 85.[address] Kathya Salter Work Phone: [facility] 04-29-2023 13:49-0500 Diastolic blood pressure 71 mm[Hg] Dr. Kathya Salter Work Phone: [facility] 04-29-2023 13:49-0500 Systolic blood pressure 114 mm[Hg] Dr. Kathya Salter Work Phone: [facility] 04-21-2023 10:20-0500 Heart rate 90 /min Dr. Kathya Salter Work Phone: [facility] 04-21-2023 10:20-0500 SaO2% (BldA) [Mass fraction] 98 % Dr. Kathya Salter Work Phone: [facility] 04-21-2023 10:19-0500 Diastolic blood pressure 63 mm[Hg] Dr. Kathya Salter Work Phone: [facility] 04-21-2023 10:19-0500 Systolic blood pressure 126 mm[Hg] Dr. Kathya Salter Work Phone: [facility] 04-21-2023 10:18-0500 Body temperature 98.6 [degF] Dr. Kathya Salter Work Phone: [facility] 04-21-2023 10:18-0500 Respiratory rate 16 /min Dr. Kathya Salter Work Phone: [facility] 04-19-2023 07:44-0500 Body height 172.[address] Kathya Salter Work Phone: [facility] 04-19-2023 07:44-0500 Body mass index (BMI) [Ratio] 32.2 kg/m2 Dr. Kathya Salter Work Phone: [facility] 04-19-2023 07:44-0500 Body weight 96.[address] Kathya Salter Work Phone: [facility] 04-05-2023 13:06-0500 Body mass index (BMI) [Ratio] 31.1 kg/m2 Dr. Kathya Salter Work Phone: [facility] 04-05-2023 13:06-0500 Body weight 95.[address] Kathya Salter Work Phone: [facility] 04-05-2023 13:06-0500 Diastolic blood pressure 83 mm[Hg] Dr. Kathya Salter Work Phone: [facility] 04-05-2023 13:06-0500 Systolic blood pressure 128 mm[Hg] Dr. Kathya Salter Work Phone: [facility] 04-05-2023 13:03-0500 Body mass index (BMI) [Ratio] 30.3 kg/m2 Dr. Kathya Salter Work Phone: [facility] 04-05-2023 13:03-0500 Body weight 93.[address] Kathya Salter Work Phone: [facility] 04-05-2023 13:03-0500 Diastolic blood pressure 84 mm[Hg] Dr. Kathya Salter Work Phone: [facility] 04-05-2023 13:03-0500 Systolic blood pressure 129 mm[Hg] Dr. Kathya Salter Work Phone: [facility] 03-29-2023 13:06-0500 Body mass index (BMI) [Ratio] 30.2 kg/m2 Dr. Kathya Salter Work Phone: [facility] 03-29-2023 13:06-0500 Body weight 92.[address] Kathya Salter Work Phone: [facility] 03-29-2023 13:06-0500 Diastolic blood pressure 83 mm[Hg] Dr. Kathya Salter Work Phone: [facility] 03-29-2023 13:06-0500 Systolic blood pressure 120 mm[Hg] Dr. Kathya Salter Work Phone: [facility] 03-22-2023 13:04-0500 Body mass index (BMI) [Ratio] 29.8 kg/m2 Dr. Kathya Salter Work Phone: [facility] 03-22-2023 13:04-0500 Body weight 91.[address] Kathya Salter Work Phone: [facility] 03-22-2023 13:04-0500 Diastolic blood pressure 81 mm[Hg] Dr. Kathya Salter Work Phone: [facility] 03-22-2023 13:04-0500 Systolic blood pressure 123 mm[Hg] Dr. Kathya Salter Work Phone: [facility] 03-15-2023 13:03-0500 Body height 175.[address] Kathya Salter Work Phone: [facility] 03-15-2023 13:02-0500 Body mass index (BMI) [Ratio] 29.2 kg/m2 Dr. Kathya Salter Work Phone: [facility] 03-15-2023 13:02-0500 Body weight 89.[address] Kathya Salter Work Phone: [facility] 03-15-2023 13:02-0500 Diastolic blood pressure 75 mm[Hg] Dr. Kathya Salter Work Phone: [facility] 03-15-2023 13:02-0500 Systolic blood pressure 112 mm[Hg] Dr. Kathya Salter Work Phone: [facility] 03-10-2023 13:48-0400 Body mass index (BMI) [Ratio] 28.8 kg/m2 Dr. Kathya Salter Work Phone: [facility] 03-10-2023 13:48-0400 Body weight 88.[address] Kathya Salter Work Phone: [facility] 03-10-2023 13:48-0400 Diastolic blood pressure 87 mm[Hg] Dr. Kathya Salter Work Phone: [facility] 03-10-2023 13:48-0400 Systolic blood pressure 127 mm[Hg] Dr. Kathya Salter Work Phone: [facility] 02-22-2023 13:17-0400 Body mass index (BMI) [Ratio] 28 kg/m2 Dr. Kathya Salter Work Phone: [facility] 02-22-2023 13:17-0400 Body weight 86.[address] Kathya aSlter Work Phone: [facility] 02-22-2023 13:17-0400 Diastolic blood pressure 64 mm[Hg] Dr. Kathya Salter Work Phone: [facility] 02-22-2023 13:17-0400 Systolic blood pressure 116 mm[Hg] Dr. Kathya Salter Work Phone: [facility] 02-10-2023 08:45-0400 Body mass index (BMI) [Ratio] 27.5 kg/m2 Dr. Kathya Salter Work Phone: [facility] 02-10-2023 08:45-0400 Body weight 84.[address] Kathya Salter Work Phone: [facility] 02-10-2023 08:45-0400 Diastolic blood pressure 70 mm[Hg] Dr. Kathya Salter Work Phone: [facility] 02-10-2023 08:45-0400 Systolic blood pressure 107 mm[Hg] Dr. Kathya Salter Work Phone: [facility] 01-25-2023 13:03-0400 Body mass index (BMI) [Ratio] 26.7 kg/m2 Dr. Kathya Salter Work Phone: [facility] 01-25-2023 13:03-0400 Body weight 82.[address] Kathya Salter Work Phone: [facility] 01-25-2023 13:03-0400 Diastolic blood pressure 74 mm[Hg] Dr. Kathya Salter Work Phone: [facility] 01-25-2023 13:03-0400 Systolic blood pressure 128 mm[Hg] Dr. Kathya Salter Work Phone: [facility] 01-11-2023 13:10-0400 Body mass index (BMI) [Ratio] 25.5 kg/m2 Dr. Kathya Salter Work Phone: [facility] 01-11-2023 13:10-0400 Body weight 78.[address] Kathya Salter Work Phone: [facility] 01-11-2023 13:10-0400 Diastolic blood pressure 82 mm[Hg] Dr. Kathya Salter Work Phone: [facility] 01-11-2023 13:10-0400 Systolic blood pressure 134 mm[Hg] Dr. Kathya Salter Work Phone: [facility] 12-14-2022 09:21-0400 Body mass index (BMI) [Ratio] 24.4 kg/m2 Dr. Kathya Salter Work Phone: [facility] 12-14-2022 09:21-0400 Body weight 74.[address] Kathya Salter Work Phone: [facility] 12-14-2022 09:21-0400 Diastolic blood pressure 78 mm[Hg] Dr. Kathya Salter Work Phone: [facility] 12-14-2022 09:21-0400 Systolic blood pressure 118 mm[Hg] Dr. Kathya Salter Work Phone: [facility] 11-16-2022 10:17-0400 Body height 175.[address] Kathya Salter Work Phone: [facility] 11-16-2022 10:17-0400 Body mass index (BMI) [Ratio] 22.3 kg/m2 Dr. Kathya Salter Work Phone: [facility] 11-16-2022 10:17-0400 Body weight 68.[address] Kathya Salter Work Phone: [facility] 11-16-2022 10:17-0400 Diastolic blood pressure 62 mm[Hg] Dr. Kathya Salter Work Phone: [facility] 11-16-2022 10:17-0400 Systolic blood pressure 108 mm[Hg] Dr. Kathya Salter Work Phone: [facility] 10-18-2022 14:26-0400 Body mass index (BMI) [Ratio] 20.4 kg/m2 Dr. Kathya Salter Work Phone: [facility] 10-18-2022 14:26-0400 Body weight 62.[address] Kathya Salter Work Phone: [facility] 10-18-2022 14:26-0400 Diastolic blood pressure 74 mm[Hg] Dr. Kathya Salter Work Phone: [facility] 10-18-2022 14:26-0400 Systolic blood pressure 118 mm[Hg] Dr. Kathya Salter Work Phone: [facility] 09-21-2022 10:17-0400 Diastolic blood pressure 83 mm[Hg] Dr. Kathya Salter Work Phone: [facility] 09-21-2022 10:17-0400 Systolic blood pressure 131 mm[Hg] Dr. Kathya Salter Work Phone: [facility] 09-21-2022 09:48-0400 Body mass index (BMI) [Ratio] 19.1 kg/m2 Dr. Kathya Salter Work Phone: [facility] 09-21-2022 09:48-0400 Body weight 57.[address] Kathya Salter Work Phone: [facility] NEGATED: Highlighted [id number] 14:26-0500 BMI (Body Mass Index) 23.58 kg/m2 Nanci Gómez LPN [facility] Work Phone: NEGATED: Highlighted [id number] 14:26-0500 BP Diastolic 75 mm[Hg] Nanci Gómez LPN [facility] Work Phone: NEGATED: Highlighted [id number] 14:26-0500 BP Systolic 116 mm[Hg] Nanci Gómez EN[employer]ISH [employer] [facility] Work Phone: NEGATED: Highlighted [id number] 14:26-0500 Height 170.18 cm Nanci Gómez LPN [facility] Work Phone: NEGATED: Highlighted [id number] 14:26-0500 Height 170 cm Nanci Gómez EN[employer] [facility] Work Phone: NEGATED: Highlighted [id number] 14:26-0500 Pulse (Heart Rate) 74 /min Nanci Gómez LPN [facility] Work Phone: NEGATED: Highlighted [id number] 14:26-0500 Weight 68.04 kg Nanci Gómez [employer] [facility] Work Phone: NEGATED: Highlighted [id number] 14:26-0500 Weight 68 kg Nanci Gómez [employer] [facility] Work Phone: Encounters Encounter Date Encounter Type Care Provider Facility Start: 03-15-2025 ambulatory Marce Coon Fa cility:[facility] Start: 03-15-2025 End: 03-15-2025 ambulatory Marce Coon Facility:[facility] Start: 03-14-2025 End: 03-14-2025 ambulatory Marce Coon Facility:[facility] Start: 02-13-2025 End: 02-13-2025 Patient encounter procedure Debby Castor IT INFRASTRUCTURE MANAGER-C [facility] Work Phone: Start: 02-13-2025 End: 02-13-[address] Kathya Salter DO Work Phone: [facility] Start: 02-13-2025 End: 02-13-2025 ambulatory Carol Mnculty Facility:[facility] Start: 01-29-2025 End: 01-29-2025 ambulatory KATHYA SALTER [facility] Start: 01-18-2025 End: 01-18-[address] Carol Mcnulty MD -[facility] Work Phone: Start: 01-18-2025 End: 01-18-[address] Kathya Salter DO Work Phone: [facility] Start: 01-01-2025 End: 01-01-2025 [facility] Start: 12-19-2024 End: 12-19-2024 Patient encounter procedure Debby LOCO -[facility] Work Phone: Start: 12-19-2024 End: 12-19-[address] Kathya Salter DO Work Phone: [facility] Start: 11-20-2024 End: 11-20-[address] Marce Coon DO -[facility] Work Phone: Start: 11-20-2024 End: 11-20-[address] Kathya Salter DO Work Phone: [facility] Start: 10-29-2024 End: 10-29-[address] Kathya Salter DO Work Phone: [facility] Work Phone: Start: 10-29-2024 End: 10-29-2024 Patient encounter procedure Preeti Crawford CNM -[facility] Start: 10-29-2024 End: 10-29-2024 ambulatory Preeti Crawford Facility:[facility] Start: 10-16-2024 End: 10-16-[address] Kathya Salter DO Work Phone: [facility] Work Phone: Start: 10-16-2024 End: 10-16-2024 Patient encounter procedure Preeti Crawford CNM -[facility] Work Phone: Start: 10-16-2024 End: 10-16-2024 Patient encounter procedure Preeti Crawford CNM [facility] Work Phone: Start: 10-16-2024 End: 10-16-[address] Kathya Salter DO Work Phone: [facility] Work Phone: Start: 10-16-2024 End: 10-16-2024 ambulatory Preeti Ty Facility:[facility] Start: 02-29-2024 End: 03-08-2024 Refill Meir Catjennifer DDS Work Phone: [facility] Comment on above: Referral to Special[facility] (Patient requested referral ) Start: 02-28-2024 End: 02-28-2024 Telephone encounter Meir Castillo DDS Work Phone: [facility] Comment on above: Send Referral Start: 02-22-2024 End: 02-23-2024 Patient encounter procedure Meir Catjennifer DDS Work Phone: [facility] Comment on above: Dental decay (Primar y Dx) Start: 02-22-2024 End: 02-23-2024 ambulatory UNKNOWN PROVIDER Facility:[facility] Start: 11-14-2023 End: 11-18-2023 ambulatory LOS MORALES DO Facility:[facility] Start: 11-14-2023 End: 11-18-2023 Outreach Lab LOS MORALES DO [facility] Start: 08-26-2023 End: 08-26-[address] Kathya Salter Work Phone: [facility] Work Phone: Start: 08-26-2023 End: 08-26-[address] [facility] Work Phone: Start: 08-26-2023 End: 08-26-[address] Kathya Salter Work Phone: [facility] Work Phone: Start: 05-31-2023 End: 05-31-[address] Kathya Salter Work Phone: [facility] Work Phone: Start: 04-29-2023 End: 04-29-[address] Kathya Salter Work Phone: [facility] Work Phone: Start: 04-29-2023 End: 04-29-[address] Kath[facility] Sal[facility] Work Phone: Start: 04-29-2023 End: 04-29-[address] Kathya Salter Work Phone: [facility] Work Phone: Start: 04-21-2023 Non-patient / Non-visit Dr. Kathya Salter Work Phone: [facility] Start: 04-20-2023 Non-patient / Non-visit Dr. Kathya Salter Work Phone: [facility] Start: 04-19-2023 Non-patient / Non-visit Dr. Kathya Salter Work Phone: [facility] Start: 04-19-2023 End: 04-21-2023 Evaluation and management of inpatient Dr. Kathya Salter [facility] Work Phone: Start: 04-14-2023 End: 04-14-[address] Kathya Salter Work Phone: [facility] Work Phone: Start: 04-05-2023 End: 04-05-[address] Kathya Salter Work Phone: [facility] Work Phone: Start: 03-29-2023 End: 03-29-[address] Kathya Saltre Work Phone: [facility] Work Phone: Start: 03-22-2023 End: 03-22-[address] Kathya Salter Work Phone: [facility] Work Phone: Start: 03-15-2023 End: 03-15-[address] Kathya Salter Work Phone: [facility] Work Phone: Start: 03-15-2023 End: 03-15-[address] Kathya Salter Work Phone: [facility]atory, Spec[facility] Work Phone: Start: 03-15-2023 End: 03-15-[address] Kathya Salter Work Phone: [facility] Work Phone: Start: 03-10-2023 End: 03-10-[address] Kathya Salter Work Phone: [facility] Work Phone: Start: 02-22-2023 End: 02-22-[address] Kathya Salter Work Phone: [facility] Work Phone: Start: 02-10-2023 End: 02-10-[address] Kathya Salter Work Phone: [facility] Work Phone: Start: 01-25-2023 End: 01-25-[address] Kathya Salter Work Phone: [facility] Work Phone: Start: 01-11-2023 End: 01-11-[address] Kathya Salter Work Phone: [facility] Work Phone: Start: 01-11-2023 End: 01-11-[address] Kathya Salter Work Phone: [facility] Work Phone: Start: 12-14-2022 End: 12-14-[address] Kathya Salter Work Phone: [facility] Work Phone: Start: 11-16-2022 End: 11-16-[address] Kathya Salter Work Phone: [facility] Work Phone: Start: 11-16-2022 End: 11-16-[address] Kathya Salter Work Phone: [facility] Work Phone: Start: 10-18-2022 End: 10-18-[address] Kathya Salter Work Phone: [facility] Work Phone: Start: 09-21-2022 End: 09-21-[address] Kathya Salter Work Phone: [facility] Work Phone: Start: 06-22-2018 End: 06-22-2018 Patient encounter procedure Raul Holden MD Work Phone: [facility] Work Phone: Start: 06-22-2018 End: 06-22-2018 Pt evaluation Raul Holden MD Work Phone: [facility] Work Phone: Procedures Date Procedure Procedure Detail [...] HCV Quant by PCR testing - HCVPCR [id number] Non Reactive: < 0.8 Equivocal: >/= 0.8 [...] 08-26-2023 Investigation of tra nsfusion reaction Dr. Kathya Salter Work Phone: Start: 04-29-2023 Cytopathology proced [...] MD Work Phone: None (qualifier value) LOS MORALES Plan of Treatment Date Care Activity Detail Author Start: 2050 Shingles (RZV) Vaccine (1 of 2) Shingles (RZV) Vaccine (1 of 2) [facility] Start: 02-13-2025 CBC W Auto Differential panel - Blood [facility] Start: 02-13-2025 Measurement of glucose 2 hours after glucose challenge for glucose tolerance test [facility] Start: 02-13-2025 Serologic test for syphilis [facility] Start: 02-13-2025 [facility] Start: 01-18-2025 [facility] Start: 12-19-2024 [facility] Start: 04-23-2024 End: 04-23-2024 Patient encounter procedure [facility] Start: 04-16-2024 End: 04-16-2024 Patient encounter procedure 04/16/2024 3:00 PM EST Procedure Visit [facility] [address], [address] [place] [address] Janice Pereira DDS [address] [place] [address] [facility] Start: 01-08-2024 COVID-19 Vaccine ( season) [facility] Start: 01-08-2024 COVID-19 Vaccine ( season) [facility] Start: 01-08-2024 Influenza vaccination Influenza Vaccine (#1) [facility] Start: 04-21-2023 Patient discharge [facility] Start: 04-20-2023 Consultation [facility] Start: 04-19-2023 Administration of medication [facility] Start: 04-19-2023 Application of ice collar, cap or bag [facility] Start: 04-19-2023 Catheterization of vein [facility] Start: 04-19-2023 Introduction of urinary catheter [facility] Start: 04-19-2023 Measuring intake and output [facility] Start: 04-19-2023 Notification of physician [facility] Start: 04-19-2023 Procedure discontinued [facility] Start: 04-19-2023 Provision of activity privileges [facility] Start: 04-19-2023 Vital signs measurements [facility] Start: 04-19-2023 [facility] Start: 04-19-2023 Admission procedure [facility] Start: 2021 Screening for malignant neoplasm of cervix Pap Smear [facility] Start: 2019 Hepatitis A (HAV) Vaccine (optional start 19+ years) Hepatitis A (HAV) Vaccine (optional start 19+ years) [facility] Start: 2019 Hepatitis B vaccination Hepatitis B (HBV) Vaccine (1 of 3 - 19+ 3-dose series) [facility] Start: 06-22-2018 End: 06-22-2018 Appointment Appointment [facility] Work Phone: Start: 2018 Hepatitis C [...] W Auto Different ial panel - Blood [facility] CBC W Auto Different ial panel - Blood [facility] Chlamydia deoxyribon ucleic acid detection [facility] Drugs identified in Urine by Screen method [facility] Erythrocyte mean corpuscular volume determination [facility] Hematocrit [Volume Fraction] of Blood [facility] Hemoglobin [Mass/vol ume] in Blood [facility] Hepatitis C antibody measurement [facility] Leukocytes [#/volume ] in Blood [facility] Mean corpuscular hemoglobin concentration determination [facility] Mean corpuscular hemoglobin determination [facility] Measurement of gluco se 2 hours after glucose challenge for glucose tolerance test [facility] Neutrophil count [facility] Neutrophil percent differential count [facility] Patient referral [facility] Work Phone: Platelets [#/volume] in Blood [facility] Procedure [facility] Red blood cell count [facility] Red cell distributio n width determination [facility] Rubella IgG measurement [facility] Serologic test for syphilis [facility] Serologic test for syphilis [facility] US Breast limited [place] Immunizations Immunization Date Immunization Notes Care Provider Fa cili 06-11-2020 tetanus toxoid, reduced diphtheria toxoid, and acellular pertussis vaccine, adsorbed; Translations: [Boostrix (Tdap)] LOS MORALES DO [facility] 01-23-2013 tetanus toxoid, reduced diphtheria toxoid, and acellular pertussis vaccine, adsorbed LOS MORALES DO [facility] 01-23-2013 varicella virus vaccine LOS MORALES DO [facility] 07-30-2005 measles/mumps/rubell a virus vaccine LOS MORALES DO [facility] 07-30-2005 poliovirus vaccine, inactivated LOS MORALES DO [facility] 07-30-2005 varicella virus vaccine LOS MORALES DO [facility] 04-16-2002 haemophilus influenz ae type b vaccine, PRP-OMP conjugate LOS MORALES DO [facility] 04-16-2002 hepatitis B pediatri c vaccine LOS MORALES DO [facility] No information available. Nanci Gómez LPN [facility] Work Phone: Payers Date Payer Category Payer Self-pay [id number] 2022 Medicaid DENTAL-MEDICAID [facility] MEDICAID [id number] 2022-Present [address] [place] [address] [id number] 2022 Unknown [id number] 2000 Unknown [id number] 2000 Unknown [id number] 2000 Unknown [id number] 2000 Unknown [id number] Unknown [id number] Unknown [facility] [id number] Unknown [facility] [id number] Unknown [id number] Unknown [id number] Unknown [id number] Unknown [id number] Unknown [id number] Unknown [id number] Unknown [id number] Unknown [id number] Unknown [id number] Unknown [id number] Unknown [id number] Social History Date Type Detail Facility Start: 2000 Sex Assigned At Female [facility] Start: 11-16-2022 End: 04-19-2023 Tobacco smoking status NHIS Unknown if ever smoked [facility] Start: 11-14-2023 End: 10-05-2024 Tobacco smoking status Ex-smoker (finding) [facility] Sex Assigned At Sex [facility] Start: 2000 Sex assigned at Not on file [facility] Gender identity Not on file [facility] NEGATED: Highlighted rowStart: 06-22-2018 End: 06-22-2018 Alcohol use Unknown if ever smoked [facility] Work Phone: NEGATED: Highlighted rowStart: 06-22-2018 End: 06-22-2018 Details of drug misuse behavior DRUG USE No [facility] Work Phone: NEGATED: Highlighted rowStart: 06-22-2018 End: 06-22-2018 How many days of moderate to strenuous exercise, like a brisk walk, did you do in the last 7 days? EXERCISEFREQ 3 days per week [facility] Work Phone: NEGATED: Highlighted rowStart: 06-22-2018 End: 06-22-2018 Assertion Never smoker [facility] Work Phone: Goals Date Patient Goal Desired Activity /State Clinical Notes 09-21-2022 to 02-13-2025 Note Date & Type Note Facility 02-13-2025 Progress note [facility] 02-06-2025 Progress note Note Date/Time February 13, 2025 10:42am [facility] [address], [address] [place] [address] OFFICE VISIT Date of Service: 02/13/25 MR#: [id number] Acct: [id number] Name: JOE ARRIOLA Rep #: [id number] : 2000 Provider: CLAUDY Suh Age/Sex: 24/F Location: [facility] Status: Signed Intake Vital Signs 12/19/24 15:45 01/18/25 12:59 02/13/25 10:24 Height 5 ft 8 in 5 ft 8 in 5 ft 8 in Weight: 152 lb 4 oz 167 lb 5 oz 176 lb 6 oz BMI 23.1 25.4 26.8 BP 131/76 H 113/68 112/75 Intake Visit Reasons: 26WK 1D OB/GLUCOSE Md Pediatric Allergist Required: No Is patient in pain?: No Allergies No Known Allergies Allergy (Verified 02/13/25 10:27) Medications ?Medication ?Instructions ?Recorded ?Confirmed ?Type multivit-min no.71-iron fum 28 1 cap PO DAILY pregnanc y 09/14/22 02/13/25 History mg-folate no.1 1 mg-dha 300 mg capsule (PNV-[place]) Last Menstrual Period: 08/14/24 Zika: Zika virus [...] times per week duration: > 90 minutes/day fernanda/latter day: Caodaism seatbelt use: always do you feel safe [...] full term 8lbs 13oz Male ep idural [facility] MARCELO Batista HPI 26WK 1D OB/GLUCOSE Details: [...] high risk , unspecified, second trimester Comment: [id number], CHARLIE 05/21/25,girl PC Lee, BF Joaquim (2) [...] 02/13/25 1042 <Electronically signed by Debby latham IT INFRASTRUCTURE MANAGER IT INFRASTRUCTURE MANAGER-C> Date _ Debby Suh NP IT INFRASTRUCTURE MANAGER-C Cosigner Signature: Date (if applicable) CC: ~ [place] [facility] Work Phone: 1(413) 923-194806-10-2025 Evaluation note* Diagnosis Onset Date Resolution Status Admit Date Anxiety acute October 16 2:47pm Former smoker acute October 16, 2024 2:47pm History of miscarriage, curr ently acute October 16, 2024 2:47pm Marijuana use acute October 16, 2024 2:47pm acute October 16 2:47pm Supervision of high-risk acute October 16, 2024 2:47pm [facility] Work Phone: 1(340) 616-569006-10-2025 Evaluation note* Diagnosis Onset Date Resolution Status [...] of high-risk acute November 20, 2024 3:13pm [facility] Work Phone: [phone]) 743-181606-10-2025 Evaluation note* Diagnosis Onset Date Resolution Status [...] Supervision of high-risk acute December 19 3:42pm [facility] Work Phone: 1(843) 493-594906-10-2025 Evaluation note* Diagnosis Onset Date Resolution Status [...] of high-risk acute January 18, 2025 12:52pm [facility] Work Phone: 1([phone]) 649-493806-10-2025 Evaluation note* Diagnosis Onset Date Resolution Status [...] Supervision of high-risk acute February 13 10:23am [facility] Work Phone: 1(280) 408-778906-10-2025 [facility] [address] [place] [address], [address] [place] [address] OFFICE VISIT Date of Service: 10/16/24 MR#: [id number] Acct: [id number] Name: JOE ARRIOLA Rep #: [id number] : 2000 Provider: MARCELO Crawford Age/Sex: 24/F Location: [facility] Status: Signed Intake Vital Signs 02/03/24 13:36 10/16/24 14:51 Height 5 ft 8 in 5 ft 8 in Weight: 146 lb 4 oz BMI 22.2 BP 121/73 H Intake Visit Reasons: *EST* NOB LMP 08/14, CHARLIE 05/21/25 Md Pediatric Allergist Required: No Is patient in pain?: No Allergies No Known Allergies Allergy (Verified 10/16/24 14:52) Medications ?Medication ?Instructions ?Recorded ?Confirmed ?Type multivit-min no.71-iron fum 28 1 cap PO DAILY pregnanc y 09/14/22 02/03/24 History mg-folate no.1 1 mg-dha 300 mg capsule (PNV-[place]) Last Menstrual Period: 08/14/24 Zika: Zika virus [...] times per week duration: > 90 minutes/day fernanda/latter day: Caodaism seatbelt use: always do you feel safe at home: Yes additional social history: - [place] [employer] History 3 Elective abortions Hx Para 1 Spontaneous abortions 1 Hx # Term Pregnancies Ectopic pregnancies Hx # Pregnancies Multiple births 0 # of living children 1 Past Pregnancies Del. Date Name GA/Weeks Outcome Route Bth Weight Gen Labor Lgth Anesthesia Del Locatn Provider FOB 04/19/23 Lee 41 live - full term 8lbs 13oz Male ep idural [facility] Preeti Crawford, CNChuck March HPI *EST* NOB [...] 08/14/24 Reported LMP: definite Normal amount/duration: No (metal finisher flow and shorter) Frequency in days: 28 [...] History: Positive: Psychiatric (anxiety), Seasonal allergies and Metal Fence Erector surgery (D&C 01/30)and Negative: Diabetes, Hypertension, Heart [...] Cosigner Signature: Date (if applicable) CC: ~ [facility]06-10-2025 Progress note Author Preeti Crawford [facility] Services Note Date/Time October 16, 2024 3:15 pm [facility] [address] [place] [address], [address] [place] [address] OFFICE VISIT Date of Service: 10/16/24 MR#: [id number] Acct: [id number] Name: JOE ARRIOLA Rep #: [id number] : 2000 Provider: MARCELO Crawford Age/Sex: 24/F Location: [facility] Status: Signed Intake Vital Signs 02/03/24 13:36 10/16/24 14:51 Height 5 ft 8 in 5 ft 8 in Weight: 146 lb 4 oz BMI 22.2 BP 121/73 H Intake Visit Reasons: *EST* NOB LMP 08/14, CHARLIE 05/21/25 Md Pediatric Allergist Required: No Is patient in pain?: No Allergies No Known Allergies Allergy (Verified 10/16/24 14:52) Medications ?Medication ?Instructions ?Recorded ?Confirmed ?Type multivit-min no.71-iron fum 28 1 cap PO DAILY pregnanc y 09/14/22 02/03/24 History mg-folate no.1 1 mg-dha 300 mg capsule (PNV-[place]) Last Menstrual Period: 08/14/24 Zika: Zika virus [...] occupational status: employed 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 current occupational exposures/hazards: No pets and animals: [...] times per week duration: > 90 minutes/day frenanda/latter day: Caodaism seatbelt use: always do you feel safe at home: Yes additional social history: BF- [place] [employer] History 3 Elective abortions Hx Para 1 Spontaneous abortions 1 Hx # Term Pregnancies Ectopic pregnancies Hx # Pregnancies Multiple births 0 # of living children 1 Past Pregnancies Del. Date Name GA/Weeks Outcome Route Bth Weight Infant Gen Labor Lgth Anesthesia Del Locatn Provider FOB 04/19/23 Lee 41 live - full term 8lbs 13oz Male ep idural [facility] MARCELO Batista HPI *EST* NOB LMP 08/14, [...] 08/14/24 Reported LMP: definite Normal amount/duration: No (metal finisher flow and shorter) Frequency in days: 28 [...] History: Positive: Psychiatric (anxiety), Seasonal allergies and Metal Fence Erector surgery (D&C 01/30) and Negative: Diabetes, Hypertension, [...] Cosigner Signature: Date (if applicable) CC: ~ [facility] Work Phone: [phone] NoteWhat is the need: Situation: Send Referral Background: Pt called in requesting her OS referral submitted by Dr Diamond Gutiérrez to be emailed to the 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 Recommendation: Please email referral to [email or web address]. If there are any questions, call Pt at Telephone Information: Thanks! 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 Recommendation: Please email referral to [email or web address]. If there are any questions, call Pt at Telephone Information: Thanks! 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 Recommendation: Please email referral to [email or web address]. If there are any questions, call Pt at Telephone Information: Thanks! Scott [place] Sent in [employer] on 02/29/24 documented in this [id number] History of Present illness Narrative* Meir Castillo DDS - 02/22/2024 3:30 PM EDT ----- Thursday, February 22, 2024 at 4:54:58 PM ----- ----- Provider: [id number] Resident Neal -- Clinic: [place] [address] ----- INITIAL/COMPREHENSIVE EXAM Patient presents for an [...] February at 5:46:22 PM ----- ----- Provider: [id number] Viki Gutiérrez DDS -- Clinic: [place] [address] ----- documented in this [id number] Note. MICRO - Microbiology PROCEDURE: Affirm Pathogens [...] Locations *1: This test was performed at: [facility], [address] [place] [address], [facility] , [facility])09-01-2023 Evaluation note* Diagnosis Onset Date Resolution Status Routine Follow-Up noneactive Breast lump on right side at 12 o'clock position acute Vaginal discharge acute [facility] Work Phone: 1(296) 510-576412-14-2023 Progress note Author Debby Suh [facility] April 21, 2023 8:01am Note Date/Time April 21, 2023 8:01am [facility] Medical Records Department [address] [place] [address] Progress Note - OBGYN 04/21/23 0759 MR#: [id number] Acct: [id number] Name: JOE ARRIOLA Rep #:[id number] : 2000 23 From: Debby Suh NP IT INFRASTRUCTURE MANAGER-C PCP: Dr. Kathya Salter, DO Status:ADM IN Location: OL299-2 Subjective Subjective Patient doing well without complaints. [...] home today 04/21/23 0801 <Electronically signed by Debby Suh NP IT INFRASTRUCTURE MANAGER-C> Cosigner Signature (if applicable): CC: ~ Signed [facility] Work Phone: 1(241) 179-792312-13-2023 Progress note Author Debby Suh [facility] April 20, 2023 7:56am Note Date/Time April 20, 2023 7:56am [facility] Medical Records Department [address] [place] [address] Progress Note - OBGYN 04/20/23 0755 MR#: [id number] Acct: [id number] Name: JOE ARRIOLA Rep #:[id number] : 2000 23 From: Debby Suh NP IT INFRASTRUCTURE MANAGER-C PCP: Dr. Kathya Salter, DO Status:ADM IN Location: SN689-4 Subjective Subjective Patient doing well without complaints. [...] % (Auto) 67.1, Lymph % (Auto) 20.9, Blaine % (Auto) 8.3, Eos % (Auto) 2.9, [...] 0756 <Electronically signed by Debby Suh NP IT INFRASTRUCTURE MANAGER-C> Cosigner Signature (if applicable): CC: ~ Signed [facility] Work Phone: 1(419) 100-304412-12-2023 Procedure [facility] 04-19-2023 Progress note Author Preeti Crawford [facility] April 19, 2023 5:13pm Note Date/Time April 19, 2023 5:13pm [facility] Medical Records Department [address] [place] [address] Progress Note 04/19/231710 MR#: [id number] Acct: [id number] Name: JOE ARRIOLA Rep #:[id number] : 2000 23 From: Preeti Crawford CNM PCP: Dr. Kathya Salter, DO Status:ADM IN Location: EF264-2 Progress Note comfortable with epidural current tracing: FHT: 135 Moderate variability reactive no decelerations category I tracing [place]: 3-4 minute Contractions Membranes:SROM 1430 SVE: 6/90/-1 [...] Cosigner Signature (if applicable): CC: ~ Signed [facility] Work Phone: 1([phone]) 122-459412-12-2023 Progress note Author Preeti Crawford [facility] April 19, 2023 4:31pm Note Date/Time April 19, 2023 4:31pm [facility] Medical Records Department [address] [place] [address] Progress Note 04/19/23 1629 MR#: [id number] Acct: [id number] Name: JOE ARRIOLA Rep #:[id number] : 2000 23 From: Preeti Crawford CNM PCP: Dr. Kathya Salter, DO Status:ADM IN Location: [place] [id number] Progress Note comfortable with epidural current tracing: FHT: 125 Moderate variability reactive no decelerations category I tracing [place]: 3-4 Contractions Membranes: SROM at 1430 SVE:4/80/-2 [...] Cosigner Signature (if applicable): CC: ~ Signed [facility] Work Phone: 1(782) 658-331512-12-2023 History and physical note Author Preeti [facility] April 19, 2023 12:10pm Note Date/Time April 19, 2023 12:05pm [facility] Medical Records Department [address] [place] [address] H&P Exam - COUNSELOR MANAGER 04/19/23 0730 MR#: [id number] Acct: [id number] Name: JOE ARRIOLA Rep #:[id number] : 2000 From: Preeti Crawford CNM PCP: Dr. Kathya Salter, DO Status:ADM IN Location: VX728-9 HPI - General General Date of Admission: [...] Source: US >20 weeks Gestational age: 41.0 [facility] Medical History (Updated 04/19/23 @ 08:53 by Deneen Addison) Anxiety Depression Hx of recurrent urinary tract infection Home Medications multivit-min no.71-iron fum 28 mg-folate no.1 1 mg-dha 300 mg capsule (PNV- [place]) cap PO DAILY 09/14/22 [History Last Taken Unknown] Allergy/AdvReac Type Severity Reaction Status Date / Time No Known Allergies Allergy Verified 04/19/23 07:44 Family History Grandmother Heart disease Social History adopted: No household members: significant other current occupational status: employed 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 Declines flu vaccine. [place] 01/25/23 -?-?-?-?-?-?-?-?-?-?-?-?- 29w 0d 181 lb 2 [...] any complications: none I have reviewed the [facility] and made any clinically relevant updates. Dr Mcnulty aware of admission and above assessment. agrees with plan of care 04/19/23 1210<Electronically signed by Preeti Crawford CNM> Cosigner Signature (if applicable): cc: MARCELO Crawford; Dr. Kathya Salter DO ~* Signed [facility] Work Phone: [phone] Progress note Author Preeti Crawford [facility] April 19, 2023 12:05pm Note Date/Time April 19, 2023 12:05pm [facility] Medical Records Department [address] [place] [address] Progress Note 04/19/23 1203 MR#: [id number] Acct: [id number] Name: JOE ARRIOLA Rep #:[id number] : 2000 23 From: Preeti Crawford CNM PCP: Dr. Kathya Salter DO Status:ADM IN Location: OQ138-1 Progress Note Coping well with contractions current tracing: FHT: 135 Moderate variability reactive no decelerations category I tracing [place]: 3-4 minute-moderate Contractions Membranes:intact SVE:3/80/-2 on admission [...] Cosigner Signature (if applicable): CC: ~ Signed [facility] Work Phone: [phone] NotePap Smear Specimen AdequacyMay 2022 4:16pmComment.Satisfactory for evaluation. Endocervical and/or squamous metaplasticcells (endocervical component)are present.[facility]ED A#[id number] Health System West CampusComment on above:Satisfactory for evaluation. Endocervical and/or squamous metaplasticcells (endocervical component)are present.09-21-2022 NotePap Smear Specimen AdequacyMay 2022 4:16pmComment.Satisfactory for evaluation. Endocervical and/or squamous metaplasticcells (endocervical component)are present.[facility] INTER[facility]ED A#[id number] Health System West CampusComment on above:Satisfactory for evaluation. Endocervical and/or squamous metaplasticcells (endocervical component)are present.Evaluation + Plan note No data available for this section [facility] Evaluation noteNo assessment information available [facility] Work Phone: Evaluation note* Diagnosis Onset Date [...] Supervision of high risk , antepartum acute [facility] Work Phone: Evaluation note* Diagnosis Onset Date [...] Supervision of high risk , antepartum acute [facility] Work Phone: Evaluation note* Diagnosis Onset Date [...] Supervision of high risk , antepartum acute [facility] Work Phone: Evaluation note* Diagnosis Onset Date [...] external female genitalia acute Vaginal delivery acute [facility] Work Phone: Evaluation note* Diagnosis Dental decay- [...] Supervision of high risk , antepartum resolved [facility] Work Phone: Evaluation note* Diagnosis Onset Date Resolution Status Admit Date Anxiety acute October 16 2:47pm Former smoker acute October 16, 2024 2:47pm History of miscarriage, curr ently acute October 16, 2024 2:47pm Marijuana use acute October 16, 2024 2:47pm acute October 16 2:47pm Supervision of high-risk acute October 16, 2024 2:47pm [facility] Work Phone: Hospital Discharge instructions No data available for this section [facility] Progress note No data available for this section [facility] Reason for referral (narrative)No reason for referral information [facility] Work Phone: Chief Complaint Chief Complaint Description Start Date right knee pain Preliminary chief co mplaint data, not yet signed by the author as of Instructions Instruction Description Start Date Completed Advance Directives No Advanced Directives Records Found Advance Directive Response Recorded Date/ Time Living Will No April 19, 2 023 8:43am Power of Head Transfer Clerk No April 19, 2023 8:43am Advance Directive Response Recorded Date/ Time Living Will No April 19, 2 023 9:43am Power of Head Transfer Clerk No April 19, 2023 9:43am Assessments There [...] Surgery Diagnoses Dental decay Diamond Gutiérrez, DDS [address] [place] [address] [facility] SUR[facility] [address] [place] [address] Referral ID Status Reason Start Date Expiration Date V isits Requested Visits Authorized [id number] Pending Review 02/23/2024 02/22/2025 3 3 Scheduling Instructions Please call the operations tech Clinic at [facility] at to schedule an appointment if one [...] Provider, Referrin g Provider Active Debby Suh IT INFRASTRUCTURE MANAGER, IT INFRASTRUCTURE MANAGER-C Attending Provider Active Team Status: Inactive Member [...] DO Primary Care Provider Active Debby Suh IT INFRASTRUCTURE MANAGER, IT INFRASTRUCTURE MANAGER-C Attending Provider, Referring Provider Active Team Status: [...] Provider, Other Provider Ac tive Debby Suh IT INFRASTRUCTURE MANAGER, IT INFRASTRUCTURE MANAGER-C Attending Provider Active Team Status: Inactive Member [...] End: December 19, 2024 Debby Suh NP, IT INFRASTRUCTURE MANAGER-C Attending Provider Active Start: December 19, 2024 [...] End: December 19, 2024 Debby Suh NP, IT INFRASTRUCTURE MANAGER-C Attending physician Active Start: December 19, 2024 [...] section and content) DATE CREATED AUTHOR 11/30/2023 [facility] ([place]) DATE CREATED AUTHOR AUTHOR'S ORGANIZ ATION 03/07/2024 [facility] DATE CREATED AUTHOR AUTHOR'S ORGANIZ ATION 01/30/2025 [facility] DATE CREATED AUTHOR AUTHOR'S ORGANIZ ATION 03/19/2025 [facility] FOR RECORDS PERTAINING TO PATIENTS WHO [...] BE BASED ON THE PRIMARY CLINICAL RECORDS. [employer] [facility]. provides no warranty or guarantee of the accuracy or completeness of information in this document.
[2025-05-01 11:39] LABS: ROM Internal Control Test YES-OK TO RESULT pt. (Internal QC); ROM Patient Test Negative (Negative); Record Kit Lot#, ROM+ K3607
== END | disposition home or self-care (01) ==
LOC: BWCLAB 11:09
PROVIDERS: PCP Student in an Organized Health Care Education/Training Program; Visit Provider Student in an Organized Health Care Education/Training Program
DX: O09.93 Supervision of high risk pregnancy, unspecified, third trimester (principal); Z3A.00 Weeks of gestation of pregnancy not specified
CPT/HCPCS: 84112